=== PATIENT | female | born 1965 | race Caucasian/White ===

== ENCOUNTER 2017-03-08 16:15 | Emergency (ER) | payer MEDICARE, MEDICAID ==
[~2017-03-08] VITALS: Ht 162.6 cm; Wt 88.9 kg
[~2017-03-08 16:15] MED LIST: ACIPHEX; AMLO10TA82 PO; ATIVAN PO; CARB1TAB; CARB1TAB40; CHLO100T22; CLN.1T; CLON1TAB3; CLON2TAB3 PO; CPRH4T; CRS350T; DCS100C; DIAZ10TA3; DIVA-20; DOXE25CA2; FAMO20TA73; FURO40TA4 PO; HYDR-3720 PO; KCL10CCR; KCL20TCR PO; LOXA50CA; LTH300TCR; MELA1TAB11; METH10CP PO; MOBIC; NAPR-243 PO; NARDIL; NORVASC PO; OLAN1CAP5; PALI6TAB2; PANT40TA; PRAM1.5T4 PO; PRM25T; QUET300T; RABE20TA PO; RANI75TA57; REQUIP; SINEMET PO; STELAZINE PO; SUCR1TAB; TIZA4CAP PO; TIZA4TAB55; TRH2T; TRIA0.253; TRIA0.253 PO; TRIA1CAP PO; TRM50T; TRYP500C; WELLBUTRI PO; ZLP10T PO; [UNRECOGNIZED DRUG - OTHER]; [UNRECOGNIZED DRUG - OTHER]
[2017-03-08 16:35] LABS: BASOPHILS % (AUTO) 0 % (0-10); EOSINOPHILS % (AUTO) 0 % (0-10); LYMPHOCYTES % (AUTO) 20 % (12-44); MEAN CORPUSCULAR HEMOGLOBIN 26 PG (25-34); MEAN CORPUSCULAR HGB CONC 31 G/DL (32-36); MEAN CORPUSCULAR VOLUME 83 FL (80-99); MEAN PLATELET VOLUME 9.5 FL (7.4-10.4); MONOCYTES # (AUTO) 0.6 X 10^3 (0.0-1.0); MONOCYTES % (AUTO) 5 % (0-12); NEUTROPHILS # (AUTO) 7.5 X 10^3 (1.8-7.8); NEUTROPHILS % (AUTO) 74 % (42-75); PLATELET COUNT 357 10^3/uL (130-400); RED BLOOD COUNT 4.59 10^6/uL (4.35-5.85); RED CELL DISTRIBUTION WIDTH 14.1 % (10.0-14.5); WHITE BLOOD COUNT 10.1 10^3/uL (4.3-11.0)
[2017-03-08 16:52] LABS: ALANINE AMINOTRANSFERASE 20 U/L (0-55); ALBUMIN 3.8 GM/DL (3.2-4.5); ALCOHOL < 10 MG/DL (<10); ANION GAP 10 MMOL/L (5-14); ASPARTATE AMINO TRANSFERASE 17 U/L (5-34); BILIRUBIN,TOTAL 0.6 MG/DL (0.1-1.0); BLOOD UREA NITROGEN 13 MG/DL (7-18); BUN/CREATININE RATIO 15; CALCIUM 8.7 MG/DL (8.5-10.1); CARBON DIOXIDE 22 MMOL/L (21-32); CHLORIDE 109 MMOL/L (98-107); CREATININE SERUM 0.89 MG/DL (0.60-1.30); GFR ESTIMATED > 60; GLUCOSE 142 MG/DL (70-105); SALICYLATE < 5.0 MG/DL (5.0-20.0); SODIUM 141 MMOL/L (135-145); TOTAL PROTEIN 6.8 GM/DL (6.4-8.2)
[2017-03-08 16:59] LABS: ACETAMINOPHEN < 10 UG/ML (10-30)
[2017-03-08 17:47] LABS: BILIRUBIN,URINE NEGATIVE (NEGATIVE); KETONES,URINE NEGATIVE (NEGATIVE); LEUKOCYTE ESTERASE ,URINE 2+ (NEGATIVE); NITRITE,URINE NEGATIVE (NEGATIVE); PH,URINE 5 (5-9); PROTEIN,URINE NEGATIVE (NEGATIVE); UROBILINOGEN,URINE NORMAL (NORMAL)
--- NOTE | 2017-03-08 18:31 | ED Psychosocial ---
General Chief Complaint: Overdose Stated Complaint: SUICIDE ATTEMPT Nursing Triage Note: pt was brought into room by ems. pt states she doesn't know who called ems. pt states she took 14 zanaflex at approx. 1330 today. pt states "i wish i would go to sleep and not wake up". Source: patient, EMS Exam Limitations: no limitations (LALO WILSON MD) History of Present Illness Time seen by provider: 16:17 Initial Comments This 51-year-old woman is brought to the emergency room via EMS after being found in her car with decreased responsiveness. She admits to taking 14 Zanaflex 4 mg tablets at 14:00. She [place] and being upset about this and other life circumstances. She desired to end her life at that time. She reports knowing that the Zanaflex overdose would not end her life that she took them anyway because she wanted to sleep. She now feels that she would be safe from self-harm if she were to return home which she desires to do. She is somnolent but alert and oriented. Vital signs are stable. Poison control was contacted and recommended a 4-6 hour observation. Half-life is 2.5 hours. (LALO WILSON MD) Allergies and Home Medications Allergies Coded Allergies: No Known Drug Allergies (Unverified , 08/24/12) Home Medications Amlodipine Besylate 10 Mg Tablet, 1 EACH PO DAILY, (Reported) Clonazepam 2 Mg Tablet, 1 EACH PO HS, (Reported) Methylphenidate Hcl 10 Mg Cpmp.30.70, 10 MG PO QID, (Reported) Naproxen 500 Mg Tablet, 1 EACH PO TID PRN, #20 FOR PAIN Prescribed by: DOROTHY CRYSTAL on 08/24/12 1552 Pramipexole Di-Hcl 1.5 Mg Tablet, 1.5 MG PO HS, (Reported) Rabeprazole Sodium 20 Mg Tablet.dr, 20 MG PO DAILY, (Reported) Tizanidine Hcl 4 Mg Capsule, 4 MG PO TID, #15 Prescribed by: DOROTHY CRYSTAL on 08/24/12 1552 Triamterene/Hctz 1 Each Capsule, 1 EACH PO DAILY, (Reported) Triazolam 0.25 Mg Tablet, 0.25 MG PO BID, (Reported) Zolpidem Tartrate 10 Mg Tab, 10 MG PO HS, (Reported) [Mobic] , (Reported) Constitutional: see HPI EENTM: no symptoms reported Respiratory: no symptoms reported Cardiovascular: no symptoms reported Gastrointestinal: no symptoms reported Genitourinary: no symptoms reported Musculoskeletal: no symptoms reported Skin: no symptoms reported Psychiatric/Neurological: See HPI (LALO WILSON MD) Past Wutrfhi-Ztjuqb-Rncugp Hx Patient Social History Alcohol Use: Denies Use Recreational Drug Use: No Smoking Status: Never a Smoker 2nd Hand Smoke Exposure: No Recent Foreign Travel: No Contact w/Someone Who Travel: No Recent Infectious Disease Expo: No Recent Hopitalizations: No (PNEUMONIA CHILD ) (LALO WILSON MD) Immunizations Up To Date Date of Influenza Vaccine: Jun 06, 2012 (LALO WILSON MD) Seasonal Allergies Seasonal Allergies: No (LALO WILSON MD) Surgeries HX Surgeries: Yes Surgeries: Orthopedic (cervical fusion, shoulder) (LALO WILSON MD) Respiratory Hx Respiratory Disorders: No (LALO WILSON MD) Cardiovascular Hx Cardiac Disorders: Yes (LALO WILSON MD) Neurological Hx Neurological Disorders: No (LALO WILSON MD) Reproductive System Hx Reproductive Disorders: Yes (LALO WILSON MD) Genitourinary Hx Genitourinary Disorders: No (LALO WILSON MD) Gastrointestinal Hx Gastrointestinal Disorders: Yes (COLONOSCOPY NOTING REMOVED) (LALO WILSON MD) Musculoskeletal Hx Musculoskeletal Disorders: Yes Musculoskeletal Disorders: Degenerate Disk Disease (LALO WILSON MD) Endocrine Hx Endocrine Disorders: No (LALO WILSON MD) HEENT HX ENT Disorders: No (LALO WILSON MD) Cancer Hx Cancer: No (LALO WILSON MD) Psychosocial Hx Psychiatric Problems: Yes (BIPOLAR) Behavioral Health Disorders: Bipolar (LALO WILSON MD) Blood Transfusions Hx Blood Disorders: No (LALO WILSON MD) Physical Exam Vital Signs Vital Sign - Last 12Hours 03/08/17 16:15 Temp 98.2 Pulse 63 Resp 14 B/P (MAP) 109/67 Pulse Ox 95 O2 Delivery Room Air (GENNY VALENZUELA APRN) Vital Signs Capillary Refill : Less Than 3 Seconds (LALO WILSON MD) General Appearance: WD/WN, no apparent distress, other (somnolent) HEENT: PERRL/EOMI, normal ENT inspection, pharynx normal Neck: normal inspection Respiratory: lungs clear, normal breath sounds, no respiratory distress, no accessory muscle use Cardiovascular: regular rate, rhythm, no edema, no murmur Gastrointestinal: normal bowel sounds, non tender, soft Extremities: normal inspection, no pedal edema Neurologic/Psychiatric: 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 Admits to being suicidal earlier but now does not believe she is a harm to self) Skin: normal color, warm/dry (LALO WILSON MD) Progress/Results/Core Measures Results/Orders Lab Results Laboratory Tests Test 03/08/17 16:14 03/08/17 17:40 Range/Units White Blood Count 10.1 4.3-11.0 10^3/uL Red Blood Count 4.59 4.35-5.85 10^6/uL Hemoglobin 11.9 11.5-16.0 G/DL Hematocrit 38 35-52 % Mean Corpuscular Volume 83 80-99 FL Mean Corpuscular Hemoglobin 26 25-34 PG Mean Corpuscular Hemoglobin Concent 31 L 32-36 G/DL Red Cell Distribution Width 14.1 10.0-14.5 % Platelet Count 357 130-400 10^3/uL Mean Platelet Volume 9.5 7.4-10.4 FL Neutrophils (%) (Auto) 74 42-75 % Lymphocytes (%) (Auto) 20 12-44 % Monocytes (%) (Auto) 5 0-12 % Eosinophils (%) (Auto) 0 0-10 % Basophils (%) (Auto) 0 0-10 % Neutrophils # (Auto) 7.5 1.8-7.8 X 10^3 Lymphocytes # (Auto) 2.0 1.0-4.0 X 10^3 Monocytes # (Auto) 0.6 0.0-1.0 X 10^3 Eosinophils # (Auto) 0.0 0.0-0.3 10^3/uL Basophils # (Auto) 0.0 0.0-0.1 10^3/uL Sodium Level 141 135-145 MMOL/L Potassium Level 4.0 3.6-5.0 MMOL/L Chloride Level 109 H 98-107 MMOL/L Carbon Dioxide Level 22 21-32 MMOL/L Anion Gap 10 5-14 MMOL/L Blood Urea Nitrogen 13 7-18 MG/DL Creatinine 0.89 0.60-1.30 MG/DL Estimat Glomerular Filtration Rate > 60 BUN/Creatinine Ratio 15 Glucose Level 142 H 70-105 MG/DL Calcium Level 8.7 8.5-10.1 MG/DL Total Bilirubin 0.6 0.1-1.0 MG/DL Aspartate Amino Transf (AST/SGOT) 17 5-34 U/L Alanine Aminotransferase (ALT/SGPT) 20 0-55 U/L Alkaline Phosphatase 78 40-136 U/L Total Protein 6.8 6.4-8.2 GM/DL Albumin 3.8 3.2-4.5 GM/DL TSH White Testing 0.76 0.35-4.94 UIU/ML Serum Test, Qualitative NEGATIVE NEGATIVE Salicylates Level < 5.0 L 5.0-20.0 MG/DL Acetaminophen Level < 10 L 10-30 UG/ML Serum Alcohol < 10 <10 MG/DL Urine Color YELLOW Urine Clarity CLEAR Urine pH 5 5-9 Urine Specific Shafter 1.020 1.016-1.022 Urine Protein NEGATIVE NEGATIVE Urine Glucose (UA) NEGATIVE NEGATIVE Urine Ketones NEGATIVE NEGATIVE Urine Nitrite NEGATIVE NEGATIVE Urine Bilirubin NEGATIVE NEGATIVE Urine Urobilinogen NORMAL NORMAL MG/DL Urine Leukocyte Esterase 2+ H NEGATIVE Urine RBC (Auto) 1+ H NEGATIVE Urine RBC NONE /HPF Urine WBC 5-10 H /HPF Urine Squamous Epithelial Cells 5-10 /HPF Urine Crystals NONE /LPF Urine Bacteria TRACE /HPF Urine Casts NONE /LPF Urine Mucus NEGATIVE /LPF Urine Culture Indicated NO Urine Opiates Screen NEGATIVE NEGATIVE Urine Oxycodone Screen NEGATIVE NEGATIVE Urine Methadone Screen NEGATIVE NEGATIVE Urine Propoxyphene Screen NEGATIVE NEGATIVE Urine Barbiturates Screen NEGATIVE NEGATIVE Ur Tricyclic Antidepressants Screen NEGATIVE NEGATIVE Urine Phencyclidine Screen NEGATIVE NEGATIVE Urine Amphetamines Screen NEGATIVE NEGATIVE Urine Methamphetamines Screen NEGATIVE NEGATIVE Urine Benzodiazepines Screen NEGATIVE NEGATIVE Urine Cocaine Screen NEGATIVE NEGATIVE Urine Cannabinoids Screen NEGATIVE NEGATIVE (GENNY VALENZUELA APRN) Vital Signs/I&O Vital Sign - Last 12Hours 03/08/17 16:15 Temp 98.2 Pulse 63 Resp 14 B/P (MAP) 109/67 Pulse Ox 95 O2 Delivery Room Air (GENNY VALENZUELA APRN) Blood Pressure Mean: 81 Progress Note : Time: 18:35 Progress Note Patient feels she would be safe to return home at this time. I discussed the case with Ellie with [facility] as well. She is familiar with the patient. She feels the patient's family would be supportive and help monitor her for safety. However, the patient will not allow me to contact family and discussed the case. She does not want them to know what happened today and what caused her to overdose. Patient stated that she was still a little "fuzzy thinking" at the time I discussed options with her. We will allow her more time to metabolize the medication. Ellie will call at a later time to discuss the case with the patient and helped develop the plan. At present time there is no bed availability at [facility] or [facility] in [place] or at [facility] in [place]. Ellie was going to inquire about a bed at [facility] for overnight observation. Care of this patient is being transitioned to Genny Valenzuela. (LALO WILSON MD) ECG Initial ECG Impression Date: Mar 08, 2017 Initial ECG Impression Time: 16:25 Initial ECG Rate: 57 Initial ECG Rhythm: Normal Sinus Comment Normal sinus rhythm with no ST elevation or depression. LVH by voltage per automated read. No abnormal intervals. (LALO WILSON MD) Departure Communication Progress Notes 1920-spoke with Ellie on the phone. She will have crisis case hardener call the patient tomorrow at 10 a.m. She has spoken with the patient on the phone as well. Patient is no longer suicidal and has no intention to harm herself. Patient will be discharged home with instructions to call [phone] for any concerns or return to the emergency room. Currently heart rate is 57 sinus, blood pressure 90/57. We will observe her until her blood pressure improves. The patient herself does promise to me that she will not harm herself dustin 1932-blood pressure 105/53. We'll discharged home. Patient intends to walk to her friend's house which she states is just down the street. (GENNY VALENZUELA APRN) Impression Impression: Primary Impression: Suicide attempt Additional Impression: Overdose Qualified Codes: T50.902A - Poisoning by unspecified drugs, medicaments and biological substances, intentional self-harm, initial encounter Disposition: HOME, SELF-CARE Condition: Improved Departure-Patient Inst. Decision time for Depature: 19:33 (LALO WILSON MD) Referrals: DANIEL JEFFERY DO (PCP) Primary Care Physician YUNG MOSER (Family) Primary Care Physician Patient Instructions: ALCOHOL AND SUBSTANCE ABUSE Add. Discharge Instructions: 1. Your to call [phone] for any recurrent thoughts of hurting your self. Also , if you have these thoughts again before acting on them U should return to the emergency room. Otherwise, he will receive a phone call tomorrow at 10 a.m. check on you and arrange further mental health services on Wednesday. All discharge instructions reviewed with patient and/or family. Voiced understanding. LALO WILSON MD Mar 08, 2017 18:31 GENNY VALENZUELA APRN Mar 08, 2017 19:22
[2017-03-08 19:42] VITALS: BP 100/56
--- OUTSIDE RECORDS SUMMARY | 2017-03-10 15:20 | XMS REPORT ---
Author Author YUNG MOSER Organization [employer] Address Unknown Phone Unavailable Care Team Providers Care Paint Grinder Name Role Phone YUNG MOSER CP Unavailable Allergies No Known Allergies Problems Problem Type Condition Code Onset Dates Condition Status Problem Essential hypertension with goal blood pressure less than 130\/85 I10 Active Problem Chronic pain G89.29 Active Problem Gastroesophageal reflux disease without esophagitis K21.9 Active Problem Mixed hyperlipidemia E78.2 Active Problem Screening breast examination Z12.39 Active Problem History of allergic reaction Z88.9 Active Problem Pain in right shoulder M25.511 Active Problem Dysthymia F34.1 Active Problem Renal insufficiency N28.9 Active Medications Medication Code System Code Instructions Start Date End Date Status Dosage Percocet [facility] [address]-11 10-325 MG Orally every 12 hours prn must last 28 days- take 1 tablet Results No Known Results Summary Purpose [employer] Submission
--- OUTSIDE RECORDS SUMMARY | 2017-03-10 15:20 | XMS REPORT ---
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 Problem Other specified disease of hair and hair follicles 704.8 Active Problem Unspecified diseases of conjunctiva due to viruses 077.99 Active Problem Abdominal pain, unspecified site 789.00 Active Problem Essential hypertension with goal blood pressure less than 130\/85 I10 Active Problem Chronic pain G89.29 Active Problem Jaw pain 784.92 Active Problem Obesity, unspecified 278.00 Active Problem Pain in right shoulder M25.511 Active Problem Special screening examination, human papillomavirus [HPV] V73.81 Active Problem Abdominal pain, generalized 789.07 Active Problem Unspecified disorder of the teeth and supporting structures 525.9 Active Problem Borderline hyperlipidemia 272.4 Active Problem Colitis, enteritis, and gastroenteritis of presumed infectious origin 009.1 Active Problem Unspecified disorder of skin and subcutaneous tissue 709.9 Active Problem Chronic kidney disease, unspecified 585.9 Active Problem Unspecified hypotension 458.9 Active Problem Posttraumatic stress disorder 309.81 Active Problem Unspecified breast screening V76.10 Active Problem Edema 782.3 Active Problem Unspecified constipation 564.00 Active Problem Bipolar I disorder, most recent episode (or current) manic, unspecified 296.40 Active Medications Medication Code System Code Instructions Start Date End Date Status Dosage Percocet [facility] [address]-85 10-325 MG Orally every 12 hours prn must last 28 days take 1 tablet Results No Known Results Summary Purpose [employer] Submission
--- OUTSIDE RECORDS SUMMARY | 2017-03-10 15:20 | XMS REPORT ---
Author Author YUNG MOSER [facility] eClinicalWorks Address Unknown Phone Unavailable Care Team Providers Care Drafter Castings Name Role Phone YUNG MOSER CP Unavailable Allergies, Adverse Reactions, Alerts Substance Reaction Event Type Xanax agitation and anger Drug Allergy Mobic Info Not Available Drug Allergy Problems Problem Type Condition Code Onset Dates Condition Status Assessment Chronic pain G89.29 Active Assessment Upper respiratory infection J06.9 Active Problem Other abnormal glucose 790.29 Active Problem Unspecified breast screening V76.10 Active Problem Other chronic pain 338.29 Active Problem Edema 782.3 Active Problem Unspecified disorders of bursae and tendons in shoulder region 726.10 Active Problem Chest pain, other 786.59 Active Problem Other specified disease of hair and hair follicles 704.8 Active Problem Female stress incontinence 625.6 Active Problem Borderline hyperlipidemia 272.4 Active Problem Colitis, enteritis, and gastroenteritis of presumed infectious origin 009.1 Active Problem Special screening examination, human papillomavirus [HPV] V73.81 Active 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 Problem Chronic pain G89.29 Active Problem Unspecified disorder of kidney and ureter 593.9 Active Problem Unspecified diseases of conjunctiva due to viruses 077.99 Active Problem Abdominal pain, unspecified site 789.00 Active Problem Abdominal pain, generalized 789.07 Active Problem Unspecified disorder of the teeth and supporting structures 525.9 Active Problem Unspecified hypotension 458.9 Active Problem Posttraumatic stress disorder 309.81 Active Problem Obesity, unspecified 278.00 Active Problem Jaw pain 784.92 Active Problem Unspecified constipation 564.00 Active Problem Bipolar I disorder, most recent episode (or current) manic, unspecified 296.40 Active Problem Unspecified disorder of skin and subcutaneous tissue 709.9 Active Problem Chronic kidney disease, unspecified 585.9 Active Medications Medication Code System Code Instructions Start Date End Date Status Dosage Zofran ODT [facility] [address]-58 8 mg Oct 20, 2013 1 tablet by Oral route every 8 hours PRN nausea or vomiting ZyrTEC ND 0 10 mg Oct 26, 2014 1 tablet by Oral route 1 time per day Aciphex [facility] [address]-39 20 MG Orally Once a day 1 tablet EPINEPHrine [facility] [address]-30 0.3 mg/0.3 mL (1:1,000) Apr 30, 2014 0.3 mg by Intramuscular route 1 time per day PRN SEVERE ALLERGY TO BEES Tizanidine HCl [facility] 57383450277 4 MG TAKE ONE TABLET BY MOUTH EVERY 6 HOURS NEEDED Azithromycin [facility] [address]-69 250 MG Orally Once a day Aug 20, 2015 Aug 25, 2015 2 tablets on the first day, then 1 tablet daily for 4 days Simvastatin [facility] [address]-81 20 MG Orally Once a day at hs 1 tablet in the evening Percocet [facility] [address]-26 10-325 MG Orally every 12 hours prn must last 30 days take 1 tablet Mirapex [facility] 30843329122 1.5 MG TAKE ONE AND ONE-HALF TABLETS BY MOUTH AT BEDTIME Lisinopril [facility] [address]-39 20 mg Aug 16, 2014 take 1 tablet by Oral route 1 time per day Procedures Procedure Coding System Code Date Office Visit, Est Pt., Level 4 CPT-4 59406 Aug 20, 2015 [facility] VISIT ESTABLISHED PATIENT CPT-4 G0467 Aug 20, 2015 Vital Signs Date/Time: Aug 20, 2015 Temperature 98.1 F Weight 209 lbs Height 64 in BMI 35.87 Index Blood Pressure Diastolic 74 mmHg Blood Pressure Systolic 124 mmHg Cardiac Monitoring Heart Rate 76 bpm Results No Known Results Summary Purpose eClinicalWorks Submission
--- OUTSIDE RECORDS SUMMARY | 2017-03-10 15:20 | XMS REPORT ---
Author Author YUNG MOSER [facility] eClinicalWorks Address Unknown Phone Unavailable Care Team Providers Care Wire Stripping Machine Operator Name Role Phone YUNG MOSER CP Unavailable Allergies, Adverse Reactions, Alerts Substance Reaction Event Type Xanax agitation and anger Drug Allergy Mobic Info Not Available Drug Allergy Problems Problem Type Condition ICD-9 Code Onset Dates Condition Status Assessment Allergic rhinitis 477.9 Active Assessment GERD (gastroesophageal reflux disease) 530.81 Active Assessment Chronic renal insufficiency 585.9 Active Assessment Hypertension 401.9 Active Assessment Chronic pain 338.29 Active Assessment Borderline hyperlipidemia 272.4 Active Assessment Neck pain 723.1 Active Problem Bipolar I disorder, most recent episode (or current) manic, unspecified 296.40 Active Problem Other abnormal glucose 790.29 Active Problem Unspecified breast screening V76.10 Active Problem Other chronic pain 338.29 Active Problem Edema 782.3 Active Problem Female stress incontinence 625.6 Active Problem Chest pain, other 786.59 Active Problem Colitis, enteritis, and gastroenteritis of presumed infectious origin 009.1 Active Problem Abdominal pain, generalized 789.07 Active 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 Problem Unspecified disorder of kidney and ureter 593.9 Active Problem Borderline hyperlipidemia 272.4 Active Problem Unspecified disorders of bursae and tendons in shoulder region 726.10 Active Problem Abdominal pain, unspecified site 789.00 Active Problem Other specified disease of hair and hair follicles 704.8 Active Problem Unspecified disorder of the teeth and supporting structures 525.9 Active Problem Unspecified diseases of conjunctiva due to viruses 077.99 Active Problem Jaw pain 784.92 Active Problem Unspecified hypotension 458.9 Active Problem Special screening examination, human papillomavirus [HPV] V73.81 Active Problem Obesity, unspecified 278.00 Active Problem Chronic kidney disease, unspecified 585.9 Active Problem Unspecified constipation 564.00 Active Problem Posttraumatic stress disorder 309.81 Active Problem Unspecified disorder of skin and subcutaneous tissue 709.9 Active Medications Medication Code System Code Instructions Start Date End Date Status Dosage Mirapex [facility] 63976951080 1.5 MG TAKE ONE AND ONE-HALF TABLETS BY MOUTH AT BEDTIME EPINEPHrine [facility] [address]-60 0.3 mg/0.3 mL (1:1,000) Apr 30, 2014 0.3 mg by Intramuscular route 1 time per day PRN SEVERE ALLERGY TO BEES Aciphex [facility] [address]-25 20 MG Orally Once a day 1 tablet Lisinopril [facility] [address]-35 20 mg Aug 16, 2014 take 1 tablet by Oral route 1 time per day Tizanidine HCl [facility] 36253725908 4 MG TAKE ONE TABLET BY MOUTH EVERY 6 HOURS NEEDED Percocet [facility] [address]-83 10-325 MG Orally every 12 hours prn must last 30 days Jun 27, 2015 take 1 tablet ZyrTEC [facility] 0 10 mg Oct 26, 2014 1 tablet by Oral route 1 time per day Nystatin [facility] [address]-03 130878 UNIT/GM Externally Twice a day February 28, 2015 May 29, 2015 as directed Procedures Procedure Coding System Code Date [facility] VISIT ESTABLISHED PATIENT CPT-4 G0467 May 28, 2015 Office Visit, Est Pt., Level 4 CPT-4 85582 May 28, 2015 LAB NOT BILLED BY [facility] CPT-4 NOBLL May 28, 2015 Vital Signs Date/Time: May 28, 2015 Temperature 97.7 F Weight 208.6 lbs Height 64 in BMI 35.80 Index Blood Pressure Diastolic 86 mmHg Blood Pressure Systolic 128 mmHg Cardiac Monitoring Heart Rate 100 bpm Results Name Result Date Reference Range Unit Abnormality Flag ROUTINE VENIPUNCTURE Summary Purpose eClinicalWorks Submission
--- OUTSIDE RECORDS SUMMARY | 2017-03-10 15:20 | XMS REPORT ---
Author Author YUNG MOSER Organization eClinicalWorks Address Unknown Phone Unavailable Care Team Providers Care Machinist Mechanic Name Role Phone YUNG MOSER CP Unavailable [...] Start Date End Date Status Dosage Percocet [facility] [address]-19 10-325 MG Orally every 12 hours prn must last 28 days take 1 tablet Results No Known Results Summary Purpose eClinicalWorks Submission
--- OUTSIDE RECORDS SUMMARY | 2017-03-10 15:20 | XMS REPORT ---
Author Author YUNG MOSER Organization eClinicalWorks Address Unknown Phone Unavailable Care Team Providers Care Field Technician Name Role Phone YUNG MOSER CP Unavailable Allergies No Known Allergies Problems Problem Type Condition Code Onset Dates Condition Status Problem Bipolar I disorder, most recent episode [...] skin and subcutaneous tissue 709.9 Active Medications No Known Medications Results No Known Results Summary Purpose eClinicalWorks Submission
--- OUTSIDE RECORDS SUMMARY | 2017-03-10 15:20 | XMS REPORT ---
Author DANIEL Salcido [facility] eClinicalWorks Address Unknown Phone Unavailable Care Team Providers Care Maintenance Shop Technician Name Role Phone DANIEL JEFFERY CP Unavailable Allergies No Known Allergies Problems Problem Type Condition Code Onset Dates Condition Status Problem Essential hypertension with goal blood pressure less than 130\/85 I10 Active Problem History of allergic reaction Z88.9 Active Problem Pain in right shoulder M25.511 Active Problem Chronic pain G89.29 Active Problem Seasonal allergic rhinitis, unspecified allergic rhinitis trigger J30.2 Active Problem Screening breast examination Z12.39 Active Problem Restless leg syndrome G25.81 Active Problem Dysthymia F34.1 Active Problem Renal insufficiency N28.9 Active Problem Gastroesophageal reflux disease without esophagitis K21.9 Active Problem Mixed hyperlipidemia E78.2 Active Medications Medication Code System Code Instructions Start Date End Date Status Dosage Percocet [facility] [address]-80 10-325 MG Orally every 12 hours prn must last 28 days- take 1 tablet Results No Known Results Summary Purpose eClinicalWorks Submission
--- OUTSIDE RECORDS SUMMARY | 2017-03-10 15:20 | XMS REPORT ---
Author Author YUNG MOSER Organization eClinicalWorks Address Unknown Phone Unavailable Care Team Providers Care Conveyor Line Battery Charger Name Role Phone YUNG MOSER CP Unavailable Allergies No Known Allergies Problems Problem Type Condition Code Onset Dates Condition Status Problem Essential hypertension with goal blood pressure less than 130\/85 I10 Active Problem History of allergic reaction Z88.9 Active Problem Pain in right shoulder M25.511 Active Problem Seasonal allergic rhinitis, unspecified allergic rhinitis trigger J30.2 Active Problem Screening breast examination Z12.39 Active Problem Restless leg syndrome G25.81 Active Problem Dysthymia F34.1 Active Problem Renal insufficiency N28.9 Active Problem Gastroesophageal reflux disease without esophagitis K21.9 Active Problem Mixed hyperlipidemia E78.2 Active Assessment Seasonal allergic rhinitis, unspecified allergic rhinitis trigger J30.2 Active Assessment Mixed hyperlipidemia E78.2 Active Assessment Encounter for immunization Z23 Active Assessment Essential hypertension with goal blood pressure less than 130\/85 I10 Active Assessment Renal insufficiency N28.9 Active Assessment Dysthymia F34.1 Active Assessment Chronic pain G89.29 Active Assessment Gastroesophageal reflux disease without esophagitis K21.9 Active Problem Chronic pain G89.29 Active Medications No Known Medications Procedures Procedure Coding System Code Date VENIPUNCT, ROUTINE* CPT-4 08871 Jun 17, 2016 LAB [facility] C[facility]-4 NOBLL Jun 17, 2016 Results Name Result Date Reference Range Unit Abnormality Flag ROUTINE VENIPUNCTURE Summary Purpose eClinicalWorks Submission
--- OUTSIDE RECORDS SUMMARY | 2017-03-10 15:21 | XMS REPORT ---
Author Author YUNG MOSER Organization eClinicalWorks Address Unknown Phone Unavailable Care Team Providers Care Bundle Breaker Name Role Phone YUNG MOSER CP Unavailable [...] Active Problem Renal insufficiency N28.9 Active Medications No Known Medications Results No Known Results Summary Purpose eClinicalWorks Submission
--- OUTSIDE RECORDS SUMMARY | 2017-03-10 15:21 | XMS REPORT ---
Author Author YUNG MOSER [facility] Address [address] [place] [address] Care Team Providers Care Hot Metal Car Operator Name Role Phone YUNG MOSER Unavailable PROBLEMS Type Condition ICD9-CM Code [id number] Code Onset Dates Condition Status SNOMED Code Problem Pain in right shoulder M25.511 Active 42075019 Problem Renal insufficiency N28.9 Active 007853698 Problem History of allergic reaction Z88.9 Active 191432425 Problem Chronic pain G89.29 Active 00180104 Problem Essential hypertension with goal blood pressure less than 130\/85 I10 Active 19349004 Problem Restless leg syndrome G25.81 Active 28383596 Problem Seasonal allergic rhinitis, unspecified allergic rhinitis trigger J30.2 Active 697903408 Problem Mixed hyperlipidemia E78.2 Active 614728214 Problem Dysthymia F34.1 Active 58688776 Problem Screening breast examination Z12.39 Active 101644193 Problem Gastroesophageal reflux disease without esophagitis K21.9 Active 883331593 ALLERGIES Unknown Allergies SOCIAL HISTORY No smoking Hx information available PLAN OF CARE VITAL SIGNS MEDICATIONS Medication Instructions Dosage Frequency Start Date End Date Duration Status Percocet 10-325 MG Orally every 12 hours prn must last 28 days- take 1 tablet Active RESULTS No Results PROCEDURES No Known procedures IMMUNIZATIONS No Known Immunizations
--- OUTSIDE RECORDS SUMMARY | 2017-03-10 15:21 | XMS REPORT ---
Author Author JAMIE ROTHMAN Organization eClinicalWorks Address Unknown Phone Unavailable Care Team Providers Care Manager Supplier Name Role Phone JAMIE ROTHMAN CP Unavailable Allergies No Known Allergies Problems [...] Date Status Dosage Percocet [facility] [address]-37 10-325 MG Orally every 12 hours prn must last 28 days- take 1 tablet Results No Known Results Summary Purpose eClinicalWorks Submission
--- OUTSIDE RECORDS SUMMARY | 2017-03-10 15:21 | XMS REPORT ---
Author Author YUNG MOSER [facility] eClinicalWorks Address Unknown Phone Unavailable Care Team Providers Care Geochemical Manager Name Role Phone YUNG MOSER CP Unavailable [...] unspecified allergic rhinitis trigger J30.2 Active Assessment Renal insufficiency N28.9 Active Assessment Encounter for immunization Z23 Active Assessment Gastroesophageal reflux disease without esophagitis K21.9 Active Assessment Essential hypertension with goal blood pressure less than 130\/85 I10 Active Assessment Mixed hyperlipidemia E78.2 Active Assessment Chronic pain G89.29 Active Assessment Dysthymia F34.1 Active Problem Chronic pain G89.29 Active Medications Medication Code System Code Instructions Start Date End Date Status Dosage Nystatin [facility] [address]-70 059707 UNIT/GM Externally Twice a day February 26, 2016 1 to affected area Simvastatin [facility] [address]-18 20 MG Orally Once a day at hs 1 tablet in the evening EPINEPHrine [facility] [address]-66 0.3 mg/0.3 mL (1:1,000) Apr 30, 2014 0.3 mg by Intramuscular route 1 time per day PRN SEVERE ALLERGY TO BEES Aciphex [facility] [address]-58 20 MG Orally Once a day 1 tablet Mirapex [facility] 24588614656 1.5 MG Orally Once a day 1.5 tablet before bedtime Percocet [facility] [address]-21 10-325 MG Orally every 12 hours prn must last 28 days- take 1 tablet Tizanidine HCl [facility] 74970265145 4 MG TAKE ONE TABLET BY MOUTH EVERY 6 HOURS NEEDED Lisinopril [facility] 54638203267 20 MG oral daily 1 tablet Procedures Procedure Coding System Code Date Office Visit, Est Pt., Level 4 CPT-4 89943 Jun 16, 2016 FLUARIX QUAD P-FREE 3 AND UP .50 2015 CPT-4 03769 Jun 16, 2016 [facility] VISIT ESTABLISHED PATIENT CPT-4 G0467 Jun 16, 2016 KENALOG 40 MG/ML (PER 10 MG) CPT-4 J3301 Jun 16, 2016 SINGLE IMMUNIZATION ADMIN CPT-4 23258 Jun 16, 2016 THER/PROPH/DIAG INJ, SC/IM CPT-4 62995 Jun 16, 2016 Vital Signs Date/Time: Jun 16, 2016 Cardiac Monitoring Heart Rate 70 bpm Weight 212 lbs Height 64 in BMI 36.39 Index Blood Pressure Diastolic 88 mmHg Blood Pressure Systolic 128 mmHg Results No Known Results Immunizations Vaccine Administration Date FLUARIX QUAD P-FREE 3 AND UP .50 2015Jun 16, 2016 Summary Purpose eClinicalWorks Submission
--- OUTSIDE RECORDS SUMMARY | 2017-03-10 15:21 | XMS REPORT ---
Author Author YUNG MOSER [facility] eClinicalWorks Address Unknown Phone Unavailable Care Team Providers Care Restaurant Recruiter Name Role Phone YUNG MOSER CP Unavailable Allergies, Adverse Reactions, Alerts Substance Reaction Event Type Xanax agitation and anger Drug Allergy Mobic Info Not Available Drug Allergy Problems Problem Type Condition Code Onset Dates Condition Status Assessment Encounter for immunization Z23 Active Assessment Chronic pain G89.29 Active Problem Bipolar I disorder, most recent [...] Start Date End Date Status Dosage Percocet [facility] [address]-97 10-325 MG Orally every 12 hours prn must last 30 days take 1 tablet Tizanidine HCl [facility] 24836947232 4 MG TAKE ONE TABLET BY MOUTH EVERY 6 HOURS NEEDED Aciphex [facility] [address]-55 20 MG Orally Once a day 1 tablet EPINEPHrine [facility] [address]-20 0.3 mg/0.3 mL (1:1,000) Apr 30, 2014 0.3 mg by Intramuscular route 1 time per day PRN SEVERE ALLERGY TO BEES ZyrTEC ND 0 10 mg Oct 26, 2014 1 tablet by Oral route 1 time per day Zofran ODT [facility] [address]-20 8 mg Oct 20, 2013 1 tablet by Oral route every 8 hours PRN nausea or vomiting Mirapex [facility] 27229087489 1.5 MG TAKE ONE AND ONE-HALF TABLETS BY MOUTH AT BEDTIME Simvastatin [facility] [address]-02 20 MG Orally Once a day at hs 1 tablet in the evening Lisinopril [facility] [address]-61 20 mg Aug 16, 2014 take 1 tablet by Oral route 1 time per day Procedures Procedure Coding System Code Date FLUARIX QUAD (3 & UP)-BIG Launcher-2014 CPT-4 75416 Jul 31, 2015 SINGLE IMMUNIZATION ADMIN CPT-4 02952 Jul 31, 2015 No Charge CPT-4 65798 Jul 31, 2015 Office Visit, Est Pt., Level 3 CPT-4 27972 Jul 31, 2015 [facility] VISIT ESTABLISHED PATIENT CPT-4 G0467 Jul 31, 2015 Vital Signs Date/Time: Jul 31, 2015 Temperature 98.4 F Weight 211.5 lbs Height 64 in BMI 36.30 Index Blood Pressure Diastolic 80 mmHg Blood Pressure Systolic 140 mmHg Cardiac Monitoring Heart Rate 80 bpm Results No Known Results Immunizations Vaccine Administration Date FLUARIX QUAD (3 & UP)-BIG Launcher-2014Jul 31, 2015 Summary Purpose eClinicalWorks Submission
--- OUTSIDE RECORDS SUMMARY | 2017-03-10 15:21 | XMS REPORT ---
Author Author YUNG MOSER [facility] eClinicalWorks Address Unknown Phone Unavailable Care Team Providers Care Sushi Chef Name Role Phone YUNG MOSER CP Unavailable [...] Start Date End Date Status Dosage Percocet [facility] [address]-88 10-325 MG Orally every 12 hours prn must last 28 days- APPT neEDED take 1 tablet Results No Known Results Summary Purpose eClinicalWorks Submission
--- OUTSIDE RECORDS SUMMARY | 2017-03-10 15:21 | XMS REPORT ---
Author Author YUNG MOSER Organization eClinicalWorks Address Unknown Phone Unavailable Care Team Providers Care Supervisor Propellant Charge Loading Name Role Phone YUNG MOSER CP Unavailable [...] Start Date End Date Status Dosage Percocet [facility] [address]-49 10-325 MG Orally every 12 hours prn must last 30 days take 1 tablet Results No Known Results Summary Purpose eClinicalWorks Submission
--- OUTSIDE RECORDS SUMMARY | 2017-03-10 15:21 | XMS REPORT ---
Author Author YUNG MOSER Organization eClinicalWorks Address Unknown Phone Unavailable Care Team Providers Care Behavior Interventionist Name Role Phone YUNG MOSER CP Unavailable [...] Start Date End Date Status Dosage Percocet [facility] [address]-02 10-325 MG Orally every 12 hours prn must last 30 days take 1 tablet Results No Known Results Summary Purpose eClinicalWorks Submission
--- OUTSIDE RECORDS SUMMARY | 2017-03-10 15:21 | XMS REPORT ---
Author Author YUNG MOSER Organization eClinicalWorks Address Unknown Phone Unavailable Care Team Providers Care Disc Inspector Name Role Phone YUNG MOSER CP Unavailable [...] Date End Date Status Dosage Percocet [facility] [address]-62 10-325 MG Orally every 12 hours prn must last 28 days take 1 tablet Results No Known Results Summary Purpose eClinicalWorks Submission
== END 2017-03-08 19:42 | disposition home or self-care (01) ==
LOC: EDUNIT# 16:15 → ER 16:17
DX: T42.8X2A Poisoning by antiparkinsonism drugs and other central muscle-tone depressants, intentional self-harm, initial encounter (principal); R45.851 Suicidal ideations; F31.9 Bipolar disorder, unspecified; M51.36 Other intervertebral disc degeneration, lumbar region; Z98.1 Arthrodesis status
CPT/HCPCS: 36415; 80053; 80306; 80320; 80329; 81000; 84443; 84703; 85025; 93041

== ENCOUNTER 2017-03-10 08:42 | Emergency (ER) | payer MEDICARE, MEDICAID ==
[~2017-03-10] VITALS: Ht 162.6 cm; Wt 89.1 kg
[2017-03-10] MEDS ORDERED: TETANUS,DIPTH,PERTUSS P/F (BOOSTRIX) 0.5 ML VIAL IM STA (08:58)
[2017-03-10] MEDS ORDERED: LIDOCAINE 1% INJ 20 ML (XYLOCAINE) VIAL INJ STA (08:58)
--- NOTE | 2017-03-10 09:05 | ED Upper Extremity ---
General Chief Complaint: Laceration Stated Complaint: LT HAND LACERATION Nursing Triage Note: Pt reports she was "weedeating with a machete" when she tried to stick the machete in the ground and her L hand slid down the blade. Nursing Sepsis Screen: No Definite Risk Source: patient Exam Limitations: no limitations History of Present Illness Time seen by provider: 08:52 Initial Comments Here with report of left hand laceration. She states that she was using a machete to cut down weeds. She states that she was pushing a knife down onto the ground and her hand slipped and went down the blade cutting the web space of the thumb and area on her palm. Reports a moderate amount of bleeding but controlled with direct pressure. Denies other injury. Tetanus not up-to-date. Onset: just prior to arrival Severity: moderate Pain/Injury Location: left hand Method of Injury: incised Modifying Factors: Improves With Immobilization, Worse With Movement Allergies and Home Medications Allergies Coded Allergies: No Known Drug Allergies (Unverified , 08/24/12) Home Medications Amlodipine Besylate 10 Mg Tablet, 1 EACH PO DAILY, (Reported) Clonazepam 2 Mg Tablet, 1 EACH PO HS, (Reported) Methylphenidate Hcl 10 Mg Cpmp.30.70, 10 MG PO QID, (Reported) Naproxen 500 Mg Tablet, 1 EACH PO TID PRN, #20 FOR PAIN Prescribed by: DOROTHY CRYSTAL on 08/24/12 1552 Pramipexole Di-Hcl 1.5 Mg Tablet, 1.5 MG PO HS, (Reported) Rabeprazole Sodium 20 Mg Tablet.dr, 20 MG PO DAILY, (Reported) Tizanidine Hcl 4 Mg Capsule, 4 MG PO TID, #15 Prescribed by: DOROTHY CRYSTAL on 08/24/12 1552 Triamterene/Hctz 1 Each Capsule, 1 EACH PO DAILY, (Reported) Triazolam 0.25 Mg Tablet, 0.25 MG PO BID, (Reported) Zolpidem Tartrate 10 Mg Tab, 10 MG PO HS, (Reported) [Mobic] , (Reported) Constitutional: see HPI, No chills, No fever Respiratory: no symptoms reported Cardiovascular: no symptoms reported Skin: see HPI, lesions Psychiatric/Neurological: No Symptoms Reported Past Suszwkl-Gmgiji-Njshok Hx Patient Social History Alcohol Use: Denies Use Recreational Drug Use: No Smoking Status: Never a Smoker 2nd Hand Smoke Exposure: No Recent Foreign Travel: No Contact w/Someone Who Travel: No Recent Infectious Disease Expo: No Recent Hopitalizations: No Immunizations Up To Date Tetanus Booster (TDap): Unknown Date of Influenza Vaccine: Jun 06, 2012 Seasonal Allergies Seasonal Allergies: No Surgeries HX Surgeries: Yes Surgeries: Orthopedic Respiratory Hx Respiratory Disorders: No Cardiovascular Hx Cardiac Disorders: Yes Neurological Hx Neurological Disorders: No Reproductive System Hx Reproductive Disorders: Yes Genitourinary Hx Genitourinary Disorders: No Gastrointestinal Hx Gastrointestinal Disorders: Yes (COLONOSCOPY NOTING REMOVED) Musculoskeletal Hx Musculoskeletal Disorders: Yes Musculoskeletal Disorders: Degenerate Disk Disease Endocrine Hx Endocrine Disorders: No HEENT HX ENT Disorders: No Cancer Hx Cancer: No Psychosocial Hx Psychiatric Problems: Yes (BIPOLAR) Behavioral Health Disorders: Bipolar Blood Transfusions Hx Blood Disorders: No Reviewed Nursing Assessment Reviewed/Agree w Nursing PMH: Yes Family Medical History Significant Family History: No Pertinent Family Hx Physical Exam Vital Signs Vital Sign - Last 12Hours 03/10/17 08:50 Temp 97.3 Pulse 74 Resp 16 B/P (MAP) 145/83 Pulse Ox 98 O2 Delivery Room Air Capillary Refill : Less Than 3 Seconds General Appearance: WD/WN, no apparent distress Cardiovascular: regular rate, rhythm, no murmur Respiratory: lungs clear, normal breath sounds Hand: normal ROM, Left, laceration (approximately 3 cm laceration to the webspace of the thumb and palmar surface), soft tissue tenderness Neurologic/Psychiatric: no motor/sensory deficits, alert, normal mood/affect, oriented x 3 Skin: normal color, warm/dry Laceration Repair : Wound Location: Upper Extremities Other Wound Location left hand first web space Wound Length (cm): 3 Wound's Depth, Shape: superficial, linear Wound Explored: contaminated Irrigated w/ Saline (ccs): 250 Betadine Prep?: Yes Anesthesia: 1% Lidocaine Volume Anesthetic (ccs): 5 Wound Debrided: minimal Suture: Prolene Suture Size: 4-0 Number of Sutures: 6 Layer Closure?: 1 Number Deep Layer Sutures: 0 Sterile Dressing Applied?: Yes Progress Tolerated procedure well with no complications. Figure 8 suture placed at the thumb side of laceration due to venous bleeding which was controlled well with suture. Covered with antibiotic ointment and dressing. Progress/Results/Core Measures Results/Orders My Orders Orders - COWLITZALEXEY BERRY MDtSalazar(Ruslan),Tet Adult (Boostrix (03/10/17 08:58) Lidocaine 1% Injection (Xylocaine 1% Inj (03/10/17 08:58) Vital Signs/I&O Vital Sign - Last 12Hours 03/10/17 08:50 Temp 97.3 Pulse 74 Resp 16 B/P (MAP) 145/83 Pulse Ox 98 O2 Delivery Room Air Blood Pressure Mean: 103 Progress Note : Progress Note Seen and evaluated. Tetanus updated. Local anesthesia to hand and then copious cleaning with saline. Departure Impression Impression: Primary Impression: Laceration of left hand Qualified Codes: S61.412A - Laceration without foreign body of left hand, initial encounter Disposition: HOME, SELF-CARE Condition: Improved Decision to Admit Reason: Admit from ER (General) Departure-Patient Inst. Decision time for Depature: 09:04 Referrals: DANIEL JEFFERY DO (PCP) Primary Care Physician YUNG MOSER (Family) Primary Care Physician Patient Instructions: Laceration Repair With Stitches (DC) Add. Discharge Instructions: All discharge instructions reviewed with patient and/or family. Voiced understanding. Take medications as directed. Continue home pain medicines as prescribed. You may use Tylenol 1000 mg every 8 hours as needed for pain as well. Sutures out in 10-14 days. Keep wound clean. You may use antibiotic ointment and Band-Aids over wound. Change dressing daily. After 5-7 days, you may just use dry dressing. It is okay to shower but do not soak the wound in any water. Clean daily with water and mild soap and pat wound dry. Return for worse pain, fever, foul-smelling drainage, red streaks up the hand or arm or other concerns as needed. Scripts Cephalexin (Cephalexin) 500 Mg Tablet 500 MG PO QID, #21 TAB 0 Refills Prov: ALEXEY SARAVIA MD 03/10/17 ALEXEY SARAVIA MD Mar 10, 2017 09:05
[2017-03-10] MEDS ORDERED: CEPH500T PO (09:31)
[2017-03-10 09:35] VITALS: BP 145/83
== END 2017-03-10 09:35 | disposition home or self-care (01) ==
LOC: EDUNIT# 08:42 → ER 08:44
DX: S61.412A Laceration without foreign body of left hand, initial encounter (principal); M47.9 Spondylosis, unspecified; F31.9 Bipolar disorder, unspecified; W26.0XXA Contact with knife, initial encounter
CPT/HCPCS: 12002; 90471; 90715

== ENCOUNTER 2018-04-17 01:31 | Emergency (ER) | payer MEDICARE, MEDICAID ==
[~2018-04-17] VITALS: Ht 162.6 cm; Wt 74.8 kg
[~2018-04-17 01:31] MED LIST changes: +CEPH500T PO
--- OUTSIDE RECORDS SUMMARY | 2018-04-17 01:37 | XMS REPORT ---
Author Author YUNG MOSER [facility] Address [address] [place] [address] Care Team Providers Care Agile Project Manager Name Role Phone YUNG MOSER Unavailable PROBLEMS Type Condition ICD9-CM Code [id number] Code Onset Dates Condition Status SNOMED Code Problem Gastroesophageal reflux disease without esophagitis K21.9 Active 458270734 Problem Dysthymia F34.1 Active 47320687 Problem Screening breast examination Z12.39 Active 490535712 Problem Chronic pain G89.29 Active 36564350 Problem Pain in right shoulder M25.511 Active 74258462 Problem Essential hypertension with goal blood pressure less than 130\/85 I10 Active 38639796 Problem Hoarseness or changing voice R49.9 Active 565539323 Problem Restless leg syndrome G25.81 Active 23454537 Problem History of allergic reaction Z88.9 Active 251806452 Problem Mixed hyperlipidemia E78.2 Active 418849767 Problem Seasonal allergic rhinitis, unspecified allergic rhinitis trigger J30.2 Active 989921663 Problem Renal insufficiency N28.9 Active 959625535 ALLERGIES Substance Reaction Event Type Date Status Xanax agitation and anger Drug Allergy Oct, Active Mobic Unknown Drug Allergy Oct, Active SOCIAL HISTORY Never Assessed PLAN OF CARE Activity Details Follow Up 3 Months or FU to Dr. Gamez Reason:Pain/HTN VITAL SIGNS Height 64 in 2016-10-13 Weight 213.9 lbs 2016-10-13 Temperature 98.2 degrees Fahrenheit 2016-10-13 Heart Rate 70 bpm 2016-10-13 Respiratory Rate 18 2016-10-13 BMI 36.71 kg/m2 2016-10-13 Blood pressure systolic 131 mmHg 2016-10-13 Blood pressure diastolic 86 mmHg 2016-10-13 MEDICATIONS Medication Instructions Dosage Frequency Start Date End Date Duration Status EPINEPHrine 0.3 mg/0.3 mL (1:1,000) 0.3 mg by Intramuscular route 1 time per day PRN SEVERE ALLERGY TO BEES Apr, Active Lisinopril 20 MG oral daily 1 tablet 24h 30 Active Aciphex 20 MG Orally Once a day 1 tablet 24h Active ZyrTEC 10 mg by oral route Once a day 1 tablet 24h 20 Oct, 2014 May, 30 days Active Tizanidine HCl 4 MG TAKE ONE TABLET BY MOUTH EVERY 6 HOURS NEEDED 30 Active Percocet 10-325 MG Orally every 12 hours prn must last 28 days- take 1 tablet Active Mirapex 1.5 MG Orally Once a day 1.5 tablet before bedtime 24h 30 Active Tizanidine HCl 4 MG TAKE ONE TABLET BY MOUTH EVERY 6 HOURS NEEDED Active Nystatin 819513 UNIT/GM Externally Twice a day 1 to affected area 12h 22 Feb, 2016 Active Simvastatin 20 MG Orally Once a day at hs 1 tablet in the evening Active RESULTS Name Result Date Reference Range [facility] 2016-10-13 Glucose, Serum 107 65-99 BUN 20 6-24 Creatinine, Serum 1.09 0.57-1.00 eGFR If NonAfricn Am 59 >59 eGFR If Africn Am 68 >59 BUN/Creatinine Ratio 18 9-23 Sodium, Serum 144 134-144 Potassium, Serum 4.7 3.5-5.2 Chloride, Serum 103 96-106 Carbon Dioxide, Total 28 18-29 Calcium, Serum 9.0 8.7-10.2 Protein, Total, Serum 6.5 6.0-8.5 Albumin, Serum 4.0 3.5-5.5 Globulin, Total 2.5 1.5-4.5 A/G Ratio 1.6 1.1-2.5 Bilirubin, Total 0.2 0.0-1.2 Alkaline Phosphatase, S 80 39-117 AST (SGOT) 18 0-40 ALT (SGPT) 18 0-32 PROCEDURES Procedure Date Ordered Result Body Site [facility] Oct [facility], 2016 [facility] VISIT ESTABLISHED PATIENT Oct 13, 2016 VENIPUNCT, ROUTINE* Oct 13, 2016 IMMUNIZATIONS No Known Immunizations MEDICAL (GENERAL) HISTORY Type Description Date Medical History gastroesophageal reflux disease (GERD) Medical History Hiatal hernia Medical History CAD Hyperlipidemia Medical History HTN Medical History headache Medical History chronic renal insufficiency Medical History allergic rhinitis Medical History Bipolar Disorder/Depression/PTSD/Borderline Personality Disorder Medical History PTSD Medical History Neck Pain/Arthritis/Chronic Pain Medical History Asthma- Restrictive Lung Disease Medical History anemia Medical History eating disorder Medical History myalgias Medical History Bipolar I disorder, most recent episode (or current) manic, unspecified Surgical History EGD 2007 Surgical History colonoscopy 2007 Surgical History heart cath-EF 65% 08/2010 Surgical History spine surgery vertebral spinal fusion of 3 disc 12/2005 Surgical History Rotator Cuff Repair 12/2013 Hospitalization History multiple psychiatric admission
--- OUTSIDE RECORDS SUMMARY | 2018-04-17 01:38 | XMS REPORT ---
Author Author ANDREA GONSALEZ Organization [facility] Address [address] [place] [address] Care Team Providers Care Senior Coldfusion Developer Name Role Phone JUANJO GONSALEZE Unavailable PROBLEMS Type Condition ICD9-CM Code [id number] Code Onset Dates Condition Status SNOMED Code Problem Gastroesophageal reflux disease without esophagitis K21.9 Active 409532519 Problem Dysthymia F34.1 Active 74401092 Problem Screening breast examination Z12.39 Active 656697579 Problem Chronic pain G89.29 Active 44105039 Problem Pain in right shoulder M25.511 Active 33870410 Problem Essential hypertension with goal blood pressure less than 130\/85 I10 Active 28373834 Problem Hoarseness or changing voice R49.9 Active 813829545 Problem Restless leg syndrome G25.81 Active 12548988 Problem History of allergic reaction Z88.9 Active 640830391 Problem Mixed hyperlipidemia E78.2 Active 258202036 Problem Seasonal allergic rhinitis, unspecified allergic rhinitis trigger J30.2 Active 423208437 Problem Renal insufficiency N28.9 Active 781764753 ALLERGIES No Information SOCIAL HISTORY Never Assessed PLAN OF CARE VITAL SIGNS MEDICATIONS Medication Instructions Dosage Frequency Start Date End Date Duration Status Percocet 10-325 MG Orally every 12 hours prn must last 28 days- take 1 tablet Active RESULTS No Results PROCEDURES No Known procedures IMMUNIZATIONS No Known Immunizations MEDICAL (GENERAL) HISTORY [...]
--- OUTSIDE RECORDS SUMMARY | 2018-04-17 01:38 | XMS REPORT ---
Author Author YUNG MOSER [facility] Address [address] [place] [address] Care Team Providers Care Blending Tank Tender Helper Name Role Phone YUNG MOSER Unavailable PROBLEMS Type Condition ICD9-CM Code [id number] Code Onset Dates Condition Status SNOMED Code Problem Gastroesophageal reflux disease without esophagitis K21.9 Active 068058024 Problem Dysthymia F34.1 Active 28381731 Problem Screening breast examination Z12.39 Active 417467531 Problem Chronic pain G89.29 Active 61165651 Problem Pain in right shoulder M25.511 Active 83933307 Problem Essential hypertension with goal blood pressure less than 130\/85 I10 Active 19264740 Problem Hoarseness or changing voice R49.9 Active 904864706 Problem Restless leg syndrome G25.81 Active 86629700 Problem History of allergic reaction Z88.9 Active 895704777 Problem Mixed hyperlipidemia E78.2 Active 939931150 Problem Seasonal allergic rhinitis, unspecified allergic rhinitis trigger J30.2 Active 159278216 Problem Renal insufficiency N28.9 Active 262816460 ALLERGIES No Information SOCIAL HISTORY Never Assessed PLAN OF CARE VITAL SIGNS MEDICATIONS Medication Instructions Dosage Frequency Start Date End Date Duration Status Percocet 10-325 MG Orally every 12 hrs MUST LAST 28 DAYS 1 tablet as needed Oct, Nov, 28 days Active RESULTS No Results PROCEDURES No Known [...]
--- OUTSIDE RECORDS SUMMARY | 2018-04-17 01:39 | XMS REPORT ---
Author Author JUAN A MOELLER [facility] Address [address] [place] [address] Care Team Providers Care Saddle Stitcher Name Role Phone MOELLERANIVALJUAN A Unavailable PROBLEMS Type Condition ICD9-CM Code XOB57-HY Code Onset Dates Condition Status SNOMED Code Problem Gastroesophageal reflux disease without esophagitis K21.9 Active 079682438 Problem Dysthymia F34.1 Active 76338828 Problem Screening breast examination Z12.39 Active 594472433 Problem Chronic pain G89.29 Active 27562057 Problem Pain in right shoulder M25.511 Active 95756716 Problem Essential hypertension with goal blood pressure less than 130\/85 I10 Active 41196150 Problem Hoarseness or changing voice R49.9 Active 777708459 Problem Restless leg syndrome G25.81 Active 77729589 Problem History of allergic reaction Z88.9 Active 738750418 Problem Mixed hyperlipidemia E78.2 Active 789514127 Problem Seasonal allergic rhinitis, unspecified allergic rhinitis trigger J30.2 Active 346965586 Problem Renal insufficiency N28.9 Active 982466945 ALLERGIES Substance Reaction Event Type Date Status Xanax agitation and anger Drug Allergy Jul, Active Mobic hives Drug Allergy Jul, Active ENCOUNTERS Encounter Location Date Diagnosis [facility] [address] [id number] [address] Sep, Nausea R11.0 and Diarrhea, unspecified type R19.7 [facility] [address] [id number] [address] Jul, Mixed hyperlipidemia E78.2 [facility] [address] [id number] [address] Jul, Essential hypertension with goal blood pressure less than 130\/85 I10 ; Gastroesophageal reflux disease without esophagitis K21.9 ; Mixed hyperlipidemia E78.2 ; Renal insufficiency N28.9 ; Restless leg syndrome G25.81 ; Seasonal allergic rhinitis, unspecified allergic rhinitis trigger J30.2 ; Chronic pain G89.29 and History of allergic reaction Z88.9 [facility] [id number] [place] [address] Jul, Viral gastroenteritis A08.4 and Homeless Z59.0 [facility] [address] [address] Feb, [facility] [address] [address] Feb, Essential hypertension with goal blood pressure less than 130\/85 I10 ; Gastroesophageal reflux disease without esophagitis K21.9 ; Mixed hyperlipidemia E78.2 ; Renal insufficiency N28.9 ; Restless leg syndrome G25.81 ; Seasonal allergic rhinitis, unspecified allergic rhinitis trigger J30.2 ; Cough R05 ; Exposure, initial encounter T75.89XA and Chronic pain G89.29 [facility] [address] [address] January, Chronic pain G89.29 [place] [address] [address] Dec, Chronic pain G89.29 [place] [address] [address] Dec, Chronic pain G89.29 [place] [address] [address] 8[address] Dec, Chronic pain G89.29 [place] [address] [address] Nov, Chronic pain G89.29 [place] [address] [address] Nov, [facility] [address] [address] Oct, Chronic pain G89.29 [place] [id number] [place] [address] 07 Oct, 2016 Chronic pain G89.29 ; Renal insufficiency N28.9 ; Essential hypertension with goal blood pressure less than 130\/85 I10 ; Gastroesophageal reflux disease without esophagitis K21.9 ; Dysthymia F34.1 ; Mixed hyperlipidemia E78.2 ; Seasonal allergic rhinitis, unspecified allergic rhinitis trigger J30.2 and Hoarseness or changing voice R49.9 [place] [id number] [place] [address] Sep, [place] [id number] [place] [address] 5411 Aug, [place] [id number] [place] [address]- 6256 Jul, [place] [id number] [place] [address] 6828 Jun, [place] [id number] [place] [address]- 4960 Jun, Chronic pain G89.29 ; Renal insufficiency N28.9 ; Essential hypertension with goal blood pressure less than 130\/85 I10 ; Gastroesophageal reflux disease without esophagitis K21.9 ; Dysthymia F34.1 ; Mixed hyperlipidemia E78.2 ; Seasonal allergic rhinitis, unspecified allergic rhinitis trigger J30.2 and Encounter for immunization Z23 [place] [id number] [place] [address] 4[address]- 9982 11 Jun, 2016 Chronic pain G89.29 ; Essential hypertension with goal blood pressure less than 130\/85 I10 ; Gastroesophageal reflux disease without esophagitis K21.9 ; Dysthymia F34.1 ; Mixed hyperlipidemia E78.2 ; Renal insufficiency N28.9 ; Seasonal allergic rhinitis, unspecified allergic rhinitis trigger J30.2 and Encounter for immunization Z23 [place] [id number] [place] [address]- 37[address] May, [place] [address] [place] [address] Apr, [facility] [id number] [place] [address] 22024- 9875 Mar, [facility] [id number] [place] [address] 00525- 6314 Mar, [facility] [id number] [place] [address] 04240- 3004 Feb, Chronic pain G89.29 ; Screening breast examination Z12.39 ; Essential hypertension with goal blood pressure less than 130\/85 I10 ; Gastroesophageal reflux disease without esophagitis K21.9 ; Dysthymia F34.1 ; Mixed hyperlipidemia E78.2 ; Renal insufficiency N28.9 and History of allergic reaction Z88.9 [facility] [id number] [place] [address] 65[address] 9134 January, [facility] [id number] [place] [address] 71433- 1888 Dec, [facility] [id number] [place] [address] 82356- 3440 Nov, Chronic pain G89.29 ; Pain in right shoulder M25.511 and Essential hypertension with goal blood pressure less than 130\/85 I10 [facility] [id number] [place] [address] 28568- 7233 Oct, [facility] [id number] [place] [address] 92371- 3964 Sep, [facility] [id number] [place] [address] 02614- 1878 Aug, [facility] [id number] [place] [address] 13288- 8745 Aug, Upper respiratory infection J06.9 and Chronic pain G89.29 [facility] [id number] [place] [address] 58830- 7248 Aug, [facility] [id number] [place] [address] 30080- 2574 Jul, Chronic pain G89.29 and Encounter for immunization Z23 [place] [address] [address]- [address]231 Jul, [facility] [address] [address]- [address] Jun, [facility] [address] [address]- 6[address] May, [facility] [address] 04793- 5997 May, Neck pain 723.1 ; Borderline hyperlipidemia 272.4 ; Chronic pain 338.29 ; Hypertension 401.9 ; Chronic renal insufficiency 585.9 ; Allergic rhinitis 477.9 and GERD (gastroesophageal reflux disease) 530.[address] [address] Apr, [facility] [address] [address]- 6869 Mar, [facility] [address] 88567- 9440 Feb, Hypertension 401.9 [facility] [address] [address]990- 2621 Feb, Neck pain 723.1 ; Chronic pain 338.29 ; Hypertension 401.9 ; Chronic renal insufficiency 585.9 ; Allergic rhinitis 477.9 and Yeast dermatitis 112.3 [facility] [id number] [place] [address] 42203- 1033 Feb, [facility] [address] 02152- 8306 January, Neck pain 723.1 ; Chronic pain 338.29 ; Hypertension 401.9 ; Anxiety 300.00 and Insomnia [address] [address]- [address] January, [facility] [place] [facility] [address] [id number] [place] [address] 5188 14 Dec, 2014 [facility] [place] [facility] [address] [id number] [place] [address]- 9460 13 Dec, 2014 [facility] [place] [facility] [address] [id number] [place] [address]- 5577 Nov, [facility] [place] [facility] [address] [id number] [place] [address]- 7505 Nov, [facility] [place] [facility] [address] [id number] [place] [address]- 9147 Nov, [facility] [place] [facility] [address] [id number] [place] [address]- 8293 Nov, [facility] [place] [facility] [address] [id number] [place] [address]- 7573 Nov, [facility] [place] [facility] [address] [id number] [place] [address]- 0130 Nov, [facility] [place] [facility] [address] [id number] [place] [address]- 3116 Nov, [facility] [place] [facility] [address] [id number] [place] [address]- 8636 Nov, [facility] [place] [facility] [address] [id number] [place] [address]- 8121 Oct, [facility] [place] [facility] [address] [id number] [place] [address]- 8738 Oct, [facility] [place] [facility] [address] [id number] [place] [address]- 9779 Oct, [facility] [place] [facility] [address] [id number] [place] [address]- 4006 Oct, [facility] [place] [facility] [address] [id number] [place] [address]- 9946 17 Oct, 2014 [facility] [place] [facility] [address] [id number] [address]- 8690 Oct, [facility] [address] [id number] [place] [address]- 2763 Sep, [facility] [place] [facility] [address] [id number] [place] [address]- 2955 Sep, [facility] [address] [id number] [place] [address]- 4668 Sep, [facility] [place] [facility] [address] [id number] [place] [address]- 2512 Sep, [facility] [address] [id number] [place] [address]- 5233 Sep, [facility] [place] [facility] [address] [id number] [place] [address]- 5533 Sep, [facility] [address] [facility] [id number] [place] [address]- 3438 Aug, [facility] [place] [facility] [address] [id number] [place] [address]- 5284 Aug, [facility] [place] [facility] [address] [id number] [place] [address]- 4616 Aug, [facility] [place] [facility] [address] [facility] [id number] [place] [address]- 9677 Aug, [facility] [place] [facility] [address] [id number] [place] [address]- 1899 Aug, [facility] [place] [facility] [address] [id number] [place] [address]- 1139 Aug, [facility] [place] [facility] [address] [id number] [place] [address]- 5900 Aug, [facility] [place] [facility] [address] [id number] [place] [address]- 9943 Aug, [facility] [place] [facility] [address] [facility] [id number] [place] [address]- 7403 Aug, [facility] [place] [facility] [address] [id number] [place] [address]- 1283 Jul, [facility] [place] [facility] [address] [id number] [place] [address]- 9261 Jul, [facility] [place] [facility] [address] [id number] [place] [address]- 4075 Jul, [facility] [place] [facility] [address] [id number] [place] [address]- 4958 Jul, [facility] [place] [facility] [address] [id number] [place] [address]- 2466 Jul, [facility] [place] [facility] [address] [id number] [place] [address]- 7497 Jul, [facility] [place] [facility] [address] [id number] [place] [address]- 1104 Jul, [facility] [place] [facility] [address] [id number] [place] [address]- 5658 Jul, [facility] [place] [facility] [address] [id number] [place] [address]- 2272 Jul, [facility] [place] [facility] [address] [id number] [place] [address]- 9792 16 Jun, 2014 [facility] [place] [facility] [address] [id number] [place] [address]- 4916 16 Jun, 2014 [facility] [place] [facility] [address] [id number] [place] [address]- 7256 14 Jun, 2014 [facility] [place] [facility] [address] [id number] [place] [address]- 0744 10 Jun, 2014 [facility] [place] [facility] [address] [id number] [place] [address]- 8216 10 Jun, 2014 [facility] [place] [facility] [address] [id number] [place] [address]- 2558 26 May, 2014 [facility] [place] [facility] [address] [id number] [place] [address]- 0989 May, [facility] [place] [facility] [address] [id number] [place] [address]- 1524 May, [facility] [place] [facility] [address] [id number] [place] [address]- 2340 Apr, [facility] [place] [facility] [address] [id number] [place] [address]- 6281 Apr, [facility] [place] [facility] [address] [id number] [place] [address]- 5044 Apr, [facility] [place] [facility] [address] [id number] [place] [address]- 3335 Apr, [facility] [place] [facility] [address] [id number] [place] [address]- 1108 Mar, [facility] [place] [facility] [address] [id number] [place] [address]- 3669 Mar, [facility] [place] [facility] [address] [id number] [place] [address]- 2531 Mar, [facility] [place] [facility] [address] [id number] [place] [address]- 1661 Mar, [facility] [place] [facility] [address] [id number] [place] [address]- 6979 Mar, [facility] [place] [facility] [address] [id number], [place] [address]- 4024 Feb, [facility] [place] [facility] [address] [id number], [place] [address]- 7339 Feb, [facility] [place] [facility] [address] [id number] [place] [address]- 7596 Feb, [facility] [place] [facility] [address] [id number] [place] [address]- 4014 Feb, [facility] [place] [facility] [address] [id number] [place] [address]- 7808 January, [facility] [place] [facility] [address] [id number] [place] [address]- 4874 January, [facility] [place] [facility] [address] [id number] [place] [address]- 3753 January, [facility] [place] [facility] [address] [id number] [place] [address]- 4477 January, [facility] [place] [facility] [address] [id number] [place] [address]- 7200 January, [facility] [place] [facility] [address] [id number] [place] [address]- 3563 Dec, [facility] [place] [facility] [address] [id number] [place] [address]- 1802 Dec, [facility] [place] [facility] [address] [id number] [place] [address]- 0923 Dec, [facility] [place] [facility] [address] [id number] [place] [address]- 9996 Dec, [facility] [place] [facility] [address] [id number] [place] [address]- 8169 Dec, [facility] [place] [facility] [address] [id number] [place] [address]- 0522 Dec, [facility] [place] [facility] [address] [id number] [place] [address]- 0302 Dec, [facility] [place] [facility] [address] [id number] [place] [address]- 1892 Dec, [facility] [place] [facility] [address] [id number] [place] [address]- 8605 Nov, [facility] [place] [facility] [address] [id number] [place] [address]- 2555 Nov, [facility] [place] [facility] [address] [id number] [place] [address]- 2056 Nov, [facility] [place] [facility] [address] [id number] [place]85 Nov, [facility] [place] [facility] [address] [id number] [place] [address]- 6867 11 Nov, 2013 [facility] [place] [facility] [address] [id number] [place] [address]- 7693 11 Nov, 2013 [facility] [place] [facility] [address] [id number] [place] [address]- 8223 Nov, [facility] [place] [facility] [address] [id number] [place] [address]- 3196 Nov, [facility] [place] [facility] [address] [id number] [place] [address]- 1926 Nov, [facility] [place] [facility] [address] [id number] [place] [address]- 2384 Nov, [facility] [place] [facility] [address] [id number] [place] [address]- 1192 Nov, [facility] [place] [facility] [address] [id number] [place] [address]- 6662 Nov, [facility] [place] [facility] [address] [id number] [place] [address]- 3745 Oct, [facility] [place] [facility] [address] [id number] [place] [address]- 7932 Oct, [facility] [place] [facility] [address] [id number] [place] [address]- 0947 14 Oct, 2013 [facility] [place] [facility] [address] [id number] [place] [address]- 9545 14 Oct, 2013 [facility] [place] [facility] [address] [id number] [place] [address]- 6583 10 Oct, 2013 [facility] [place] [facility] [address] [id number] [place] [address]- 6262 10 Oct, 2013 [facility] [place] [facility] [address] [id number] [place] [address]- 1258 Sep, [facility] [place] [facility] [address] [id number] [place] [address]- 3280 17 Sep, 2013 [facility] [address] [id number] [place] [address]- 8739 17 Sep, 2013 [facility] [place] [facility] [address] [id number] [place] [address]- 0806 14 Sep, 2013 [facility] [address] [id number] [place] [address]- 0776 14 Sep, 2013 [facility] [place] [facility] [address] [id number] [place] [address]- 5393 10 Sep, 2013 [facility] [address] [id number] [place] [address]- 8154 10 Sep, 2013 [facility] [place] [facility] [address] [id number] [place] [address]- 9140 20 Aug, 2013 [facility] [address] [id number] [place] [address]- 8802 19 Aug, 2013 [facility] [place] [facility] [address] [id number] [place] [address]- 0986 19 Aug, 2013 [facility] [place] [facility] [address] [id number] [place] [address]- 3121 16 Aug, 2013 [facility] [place] [facility] [address] [id number] [place] [address]- 7150 16 Aug, 2013 [facility] [place] [facility] [address] [id number] [place] [address]- 1727 04 Aug, 2013 [facility] [place] [facility] [address] [id number] [place] [address]- 8223 29 Jul, 2013 [facility] [place] [facility] [address] [id number] [place] [address]- 5480 29 Jul, 2013 [facility] [place] [facility] [address] [id number] [place] [address]- 4285 22 Jul, 2013 [facility] [place] [facility] [address] [id number] [place] [address]- 9146 18 Jul, 2013 [facility] [place] [facility] [address] [id number] [place] [address]- 5554 15 Jul, 2013 [facility] [place] [facility] [address] [id number] [place] [address]- 1018 Jul, [facility] [place] [facility] [address] [id number] [place] [address]- 5662 Jul, [facility] [place] [facility] [address] [id number] [place] [address]- 8074 Jul, [facility] [place] [facility] [address] [id number] [place] [address]- 2421 Jun, [facility] [place] [facility] [address] [id number] [place] [address]- 2894 Jun, [facility] [place] [facility] [address] [id number] [place] [address]- 4094 Jun, [facility] [place] [facility] [address] [id number] [place] [address]- 0888 Jun, [facility] [place] [facility] [address] [id number] [place] [address]- 6675 Jun, [facility] [place] [facility] [address] [id number] [place] [address]- 8445 Jun, [facility] [place] [facility] [address] [id number] [place] [address]- 5933 Jun, [facility] [place] [facility] [address] [id number] [place] [address]- 2031 Jun, [facility] [place] [facility] [address] [id number] [place] [address]- 6871 Jun, [facility] [place] [facility] [address] [id number] [place] [address]- 6332 Jun, [facility] [place] [facility] [address] [id number] [place] [address]- 9739 Jun, [facility] [place] [facility] [address] [id number] [place] [address]- 2326 Jun, [facility] [address] [id number] [place] [address] Jun, [facility] [place] [facility] [address] [id number] [place] [address] 24 May, 2013 [facility] [place] [facility] [address] [id number] [place] [address] May, [facility] [place] [facility] [address] [id number] [place] [address] 16 May, 2013 [facility] [place] [facility] [address] [id number] [place] [address] Apr, [facility] [place] [facility] [address] [id number] [place] [address] 2000 Apr, [facility] [place] [facility] [address] [id number] [place] [address] Apr, [facility] [place] [facility] [address] [id number] [place] [address] Mar, [facility] [place] [facility] [address] [id number] [place] [address] Mar, [facility] [place] [facility] [address] [id number] [place] [address] Feb, [facility] [place] [facility] [address] [id number] [place] [address] Feb, [facility] [place] [facility] [address] [id number], [place] [address] Feb, [facility] [place] [facility] [address] [id number] [place] [address] January, [facility] [place] [facility] [address] [id number] [place] [address] January, [facility] [place] [facility] [address] [id number] [place] [address] January, [facility] [place] [facility] [address] [id number] [place] [address] January, [facility] [address] [id number] [place] [address] Dec, [facility] [address] [id number] [place] [address] Dec, [facility] [address] [id number] [place] [address] Dec, [facility] [address] [id number] [place] [address] Dec, [facility] [address] [id number] [place] [address] Nov, [facility] [address] [id number] [place] [address] Nov, [facility] [address] [id number] [place] [address] Nov, [facility] [address] [id number] [place] [address] Nov, [facility] [address] [id number] [place] [address] Oct, [facility] [address] [facility] [id number] [place] [address] Oct, [facility] [address] [id number] [place] [address] Oct, [facility] [address] [id number] [place] [address] Oct, [facility] [address] [id number] [place] [address] Oct, [facility] [address] [id number] [place] [address] Sep, [facility] [address] [id number] [place] [address] Sep, [facility] [place] [facility] [address] [id number] [place] [address] Sep, [facility] [place] [facility] [address] [id number] [place] [address] Sep, [facility] [place] [facility] [address] [facility] [id number] [place] [address] Aug, [facility] [place] [facility] [address] [id number] [place] [address] Aug, [facility] [place] [facility] [address] [id number] [place] [address] Aug, [facility] [place] [facility] [address] [id number] [place] [address] Aug, [facility] [place] [facility] [address] [id number] [place] [address] Jul, [facility] [place] [facility] [address] [id number] [place] [address] Jul, [facility] [place] [facility] [address] [id number] [place] [address] Jun, [facility] [place] [facility] [address] [id number] [place] [address] 28 May, 2012 [facility] [place] [facility] [address] [id number], [place] [address] 21 May, 2012 [facility] [place] [facility] [address] [id number], [place] [address] 18 May, 2012 [facility] [place] [facility] [address] [id number] [place] [address] 18 May, 2012 [facility] [place] [facility] [address] [id number], [place] [address] 15 Apr, 2012 [facility] [place] [facility] [address] [id number], [place] [address] Apr, [facility] [place] [facility] [address] [id number] [place] [address] Apr, [facility] [place] [facility] [address] [id number] [place] [address] Mar, [facility] [place] [facility] [address] [id number] [place] [address] Mar, [facility] [place] [facility] [address] [id number] [place] [address] Mar, [facility] [place] [facility] [address] [id number] [place] [address] Feb, [facility] [place] [facility] [address] [id number] [place] [address] Feb, [facility] [place] [facility] [address] [id number] [place] [address] Feb, [facility] [place] [facility] [address] [id number] [place] [address] Feb, [facility] [place] [facility] [address] [id number] [place] [address] Feb, [facility] [place] [facility] [address] [id number] [place] [address] Feb, [facility] [place] [facility] [address] [id number] [place] [address] Feb, [facility] [place] [facility] [address] [id number] [place] [address] Feb, [facility] [place] [facility] [address] [id number] [place] [address] Feb, [facility] [place] [facility] [address] [id number] [place] [address] January, [facility] [place] [facility] [address] [id number] [place] [address] January, [facility] [place] [facility] [address] [id number] [place] [address] January, [facility] [place] [facility] [address] [id number] [place] [address] January, [facility] [address] [id number] [place] [address] January, [facility] [address] [id number] [place] [address] January, [facility] [address] [id number] [place] [address] January, [facility] [address] [id number] [place] [address] January, [facility] [address] [id number] [place] [address] January, [facility] [address] [id number] [place] [address] Dec, [facility] [address] [id number] [place] [address] Dec, [facility] [address] [id number] [place] [address] Dec, [facility] [address] [id number] [place] [address] Dec, [facility] [address] [id number] [place] [address] Dec, [facility] [address] [id number] [place] [address] Nov, [facility] [address] [id number] [place] [address] Nov, [facility] [place] [facility] [address] [id number] [place] [address] Nov, [facility] [address] [id number] [place] [address] Nov, [facility] [address] [id number] [place] [address] 14 Nov, 2011 [facility] [address] [id number] [place] [address] Nov, [facility] [address] [id number] [place] [address] Oct, [facility] [address] [id number] [place] [address] Oct, [facility] [address] [id number] [place] [address] Sep, [facility] [address] [id number] [place] [address] Sep, [facility] [address] [id number] [place] [address] Sep, [facility] [address] [id number] [place] [address] Sep, [facility] [address] [id number] [place] [address] Aug, [facility] [address] [id number] [place] [address] Aug, [facility] [address] [id number] [place] [address] Aug, [facility] [address] [id number] [place] [address] 269[address] Aug, [facility] [place] [facility] [address] [id number] [place] [address] Aug, [facility] [place] [facility] [address] [id number] [place] [address] Aug, [facility] [place] [facility] [address] [id number] [place] [address]- [address] 05 Aug, 2011 [facility] [place] [facility] [address] [facility] [id number] [place] [address] Aug, [facility] [place] [facility] [address] [id number] [place] [address] 09 Jul, 2011 [facility] [place] [facility] [address] [id number] [place] [address] 08 Jul, 2011 [facility] [place] [facility] [address] [id number] [place] [address] Jul, [facility] [place] [facility] [address] [id number] [place] [address]- [address] Jul, [facility] [place] [facility] [address] [id number] [place] [address] Jul, [facility] [place] [facility] [address] [id number] [place] [address]- [address] Jun, [facility] [place] [facility] [address] [id number] [place] [address]- [address] Jun, [facility] [place] [facility] [address] [id number] [place] [address] January, [facility] [place] [facility] [address] [id number] [place] [address] 15 Aug, 2010 [facility] [place] [facility] [address] [id number] [place] [address] Aug, [facility] [place] [facility] [address] [id number] [place] [address] Aug, [facility] [place] [facility] [address] [id number] [place] [address] 21 Jun, 2010 [facility] [place] [facility] [address] [id number] [place] [address] Jun, [facility] [place] [facility] [address] [id number] [place] [address]- [address] Jun, [facility] [place] [facility] [address] [id number] [place] [address] Jun, [facility] [place] [facility] [address] [id number] [place] [address] Apr, [facility] [address] [id number] [address] January, [facility] [id number], [place] [address] Aug, [facility] [address] [id number] [address] Aug, [facility] [id number], [place] [address] Aug, [facility] [address] [id number], [place] [address] May, [facility] [id number], [place] [address] Mar, [facility] [address] [id number], [place] [address] Oct, IMMUNIZATIONS No Known Immunizations SOCIAL HISTORY Never Assessed REASON FOR VISIT vomiting started today [place] PLAN OF CARE Activity Details Follow Up prn Reason: VITAL SIGNS Height 64 in 2017-07-11 Weight 185.8 lbs 2017-07-11 Temperature 97.7 degrees Fahrenheit 2017-07-11 Heart Rate 94 bpm 2017-07-11 Respiratory Rate 18 2017-07-11 BMI 31.89 kg/m2 2017-07-11 Blood pressure systolic 150 mmHg 2017-07-11 Blood pressure diastolic 74 mmHg 2017-07-11 MEDICATIONS Medication Instructions Dosage Frequency Start Date End Date Duration Status Voltaren 1 % Transdermal 4 times a day, as needed Apply 2 grams to affected joints above waist and 4 grams below waist January, Active Lisinopril 20 MG oral daily 1 tablet 24h 30 Active Aciphex 20 MG Orally Once a day 1 tablet 24h Active Tizanidine HCl 4 MG TAKE ONE TABLET BY MOUTH EVERY 6 HOURS NEEDED Active ZyrTEC 10 mg by oral route Once a day 1 tablet 24h 20 Oct, 2014 30 days Active Simvastatin 20 MG Orally Once a day at hs 1 tablet in the evening Active Nystatin 103895 UNIT/GM Externally Twice a day 1 to affected area 12h Feb, Active Mirapex 1.5 MG Orally Once a day 1.5 tablet before bedtime 24h 30 Active EPINEPHrine 0.3 mg/0.3 mL (1:1,000) 0.3 mg by Intramuscular route 1 time per day PRN SEVERE ALLERGY TO BEES Apr, Active RESULTS No Results PROCEDURES Procedure Date Ordered Result Body Site [facility] VISIT ESTABLISHED PATIENT Jul 11, 2017 INSTRUCTIONS MEDICATIONS ADMINISTERED No Known Medications MEDICAL (GENERAL) HISTORY Type Description Date Medical [...]
--- OUTSIDE RECORDS SUMMARY | 2018-04-17 01:39 | XMS REPORT ---
Author Author YUNG MOSER [facility] Address [address] [place] [address] Care Team Providers Care Domestic Violence Advocate Name Role Phone YUNG MOSER Unavailable PROBLEMS Type Condition ICD9-CM Code LHW38-IN Code Onset Dates Condition Status SNOMED Code Problem History of allergic reaction Z88.9 Active 688662291 Problem Dysthymia F34.1 Active 20942512 Problem Renal insufficiency N28.9 Active 426248405 Problem Chronic pain G89.29 Active 21721419 Problem Essential hypertension with goal blood pressure less than 130\/85 I10 Active 43367481 Problem Pain in right shoulder M25.511 Active 10470612 Problem Hoarseness or changing voice R49.9 Active 360990537 Problem Restless leg syndrome G25.81 Active 33606465 Problem Gastroesophageal reflux disease without esophagitis K21.9 Active 529045585 Problem Mixed hyperlipidemia E78.2 Active 609709001 Problem Seasonal allergic rhinitis, unspecified allergic rhinitis trigger J30.2 Active 025089661 Problem Screening breast examination Z12.39 Active 402252990 ALLERGIES Unknown Allergies SOCIAL HISTORY No smoking Hx information available PLAN OF CARE VITAL SIGNS MEDICATIONS Medication Instructions Dosage Frequency Start Date End Date Duration Status Percocet 10-325 MG Orally every 12 hours prn must last 28 days- take 1 tablet Active RESULTS No Results PROCEDURES No Known procedures IMMUNIZATIONS No Known Immunizations
--- OUTSIDE RECORDS SUMMARY | 2018-04-17 01:40 | XMS REPORT ---
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 Name Role Phone SHANTI YUNG Unavailable PROBLEMS Type Condition ICD9-CM Code LZE62-UN Code Onset Dates Condition Status SNOMED Code Problem Gastroesophageal reflux disease without esophagitis K21.9 Active 411323751 Problem Dysthymia F34.1 Active 36998700 Problem Screening breast examination Z12.39 Active 705172797 Problem Chronic pain G89.29 Active 76422310 Problem Pain in right shoulder M25.511 Active 92632264 Problem Essential hypertension with goal blood pressure less than 130\/85 I10 Active 91551245 Problem Hoarseness or changing voice R49.9 Active 912003670 Problem Restless leg syndrome G25.81 Active 90021672 Problem History of allergic reaction Z88.9 Active 847547715 Problem Mixed hyperlipidemia E78.2 Active 212585013 Problem Seasonal allergic rhinitis, unspecified allergic rhinitis trigger J30.2 Active 372562505 Problem Renal insufficiency N28.9 Active 489837815 ALLERGIES Substance Reaction Event Type Date Status Xanax agitation and anger Drug Allergy Feb, Active Mobic hives Drug Allergy Feb, Active ENCOUNTERS Encounter Location Date Diagnosis [facility] [address] [id number], [place] [address] Sep, Nausea R11.0 and Diarrhea, unspecified type R19.7 [facility] [id number], [place] [address] Jul, Mixed hyperlipidemia E78.2 [facility] [address] [id number], [place] [address] Jul, Essential hypertension with goal blood pressure less than 130\/85 I10 ; Gastroesophageal reflux disease without esophagitis K21.9 ; Mixed hyperlipidemia E78.2 ; Renal insufficiency N28.9 ; Restless leg syndrome G25.81 ; Seasonal allergic rhinitis, unspecified allergic rhinitis trigger J30.2 ; Chronic pain G89.29 and History of allergic reaction Z88.9 [facility] [id number] [place] [address] Jul, Viral gastroenteritis A08.4 and Homeless Z59.0 [facility] [address] [address] Feb, [facility] [address] [address]- [address] Feb, Essential hypertension with goal blood pressure less than 130\/85 I10 ; Gastroesophageal reflux disease without esophagitis K21.9 ; Mixed hyperlipidemia E78.2 ; Renal insufficiency N28.9 ; Restless leg syndrome G25.81 ; Seasonal allergic rhinitis, unspecified allergic rhinitis trigger J30.2 ; Cough R05 ; Exposure, initial encounter T75.89XA and Chronic pain G89.29 [facility] [address] [address] January, Chronic pain G89.29 [address] [address] [address] Dec, Chronic pain G89.29 [facility] [address] [address]- [address] Dec, Chronic pain G89.29 [facility] [address] [address]- 3212 Dec, Chronic pain G89.29 [facility] [address] [address]- 7497 Nov, Chronic pain G89.29 [place] [address] [address]- 1767 Nov, [facility] [address] [address] Oct, Chronic pain G89.29 [place] [address] [place] [address]- 4842 07 Oct, 2016 Chronic pain G89.29 ; Renal insufficiency N28.9 ; Essential hypertension with goal blood pressure less than 130\/85 I10 ; Gastroesophageal reflux disease without esophagitis K21.9 ; Dysthymia F34.1 ; Mixed hyperlipidemia E78.2 ; Seasonal allergic rhinitis, unspecified allergic rhinitis trigger J30.2 and Hoarseness or changing voice R49.9 [place] [id number] [place] [address]96- 8758 Sep, [place] [id number] [place] [address] 765[address]- 5214 Aug, [place] [id number] [place] [address]60- 2963 Jul, [place] [id number] [place] [address] 04791- 9951 Jun, [place] [id number] [place] [address] 96089- 8721 Jun, Chronic pain G89.29 ; Renal insufficiency N28.9 ; Essential hypertension with goal blood pressure less than 130\/85 I10 ; Gastroesophageal reflux disease without esophagitis K21.9 ; Dysthymia F34.1 ; Mixed hyperlipidemia E78.2 ; Seasonal allergic rhinitis, unspecified allergic rhinitis trigger J30.2 and Encounter for immunization Z23 [place] [id number] [place] [address]64- 7745 Jun, Chronic pain G89.29 ; Essential hypertension with goal blood pressure less than 130\/85 I10 ; Gastroesophageal reflux disease without esophagitis K21.9 ; Dysthymia F34.1 ; Mixed hyperlipidemia E78.2 ; Renal insufficiency N28.9 ; Seasonal allergic rhinitis, unspecified allergic rhinitis trigger J30.2 and Encounter for immunization Z23 [place] [id number] [place] [address]11- 3384 May, [place] [address] [place] [address] 7[address] Apr, [facility] [id number] [place] [address] 34418- 4443 Mar, [facility] [address] [address] 98[address] Mar, [facility] [id number] [place] [address]33- 6398 Feb, Chronic pain G89.29 ; Screening breast examination Z12.39 ; Essential hypertension with goal blood pressure less than 130\/85 I10 ; Gastroesophageal reflux disease without esophagitis K21.9 ; Dysthymia F34.1 ; Mixed hyperlipidemia E78.2 ; Renal insufficiency N28.9 and History of allergic reaction Z88.9 [facility] [address] [place] [address]- 8258 January, [facility] [id number] [place] [address] 37568- 1838 Dec, [facility] [id number] [place] [address] 057[address]- 6067 Nov, Chronic pain G89.29 ; Pain in right shoulder M25.511 and Essential hypertension with goal blood pressure less than 130\/85 I10 [facility] [address] [address]- [address] Oct, [facility] [id number] [address] Sep, [facility] [address] [place] [address] 98819- 4394 Aug, [facility] [id number] [place] [address] 61551- 1186 Aug, Upper respiratory infection J06.9 and Chronic pain G89.29 [facility] [address] [address] 290[address] Aug, [facility] [id number] [place] [address] 63789- 9536 Jul, Chronic pain G89.29 and Encounter for immunization Z23 [place] [address] [address]- [address] Jul, [facility] [address] 9[address]26- 9264 Jun, [place] [address] [address]- 1871 May, [place] [address] 02581- 9723 May, Neck pain 723.1 ; Borderline hyperlipidemia 272.4 ; Chronic pain 338.29 ; Hypertension 401.9 ; Chronic renal insufficiency 585.9 ; Allergic rhinitis 477.9 and GERD (gastroesophageal reflux disease) 530.81 [place] [address] [address]- 9654 Apr, [facility] [address] [address]- 0439 Mar, [place] [address] [address]- 4292 Feb, Hypertension 401.9 [place] [id number] [place] [address] 72781- 5554 Feb, Neck pain 723.1 ; Chronic pain 338.29 ; Hypertension 401.9 ; Chronic renal insufficiency 585.9 ; Allergic rhinitis 477.9 and Yeast dermatitis 112.3 [place] [id number] [place] [address] 76732- [address] Feb, [place] [address] [address]- 7647 January, Neck pain 723.1 ; Chronic pain 338.29 ; Hypertension 401.9 ; Anxiety 300.00 and Insomnia [address] [address]- [address] January, [facility] [place] [facility] [address] [id number] [place] [address]- 1771 14 Dec, 2014 [facility] [place] [facility] [address] [id number] [place] [address]- 9516 Dec, [facility] [place] [facility] [address] [id number] [place] [address]- 6570 Nov, [facility] [place] [facility] [address] [id number] [place] [address]- 8122 Nov, [facility] [place] [facility] [address] [id number] [place] [address]- 8580 Nov, [facility] [place] [facility] [address] [id number] [place] [address]- 2631 Nov, [facility] [place] [facility] [address] [id number] [place] [address]- 1079 Nov, [facility] [place] [facility] [address] [id number] [place] [address]- 8283 Nov, [facility] [place] [facility] [address] [id number] [place] [address]- 5081 Nov, [facility] [place] [facility] [address] [id number] [place] [address]- 1294 Nov, [facility] [place] [facility] [address] [id number] [place] [address]- 5939 Oct, [facility] [place] [facility] [address] [id number] [place] [address]- 3221 Oct, [facility] [place] [facility] [address] [id number] [place] [address]- 1175 Oct, [facility] [place] [facility] [address] [id number] [place] [address]- 2016 Oct, [facility] [place] [facility] [address] [id number] [place] [address]- 9456 Oct, [facility] [place] [facility] [address] [id number] [place] [address]- 8527 Oct, [facility] [address] [id number] [place] [address]- 9229 Sep, [facility] [place] [facility] [address] [id number] [place] [address]- 7148 Sep, [facility] [place] [facility] [address] [id number] [place] [address]- 8121 Sep, [facility] [place] [facility] [address] [id number] [place] [address]- 1043 Sep, [facility] [place] [facility] [address] [id number] [place] [address]- 0793 Sep, [facility] [place] [facility] [address] [id number] [place] [address]- 6051 Sep, [facility] [place] [facility] [address] [id number] [place] [address]- 5803 Aug, [facility] [place] [facility] [address] [id number] [place] [address]- 0509 Aug, [facility] [place] [facility] [address] [id number] [place] [address]- 8388 Aug, [facility] [place] [facility] [address] [id number] [place] [address]- 7489 Aug, [facility] [place] [facility] [address] [id number] [place] [address]- 9692 Aug, [facility] [place] [facility] [address] [id number] [place] [address]- 2548 Aug, [facility] [place] [facility] [address] [id number] [place] [address]- 9112 Aug, [facility] [place] [facility] [address] [id number] [place] [address]- 8845 Aug, [facility] [place] [facility] [address] [id number] [place] [address]- 1799 Aug, [facility] [place] [facility] [address] [id number] [place] [address]- 3510 Jul, [facility] [place] [facility] [address] [id number] [place] [address]- 7290 Jul, [facility] [place] [facility] [address] [id number] [place] [address]- 3688 Jul, [facility] [place] [facility] [address] [id number] [place] [address]- 3011 Jul, [facility] [place] [facility] [address] [id number] [place] [address]- 9160 Jul, [facility] [place] [facility] [address] [id number] [place] [address]- 1812 Jul, [facility] [place] [facility] [address] [id number] [place] [address]- 2438 Jul, [facility] [place] [facility] [address] [id number] [place] [address]- 4409 Jul, [facility] [place] [facility] [address] [id number] [place] [address]- 7324 Jul, [facility] [place] [facility] [address] [id number] [place] [address]- 5105 16 Jun, 2014 [facility] [place] [facility] [address] [id number] [place] [address]- 7651 16 Jun, 2014 [facility] [place] [facility] [address] [id number] [place] [address]- 2046 14 Jun, 2014 [facility] [place] [facility] [address] [id number] [place] [address]- 4168 10 Jun, 2014 [facility] [place] [facility] [address] [id number] [place] [address]- 9375 10 Jun, 2014 [facility] [place] [facility] [address] [id number] [place] [address]- 9542 26 May, 2014 [facility] [place] [facility] [address] [id number] [place] [address]- 1491 May, [facility] [place] [facility] [address] [id number] [place] [address]- 6754 May, [facility] [place] [facility] [address] [id number] [place] [address]- 0485 Apr, [facility] [place] [facility] [address] [id number] [place] [address]- 9646 Apr, [facility] [place] [facility] [address] [id number] [place] [address]- 8650 Apr, [facility] [place] [facility] [address] [id number] [place] [address]- 9369 Apr, [facility] [place] [facility] [address] [id number] [place] [address]- 2804 Mar, [facility] [place] [facility] [address] [id number] [place] [address]- 0590 Mar, [facility] [place] [facility] [address] [id number] [place] [address]- 5118 Mar, [facility] [place] [facility] [address] [id number] [place] [address]- 2001 Mar, [facility] [place] [facility] [address] [id number] [place] [address]- 7764 Mar, [facility] [place] [facility] [address] [id number] [place] [address]- 1873 Feb, [facility] [place] [facility] [address] [id number] [place] [address]- 2797 Feb, [facility] [place] [facility] [address] [id number] [place] [address]- 4600 Feb, [facility] [place] [facility] [address] [id number] [place] [address]- 6141 Feb, [facility] [place] [facility] [address] [id number] [place] [address]- 0957 January, [facility] [place] [facility] [address] [id number] [place] [address]- 7392 January, [facility] [address] [id number] [place] [address]- 3246 January, [facility] [address] [id number] [place] [address]- 5877 January, [facility] [address] [id number] [place] [address]- 4741 January, [facility] [address] [id number] [place] [address]- 0163 Dec, [facility] [address] [id number] [place] [address]- 0850 Dec, [facility] [address] [id number] [place] [address]- 0955 Dec, [facility] [address] [id number] [place] [address]- 1719 Dec, [facility] [address] [id number] [place] [address]- 3723 Dec, [facility] [address] [id number] [place] [address]- 0810 Dec, [facility] [address] [id number] [place] [address]- 0340 Dec, [facility] [place] [facility] [address] [id number] [place] [address]- 5193 Dec, [facility] [address] [id number] [place] [address]- 2611 Nov, [facility] [place] [facility] [address] [id number] [place] [address]- 4533 Nov, [facility] [place] [facility] [address] [id number] [place] [address]- 0004 Nov, [facility] [place] [facility] [address] [id number] [place] [address]- 4073 Nov, [facility] [place] [facility] [address] [id number] [place] [address]- 5817 11 Nov, 2013 [facility] [place] [facility] [address] [id number] [place] [address]- 5454 11 Nov, 2013 [facility] [place] [facility] [address] [id number] [place] [address]- 7862 10 Nov, 2013 [facility] [place] [facility] [address] [id number] [place] [address]- 5784 Nov, [facility] [place] [facility] [address] [id number] [place] [address]- 7648 10 Nov, 2013 [facility] [place] [facility] [address] [id number] [place] [address]- 2707 Nov, [facility] [place] [facility] [address] [id number] [place] [address]- 0123 Nov, [facility] [place] [facility] [address] [id number] [place] [address]- 4305 Nov, [facility] [place] [facility] [address] [id number] [place] [address]- 6807 20 Oct, 2013 [facility] [place] [facility] [address] [id number] [place] [address]- 8388 20 Oct, 2013 [facility] [place] [facility] [address] [id number] [place] [address]- 6749 14 Oct, 2013 [facility] [place] [facility] [address] [id number] [place] [address]- 3186 14 Oct, 2013 [facility] [place] [facility] [address] [id number] [place] [address]- 6642 10 Oct, 2013 [facility] [place] [facility] [address] [id number] [place] [address]- 1046 10 Oct, 2013 [facility] [place] [facility] [address] [id number] [place] [address]- 6178 Sep, [facility] [place] [facility] [address] [id number] [place] [address]- 1975 17 Sep, 2013 [facility] [address] [id number] [place] [address]- 5632 17 Sep, 2013 [facility] [place] [facility] [address] [id number] [place] [address]- 0559 14 Sep, 2013 [facility] [address] [id number] [place] [address]- 4897 14 Sep, 2013 [facility] [place] [facility] [address] [id number] [place] [address]- 6364 10 Sep, 2013 [facility] [address] [id number] [place] [address]- 6461 10 Sep, 2013 [facility] [place] [facility] [address] [id number] [place] [address]- 1050 20 Aug, 2013 [facility] [address] [id number] [place] [address]- 3969 19 Aug, 2013 [facility] [address] [id number] [place] [address]- 3496 19 Aug, 2013 [facility] [place] [facility] [address] [id number] [place] [address]- 1242 16 Aug, 2013 [facility] [address] [id number] [place] [address]- 0385 16 Aug, 2013 [facility] [place] [facility] [address] [id number] [place] [address]- 1765 04 Aug, 2013 [facility] [place] [facility] [address] [id number] [place] [address]- 2152 29 Jul, 2013 [facility] [place] [facility] [address] [id number] [place] 2889 29 Jul, 2013 [facility] [place] [facility] [address] [id number] [place] [address]- 1817 22 Jul, 2013 [facility] [place] [facility] [address] [id number] [place] [address]- 7772 Jul, [facility] [place] [facility] [address] [id number] [place] [address]- 0900 Jul, [facility] [place] [facility] [address] [id number] [place] [address]- 2607 Jul, [facility] [place] [facility] [address] [id number] [place] [address]- 7733 Jul, [facility] [place] [facility] [address] [id number] [place] [address]- 5393 Jul, [facility] [place] [facility] [address] [id number] [place] [address]- 4589 Jun, [facility] [place] [facility] [address] [id number] [place] [address]- 3310 Jun, [facility] [place] [facility] [address] [id number] [place] [address]- 6113 Jun, [facility] [place] [facility] [address] [id number] [place] [address]- 9332 Jun, [facility] [place] [facility] [address] [id number] [place] [address]- 5408 Jun, [facility] [place] [facility] [address] [id number], [place] [address]- 6238 Jun, [facility] [place] [facility] [address] [id number] [place] [address]- 5880 Jun, [facility] [place] [facility] [address] [id number], [place] [address]- 7124 Jun, [facility] [place] [facility] [address] [id number] [place] [address]- 6101 Jun, [facility] [place] [facility] [address] [id number] [place] [address]- 8377 Jun, [facility] [place] [facility] [address] [id number], [place] [address]- 8606 Jun, [facility] [place] [facility] [address] [id number], [place] [address] Jun, [facility] [address] [id number] [place] [address] Jun, [facility] [place] [facility] [address] [id number] [place] [address] 24 May, 2013 [facility] [place] [facility] [address] [id number] [place] [address] May, [facility] [place] [facility] [address] [id number] [place] [address] 16 May, 2013 [facility] [place] [facility] [address] [id number] [place] [address] Apr, [facility] [place] [facility] [address] [id number] [place] [address] Apr, [facility] [place] [facility] [address] [id number] [place] [address] Apr, [facility] [place] [facility] [address] [id number] [place] [address] Mar, [facility] [place] [facility] [address] [id number] [place] [address] Mar, [facility] [place] [facility] [address] [id number] [place] [address] Feb, [facility] [place] [facility] [address] [id number] [place] [address] Feb, [facility] [place] [facility] [address] [id number] [place] [address] Feb, [facility] [place] [facility] [address] [id number] [place] [address] January, [facility] [place] [facility] [address] [id number] [place] [address] January, [facility] [place] [facility] [address] [id number] [place] [address] January, [facility] [place] [facility] [address] [id number] [place] [address] January, [facility] [address] [id number] [place] [address] Dec, [facility] [address] [id number] [place] [address] Dec, [facility] [address] [id number] [place] [address] Dec, [facility] [address] [id number] [place] [address] Dec, [facility] [address] [id number] [place] [address] Nov, [facility] [address] [id number] [place] [address] Nov, [facility] [address] [id number] [place] [address] Nov, [facility] [address] [id number] [place] [address] Nov, [facility] [address] [id number] [place] [address] Oct, [facility] [address] [id number] [place] [address] Oct, [facility] [address] [id number] [place] [address] Oct, [facility] [address] [id number] [place] [address] Oct, [facility] [address] [id number] [place] [address] Oct, [facility] [address] [id number] [place] [address] Sep, [facility] [address] [id number] [place] [address] Sep, [facility] [place] [facility] [address] [id number] [place] [address] Sep, [facility] [place] [facility] [address] [id number] [place] [address] Sep, [facility] [place] [facility] [address] [id number] [place] [address] Aug, [facility] [place] [facility] [address] [id number] [place] [address] Aug, [facility] [place] [facility] [address] [id number] [place] [address] Aug, [facility] [place] [facility] [address] [id number] [place] [address] Aug, [facility] [place] [facility] [address] [id number] [place] [address] Jul, [facility] [place] [facility] [address] [id number] [place] [address] Jul, [facility] [place] [facility] [address] [id number] [place] [address] Jun, [facility] [place] [facility] [address] [id number] [place] [address] 28 May, 2012 [facility] [place] [facility] [address] [id number], [place] [address] 21 May, 2012 [facility] [place] [facility] [address] [id number], [place] [address]- [address] 18 May, 2012 [facility] [place] [facility] [address] [id number] [place] [address] 18 May, 2012 [facility] [place] [facility] [address] [id number] [place] [address] 15 Apr, 2012 [facility] [place] [facility] [address] [id number] [place] [address] Apr, [facility] [place] [facility] [address] [id number] [place] [address] Apr, [facility] [address] [id number] [place] [address] Mar, [facility] [place] [facility] [address] [id number] [place] [address] Mar, [facility] [address] [id number] [place] [address] Mar, [facility] [place] [facility] [address] [id number] [place] [address] Feb, [facility] [address] [id number] [place] [address] Feb, [facility] [place] [facility] [address] [id number] [place] [address] Feb, [facility] [address] [id number] [place] [address] Feb, [facility] [address] [id number] [place] [address] Feb, [facility] [place] [facility] [address] [id number] [place] [address] Feb, [facility] [address] [id number] [place] [address] Feb, [facility] [place] [facility] [address] [id number] [place] [address] Feb, [facility] [place] [facility] [address] [id number] [place] [address] Feb, [facility] [place] [facility] [address] [id number] [place] [address] January, [facility] [place] [facility] [address] [id number] [place] [address] January, [facility] [place] [facility] [address] [id number] [place] [address] January, [facility] [address] [id number] [place] [address] January, [facility] [address] [id number] [place] [address] January, [facility] [address] [id number] [place] [address] 116[address] January, [facility] [address] [id number] [place] [address] January, [facility] [address] [id number] [place] [address] January, [facility] [address] [id number] [place] [address] January, [facility] [address] [id number] [place] [address] 16 Dec, 2011 [facility] [address] [id number] [place] [address] Dec, [facility] [address] [id number] [place] [address] Dec, [facility] [address] [id number] [place] [address] 05 Dec, 2011 [facility] [address] [id number] [place] [address] Dec, [facility] [place] [facility] [address] [id number] [place] [address] Nov, [facility] [place] [facility] [address] [id number] [place] [address]17 Nov, [facility] [place] [facility] [address] [id number] [place] [address] Nov, [facility] [place] [facility] [address] [id number] [place] [address] Nov, [facility] [place] [facility] [address] [id number] [address] 14 Nov, 2011 [facility] [address] [id number] [place] [address] Nov, [facility] [address] [id number] [place] [address]446 Oct, [facility] [address] [id number] [place] [address] 4566 Oct, [facility] [address] [id number] [place] [address] Sep, [facility] [address] [id number] [place] [address] 3964 Sep, [facility] [address] [id number] [place] [address] 69[address] Sep, [facility] [address] [facility] [id number] [place] [address] Sep, [facility] [address] [id number] [place] [address] 58[address] Aug, [facility] [address] [id number] [place] [address] Aug, [facility] [address] [facility] [id number] [place] [address] Aug, [facility] [address] [id number] [place] [address] 1759 Aug, [facility] [place] [facility] [address] [id number] [place] [address] 48[address] Aug, [facility] [place] [facility] [address] [id number] [place] [address]609 Aug, [facility] [place] [facility] [address] [id number] [place] [address] 96[address] 05 Aug, 2011 [facility] [place] [facility] [address] [facility] [id number] [place] [address]- 6694 Aug, [facility] [place] [facility] [address] [id number] [place] [address]- [address]20 09 Jul, 2011 [facility] [place] [facility] [address] [id number] [place] [address]- 1428 08 Jul, 2011 [facility] [place] [facility] [address] [id number] [place] [address] 07 Jul, 2011 [facility] [place] [facility] [address] [id number] [place] [address]- 6673 04 Jul, 2011 [facility] [place] [facility] [address] [id number] [place] [address]- 5667 Jul, [facility] [place] [facility] [address] [id number] [place] [address] 18 Jun, 2011 [facility] [place] [facility] [address] [id number] [place] [address]- [address]28 Jun, [facility] [place] [facility] [address] [id number] [place] [address]453 January, [facility] [place] [facility] [address] [id number] [place] [address]180 15 Aug, 2010 [facility] [place] [facility] [address] [id number] [place] [address] 5483 Aug, [facility] [place] [facility] [address] [id number] [place] [address]- 1028 07 Aug, 2010 [facility] [place] [facility] [address] [id number] [place] [address]- 9737 21 Jun, 2010 [facility] [place] [facility] [address] [id number] [place] [address]- 4915 13 Jun, 2010 [facility] [place] [facility] [address] [id number] [place] [address] 13 Jun, 2010 [facility] [place] [facility] [address] [id number] [place] [address]- 0261 13 Jun, 2010 [facility] [place] [facility] [address] [id number] [place] [address] Apr, [facility] [address] [facility] [id number], [place] [address] January, [facility] [id number] [address] Aug, [facility] [address] [id number] [address] Aug, [facility] [id number], [place] [address] Aug, [facility] [id number], [place] [address] May, [facility] [id number], [place] [address] Mar, [facility] [id number], [place] [address] Oct, IMMUNIZATIONS No Known Immunizations SOCIAL HISTORY Never Assessed REASON FOR VISIT Medication Refills-Brendon, [place] spouse was positive for dormant TB, pt reports she has had a cough for over a month PLAN OF CARE Activity Details Follow Up 6 Months or pending lab Reason:BP VITAL SIGNS Height 64 in 2017-02-25 Weight 196.8 lbs 2017-02-25 Temperature 97.6 degrees Fahrenheit 2017-02-25 Heart Rate 78 bpm 2017-02-25 Respiratory Rate 18 2017-02-25 BMI 33.78 kg/m2 2017-02-25 Blood pressure systolic 138 mmHg 2017-02-25 Blood pressure diastolic 78 mmHg 2017-02-25 MEDICATIONS Medication Instructions Dosage Frequency Start Date End Date Duration Status ZyrTEC 10 mg by oral route Once a day 1 tablet 24h 20 Oct, 2014 30 days Active Mirapex 1.5 MG Orally Once a day 1.5 tablet before bedtime 24h 30 Active Lisinopril 20 MG oral daily 1 tablet 24h 30 Active Nystatin 720558 UNIT/GM Externally Twice a day 1 to affected area 12h 22 Feb, 2016 Active Simvastatin 20 MG Orally Once a day at hs 1 tablet in the evening Active Voltaren 1 % Transdermal 4 times a day, as needed Apply 2 grams to affected joints above waist and 4 grams below waist January, Active Aciphex 20 MG Orally Once a day 1 tablet 24h Active Tizanidine HCl 4 MG TAKE ONE TABLET BY MOUTH EVERY 6 HOURS NEEDED Active EPINEPHrine 0.3 mg/0.3 mL (1:1,000) 0.3 mg by Intramuscular route 1 time per day PRN SEVERE ALLERGY TO BEES Apr, Active RESULTS Name Result Date Reference Range Xray : Chest (IN HOUSE) 2017-02-25 CMP 2017-02-25 Glucose, Serum 99 65-99 BUN 14 6-24 Creatinine, Serum 0.78 0.57-1.00 eGFR If NonAfricn Am 88 >59 eGFR If Africn Am 101 >59 BUN/Creatinine Ratio 18 9-23 Sodium, Serum 143 134-144 Potassium, Serum 4.6 3.5-5.2 Chloride, Serum 104 96-106 Carbon Dioxide, Total 24 18-29 Calcium, Serum 9.0 8.7-10.2 Protein, Total, Serum 7.0 6.0-8.5 Albumin, Serum 4.1 3.5-5.5 Globulin, Total 2.9 1.5-4.5 A/G Ratio 1.4 1.2-2.2 Bilirubin, Total 0.4 0.0-1.2 Alkaline Phosphatase, S 87 39-117 AST (SGOT) 22 0-40 ALT (SGPT) 22 0-32 PROCEDURES Procedure Date Ordered Result Body Site TB INTRADERMAL 2017-02-25 N/A CHEST X-RAY February 25, 2017 VENIPUNCT, ROUTINE* February 25, 2017 [facility] ESTABLISHED PATIENT February 25, 2017 LAB NOT BILLED BY [facility] February 25, 2017 TB INTRADERMAL TEST February 25, 2017 INSTRUCTIONS MEDICATIONS ADMINISTERED No Known Medications [...]
--- OUTSIDE RECORDS SUMMARY | 2018-04-17 01:41 | XMS REPORT ---
Author Author FLORENCIO OBWIE [facility] Address [address] [place] [address] Care Team Providers Care Sorting And Folding Supervisor Name Role Phone FLORENCIO BOWIE Unavailable PROBLEMS Type Condition ICD9-CM Code JHD26-TZ Code Onset Dates Condition Status SNOMED Code Problem Gastroesophageal reflux disease without esophagitis K21.9 Active 393231959 Problem Dysthymia F34.1 Active 26573623 Problem Screening breast examination Z12.39 Active 063546446 Problem Chronic pain G89.29 Active 91861777 Problem Pain in right shoulder M25.511 Active 93342475 Problem Essential hypertension with goal blood pressure less than 130\/85 I10 Active 52191196 Problem Hoarseness or changing voice R49.9 Active 129873980 Problem Restless leg syndrome G25.81 Active 49213667 Problem History of allergic reaction Z88.9 Active 113281014 Problem Mixed hyperlipidemia E78.2 Active 928068875 Problem Seasonal allergic rhinitis, unspecified allergic rhinitis trigger J30.2 Active 512513578 Problem Renal insufficiency N28.9 Active 395703052 ALLERGIES Substance Reaction Event Type Date Status Xanax agitation and anger Drug Allergy Sep, Active Mobic hives Drug Allergy Sep, Active ENCOUNTERS Encounter Location Date Diagnosis [facility] [id number] [place] [address]31 -8994 Sep, Nausea R11.0 and Diarrhea, unspecified type R19.7 [facility] [id number] [place] [address] 28359- 7456 Jul, Mixed hyperlipidemia E78.2 [facility] [id number] [place] [address] 18998- 4392 Jul, Essential hypertension with goal blood pressure less than 130\/85 I10 ; Gastroesophageal reflux disease without esophagitis K21.9 ; Mixed hyperlipidemia E78.2 ; Renal insufficiency N28.9 ; Restless leg syndrome G25.81 ; Seasonal allergic rhinitis, unspecified allergic rhinitis trigger J30.2 ; Chronic pain G89.29 and History of allergic reaction Z88.9 [facility] [id number] [place] [address] 57421 -2825 Jul, Viral gastroenteritis A08.4 and Homeless Z59.0 [facility] [address] 18791- 8983 Feb, [facility] [address] 65887- 4181 Feb, Essential hypertension with goal blood pressure less than 130\/85 I10 ; Gastroesophageal reflux disease without esophagitis K21.9 ; Mixed hyperlipidemia E78.2 ; Renal insufficiency N28.9 ; Restless leg syndrome G25.81 ; Seasonal allergic rhinitis, unspecified allergic rhinitis trigger J30.2 ; Cough R05 ; Exposure, initial encounter T75.89XA and Chronic pain G89.29 [facility] [address] [address]34- 1647 January, Chronic pain G89.29 [place] [address] 58643- 4053 Dec, Chronic pain G89.29 [facility] [address] 17533- 8008 Dec, Chronic pain G89.29 [facility] [id number] [place] [address] 96288- 0313 Dec, Chronic pain G89.29 [place] [address] 56064- 8739 Nov, Chronic pain G89.29 [place] [id number] [place] [address] 54078- 8868 Nov, [facility] [address] 77903- 9606 Oct, Chronic pain G89.29 [place] [address] [place] [address] 39764- 5270 07 Oct, 2016 Chronic pain G89.29 ; Renal insufficiency N28.9 ; Essential hypertension with goal blood pressure less than 130\/85 I10 ; Gastroesophageal reflux disease without esophagitis K21.9 ; Dysthymia F34.1 ; Mixed hyperlipidemia E78.2 ; Seasonal allergic rhinitis, unspecified allergic rhinitis trigger J30.2 and Hoarseness or changing voice R49.9 [place] [id number] [place] [address] 74088- 6835 Sep, [place] [id number] [place] [address] 45643- 3905 Aug, [place] [id number] [place] [address] 70269- 2207 Jul, [place] [id number] [place] [address] 99912- 9396 Jun, [place] [id number] [place] [address] 52513- 6381 Jun, Chronic pain G89.29 ; Renal insufficiency N28.9 ; Essential hypertension with goal blood pressure less than 130\/85 I10 ; Gastroesophageal reflux disease without esophagitis K21.9 ; Dysthymia F34.1 ; Mixed hyperlipidemia E78.2 ; Seasonal allergic rhinitis, unspecified allergic rhinitis trigger J30.2 and Encounter for immunization Z23 [place] [id number] [place] [address] 34939- 2040 Jun, Chronic pain G89.29 ; Essential hypertension with goal blood pressure less than 130\/85 I10 ; Gastroesophageal reflux disease without esophagitis K21.9 ; Dysthymia F34.1 ; Mixed hyperlipidemia E78.2 ; Renal insufficiency N28.9 ; Seasonal allergic rhinitis, unspecified allergic rhinitis trigger J30.2 and Encounter for immunization Z23 [place] [id number] [place] [address] 42335- 4713 May, [facility] [address] [id number] [address] 0422 Apr, [facility] [id number] [place] [address] 26131- 1889 Mar, [facility] [address] [id number] [address] 1270 Mar, [facility] [id number] [place] [address] 30302- 6184 Feb, Chronic pain G89.29 ; Screening breast examination Z12.39 ; Essential hypertension with goal blood pressure less than 130\/85 I10 ; Gastroesophageal reflux disease without esophagitis K21.9 ; Dysthymia F34.1 ; Mixed hyperlipidemia E78.2 ; Renal insufficiency N28.9 and History of allergic reaction Z88.9 [place] [id number] [place] [address] 94889- 4231 January, [facility] [id number] [place] [address] 30076- 1035 Dec, [facility] [id number] [place] [address] 04531- 8293 Nov, Chronic pain G89.29 ; Pain in right shoulder M25.511 and Essential hypertension with goal blood pressure less than 130\/85 I10 [facility] [address] [address]- 2498 Oct, [facility] [address] [place] [address] 55797- 4775 Sep, [facility] [address] [address]- 4211 Aug, [facility] [id number] [place] [address] 73106- 5075 Aug, Upper respiratory infection J06.9 and Chronic pain G89.29 [facility] [address] [address]- 5581 Aug, [facility] [id number] [place] [address] 04108- 2459 Jul, Chronic pain G89.29 and Encounter for immunization Z23 [address] 87390- 0443 Jul, [place] [address] 29711- 0457 Jun, [place] [address] 34261- 1142 May, [place] [address] 47223- 8264 May, Neck pain 723.1 ; Borderline hyperlipidemia 272.4 ; Chronic pain 338.29 ; Hypertension 401.9 ; Chronic renal insufficiency 585.9 ; Allergic rhinitis 477.9 and GERD (gastroesophageal reflux disease) 530.[address] 22569- 2606 Apr, [place] [address] 39911- 8229 Mar, [address] 85463- 4850 Feb, Hypertension [address] [id number] [place] [address] 25452- 2298 Feb, Neck pain 723.1 ; Chronic pain 338.29 ; Hypertension 401.9 ; Chronic renal insufficiency 585.9 ; Allergic rhinitis 477.9 and Yeast dermatitis 112.3 [place] [id number] [place] [address] 83619- 8518 Feb, [address] 68695- 6275 January, Neck pain 723.1 ; Chronic pain 338.29 ; Hypertension 401.9 ; Anxiety 300.00 and Insomnia [address] 74891- 0148 January, [facility] [place] [facility] [address] [id number] [place] [address]- 9514 14 Dec, 2014 [facility] [place] [facility] [address] [id number] [place] [address]- 6132 13 Dec, 2014 [facility] [place] [facility] [address] [id number] [place] [address]- 6459 23 Nov, 2014 [facility] [place] [facility] [address] [id number] [place] [address]- 3260 Nov, [facility] [place] [facility] [address] [id number] [place] [address]- 6219 Nov, [facility] [place] [facility] [address] [id number] [place] [address]- 7228 Nov, [facility] [place] [facility] [address] [id number] [place] [address]- 7477 Nov, [facility] [place] [facility] [address] [id number] [place] [address]- 1071 Nov, [facility] [place] [facility] [address] [id number] [place] [address]- 7800 Nov, [facility] [place] [facility] [address] [id number] [place] [address]- 1324 Nov, [facility] [place] [facility] [address] [id number] [place] [address]- 9375 Oct, [facility] [place] [facility] [address] [id number] [place] [address]- 1633 Oct, [facility] [place] [facility] [address] [id number] [place] [address]- 6978 Oct, [facility] [place] [facility] [address] [id number] [place] [address]- 7618 Oct, [facility] [place] [facility] [address] [id number] [place] [address]- 3598 Oct, [facility] [place] [facility] [address] [id number] [place] [address]- 7197 Oct, [facility] [address] [id number] [place] [address]- 7264 Sep, [facility] [place] [facility] [address] [id number] [place] [address]- 8225 Sep, [facility] [address] [id number] [place] [address]- 1587 Sep, [facility] [address] [id number] [place] [address]- 5316 Sep, [facility] [address] [id number] [place] [address]- 3551 Sep, [facility] [address] [id number] [place] [address]- 5274 Sep, [facility] [address] [id number] [place] [address]- 8540 Aug, [facility] [address] [id number] [place] [address]- 1207 Aug, [facility] [address] [id number] [place] [address]- 1955 Aug, [facility] [address] [id number] [place] [address]- 9260 Aug, [facility] [place] [facility] [address] [id number] [place] [address]- 2545 Aug, [facility] [place] [facility] [address] [id number] [place] [address]- 6428 Aug, [facility] [place] [facility] [address] [id number] [place] [address]- 7160 Aug, [facility] [place] [facility] [address] [id number] [place] [address]- 5864 Aug, [facility] [place] [facility] [address] [id number] [place] [address]- 5179 Aug, [facility] [place] [facility] [address] [id number] [place] [address]- 6385 Jul, [facility] [place] [facility] [address] [id number] [place] [address]- 1843 Jul, [facility] [place] [facility] [address] [id number] [place] [address]- 9430 Jul, [facility] [place] [facility] [address] [id number] [place] [address]- 7801 Jul, [facility] [place] [facility] [address] [id number] [place] [address]- 9334 Jul, [facility] [place] [facility] [address] [id number] [place] [address]- 2438 Jul, [facility] [place] [facility] [address] [id number] [place] [address]- 3907 Jul, [facility] [place] [facility] [address] [id number] [place] [address]- 1380 Jul, [facility] [place] [facility] [address] [id number] [place] [address]- 2667 Jul, [facility] [place] [facility] [address] [id number], [place] [address]- 2078 Jun, [facility] [place] [facility] [address] [id number], [place] [address]- 5442 16 Jun, 2014 [facility] [place] [facility] [address] [id number], [place] [address]- 1183 14 Jun, 2014 [facility] [place] [facility] [address] [id number] [place] [address]- 6265 10 Jun, 2014 [facility] [place] [facility] [address] [id number], [place] [address]- 8311 10 Jun, 2014 [facility] [place] [facility] [address] [id number], [place] [address]- 0127 26 May, 2014 [facility] [place] [facility] [address] [id number], [place] [address]- 2745 May, [facility] [place] [facility] [address] [id number] [place] [address]- 1243 May, [facility] [place] [facility] [address] [id number] [place] [address]- 1280 Apr, [facility] [place] [facility] [address] [id number] [place] [address]- 2776 Apr, [facility] [place] [facility] [address] [id number] [place] [address]- 8034 Apr, [facility] [place] [facility] [address] [id number] [place] [address]- 4687 Apr, [facility] [place] [facility] [address] [id number] [place] [address]- 3163 Mar, [facility] [place] [facility] [address] [id number] [place] [address]- 0792 Mar, [facility] [place] [facility] [address] [id number] [place] [address]- 7913 Mar, [facility] [place] [facility] [address] [id number] [place] [address]- 2348 Mar, [facility] [place] [facility] [address] [id number] [place] [address]- 9028 Mar, [facility] [place] [facility] [address] [id number] [place] [address]- 7444 Feb, [facility] [place] [facility] [address] [id number] [place] [address]- 9711 Feb, [facility] [place] [facility] [address] [id number] [place] [address]- 3315 Feb, [facility] [place] [facility] [address] [id number] [place] [address]- 2050 Feb, [facility] [place] [facility] [address] [id number] [place] [address]- 1630 January, [facility] [place] [facility] [address] [id number] [place] [address]- 5113 January, [facility] [place] [facility] [address] [id number] [place] [address]- 9208 January, [facility] [place] [facility] [address] [id number] [place] [address]- 1312 January, [facility] [place] [facility] [address] [id number] [place] [address]- 4978 January, [facility] [place] [facility] [address] [id number] [place] [address]- 6924 Dec, [facility] [place] [facility] [address] [id number] [place] [address]- 1312 Dec, [facility] [place] [facility] [address] [id number] [place] [address]- 5135 Dec, [facility] [place] [facility] [address] [id number] [place] [address]- 8925 Dec, [facility] [place] [facility] [address] [id number] [place] [address]- 9631 Dec, [facility] [place] [facility] [address] [id number] [place] [address]- 9033 Dec, [facility] [place] [facility] [address] [id number] [place] [address]- 9424 Dec, [facility] [place] [facility] [address] [id number] [place] [address]- 9236 Dec, [facility] [place] [facility] [address] [id number] [place] [address]- 4618 Nov, [facility] [place] [facility] [address] [id number] [place]882 Nov, [facility] [place] [facility] [address] [id number] [place] [address]- 5996 Nov, [facility] [place] [facility] [address] [id number] [place] [address]- 7648 17 Nov, 2013 [facility] [place] [facility] [address] [id number] [place] [address]- 0127 11 Nov, 2013 [facility] [place] [facility] [address] [id number] [place] [address]- 3108 11 Nov, 2013 [facility] [place] [facility] [address] [id number] [place] [address]- 2131 10 Nov, 2013 [facility] [place] [facility] [address] [id number] [place] [address]- 9852 10 Nov, 2013 [facility] [place] [facility] [address] [id number] [place] [address]- 2911 10 Nov, 2013 [facility] [place] [facility] [address] [id number] [place] [address]- 1422 10 Nov, 2013 [facility] [place] [facility] [address] [id number] [place] [address]- 4972 Nov, [facility] [place] [facility] [address] [id number] [place] [address]- 6629 06 Nov, 2013 [facility] [place] [facility] [address] [id number] [place] [address]- 8903 20 Oct, 2013 [facility] [place] [facility] [address] [id number] [place] [address]- 7744 20 Oct, 2013 [facility] [place] [facility] [address] [id number] [place] [address]- 8606 14 Oct, 2013 [facility] [place] [facility] [address] [id number] [place] [address]- 6522 14 Oct, 2013 [facility] [place] [facility] [address] [id number] [place] [address]- 3344 10 Oct, 2013 [facility] [place] [facility] [address] [id number] [place] [address]- 2408 10 Oct, 2013 [facility] [place] [facility] [address] [id number] [place] [address]- 1215 Sep, [facility] [place] [facility] [address] [id number] [place] [address]- 9712 17 Sep, 2013 [facility] [address] [id number] [place] [address]- 3803 17 Sep, 2013 [facility] [address] [id number] [place] [address]- 9924 14 Sep, 2013 [facility] [address] [id number] [place] [address]- 3925 14 Sep, 2013 [facility] [address] [id number] [place] [address]- 4810 10 Sep, 2013 [facility] [address] [id number] [place] [address]- 4664 10 Sep, 2013 [facility] [address] [id number] [place] [address]- 4440 20 Aug, 2013 [facility] [address] [id number] [place] [address]- 3662 Aug, [facility] [address] [id number] [place] [address]- 2429 19 Aug, 2013 [facility] [address] [id number] [place] [address]- 2903 16 Aug, 2013 [facility] [address] [id number] [place] [address]- 9290 16 Aug, 2013 [facility] [address] [id number] [place] [address]- 2273 04 Aug, 2013 [facility] [address] [id number] [place] [address]- 9093 29 Jul, 2013 [facility] [place] [facility] [address] [id number] [place] [address]- 3492 29 Jul, 2013 [facility] [address] [id number] [place] [address]- 5706 22 Jul, 2013 [facility] [address] [id number] [place] [address]- 6623 Jul, [facility] [place] [facility] [address] [id number] [place] [address]- 2291 Jul, [facility] [place] [facility] [address] [id number] [place] [address]- 7213 Jul, [facility] [place] [facility] [address] [id number] [place] [address]- 1306 Jul, [facility] [place] [facility] [address] [id number] [place] [address]- 3567 Jul, [facility] [place] [facility] [address] [id number] [place] [address]- 5679 Jun, [facility] [place] [facility] [address] [id number] [place] [address]- 4722 Jun, [facility] [place] [facility] [address] [id number] [place] [address]- 4008 Jun, [facility] [place] [facility] [address] [id number], [place] [address]- 5093 Jun, [facility] [place] [facility] [address] [id number] [place] [address]- 1530 Jun, [facility] [place] [facility] [address] [id number], [place] [address]- 3125 Jun, [facility] [place] [facility] [address] [id number], [place] [address]- 6923 Jun, [facility] [place] [facility] [address] [id number], [place] [address]- 6019 Jun, [facility] [place] [facility] [address] [id number] [place] [address]- 9138 Jun, [facility] [place] [facility] [address] [id number], [place] [address]- 1170 Jun, [facility] [place] [facility] [address] [id number], [place] [address]- 7790 Jun, [facility] [place] [facility] [address] [id number] [place] [address]- 3167 Jun, [facility] [address] [id number] [place] [address] Jun, [facility] [address] [id number] [place] [address] 24 May, 2013 [facility] [address] [id number] [place] [address] May, [facility] [address] [id number] [place] [address] 16 May, 2013 [facility] [address] [id number] [place] [address] Apr, [facility] [address] [id number] [place] [address] Apr, [facility] [address] [id number] [place] [address] Apr, [facility] [address] [id number] [place] [address] Mar, [facility] [address] [id number] [place] [address] Mar, [facility] [address] [id number] [place] [address] Feb, [facility] [address] [id number] [place] [address] Feb, [facility] [place] [facility] [address] [id number] [place] [address] Feb, [facility] [place] [facility] [address] [id number] [place] [address] January, [facility] [place] [facility] [address] [id number] [place] [address] January, [facility] [address] [id number] [place] [address] January, [facility] [place] [facility] [address] [id number] [place] [address] January, [facility] [address] [id number] [place] [address] Dec, [facility] [place] [facility] [address] [id number] [place] [address] Dec, [facility] [place] [facility] [address] [id number] [place] [address]- [address] Dec, [facility] [place] [facility] [address] [id number] [place] [address] Dec, [facility] [place] [facility] [address] [id number] [place] [address] Nov, [facility] [address] [id number] [place] [address] Nov, [facility] [place] [facility] [address] [id number] [place] [address]- [address] Nov, [facility] [address] [id number] [place] [address] Nov, [facility] [place] [facility] [address] [id number] [place] [address] Oct, [facility] [place] [facility] [address] [id number] [place] [address] Oct, [facility] [place] [facility] [address] [id number] [place] [address] Oct, [facility] [place] [facility] [address] [id number] [place] [address] Oct, [facility] [place] [facility] [address] [id number] [place] [address] Oct, [facility] [place] [facility] [address] [id number] [place] [address] Sep, [facility] [place] [facility] [address] [id number], [place] [address] Sep, [facility] [place] [facility] [address] [id number] [place] [address] Sep, [facility] [place] [facility] [address] [id number] [place] [address] Sep, [facility] [place] [facility] [address] [id number] [place] [address] Aug, [facility] [place] [facility] [address] [id number] [place] [address] Aug, [facility] [place] [facility] [address] [id number] [place] [address]- [address] Aug, [facility] [place] [facility] [address] [id number] [place] [address] Aug, [facility] [place] [facility] [address] [id number] [place] [address] Jul, [facility] [place] [facility] [address] [id number] [place] [address] Jul, [facility] [place] [facility] [address] [id number] [place] [address] Jun, [facility] [place] [facility] [address] [id number] [place] [address] 28 May, 2012 [facility] [place] [facility] [address] [id number], [place] [address] May, [facility] [place] [facility] [address] [id number] [address] 18 May, 2012 [facility] [place] [facility] [address] [id number] [place] [address] 18 May, 2012 [facility] [place] [facility] [address] [id number] [place] [address] 15 Apr, 2012 [facility] [place] [facility] [address] [id number] [place] [address] Apr, [facility] [place] [facility] [address] [id number] [place] [address] Apr, [facility] [place] [facility] [address] [id number] [place] [address] Mar, [facility] [place] [facility] [address] [id number] [place] [address] Mar, [facility] [place] [facility] [address] [id number] [place] [address] Mar, [facility] [place] [facility] [address] [id number] [place] [address] Feb, [facility] [place] [facility] [address] [id number] [place] [address] Feb, [facility] [place] [facility] [address] [id number] [place] [address] Feb, [facility] [place] [facility] [address] [id number] [place] [address] Feb, [facility] [place] [facility] [address] [id number] [place] [address] Feb, [facility] [place] [facility] [address] [id number] [place] [address] Feb, [facility] [place] [facility] [address] [id number] [place] [address] Feb, [facility] [place] [facility] [address] [id number] [place] [address] Feb, [facility] [place] [facility] [address] [id number] [place] [address] Feb, [facility] [place] [facility] [address] [id number] [place] [address] January, [facility] [place] [facility] [address] [id number] [place] [address] January, [facility] [place] [facility] [address] [id number] [place] [address] January, [facility] [address] [id number] [place] [address] January, [facility] [place] [facility] [address] [id number] [place] [address] January, [facility] [place] [facility] [address] [id number] [place] [address] January, [facility] [place] [facility] [address] [id number] [place] [address] January, [facility] [address] [id number] [place] [address] January, [facility] [place] [facility] [address] [id number] [place] [address] January, [facility] [address] [id number] [place] [address] Dec, [facility] [place] [facility] [address] [id number] [place] [address] Dec, [facility] [place] [facility] [address] [id number] [place] [address] Dec, [facility] [place] [facility] [address] [id number] [place] [address] Dec, [facility] [place] [facility] [address] [id number] [place] [address] Dec, [facility] [place] [facility] [address] [id number] [place] [address] Nov, [facility] [place] [facility] [address] [id number] [place] [address] Nov, [facility] [place] [facility] [address] [id number] [place] [address] Nov, [facility] [place] [facility] [address] [id number] [place] [address] Nov, [facility] [place] [facility] [address] [id number] [place] [address] 14 Nov, 2011 [facility] [address] [id number] [place] [address] 06 Nov, 2011 [facility] [place] [facility] [address] [id number] [place] [address] 27 Oct, 2011 [facility] [place] [facility] [address] [id number] [place] [address] Oct, [facility] [place] [facility] [address] [id number] [place] [address] Sep, [facility] [place] [facility] [address] [id number] [place] [address] Sep, [facility] [place] [facility] [address] [id number] [place] [address] Sep, [facility] [address] [id number] [place] [address] Sep, [facility] [place] [facility] [address] [id number] [place] [address] 30 Aug, 2011 [facility] [place] [facility] [address] [id number] [place] [address] 29 Aug, 2011 [facility] [place] [facility] [address] [id number] [place] [address] Aug, [facility] [place] [facility] [address] [id number] [place] [address] 113[address] Aug, [facility] [place] [facility] [address] [id number] [place] [address] 2546 Aug, [facility] [place] [facility] [address] [id number] [place] [address]- [address] Aug, [facility] [place] [facility] [address] [id number] [place] [address]46 05 Aug, 2011 [facility] [place] [facility] [address] [id number] [place] [address] 27[address] Aug, [facility] [place] [facility] [address] [id number] [place] [address] 2069 Jul, [facility] [place] [facility] [address] [id number] [place] [address] Jul, [facility] [place] [facility] [address] [id number] [place] [address] 1566 Jul, [facility] [place] [facility] [address] [id number] [place] [address] Jul, [facility] [place] [facility] [address] [id number] [place] [address] Jul, [facility] [place] [facility] [address] [id number] [place] [address] 1989 18 Jun, 2011 [facility] [place] [facility] [address] [id number] [place] [address] Jun, [facility] [place] [facility] [address] [id number] [place] [address] January, [facility] [place] [facility] [address] [id number] [place] [address] 49[address] 15 Aug, 2010 [facility] [place] [facility] [address] [id number] [place] [address] 13 Aug, 2010 [facility] [place] [facility] [address] [id number] [place] [address] 07 Aug, 2010 [facility] [place] [facility] [address] [id number], [place] [address] 21 Jun, 2010 [facility] [place] [facility] [address] [id number] [place] [address] 13 Jun, 2010 [facility] [place] [facility] [address] [id number] [place] [address] 7826 13 Jun, 2010 [facility] [place] [facility] [address] [id number] [place] [address] 2061 13 Jun, 2010 [facility] [place] [facility] [address] [id number], [place] [address] Apr, [facility] [address] [facility] [id number], [place] [address] 25[address] January, [facility] [address] [id number], [place] [address] Aug, [facility] [id number], [place] [address] Aug, [facility] [address] [id number], [place] [address] Aug, [facility] [address] [id number], [place] [address] 25[address] May, [facility] [id number], [place] [address] Mar, [facility] [address] [id number], [place] [address] 2546 Oct, IMMUNIZATIONS No Known Immunizations SOCIAL HISTORY Never Assessed REASON FOR VISIT N/D since 1600 yesterday. pt took 3 doses of imodium...diarrhea stopped, but now she has left side pain. luices PLAN OF CARE Activity Details Follow Up prn Reason: VITAL SIGNS Height 64 in 2017-09-25 Weight 174.6 lbs 2017-09-25 Temperature 98.4 degrees Fahrenheit 2017-09-25 Heart Rate 88 bpm 2017-09-25 Respiratory Rate 2017-09-25 BMI 29.97 kg/m2 2017-09-25 Blood pressure systolic 114 mmHg 2017-09-25 Blood pressure diastolic 80 mmHg 2017-09-25 MEDICATIONS Medication Instructions Dosage Frequency Start Date End Date Duration Status Zofran ODT 4 MG Orally every 8 hrs 1 tablet on the tongue and allow to dissolve 8h Sep, 10 days Active ZyrTEC 10 mg by oral route Once a day 1 tablet 24h 30 days Active Nystatin [id number] UNIT/GM Externally Twice a day 1 to affected area 12h Feb, Active Voltaren 1 % Transdermal 4 times a day, as needed Apply 2 grams to affected joints above waist and 4 grams below waist Active EPINEPHrine 0.3 mg/0.3ml 0.3 mg by Intramuscular route 1 time per day PRN SEVERE ALLERGY TO BEES Apr, Active Imodium A-D 2 MG Orally Four times a day 1 tablet as needed 6h Active Lisinopril 20 MG oral daily 1 tablet 24h 30 Active Mirapex 1.5 MG Orally Once a day 1.5 tablet before bedtime 24h 30 Active Tizanidine HCl 4 MG TAKE ONE TABLET BY MOUTH EVERY 6 HOURS NEEDED Active Simvastatin 20 MG Orally Once a day at hs 1 tablet in the evening Active Aciphex 20 MG Orally Once a day 1 tablet 24h Active RESULTS No Results PROCEDURES Procedure Date Ordered Result Body Site [facility] VISIT ESTABLISHED PATIENT Sep 25, 2017 INSTRUCTIONS MEDICATIONS ADMINISTERED No Known [...]
--- OUTSIDE RECORDS SUMMARY | 2018-04-17 01:41 | XMS REPORT ---
Author Author YUNG MOSER [facility] Address [address] [place] [address] Care Team Providers Care Pediatric Nurse Practitioner Name Role Phone SHANTI YUNG Unavailable PROBLEMS Type Condition ICD9-CM Code QTN74-LM Code Onset Dates Condition Status SNOMED Code Problem Gastroesophageal reflux disease without esophagitis K21.9 Active 083359721 Problem Dysthymia F34.1 Active 19066986 Problem Screening breast examination Z12.39 Active 955354517 Problem Chronic pain G89.29 Active 89868058 Problem Pain in right shoulder M25.511 Active 69302214 Problem Essential hypertension with goal blood pressure less than 130\/85 I10 Active 15491524 Problem Hoarseness or changing voice R49.9 Active 674178157 Problem Restless leg syndrome G25.81 Active 33451569 Problem History of allergic reaction Z88.9 Active 444871142 Problem Mixed hyperlipidemia E78.2 Active 021073353 Problem Seasonal allergic rhinitis, unspecified allergic rhinitis trigger J30.2 Active 995102975 Problem Renal insufficiency N28.9 Active 995508912 ALLERGIES No Information ENCOUNTERS Encounter Location Date Diagnosis [facility] [id number] [place] [address] 39477 -6779 Sep, Nausea R11.0 and Diarrhea, unspecified type R19.7 [facility] [id number] [place] [address] 43195- 2546 Jul, Mixed hyperlipidemia E78.2 [facility] [address] [address]41- 4823 Jul, Essential hypertension with goal blood pressure less than 130\/85 I10 ; Gastroesophageal reflux disease without esophagitis K21.9 ; Mixed hyperlipidemia E78.2 ; Renal insufficiency N28.9 ; Restless leg syndrome G25.81 ; Seasonal allergic rhinitis, unspecified allergic rhinitis trigger J30.2 ; Chronic pain G89.29 and History of allergic reaction Z88.9 [facility] [id number] [place] [address] 34761 -9398 Jul, Viral gastroenteritis A08.4 and Homeless Z59.0 [facility] [address] 29182- 7485 Feb, [facility] [address] 75960- 7572 Feb, Essential hypertension with goal blood pressure less than 130\/85 I10 ; Gastroesophageal reflux disease without esophagitis K21.9 ; Mixed hyperlipidemia E78.2 ; Renal insufficiency N28.9 ; Restless leg syndrome G25.81 ; Seasonal allergic rhinitis, unspecified allergic rhinitis trigger J30.2 ; Cough R05 ; Exposure, initial encounter T75.89XA and Chronic pain G89.29 [place] [address] 35862- 8750 January, Chronic pain G89.29 [place] [address] 48136- 2906 Dec, Chronic pain G89.29 [place] [address] 04975- 4849 Dec, Chronic pain G89.29 [place] [address] 52017- 4893 Dec, Chronic pain G89.29 [place] [address] 73856- 5404 Nov, Chronic pain G89.29 [place] [address] 87656- 4560 Nov, [place] [address] 13031- 7146 Oct, Chronic pain G89.29 [place] [address] 54191- 0894 Oct, Chronic pain G89.29 ; Renal insufficiency N28.9 ; Essential hypertension with goal blood pressure less than 130\/85 I10 ; Gastroesophageal reflux disease without esophagitis K21.9 ; Dysthymia F34.1 ; Mixed hyperlipidemia E78.2 ; Seasonal allergic rhinitis, unspecified allergic rhinitis trigger J30.2 and Hoarseness or changing voice R49.9 [place] [id number] [place] [address] 42166- 7071 Sep, [facility] [id number] [place] [address] 86775- 3505 Aug, [place] [id number] [place] [address] 18755- 4515 Jul, [place] [id number] [place] [address] 47150- 0215 Jun, [place] [id number] [place] [address] 59447- 3543 Jun, Chronic pain G89.29 ; Renal insufficiency N28.9 ; Essential hypertension with goal blood pressure less than 130\/85 I10 ; Gastroesophageal reflux disease without esophagitis K21.9 ; Dysthymia F34.1 ; Mixed hyperlipidemia E78.2 ; Seasonal allergic rhinitis, unspecified allergic rhinitis trigger J30.2 and Encounter for immunization Z23 [place] [address] [place] [address] 61634- 3756 Jun, Chronic pain G89.29 ; Essential hypertension with goal blood pressure less than 130\/85 I10 ; Gastroesophageal reflux disease without esophagitis K21.9 ; Dysthymia F34.1 ; Mixed hyperlipidemia E78.2 ; Renal insufficiency N28.9 ; Seasonal allergic rhinitis, unspecified allergic rhinitis trigger J30.2 and Encounter for immunization Z23 [place] [address] [place] [address] 99251- 3385 May, [place] [id number] [place] [address] 35074- 1227 Apr, [place] [id number] [place] [address] 61079- 4559 Mar, [place] [id number] [place] [address] 97029- 4368 Mar, [facility] [id number] [place] [address] 88761- 7209 Feb, Chronic pain G89.29 ; Screening breast examination Z12.39 ; Essential hypertension with goal blood pressure less than 130\/85 I10 ; Gastroesophageal reflux disease without esophagitis K21.9 ; Dysthymia F34.1 ; Mixed hyperlipidemia E78.2 ; Renal insufficiency N28.9 and History of allergic reaction Z88.9 [place] [id number] [place] [address] 38917- 9700 January, [place] [address] 05067- 5777 Dec, [place] [address] 49693- 8860 Nov, Chronic pain G89.29 ; Pain in right shoulder M25.511 and Essential hypertension with goal blood pressure less than 130\/85 I10 [place] [id number] [place] [address] 68084- 3963 Oct, [place] [id number] [place] [address] 17204- 5921 Sep, [place] [id number] [place] [address] 22643- 4816 Aug, [place] [id number] [place] [address] 21947- 2622 Aug, Upper respiratory infection J06.9 and Chronic pain G89.29 [facility] [id number] [place] [address] 06279- 9557 Aug, [facility] [id number] [place] [address] 01501- 3751 Jul, Chronic pain G89.29 and Encounter for immunization Z23 [facility] [id number] [place] [address] 19758- 6274 Jul, [facility] [id number] [place] [address] 71932- 8647 Jun, [facility] [id number] [place] [address] 48669- 3809 May, [facility] [address] 23120- 6059 May, Neck pain 723.1 ; Borderline hyperlipidemia 272.4 ; Chronic pain 338.29 ; Hypertension 401.9 ; Chronic renal insufficiency 585.9 ; Allergic rhinitis 477.9 and GERD (gastroesophageal reflux disease) 530.81 [facility] [id number] [place] [address] 27342- 5082 Apr, [address] 36892- 6590 Mar, [facility] [id number] [place] [address] 38262- 6363 Feb, Hypertension 401.9 [facility] [address] [place] [id number] [place] [address] 57143- 9491 Feb, Neck pain 723.1 ; Chronic pain 338.29 ; Hypertension 401.9 ; Chronic renal insufficiency 585.9 ; Allergic rhinitis 477.9 and Yeast dermatitis 112.3 [facility] [address] [place] [id number] [place] [address] 93909- 4253 Feb, [facility] [id number] [place] [address] 68557- 2831 January, Neck pain 723.1 ; Chronic pain 338.29 ; Hypertension 401.9 ; Anxiety 300.00 and Insomnia 780.52 [facility] [id number] [place] [address] 26274- 7582 January, [facility] [address] [place] [id number] [place] [address] 51389- 8459 Dec, [facility] [place] [facility] [address] [id number] [place] [address]- 0122 13 Dec, 2014 [facility] [place] [facility] [address] [id number] [place] [address]- 7684 23 Nov, 2014 [facility] [place] [facility] [address] [id number] [place] [address]- 4007 23 Nov, 2014 [facility] [place] [facility] [address] [id number] [place] [address]- 3954 Nov, [facility] [place] [facility] [address] [id number] [place] [address]- 4396 Nov, [facility] [place] [facility] [address] [id number] [place] [address]- 4399 Nov, [facility] [place] [facility] [address] [id number] [place] [address]- 7211 Nov, [facility] [place] [facility] [address] [id number] [place] [address]- 8361 Nov, [facility] [place] [facility] [address] [id number] [place] [address]- 3409 Nov, [facility] [place] [facility] [address] [id number] [place] [address]- 7453 Oct, [facility] [place] [facility] [address] [id number] [place] [address]- 5976 Oct, 2014 [facility] [place] [facility] [address] [id number] [place] [address]- 1422 Oct, [facility] [place] [facility] [address] [id number] [place] [address]- 7358 Oct, [facility] [place] [facility] [address] [id number] [place] [address]- 9346 Oct, 2014 [facility] [place] [facility] [address] [id number] [place] [address]- 5546 Oct, 2014 [facility] [place] [facility] [address] [id number] [place] [address]- 1645 Sep, [facility] [address] [id number] [place] [address]- 8354 Sep, [facility] [address] [id number] [place] [address]- 3296 Sep, [facility] [address] [id number] [place] [address]- 6883 Sep, [facility] [address] [id number] [place] [address]- 4489 Sep, [facility] [address] [id number] [place] [address]- 1496 Sep, [facility] [address] [id number] [place] [address]- 0078 Aug, [facility] [address] [id number] [place] [address]- 0343 Aug, [facility] [address] [id number] [place] [address]- 2520 Aug, [facility] [address] [id number] [place] [address]- 5810 Aug, [facility] [address] [id number] [place] [address]- 2131 Aug, [facility] [place] [facility] [address] [id number] [place] [address]- 9697 Aug, [facility] [address] [id number] [place] [address]- 7426 Aug, [facility] [place] [facility] [address] [id number] [place] 4119 Aug, [facility] [place] [facility] [address] [id number] [place] [address]- 4646 Aug, [facility] [place] [facility] [address] [id number] [place] [address]- 4375 Jul, [facility] [place] [facility] [address] [id number] [place] [address]- 8413 Jul, [facility] [place] [facility] [address] [id number] [place] [address]- 3664 Jul, [facility] [place] [facility] [address] [id number] [place] [address]- 6056 Jul, [facility] [place] [facility] [address] [id number] [place] [address]- 6772 Jul, [facility] [place] [facility] [address] [id number] [place] [address]- 3964 Jul, [facility] [place] [facility] [address] [id number] [place] [address]- 1721 Jul, [facility] [place] [facility] [address] [id number] [place] [address]- 4308 Jul, [facility] [place] [facility] [address] [id number] [place] [address]- 2000 Jul, [facility] [place] [facility] [address] [id number] [place] [address]- 4213 16 Jun, 2014 [facility] [place] [facility] [address] [id number] [place] [address]- 3857 16 Jun, 2014 [facility] [place] [facility] [address] [id number] [place] [address]- 8025 14 Jun, 2014 [facility] [place] [facility] [address] [id number] [place] [address]- 2317 10 Jun, 2014 [facility] [place] [facility] [address] [id number] [place] [address]- 1296 10 Jun, 2014 [facility] [place] [facility] [address] [id number] [place] [address]- 1974 26 May, 2014 [facility] [place] [facility] [address] [id number] [place] [address]- 4644 16 May, 2014 [facility] [place] [facility] [address] [id number] [place] [address]- 5056 May, [facility] [place] [facility] [address] [id number] [place] [address]- 6643 Apr, [facility] [place] [facility] [address] [id number] [place] [address]- 0023 Apr, [facility] [place] [facility] [address] [id number] [place] [address]- 0710 Apr, [facility] [place] [facility] [address] [id number] [place] [address]- 9320 Apr, [facility] [place] [facility] [address] [id number] [place] [address]- 8033 Mar, [facility] [place] [facility] [address] [id number] [place] [address]- 9848 Mar, [facility] [place] [facility] [address] [id number] [place] [address]- 9659 Mar, [facility] [place] [facility] [address] [id number] [place] [address]- 5762 Mar, [facility] [place] [facility] [address] [id number] [place] [address]- 6644 Mar, [facility] [place] [facility] [address] [id number] [place] [address]- 2886 Feb, [facility] [place] [facility] [address] [id number] [place] [address]- 2460 Feb, [facility] [place] [facility] [address] [id number] [place] [address]- 6057 Feb, [facility] [place] [facility] [address] [id number] [place] [address]- 1429 Feb, [facility] [place] [facility] [address] [id number] [place] [address]- 9437 January, [facility] [place] [facility] [address] [id number] [place] [address]- 4417 January, [facility] [place] [facility] [address] [id number] [place] [address]- 3990 January, [facility] [place] [facility] [address] [id number] [place] [address]- 2699 January, [facility] [place] [facility] [address] [id number] [place] [address]- 2976 January, [facility] [place] [facility] [address] [id number] [place] [address]- 9701 Dec, [facility] [place] [facility] [address] [id number] [place] [address]- 9803 Dec, [facility] [place] [facility] [address] [id number] [place] [address]- 3671 Dec, [facility] [place] [facility] [address] [id number] [place] [address]- 9924 Dec, [facility] [place] [facility] [address] [id number] [place] [address]- 2337 Dec, [facility] [place] [facility] [address] [id number] [place] [address]- 2354 Dec, [facility] [place] [facility] [address] [id number] [place] [address]- 3983 Dec, [facility] [place] [facility] [address] [id number] [place] [address]- 8626 Dec, [facility] [place] [facility] [address] [id number] [place] [address]- 3398 Nov, [facility] [place] [facility] [address] [id number] [place] [address]- 1471 Nov, [facility] [place] [facility] [address] [id number] [place] [address]- 8347 Nov, [facility] [place] [facility] [address] [id number] [place] [address]- 0596 Nov, [facility] [place] [facility] [address] [id number] [place] [address]- 5297 11 Nov, 2013 [facility] [place] [facility] [address] [id number] [place] [address]- 4973 11 Nov, 2013 [facility] [place] [facility] [address] [id number] [place] [address]- 7817 10 Nov, 2013 [facility] [place] [facility] [address] [id number] [place] [address]- 6094 10 Nov, 2013 [facility] [place] [facility] [address] [id number] [place] [address]- 1253 10 Nov, 2013 [facility] [place] [facility] [address] [id number] [place] [address]- 8402 10 Nov, 2013 [facility] [place] [facility] [address] [id number] [place] [address]- 7263 Nov, [facility] [place] [facility] [address] [id number] [place] [address]- 7164 Nov, [facility] [place] [facility] [address] [id number] [place] [address]- 6005 20 Oct, 2013 [facility] [place] [facility] [address] [id number] [place] [address]- 2612 Oct, [facility] [place] [facility] [address] [id number] [place] [address]- 5948 14 Oct, 2013 [facility] [place] [facility] [address] [id number] [place] [address]- 6901 14 Oct, 2013 [facility] [place] [facility] [address] [id number] [place] [address]- 7684 Oct, [facility] [place] [facility] [address] [id number] [place] [address]- 0122 10 Oct, 2013 [facility] [place] [facility] [address] [id number] [place] [address]- 2557 Sep, [facility] [place] [facility] [address] [id number] [place] [address]- 5455 Sep, [facility] [place] [facility] [address] [id number] [place] [address]- 0309 17 Sep, 2013 [facility] [address] [id number] [place] [address]- 6885 14 Sep, 2013 [facility] [address] [id number] [place] [address]- 9753 14 Sep, 2013 [facility] [address] [id number] [place] [address]- 7675 10 Sep, 2013 [facility] [address] [id number] [place] [address]- 5183 10 Sep, 2013 [facility] [address] [id number] [place] [address]- 2435 20 Aug, 2013 [facility] [address] [id number] [place] [address]- 4531 19 Aug, 2013 [facility] [address] [id number] [place] [address]- 9115 19 Aug, 2013 [facility] [address] [id number] [place] [address]- 7073 16 Aug, 2013 [facility] [address] [id number] [place] [address]- 0308 16 Aug, 2013 [facility] [address] [id number] [place] [address]- 0948 04 Aug, 2013 [facility] [address] [id number] [place] [address]- 1182 29 Jul, 2013 [facility] [address] [id number] [place] [address]- 1578 29 Jul, 2013 [facility] [place] [facility] [address] [id number] [place] [address]- 3730 22 Jul, 2013 [facility] [address] [id number] [place] [address]- 9296 18 Jul, 2013 [facility] [address] [id number] [place] [address]- 8625 Jul, [facility] [place] [facility] [address] [id number] [place] [address]- 4169 15 Jul, 2013 [facility] [place] [facility] [address] [id number] [place] [address]- 7448 Jul, [facility] [place] [facility] [address] [id number] [place] [address]- 9847 Jul, [facility] [place] [facility] [address] [id number] [place] [address]- 3721 Jun, [facility] [place] [facility] [address] [id number] [place] [address]- 0331 Jun, [facility] [place] [facility] [address] [id number] [place] [address]- 1661 Jun, [facility] [place] [facility] [address] [id number] [place] [address]- 9702 Jun, [facility] [place] [facility] [address] [id number] [place] [address]- 6704 Jun, [facility] [place] [facility] [address] [id number] [place] [address]- 6981 Jun, [facility] [place] [facility] [address] [id number] [place] [address]- 5191 Jun, [facility] [place] [facility] [address] [id number] [place] [address]- 7220 Jun, [facility] [place] [facility] [address] [id number] [place] [address]- 5724 Jun, [facility] [place] [facility] [address] [id number] [place] [address]- 4752 Jun, [facility] [place] [facility] [address] [id number] [place] [address]- 9142 Jun, [facility] [place] [facility] [address] [id number] [place] [address]- 0618 17 Jun, 2013 [facility] [place] [facility] [address] [id number] [place] [address]- 1238 Jun, [facility] [address] [id number] [place] [address]- 3378 24 May, 2013 [facility] [address] [id number] [place] [address] May, [facility] [address] [id number] [place] [address] May, [facility] [address] [id number] [place] [address] Apr, [facility] [address] [id number] [place] [address] Apr, [facility] [address] [id number] [place] [address] Apr, [facility] [address] [id number] [place] [address] Mar, [facility] [address] [id number] [place] [address] Mar, [facility] [address] [id number] [place] [address] Feb, [facility] [address] [id number] [place] [address] Feb, [facility] [address] [id number] [place] [address] Feb, [facility] [place] [facility] [address] [id number] [place] [address] January, [facility] [address] [id number] [place] [address] January, [facility] [place] [facility] [address] [id number] [place] [address] January, [facility] [address] [id number] [place] [address] January, [facility] [address] [id number] [place] [address] Dec, [facility] [address] [id number] [place] [address] Dec, [facility] [place] [facility] [address] [id number] [place] [address] 17 Dec, 2012 [facility] [place] [facility] [address] [id number] [place] [address] Dec, [facility] [place] [facility] [address] [id number] [place] [address] 29 Nov, 2012 [facility] [place] [facility] [address] [id number] [place] [address] Nov, [facility] [address] [id number] [place] [address] Nov, [facility] [place] [facility] [address] [id number] [place] [address]- 164[address] Nov, [facility] [address] [id number] [place] [address] Oct, [facility] [address] [id number] [place] [address] Oct, [facility] [place] [facility] [address] [id number] [place] [address] Oct, [facility] [place] [facility] [address] [id number] [place] [address] Oct, [facility] [place] [facility] [address] [id number] [place] [address] Oct, [facility] [place] [facility] [address] [id number] [place] [address] Sep, [facility] [place] [facility] [address] [id number] [place] [address] 16 Sep, 2012 [facility] [place] [facility] [address] [id number] [place] [address] Sep, [facility] [place] [facility] [address] [id number] [place] [address] Sep, [facility] [place] [facility] [address] [id number] [place] [address] Aug, [facility] [place] [facility] [address] [id number] [place] [address] Aug, [facility] [place] [facility] [address] [id number] [place] [address] Aug, [facility] [place] [facility] [address] [id number] [place] [address] Aug, [facility] [place] [facility] [address] [id number] [place] [address] Jul, [facility] [place] [facility] [address] [id number] [place] [address] Jul, [facility] [place] [facility] [address] [id number] [place] [address] Jun, [facility] [place] [facility] [address] [id number] [place] [address] May, [facility] [place] [facility] [address] [id number] [place] [address] May, [facility] [place] [facility] [address] [id number] [place] [address] May, [facility] [place] [facility] [address] [id number] [place] [address] May, [facility] [place] [facility] [address] [id number] [place] [address] Apr, [facility] [place] [facility] [address] [id number] [place] [address] Apr, [facility] [place] [facility] [address] [id number] [place] [address] Apr, [facility] [facility] [address] [id number] [place] [address] Mar, [facility] [place] [facility] [address] [id number] [place] [address] Mar, [facility] [place] [facility] [address] [id number] [place] [address] Mar, [facility] [place] [facility] [address] [id number] [place] [address] Feb, [facility] [place] [facility] [address] [id number] [place] [address] Feb, [facility] [place] [facility] [address] [id number] [place] [address] Feb, [facility] [facility] [address] [id number] [place] [address] Feb, [facility] [place] [facility] [address] [id number] [place] [address] Feb, [facility] [facility] [address] [id number] [place] [address] Feb, [facility] [facility] [address] [id number] [place] [address] Feb, [facility] [facility] [address] [id number] [place] [address] Feb, [facility] [facility] [address] [id number] [place] [address] Feb, [facility] [place] [facility] [address] [id number] [place] [address] January, [facility] [place] [facility] [address] [id number] [place] [address] January, [facility] [address] [id number] [place] [address] January, [facility] [facility] [address] [id number] [place] [address] January, [facility] [address] [id number] [place] [address] January, [facility] [place] [facility] [address] [id number] [place] [address] January, [facility] [place] [facility] [address] [id number] [place] [address] January, [facility] [place] [facility] [address] [id number] [place] [address] January, [facility] [address] [id number] [place] [address] January, [facility] [facility] [address] [id number] [place] [address] 16 Dec, 2011 [facility] [address] [id number] [place] [address] Dec, [facility] [facility] [address] [id number] [place] [address] Dec, [facility] [place] [facility] [address] [id number] [place] [address] 05 Dec, 2011 [facility] [place] [address] [id number] [place] [address] Dec, [facility] [place] [facility] [address] [id number] [place] [address] Nov, [facility] [place] [facility] [address] [id number] [place] [address] 26 Nov, 2011 [facility] [address] [id number] [place] [address] 20 Nov, 2011 [facility] [address] [id number] [place] [address] 19 Nov, 2011 [facility] [place] [facility] [address] [id number] [place] [address]- [address] 14 Nov, 2011 [facility] [address] [id number] [place] [address] Nov, [facility] [address] [id number] [place] [address] Oct, [facility] [address] [id number] [place] [address] Oct, [facility] [address] [id number] [place] [address] Sep, [facility] [address] [id number] [place] [address] Sep, [facility] [address] [id number] [place] [address] Sep, [facility] [address] [id number] [place] [address] Sep, [facility] [address] [id number] [place] [address] Aug, [facility] [address] [id number] [place] [address] Aug, [facility] [address] [id number] [place] [address] 47[address] Aug, [facility] [address] [facility] [id number] [place] [address] Aug, [facility] [address] [id number] [place] [address] Aug, [facility] [address] [id number] [place] [address] Aug, [facility] [address] [id number] [place] [address]- [address] 05 Aug, 2011 [facility] [address] [id number] [place] [address] Aug, [facility] [address] [id number] [place] [address] Jul, [facility] [address] [id number] [place] [address] 08 Jul, 2011 [facility] [address] [id number] [place] [address] Jul, [facility] [address] [id number] [place] [address] Jul, [facility] [address] [id number] [place] [address] Jul, [facility] [address] [id number] [place] [address] 18 Jun, 2011 [facility] [address] [id number] [place] [address] Jun, [facility] [address] [id number] [place] [address] January, [facility] [address] [id number] [place] [address] 15 Aug, 2010 [facility] [address] [id number] [place] [address] Aug, [facility] [address] [id number] [place] [address] Aug, [facility] [address] [id number] [place] [address] 97[address] 21 Jun, 2010 [facility] [address] [id number] [place] [address] 13 Jun, 2010 [facility] [address] [id number] [place] [address] 13 Jun, 2010 [facility] [address] [id number] [place] [address]- [address] 13 Jun, 2010 [facility] [address] [id number] [place] [address] Apr, [facility] [address] [id number] [place] [address] January, [facility] [address] [facility] [id number] [place] [address] Aug, [facility] [address] [id number] [address] Aug, [facility] [address] [id number] [place] [address] Aug, [facility] [address] [id number] [address] May, [facility] [address] [facility] [id number] [place] [address] Mar, [facility] [address] [id number] [address] Oct, IMMUNIZATIONS No Known Immunizations SOCIAL HISTORY Never Assessed REASON FOR VISIT Requests return call PLAN OF CARE VITAL SIGNS MEDICATIONS Unknown Medications RESULTS No Results PROCEDURES No Known procedures INSTRUCTIONS MEDICATIONS ADMINISTERED No Known Medications MEDICAL [...]
--- OUTSIDE RECORDS SUMMARY | 2018-04-17 01:41 | XMS REPORT ---
Author Author YUNG MOSER [facility] Address [address] [place] [address] Care Team Providers Care [employer]ing Worker Name Role Phone YUNG MOSER Unavailable PROBLEMS Type Condition ICD9-CM Code [id number] Code Onset Dates Condition Status SNOMED Code Problem Gastroesophageal reflux disease without esophagitis K21.9 Active 603427184 Problem Dysthymia F34.1 Active 40725892 Problem Screening breast examination Z12.39 Active 454101355 Problem Chronic pain G89.29 Active 85961042 Problem Pain in right shoulder M25.511 Active 23299954 Problem Essential hypertension with goal blood pressure less than 130\/85 I10 Active 39298825 Problem Hoarseness or changing voice R49.9 Active 640351420 Problem Restless leg syndrome G25.81 Active 84814949 Problem History of allergic reaction Z88.9 Active 207589777 Problem Mixed hyperlipidemia E78.2 Active 321185654 Problem Seasonal allergic rhinitis, unspecified allergic rhinitis trigger J30.2 Active 722248885 Problem Renal insufficiency N28.9 Active 489450822 ALLERGIES Unknown Allergies SOCIAL HISTORY No smoking Hx information available PLAN OF CARE VITAL SIGNS MEDICATIONS Medication Instructions Dosage Frequency Start Date End Date Duration Status Percocet 10-325 MG Orally every 12 hours prn must last 28 days- take 1 tablet Active RESULTS No Results PROCEDURES No Known procedures IMMUNIZATIONS No Known Immunizations
--- OUTSIDE RECORDS SUMMARY | 2018-04-17 01:42 | XMS REPORT ---
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 Name Role Phone YUNG MOSER Unavailable PROBLEMS Type Condition ICD9-CM Code [id number] Code Onset Dates Condition Status SNOMED Code Problem Gastroesophageal reflux disease without esophagitis K21.9 Active 935569378 Problem Dysthymia F34.1 Active 09989768 Problem Screening breast examination Z12.39 Active 511420516 Problem Chronic pain G89.29 Active 99484774 Problem Pain in right shoulder M25.511 Active 97730577 Problem Essential hypertension with goal blood pressure less than 130\/85 I10 Active 47044287 Problem Hoarseness or changing voice R49.9 Active 182548635 Problem Restless leg syndrome G25.81 Active 72708149 Problem History of allergic reaction Z88.9 Active 427185835 Problem Mixed hyperlipidemia E78.2 Active 528660621 Problem Seasonal allergic rhinitis, unspecified allergic rhinitis trigger J30.2 Active 589745531 Problem Renal insufficiency N28.9 Active 970870843 ALLERGIES No Information SOCIAL HISTORY Never Assessed PLAN OF CARE VITAL SIGNS MEDICATIONS Medication Instructions Dosage Frequency Start Date End Date Duration Status Lidocaine HCl 3 % Externally t 1 application to affected area as needed Nov, Active RESULTS No Results PROCEDURES No Known [...]
--- OUTSIDE RECORDS SUMMARY | 2018-04-17 01:50 | XMS REPORT | Continuity of Care Document ---
Author Author On License Of [facility] Address Unknown Phone Unavailable Allergies Active Description Code Type Severity Reaction Onset Reported/Identified Relationship to Patient Clinical Status Yes No Known Drug Allergies [id number] Drug Allergy Unknown N/A 08/24/2012 Yes Mobic 7.5 mg tablet Drug Allergy N/A N/A 04/04/2013 Yes Xanax Drug Allergy N/A N/A 10/20/2013 Yes alprazolam [id number] Drug Allergy Unknown N/A 03/10/2017 Yes meloxicam [id number] Drug Allergy Unknown N/A 03/10/2017 Medications There is no data. Problems Date Dx Coded Attending Type Code Diagnosis Diagnosed By 03/07/2008 OLIVIA HAYDEN PHD 296.32 MAJOR DEPRESSIVE AFFECTIVE DISORDER RECURRENT EPISODE MODERATE DEGREE 03/07/2008 OLIVIA HAYDEN PHD 300.00 AN ANXIETY UNSPEC 03/07/2008 296.32 MAJOR DEPRESSIVE AFFECTIVE DISORDER RECURRENT EPISODE MODERATE DEGREE 03/07/2008 300.00 AN ANXIETY UNSPEC 03/07/2008 296.32 MAJOR DEPRESSIVE AFFECTIVE DISORDER RECURRENT EPISODE MODERATE DEGREE 03/07/2008 300.00 AN ANXIETY UNSPEC 03/07/2008 OLIVIA HAYDEN PHD 296.32 MAJOR DEPRESSIVE AFFECTIVE DISORDER RECURRENT EPISODE MODERATE DEGREE 03/07/2008 OLIVIA HAYDEN PHD 300.00 AN ANXIETY UNSPEC 03/07/2008 MASOUD ATKINS MD 296.32 MAJOR DEPRESSIVE AFFECTIVE DISORDER RECURRENT EPISODE MODERATE DEGREE 03/07/2008 MASOUD ATKINS MD 300.00 AN ANXIETY UNSPEC 03/07/2008 296.32 MAJOR DEPRESSIVE AFFECTIVE DISORDER RECURRENT EPISODE MODERATE DEGREE 03/07/2008 300.00 AN ANXIETY UNSPEC 03/07/2008 OLIVIA HAYDEN PHD 296.32 MAJOR DEPRESSIVE AFFECTIVE DISORDER RECURRENT EPISODE MODERATE DEGREE 03/07/2008 OLIVIA HAYDEN PHD 300.00 AN ANXIETY UNSPEC 03/07/2008 296.32 MAJOR DEPRESSIVE AFFECTIVE DISORDER RECURRENT EPISODE MODERATE DEGREE 03/07/2008 300.00 AN ANXIETY UNSPEC 03/07/2008 296.32 MAJOR DEPRESSIVE AFFECTIVE DISORDER RECURRENT EPISODE MODERATE DEGREE 03/07/2008 300.00 AN ANXIETY UNSPEC 03/07/2008 296.32 MAJOR DEPRESSIVE AFFECTIVE DISORDER RECURRENT EPISODE MODERATE DEGREE 03/07/2008 300.00 AN ANXIETY UNSPEC 03/07/2008 296.32 MAJOR DEPRESSIVE AFFECTIVE DISORDER RECURRENT EPISODE MODERATE DEGREE 03/07/2008 300.00 AN ANXIETY UNSPEC 03/07/2008 296.32 MAJOR DEPRESSIVE AFFECTIVE DISORDER RECURRENT EPISODE MODERATE DEGREE 03/07/2008 300.00 AN ANXIETY UNSPEC 03/07/2008 296.32 MAJOR DEPRESSIVE AFFECTIVE DISORDER RECURRENT EPISODE MODERATE DEGREE 03/07/2008 300.00 AN ANXIETY UNSPEC 03/07/2008 296.32 MAJOR DEPRESSIVE AFFECTIVE DISORDER RECURRENT EPISODE MODERATE DEGREE 03/07/2008 300.00 AN ANXIETY UNSPEC 03/07/2008 ERICKA PARISI MD 296.32 MAJOR DEPRESSIVE AFFECTIVE DISORDER RECURRENT EPISODE MODERATE DEGREE 03/07/2008 ERICKA PARISI MD 300.00 AN ANXIETY UNSPEC 03/07/2008 TAMEKA PUCKETT APRN A 296.32 MAJOR DEPRESSIVE AFFECTIVE DISORDER RECURRENT EPISODE MODERATE DEGREE 03/07/2008 TAMEKA PUCKETT APRN A 300.00 AN ANXIETY UNSPEC 03/07/2008 DANIEL JEFFERY DO K 296.32 MAJOR DEPRESSIVE AFFECTIVE DISORDER RECURRENT EPISODE MODERATE DEGREE 03/07/2008 SONAM JEFFERY DOA K 300.00 AN ANXIETY UNSPEC 03/07/2008 ERICKA PARISI MD 296.32 MAJOR DEPRESSIVE AFFECTIVE DISORDER RECURRENT EPISODE MODERATE DEGREE 03/07/2008 ERICKA PARISI MD 300.00 AN ANXIETY UNSPEC 03/07/2008 SONAM JEFFERY DOA K 296.32 MAJOR DEPRESSIVE AFFECTIVE DISORDER RECURRENT EPISODE MODERATE DEGREE 03/07/2008 SONAM JEFFERY DOA K 300.00 AN ANXIETY UNSPEC 03/07/2008 JOSE D WANG DANIEL K 296.32 MAJOR DEPRESSIVE AFFECTIVE DISORDER RECURRENT EPISODE MODERATE DEGREE 03/07/2008 SONAM JEFFERY DOA K 300.00 AN ANXIETY UNSPEC 03/07/2008 ERICKA PARISI MD 296.32 MAJOR DEPRESSIVE AFFECTIVE DISORDER RECURRENT EPISODE MODERATE DEGREE 03/07/2008 ERICKA PARISI MD 300.00 AN ANXIETY UNSPEC 03/07/2008 ERICKA PARISI MD 296.32 MAJOR DEPRESSIVE AFFECTIVE DISORDER RECURRENT EPISODE MODERATE DEGREE 03/07/2008 ERICKA PARISI MD 300.00 AN ANXIETY UNSPEC 03/07/2008 DANIEL JEFFERY DO K 296.32 MAJOR DEPRESSIVE AFFECTIVE DISORDER RECURRENT EPISODE MODERATE DEGREE 03/07/2008 JEFFERY DO, DANIEL K 300.00 AN ANXIETY UNSPEC 03/07/2008 JEFFERY DO, DANIEL K 296.32 MAJOR DEPRESSIVE AFFECTIVE DISORDER RECURRENT EPISODE MODERATE DEGREE 03/07/2008 JEFFERY DO, DANIEL K 300.00 AN ANXIETY UNSPEC 03/07/2008 JEFFERY DO, DANIEL K 296.32 MAJOR DEPRESSIVE AFFECTIVE DISORDER RECURRENT EPISODE MODERATE DEGREE 03/07/2008 JEFFERY DO, DANIEL K 300.00 AN ANXIETY UNSPEC 03/07/2008 MADL FUEL CELL DESIGNER, YUNG L 296.32 MAJOR DEPRESSIVE AFFECTIVE DISORDER RECURRENT EPISODE MODERATE DEGREE 03/07/2008 MADL FUEL CELL DESIGNER, YUNG L 300.00 AN ANXIETY UNSPEC 03/07/2008 MADL FUEL CELL DESIGNER, YUNG L 296.32 MAJOR DEPRESSIVE AFFECTIVE DISORDER RECURRENT EPISODE MODERATE DEGREE 03/07/2008 MADL FUEL CELL DESIGNER, YUNG L 300.00 AN ANXIETY UNSPEC 03/07/2008 MADL FUEL CELL DESIGNER, YUNG L 296.32 MAJOR DEPRESSIVE AFFECTIVE DISORDER RECURRENT EPISODE MODERATE DEGREE 03/07/2008 MADL FUEL CELL DESIGNER, YUNG L 300.00 AN ANXIETY UNSPEC 03/07/2008 JEFFERY DO, DANIEL K 296.32 MAJOR DEPRESSIVE AFFECTIVE DISORDER RECURRENT EPISODE MODERATE DEGREE 03/07/2008 JEFFERY DO, DANIEL K 300.00 AN ANXIETY UNSPEC 03/07/2008 MADL FUEL CELL DESIGNER, YUNG L 296.32 MAJOR DEPRESSIVE AFFECTIVE DISORDER RECURRENT EPISODE MODERATE DEGREE 03/07/2008 MADL FUEL CELL DESIGNER, YUNG L 300.00 AN ANXIETY UNSPEC 03/07/2008 MADL FUEL CELL DESIGNER, YUNG L 296.32 MAJOR DEPRESSIVE AFFECTIVE DISORDER RECURRENT EPISODE MODERATE DEGREE 03/07/2008 MADL FUEL CELL DESIGNER, YUGN L 300.00 AN ANXIETY UNSPEC 03/07/2008 JEFFERY DO, DANIEL K 296.32 MAJOR DEPRESSIVE AFFECTIVE DISORDER RECURRENT EPISODE MODERATE DEGREE 03/07/2008 JEFFERY DO, DANIEL K 300.00 AN ANXIETY UNSPEC 03/07/2008 JEFFERY DO, DANIEL K 296.32 MAJOR DEPRESSIVE AFFECTIVE DISORDER RECURRENT EPISODE MODERATE DEGREE 03/07/2008 JEFFERY DO, DANIEL K 300.00 AN ANXIETY UNSPEC 03/07/2008 MADL FUEL CELL DESIGNER, YUNG L 296.32 MAJOR DEPRESSIVE AFFECTIVE DISORDER RECURRENT EPISODE MODERATE DEGREE 03/07/2008 MADL FUEL CELL DESIGNER, YUNG L 300.00 AN ANXIETY UNSPEC 03/21/2008 OLIVIA HAYDEN PHD 296.89 MO BIPOLAR II 03/21/2008 OLIVIA HAYDEN PHD 789.00 Abdominal Pain Unspecified Site 03/21/2008 296.89 MO BIPOLAR II 03/21/2008 789.00 Abdominal Pain Unspecified Site 03/21/2008 296.89 MO BIPOLAR II 03/21/2008 789.00 Abdominal Pain Unspecified Site 03/21/2008 OLIVIA HAYDEN PHD 296.89 MO BIPOLAR II 03/21/2008 OLIVIA HAYDEN PHD 789.00 Abdominal Pain Unspecified Site 03/21/2008 MASOUD ATKINS MD 296.89 MO BIPOLAR II 03/21/2008 MASOUD ATKINS MD 789.00 Abdominal Pain Unspecified Site 03/21/2008 296.89 MO BIPOLAR II 03/21/2008 789.00 Abdominal Pain Unspecified Site 03/21/2008 OLIVIA HAYDEN PHD 296.89 MO BIPOLAR II 03/21/2008 OLIVIA HAYDEN PHD 789.00 Abdominal Pain Unspecified Site 03/21/2008 296.89 MO BIPOLAR II 03/21/2008 789.00 Abdominal Pain Unspecified Site 03/21/2008 296.89 MO BIPOLAR II 03/21/2008 789.00 Abdominal Pain Unspecified Site 03/21/2008 296.89 MO BIPOLAR II 03/21/2008 789.00 Abdominal Pain Unspecified Site 03/21/2008 296.89 MO BIPOLAR II 03/21/2008 789.00 Abdominal Pain Unspecified Site 03/21/2008 296.89 MO BIPOLAR II 03/21/2008 789.00 Abdominal Pain Unspecified Site 03/21/2008 296.89 MO BIPOLAR II 03/21/2008 789.00 Abdominal Pain Unspecified Site 03/21/2008 296.89 MO BIPOLAR II 03/21/2008 789.00 Abdominal Pain Unspecified Site 03/21/2008 ERICKA PARISI MD 296.89 MO BIPOLAR II 03/21/2008 ERICKA PARISI MD 789.00 Abdominal Pain Unspecified Site 03/21/2008 TAMEKA PUCKETT APRN 296.89 MO BIPOLAR II 03/21/2008 TAMEKA PUCKETT APRN 789.00 Abdominal Pain Unspecified Site 03/21/2008 DANIEL JEFFERY DO 296.89 MO BIPOLAR II 03/21/2008 JEFFERY DO, DANIEL K 789.00 Abdominal Pain Unspecified Site 03/21/2008 ERICKA PARISI MD 296.89 MO BIPOLAR II 03/21/2008 ERICKA PARISI MD 789.00 Abdominal Pain Unspecified Site 03/21/2008 JEFFERY DO, DANIEL K 296.89 MO BIPOLAR II 03/21/2008 JEFFERY DO, DANIEL K 789.00 Abdominal Pain Unspecified Site 03/21/2008 JEFFERY DO, DANIEL K 296.89 MO BIPOLAR II 03/21/2008 JEFFERY DO, DANIEL K 789.00 Abdominal Pain Unspecified Site 03/21/2008 AILIN FRANKLIN, ERICKA Fernandez 296.89 MO BIPOLAR II 03/21/2008 AILIN FRANKLIN, ERICKA Fernandez 789.00 Abdominal Pain Unspecified Site 03/21/2008 AILIN FRANKLIN, ERICKA Fernandez 296.89 MO BIPOLAR II 03/21/2008 ERICKA PARISI MD 789.00 Abdominal Pain Unspecified Site 03/21/2008 JEFFERY DO, DANIEL K 296.89 MO BIPOLAR II 03/21/2008 JEFFERY DO, DANIEL K 789.00 Abdominal Pain Unspecified Site 03/21/2008 JEFFERY DO, DANIEL K 296.89 MO BIPOLAR II 03/21/2008 JEFFERY DO, DANIEL K 789.00 Abdominal Pain Unspecified Site 03/21/2008 JEFFERY DO, DANIEL K 296.89 MO BIPOLAR II 03/21/2008 JEFFERY DO, DANIEL K 789.00 Abdominal Pain Unspecified Site 03/21/2008 MADL FUEL CELL DESIGNER, YUNG L 296.89 MO BIPOLAR II 03/21/2008 MADL FUEL CELL DESIGNER, YUNG L 789.00 Abdominal Pain Unspecified Site 03/21/2008 MADL FUEL CELL DESIGNER, YUNG L 296.89 MO BIPOLAR II 03/21/2008 MADL FUEL CELL DESIGNER, YUNG L 789.00 Abdominal Pain Unspecified Site 03/21/2008 MADL FUEL CELL DESIGNER, YUNG L 296.89 MO BIPOLAR II 03/21/2008 MADL FUEL CELL DESIGNER, YUNG L 789.00 Abdominal Pain Unspecified Site 03/21/2008 JEFFERY DO, DANIEL K 296.89 MO BIPOLAR II 03/21/2008 JEFFERY DO, DANIEL K 789.00 Abdominal Pain Unspecified Site 03/21/2008 MADL FUEL CELL DESIGNER, YUNG L 296.89 MO BIPOLAR II 03/21/2008 MADL FUEL CELL DESIGNER, YUNG L 789.00 Abdominal Pain Unspecified Site 03/21/2008 MADL FUEL CELL DESIGNER, YUNG L 296.89 MO BIPOLAR II 03/21/2008 MADL FUEL CELL DESIGNER, YUNG L 789.00 Abdominal Pain Unspecified Site 03/21/2008 JEFFERY DO, DANIEL K 296.89 MO BIPOLAR II 03/21/2008 JEFFERY DO, DANIEL K 789.00 Abdominal Pain Unspecified Site 03/21/2008 JEFFERY DO, DANIEL K 296.89 MO BIPOLAR II 03/21/2008 JEFFERY DO, DANIEL K 789.00 Abdominal Pain Unspecified Site 03/21/2008 MADL FUEL CELL DESIGNER, YUNG L 296.89 MO BIPOLAR II 03/21/2008 MADL FUEL CELL DESIGNER, YUNG L 789.00 Abdominal Pain Unspecified Site 04/04/2008 OLIVIA HAYDEN PHD 307.47 SI DYSSOMNIA NOS 04/04/2008 OLIVIA HAYDEN PHD 307.50 EA EATING DISORDER UNSPECIFIED 04/04/2008 307.47 SI DYSSOMNIA NOS 04/04/2008 307.50 EA EATING DISORDER UNSPECIFIED 04/04/2008 307.47 SI DYSSOMNIA NOS 04/04/2008 307.50 EA EATING DISORDER UNSPECIFIED 04/04/2008 OLIVIA HAYDEN PHD 307.47 SI DYSSOMNIA NOS 04/04/2008 OLIVIA HAYDEN PHD 307.50 EA EATING DISORDER UNSPECIFIED 04/04/2008 MASOUD ATKINS MD 307.47 SI DYSSOMNIA NOS 04/04/2008 MASOUD ATKINS MD 307.50 EA EATING DISORDER UNSPECIFIED 04/04/2008 307.47 SI DYSSOMNIA NOS 04/04/2008 307.50 EA EATING DISORDER UNSPECIFIED 04/04/2008 OLIVIA HAYDEN PHD 307.47 SI DYSSOMNIA NOS 04/04/2008 OLIVIA HAYDEN PHD 307.50 EA EATING DISORDER UNSPECIFIED 04/04/2008 307.47 SI DYSSOMNIA NOS 04/04/2008 307.50 EA EATING DISORDER UNSPECIFIED 04/04/2008 307.47 SI DYSSOMNIA NOS 04/04/2008 307.50 EA EATING DISORDER UNSPECIFIED 04/04/2008 307.47 SI DYSSOMNIA NOS 04/04/2008 307.50 EA EATING DISORDER UNSPECIFIED 04/04/2008 307.47 SI DYSSOMNIA NOS 04/04/2008 307.50 EA EATING DISORDER UNSPECIFIED 04/04/2008 307.47 SI DYSSOMNIA NOS 04/04/2008 307.50 EA EATING DISORDER UNSPECIFIED 04/04/2008 307.47 SI DYSSOMNIA NOS 04/04/2008 307.50 EA EATING DISORDER UNSPECIFIED 04/04/2008 307.47 SI DYSSOMNIA NOS 04/04/2008 307.50 EA EATING DISORDER UNSPECIFIED 04/04/2008 ERICKA PARISI MD 307.47 SI DYSSOMNIA NOS 04/04/2008 ERICKA PARISI MD 307.50 EA EATING DISORDER UNSPECIFIED 04/04/2008 TAMEKA PUCKETT APRN A 307.47 SI DYSSOMNIA NOS 04/04/2008 TAMEKA PUCKETT APRN A 307.50 EA EATING DISORDER UNSPECIFIED 04/04/2008 JOSE D WANG DANIEL K 307.47 SI DYSSOMNIA NOS 04/04/2008 JOSE D WANG DANIEL K 307.50 EA EATING DISORDER UNSPECIFIED 04/04/2008 ERICKA PARISI MD 307.47 SI DYSSOMNIA NOS 04/04/2008 ERICKA PARISI MD 307.50 EA EATING DISORDER UNSPECIFIED 04/04/2008 JOSE D WANG DANIEL K 307.47 SI DYSSOMNIA NOS 04/04/2008 JEFFERY DO, DANIEL K 307.50 EA EATING DISORDER UNSPECIFIED 04/04/2008 JEFFERY DO DANIEL K 307.47 SI DYSSOMNIA NOS 04/04/2008 JEFFERY DO, DANIEL K 307.50 EA EATING DISORDER UNSPECIFIED 04/04/2008 ERICKA PARISI MD 307.47 SI DYSSOMNIA NOS 04/04/2008 ERICKA PARISI MD 307.50 EA EATING DISORDER UNSPECIFIED 04/04/2008 ERICKA PARISI MD 307.47 SI DYSSOMNIA NOS 04/04/2008 ERICKA PARISI MD 307.50 EA EATING DISORDER UNSPECIFIED 04/04/2008 JEFFERY DO DANIEL K 307.47 SI DYSSOMNIA NOS 04/04/2008 JEFFERY DO, DANIEL K 307.50 EA EATING DISORDER UNSPECIFIED 04/04/2008 JEFFERY DO, DANIEL K 307.47 SI DYSSOMNIA NOS 04/04/2008 JEFFERY DO, DANIEL K 307.50 EA EATING DISORDER UNSPECIFIED 04/04/2008 JEFFERY DO, DANIEL K 307.47 SI DYSSOMNIA NOS 04/04/2008 JEFFERY DO, DANIEL K 307.50 EA EATING DISORDER UNSPECIFIED 04/04/2008 MADL FUEL CELL DESIGNER, YUNG L 307.47 SI DYSSOMNIA NOS 04/04/2008 MADL FUEL CELL DESIGNER, YUNG L 307.50 EA EATING DISORDER UNSPECIFIED 04/04/2008 MADL FUEL CELL DESIGNER, YUNG L 307.47 SI DYSSOMNIA NOS 04/04/2008 MADL FUEL CELL DESIGNER, YUNG L 307.50 EA EATING DISORDER UNSPECIFIED 04/04/2008 MADL FUEL CELL DESIGNER, YUNG L 307.47 SI DYSSOMNIA NOS 04/04/2008 MADL FUEL CELL DESIGNER, YUNG L 307.50 EA EATING DISORDER UNSPECIFIED 04/04/2008 JEFFERY DO, DANIEL K 307.47 SI DYSSOMNIA NOS 04/04/2008 JEFFERY DO, DANIEL K 307.50 EA EATING DISORDER UNSPECIFIED 04/04/2008 MADL FUEL CELL DESIGNER, YUNG L 307.47 SI DYSSOMNIA NOS 04/04/2008 MADL FUEL CELL DESIGNER, YUNG L 307.50 EA EATING DISORDER UNSPECIFIED 04/04/2008 MADL FUEL CELL DESIGNER, YUNG L 307.47 SI DYSSOMNIA NOS 04/04/2008 MADL FUEL CELL DESIGNER, YUNG L 307.50 EA EATING DISORDER UNSPECIFIED 04/04/2008 JEFFERY DO, DANIEL K 307.47 SI DYSSOMNIA NOS 04/04/2008 JEFFERY DO, DANIEL K 307.50 EA EATING DISORDER UNSPECIFIED 04/04/2008 JEFFERY DO, DANIEL K 307.47 SI DYSSOMNIA NOS 04/04/2008 JEFFERY DO, DANIEL K 307.50 EA EATING DISORDER UNSPECIFIED 04/04/2008 MADL FUEL CELL DESIGNER, YUNG L 307.47 SI DYSSOMNIA NOS 04/04/2008 MADL FUEL CELL DESIGNER, YUNG L 307.50 EA EATING DISORDER UNSPECIFIED 04/07/2008 CATRACHO FUNES, OLIVIA Knapp 729.1 MYALGIA AND MYOSITIS UNSPECIFIED 04/07/2008 OLIVIA HAYDEN PHD 729.5 foot pain (soft tissue) 04/07/2008 OLIVIA HAYDEN PHD 780.4 Dizziness And Vertigo 04/07/2008 729.1 MYALGIA AND MYOSITIS UNSPECIFIED 04/07/2008 729.5 foot pain ( soft tissue) 04/07/2008 780.4 Dizziness And Vertigo 04/07/2008 729.1 MYALGIA AND MYOSITIS UNSPECIFIED 04/07/2008 729.5 foot pain ( soft tissue) 04/07/2008 780.4 Dizziness And Vertigo 04/07/2008 OLIVIA HAYDEN PHD 729.1 MYALGIA AND MYOSITIS UNSPECIFIED 04/07/2008 OLIVIA HAYDEN PHD 729.5 foot pain (soft tissue) 04/07/2008 OLIVIA HAYDEN PHD 780.4 Dizziness And Vertigo 04/07/2008 MASOUD ATKINS MD 729.1 MYALGIA AND MYOSITIS UNSPECIFIED 04/07/2008 MASOUD ATKINS MD 729.5 foot pain (soft tissue) 04/07/2008 MASOUD ATKINS MD 780.4 Dizziness And Vertigo 04/07/2008 729.1 MYALGIA AND MYOSITIS UNSPECIFIED 04/07/2008 729.5 foot pain ( soft tissue) 04/07/2008 780.4 Dizziness And Vertigo 04/07/2008 OLIVIA HAYDEN PHD 729.1 MYALGIA AND MYOSITIS UNSPECIFIED 04/07/2008 OLIVIA HAYDEN PHD 729.5 foot pain (soft tissue) 04/07/2008 OLIVIA HAYDEN PHD 780.4 Dizziness And Vertigo 04/07/2008 729.1 MYALGIA AND MYOSITIS UNSPECIFIED 04/07/2008 729.5 foot pain ( soft tissue) 04/07/2008 780.4 Dizziness And Vertigo 04/07/2008 729.1 MYALGIA AND MYOSITIS UNSPECIFIED 04/07/2008 729.5 foot pain ( soft tissue) 04/07/2008 780.4 Dizziness And Vertigo 04/07/2008 729.1 MYALGIA AND MYOSITIS UNSPECIFIED 04/07/2008 729.5 foot pain ( soft tissue) 04/07/2008 780.4 Dizziness And Vertigo 04/07/2008 729.1 MYALGIA AND MYOSITIS UNSPECIFIED 04/07/2008 729.5 foot pain ( soft tissue) 04/07/2008 780.4 Dizziness And Vertigo 04/07/2008 729.1 MYALGIA AND MYOSITIS UNSPECIFIED 04/07/2008 729.5 foot pain ( soft tissue) 04/07/2008 780.4 Dizziness And Vertigo 04/07/2008 729.1 MYALGIA AND MYOSITIS UNSPECIFIED 04/07/2008 729.5 foot pain ( soft tissue) 04/07/2008 780.4 Dizziness And Vertigo 04/07/2008 729.1 MYALGIA AND MYOSITIS UNSPECIFIED 04/07/2008 729.5 foot pain ( soft tissue) 04/07/2008 780.4 Dizziness And Vertigo 04/07/2008 ERICKA PARISI MD 729.1 MYALGIA AND MYOSITIS UNSPECIFIED 04/07/2008 ERICKA PARISI MD 729.5 foot pain (soft tissue) 04/07/2008 ERICKA PARISI MD 780.4 Dizziness And Vertigo 04/07/2008 TAMEKA PUCKETT APRN A 729.1 MYALGIA AND MYOSITIS UNSPECIFIED 04/07/2008 TAMEKA PUCKETT APRN A 729.5 foot pain (soft tissue) 04/07/2008 TAMEKA PUCKETT APRN A 780.4 Dizziness And Vertigo 04/07/2008 DANIEL JEFFERY DO 729.1 MYALGIA AND MYOSITIS UNSPECIFIED 04/07/2008 DANIEL JEFFERY DO 729.5 foot pain (soft tissue) 04/07/2008 DANIEL JEFFERY DO 780.4 Dizziness And Vertigo 04/07/2008 ERICKA PARISI MD 729.1 MYALGIA AND MYOSITIS UNSPECIFIED 04/07/2008 ERICKA PARISI MD 729.5 foot pain (soft tissue) 04/07/2008 ERICKA PARISI MD 780.4 Dizziness And Vertigo 04/07/2008 DANIEL JEFFERY DO 729.1 MYALGIA AND MYOSITIS UNSPECIFIED 04/07/2008 DANIEL JEFFERY DO 729.5 foot pain (soft tissue) 04/07/2008 JEFFERY DO DANIEL K 780.4 Dizziness And Vertigo 04/07/2008 JEFFERY DO DANIEL K 729.1 MYALGIA AND MYOSITIS UNSPECIFIED 04/07/2008 JEFFERY DO DANIEL K 729.5 foot pain (soft tissue) 04/07/2008 JOSE D WANG DANIEL K 780.4 Dizziness And Vertigo 04/07/2008 ERICKA PARISI MD 729.1 MYALGIA AND MYOSITIS UNSPECIFIED 04/07/2008 ERICKA PARISI MD 729.5 foot pain (soft tissue) 04/07/2008 ERICKA PARISI MD 780.4 Dizziness And Vertigo 04/07/2008 ERICKA PARISI MD 729.1 MYALGIA AND MYOSITIS UNSPECIFIED 04/07/2008 ERICKA PARISI MD 729.5 foot pain (soft tissue) 04/07/2008 ERICKA PARISI MD 780.4 Dizziness And Vertigo 04/07/2008 JOSE D WANG DANIEL K 729.1 MYALGIA AND MYOSITIS UNSPECIFIED 04/07/2008 JOSE D WANG DANIEL K 729.5 foot pain (soft tissue) 04/07/2008 JOSE D WANG DANIEL K 780.4 Dizziness And Vertigo 04/07/2008 JOSE D WANG DANIEL K 729.1 MYALGIA AND MYOSITIS UNSPECIFIED 04/07/2008 JOSE D WANG DANIEL K 729.5 foot pain (soft tissue) 04/07/2008 JOSE D WANG DANIEL K 780.4 Dizziness And Vertigo 04/07/2008 JOSE D WANG DANIEL K 729.1 MYALGIA AND MYOSITIS UNSPECIFIED 04/07/2008 JEFFERY DO DANIEL K 729.5 foot pain (soft tissue) 04/07/2008 JEFFERY DO DANIEL K 780.4 Dizziness And Vertigo 04/07/2008 MADL FUEL CELL DESIGNER, YUNG L 729.1 MYALGIA AND MYOSITIS UNSPECIFIED 04/07/2008 MADL FUEL CELL DESIGNER, YUNG L 729.5 foot pain (soft tissue) 04/07/2008 MADL FUEL CELL DESIGNER, YUNG L 780.4 Dizziness And Vertigo 04/07/2008 MADL FUEL CELL DESIGNER, YUNG L 729.1 MYALGIA AND MYOSITIS UNSPECIFIED 04/07/2008 MADL FUEL CELL DESIGNER, YUNG L 729.5 foot pain (soft tissue) 04/07/2008 MADL FUEL CELL DESIGNER, YUNG L 780.4 Dizziness And Vertigo 04/07/2008 MADL FUEL CELL DESIGNER, YUNG L 729.1 MYALGIA AND MYOSITIS UNSPECIFIED 04/07/2008 MADL FUEL CELL DESIGNER, YUNG L 729.5 foot pain (soft tissue) 04/07/2008 MADL FUEL CELL DESIGNER, YUNG L 780.4 Dizziness And Vertigo 04/07/2008 JEFFERY DO, DANIEL K 729.1 MYALGIA AND MYOSITIS UNSPECIFIED 04/07/2008 JEFFERY DO, DANIEL K 729.5 foot pain (soft tissue) 04/07/2008 JEFFERY DO, DANIEL K 780.4 Dizziness And Vertigo 04/07/2008 MADL FUEL CELL DESIGNER, YUNG L 729.1 MYALGIA AND MYOSITIS UNSPECIFIED 04/07/2008 MADL FUEL CELL DESIGNER, YUNG L 729.5 foot pain (soft tissue) 04/07/2008 MADL FUEL CELL DESIGNER, YUNG L 780.4 Dizziness And Vertigo 04/07/2008 MADL FUEL CELL DESIGNER, YUNG L 729.1 MYALGIA AND MYOSITIS UNSPECIFIED 04/07/2008 MADL FUEL CELL DESIGNER, YUNG L 729.5 foot pain (soft tissue) 04/07/2008 MADL FUEL CELL DESIGNER, YUNG L 780.4 Dizziness And Vertigo 04/07/2008 JEFFERY DO, DANIEL K 729.1 MYALGIA AND MYOSITIS UNSPECIFIED 04/07/2008 JEFFERY DO, DANIEL K 729.5 foot pain (soft tissue) 04/07/2008 JEFFERY DO, DANIEL K 780.4 Dizziness And Vertigo 04/07/2008 JEFFERY DO, DANIEL K 729.1 MYALGIA AND MYOSITIS UNSPECIFIED 04/07/2008 JEFFERY DO, DANIEL K 729.5 foot pain (soft tissue) 04/07/2008 JEFFERY DO, DANIEL K 780.4 Dizziness And Vertigo 04/07/2008 MADL FUEL CELL DESIGNER, YUNG L 729.1 MYALGIA AND MYOSITIS UNSPECIFIED 04/07/2008 SHANTI DE LA RSOA, YUNG L 729.5 foot pain (soft tissue) 04/07/2008 YUNG MOSER APRN L 780.4 Dizziness And Vertigo 04/11/2008 CATRACHO PHD, OLIVIA Knapp 530.81 ESOPHAGEAL REFLUX 04/11/2008 530.81 ESOPHAGEAL REFLUX 04/11/2008 530.81 ESOPHAGEAL REFLUX 04/11/2008 CATRACHO PHD, OLIVIA Knapp 530.81 ESOPHAGEAL REFLUX 04/11/2008 MASOUD ATKINS MD 530.81 ESOPHAGEAL REFLUX 04/11/2008 530.81 ESOPHAGEAL REFLUX 04/11/2008 CATRACHO PHD, OLIVIA Knapp 530.81 ESOPHAGEAL REFLUX 04/11/2008 530.81 ESOPHAGEAL REFLUX 04/11/2008 530.81 ESOPHAGEAL REFLUX 04/11/2008 530.81 ESOPHAGEAL REFLUX 04/11/2008 530.81 ESOPHAGEAL REFLUX 04/11/2008 530.81 ESOPHAGEAL REFLUX 04/11/2008 530.81 ESOPHAGEAL REFLUX 04/11/2008 530.81 ESOPHAGEAL REFLUX 04/11/2008 ERICKA PARISI MD 530.81 ESOPHAGEAL REFLUX 04/11/2008 TAMEKA PUCKETT APRN 530.81 ESOPHAGEAL REFLUX 04/11/2008 JEFFERY DO DANIEL K 530.81 ESOPHAGEAL REFLUX 04/11/2008 ERICKA PARISI MD 530.81 ESOPHAGEAL REFLUX 04/11/2008 JEFFERY DO, DANIEL K 530.81 ESOPHAGEAL REFLUX 04/11/2008 JEFFERY DO, DANIEL K 530.81 ESOPHAGEAL REFLUX 04/11/2008 ERICKA PARISI MD 530.81 ESOPHAGEAL REFLUX 04/11/2008 ERICKA PARISI MD 530.81 ESOPHAGEAL REFLUX 04/11/2008 JEFFERY DO, DANIEL K 530.81 ESOPHAGEAL REFLUX 04/11/2008 JEFFERY DO, DANIEL K 530.81 ESOPHAGEAL REFLUX 04/11/2008 JEFFERY DO, DANIEL K 530.81 ESOPHAGEAL REFLUX 04/11/2008 MADMauricio FUEL CELL DESIGNER, YUNG L 530.81 ESOPHAGEAL REFLUX 04/11/2008 SHANTI FUEL CELL DESIGNER YUNG L 530.81 ESOPHAGEAL REFLUX 04/11/2008 SHANTI FUEL CELL DESIGNERAMAN CaballeroYUNG L 530.81 ESOPHAGEAL REFLUX 04/11/2008 JEFFERY DO, DANIEL K 530.81 ESOPHAGEAL REFLUX 04/11/2008 SHANTI FUEL CELL DESIGNER, YUNG L 530.81 ESOPHAGEAL REFLUX 04/11/2008 SHANTI JOEY DE LA ROSAShannan Martínez 530.81 ESOPHAGEAL REFLUX 04/11/2008 DANIEL JEFFERY DO K 530.81 ESOPHAGEAL REFLUX 04/11/2008 DANIEL JEFFERY DO K 530.81 ESOPHAGEAL REFLUX 04/11/2008 SHANTI JOEY DE LA ROSAShannan Martínez 530.81 ESOPHAGEAL REFLUX 04/17/2008 OLIVIA HAYDEN PHD 255.9 UNSPECIFIED DISORDER OF ADRENAL GLANDS 04/17/2008 OLIVIA HAYDEN PHD 782.0 SENSORY DISTURBANCE SKIN 04/17/2008 255.9 UNSPECIFIED DISORDER OF ADRENAL GLANDS 04/17/2008 782.0 SENSORY DISTURBANCE SKIN 04/17/2008 255.9 UNSPECIFIED DISORDER OF ADRENAL GLANDS 04/17/2008 782.0 SENSORY DISTURBANCE SKIN 04/17/2008 OLIVIA HAYDEN PHD 255.9 UNSPECIFIED DISORDER OF ADRENAL GLANDS 04/17/2008 OLIVIA HAYDEN PHD 782.0 SENSORY DISTURBANCE SKIN 04/17/2008 MASOUD ATKINS MD 255.9 UNSPECIFIED DISORDER OF ADRENAL GLANDS 04/17/2008 MASOUD ATKINS MD 782.0 SENSORY DISTURBANCE SKIN 04/17/2008 255.9 UNSPECIFIED DISORDER OF ADRENAL GLANDS 04/17/2008 782.0 SENSORY DISTURBANCE SKIN 04/17/2008 OLIVIA HAYDEN PHD 255.9 UNSPECIFIED DISORDER OF ADRENAL GLANDS 04/17/2008 OLIVIA HAYDEN PHD 782.0 SENSORY DISTURBANCE SKIN 04/17/2008 255.9 UNSPECIFIED DISORDER OF ADRENAL GLANDS 04/17/2008 782.0 SENSORY DISTURBANCE SKIN 04/17/2008 255.9 UNSPECIFIED DISORDER OF ADRENAL GLANDS 04/17/2008 782.0 SENSORY DISTURBANCE SKIN 04/17/2008 255.9 UNSPECIFIED DISORDER OF ADRENAL GLANDS 04/17/2008 782.0 SENSORY DISTURBANCE SKIN 04/17/2008 255.9 UNSPECIFIED DISORDER OF ADRENAL GLANDS 04/17/2008 782.0 SENSORY DISTURBANCE SKIN 04/17/2008 255.9 UNSPECIFIED DISORDER OF ADRENAL GLANDS 04/17/2008 782.0 SENSORY DISTURBANCE SKIN 04/17/2008 255.9 UNSPECIFIED DISORDER OF ADRENAL GLANDS 04/17/2008 782.0 SENSORY DISTURBANCE SKIN 04/17/2008 255.9 UNSPECIFIED DISORDER OF ADRENAL GLANDS 04/17/2008 782.0 SENSORY DISTURBANCE SKIN 04/17/2008 ERICKA PARISI MD 255.9 UNSPECIFIED DISORDER OF ADRENAL GLANDS 04/17/2008 ERICKA PARISI MD 782.0 SENSORY DISTURBANCE SKIN 04/17/2008 LAVERN FUEL CELL DESIGNER, TAMEKA A 255.9 UNSPECIFIED DISORDER OF ADRENAL GLANDS 04/17/2008 LAVERN FUEL CELL DESIGNER, TAMEKA A 782.0 SENSORY DISTURBANCE SKIN 04/17/2008 JEFFERY DO, DANIEL K 255.9 UNSPECIFIED DISORDER OF ADRENAL GLANDS 04/17/2008 JEFFERY DO, DANIEL K 782.0 SENSORY DISTURBANCE SKIN 04/17/2008 ERICKA PARISI MD 255.9 UNSPECIFIED DISORDER OF ADRENAL GLANDS 04/17/2008 ERICKA PARISI MD 782.0 SENSORY DISTURBANCE SKIN 04/17/2008 JEFFERY DO, DANIEL K 255.9 UNSPECIFIED DISORDER OF ADRENAL GLANDS 04/17/2008 JEFFERY DO, DANIEL K 782.0 SENSORY DISTURBANCE SKIN 04/17/2008 JEFFERY DO, DANIEL K 255.9 UNSPECIFIED DISORDER OF ADRENAL GLANDS 04/17/2008 JEFFERY DO, DANIEL K 782.0 SENSORY DISTURBANCE SKIN 04/17/2008 ERICKA PARISI MD 255.9 UNSPECIFIED DISORDER OF ADRENAL GLANDS 04/17/2008 ERICKA PARISI MD 782.0 SENSORY DISTURBANCE SKIN 04/17/2008 ERICKA PARISI MD 255.9 UNSPECIFIED DISORDER OF ADRENAL GLANDS 04/17/2008 ERICKA PARISI MD 782.0 SENSORY DISTURBANCE SKIN 04/17/2008 JEFFERY DO, DANIEL K 255.9 UNSPECIFIED DISORDER OF ADRENAL GLANDS 04/17/2008 JEFFERY DO, DANIEL K 782.0 SENSORY DISTURBANCE SKIN 04/17/2008 JEFFERY DO, DANIEL K 255.9 UNSPECIFIED DISORDER OF ADRENAL GLANDS 04/17/2008 JEFFERY DO, DANIEL K 782.0 SENSORY DISTURBANCE SKIN 04/17/2008 JEFFERY DO, DANIEL K 255.9 UNSPECIFIED DISORDER OF ADRENAL GLANDS 04/17/2008 JEFFERY DO, DANIEL K 782.0 SENSORY DISTURBANCE SKIN 04/17/2008 MADL FUEL CELL DESIGNER, YUNG L 255.9 UNSPECIFIED DISORDER OF ADRENAL GLANDS 04/17/2008 MADL FUEL CELL DESIGNER, YUNG L 782.0 SENSORY DISTURBANCE SKIN 04/17/2008 MADL FUEL CELL DESIGNER, YUNG L 255.9 UNSPECIFIED DISORDER OF ADRENAL GLANDS 04/17/2008 MADL FUEL CELL DESIGNER, YUNG L 782.0 SENSORY DISTURBANCE SKIN 04/17/2008 MADL FUEL CELL DESIGNER, YUNG L 255.9 UNSPECIFIED DISORDER OF ADRENAL GLANDS 04/17/2008 MADL FUEL CELL DESIGNER, YUNG L 782.0 SENSORY DISTURBANCE SKIN 04/17/2008 JEFFERY DO, DANIEL K 255.9 UNSPECIFIED DISORDER OF ADRENAL GLANDS 04/17/2008 JEFFERY DO, DANIEL K 782.0 SENSORY DISTURBANCE SKIN 04/17/2008 MADL FUEL CELL DESIGNER, YUNG L 255.9 UNSPECIFIED DISORDER OF ADRENAL GLANDS 04/17/2008 MADL FUEL CELL DESIGNER, YUNG L 782.0 SENSORY DISTURBANCE SKIN 04/17/2008 MADL FUEL CELL DESIGNER, YUNG L 255.9 UNSPECIFIED DISORDER OF ADRENAL GLANDS 04/17/2008 MADL FUEL CELL DESIGNER, YUNG L 782.0 SENSORY DISTURBANCE SKIN 04/17/2008 JEFFERY DO, DANIEL K 255.9 UNSPECIFIED DISORDER OF ADRENAL GLANDS 04/17/2008 JEFFERY DO, DANIEL K 782.0 SENSORY DISTURBANCE SKIN 04/17/2008 JEFFERY DO, DANIEL K 255.9 UNSPECIFIED DISORDER OF ADRENAL GLANDS 04/17/2008 JEFFERY DO, DANIEL K 782.0 SENSORY DISTURBANCE SKIN 04/17/2008 MADL FUEL CELL DESIGNER, YUNG L 255.9 UNSPECIFIED DISORDER OF ADRENAL GLANDS 04/17/2008 MADL FUEL CELL DESIGNER, YUNG L 782.0 SENSORY DISTURBANCE SKIN 04/27/2008 CATRACHO FUNES, OLIVIA Knapp 401.1 HYPERTENSION, BENIGN ESSENTIAL 04/27/2008 OLIVIA HAYDEN PHD 787.01 Nausea With Vomiting 04/27/2008 401.1 HYPERTENSION, BENIGN ESSENTIAL 04/27/2008 787.01 Nausea With Vomiting 04/27/2008 401.1 HYPERTENSION, BENIGN ESSENTIAL 04/27/2008 787.01 Nausea With Vomiting 04/27/2008 OLIVIA HAYDEN PHD 401.1 HYPERTENSION, BENIGN ESSENTIAL 04/27/2008 OLIVIA HAYDEN PHD 787.01 Nausea With Vomiting 04/27/2008 MASOUD ATKINS MD 401.1 HYPERTENSION, BENIGN ESSENTIAL 04/27/2008 MASOUD ATKINS MD 787.01 Nausea With Vomiting 04/27/2008 401.1 HYPERTENSION, BENIGN ESSENTIAL 04/27/2008 787.01 Nausea With Vomiting 04/27/2008 OLIVIA HAYDEN PHD 401.1 HYPERTENSION, BENIGN ESSENTIAL 04/27/2008 OLIVIA HAYDEN PHD 787.01 Nausea With Vomiting 04/27/2008 401.1 HYPERTENSION, BENIGN ESSENTIAL 04/27/2008 787.01 Nausea With Vomiting 04/27/2008 401.1 HYPERTENSION, BENIGN ESSENTIAL 04/27/2008 787.01 Nausea With Vomiting 04/27/2008 401.1 HYPERTENSION, BENIGN ESSENTIAL 04/27/2008 787.01 Nausea With Vomiting 04/27/2008 401.1 HYPERTENSION, BENIGN ESSENTIAL 04/27/2008 787.01 Nausea With Vomiting 04/27/2008 401.1 HYPERTENSION, BENIGN ESSENTIAL 04/27/2008 787.01 Nausea With Vomiting 04/27/2008 401.1 HYPERTENSION, BENIGN ESSENTIAL 04/27/2008 787.01 Nausea With Vomiting 04/27/2008 401.1 HYPERTENSION, BENIGN ESSENTIAL 04/27/2008 787.01 Nausea With Vomiting 04/27/2008 ERICKA PARISI MD 401.1 HYPERTENSION, BENIGN ESSENTIAL 04/27/2008 ERICKA PARISI MD 787.01 Nausea With Vomiting 04/27/2008 TAMEKA PUCKETT APRN A 401.1 HYPERTENSION, BENIGN ESSENTIAL 04/27/2008 TAMEKA PUCKETT APRN 787.01 Nausea With Vomiting 04/27/2008 JOSE D WANG DANIEL K 401.1 HYPERTENSION, BENIGN ESSENTIAL 04/27/2008 JOSE D WAGN DANIEL K 787.01 Nausea With Vomiting 04/27/2008 ERICKA PARISI MD 401.1 HYPERTENSION, BENIGN ESSENTIAL 04/27/2008 ERICKA PARISI MD 787.01 Nausea With Vomiting 04/27/2008 JEFFERY DO DANIEL K 401.1 HYPERTENSION, BENIGN ESSENTIAL 04/27/2008 JEFFERY DO DANIEL K 787.01 Nausea With Vomiting 04/27/2008 JEFFERY DO DANIEL K 401.1 HYPERTENSION, BENIGN ESSENTIAL 04/27/2008 JEFFERY DO DANIEL K 787.01 Nausea With Vomiting 04/27/2008 ERICKA PARISI MD 401.1 HYPERTENSION, BENIGN ESSENTIAL 04/27/2008 ERICKA PARISI MD 787.01 Nausea With Vomiting 04/27/2008 ERICKA PARISI MD 401.1 HYPERTENSION, BENIGN ESSENTIAL 04/27/2008 AILIN MD, ERICKA M 787.01 Nausea With Vomiting 04/27/2008 JEFFERY DO, DANIEL K 401.1 HYPERTENSION, BENIGN ESSENTIAL 04/27/2008 JEFFERY DO, DANILE K 787.01 Nausea With Vomiting 04/27/2008 JEFFERY DO, DANIEL K 401.1 HYPERTENSION, BENIGN ESSENTIAL 04/27/2008 JEFFERY DO, DANIEL K 787.01 Nausea With Vomiting 04/27/2008 JEFFERY DO, DANIEL K 401.1 HYPERTENSION, BENIGN ESSENTIAL 04/27/2008 JEFFERY DO, DANIEL K 787.01 Nausea With Vomiting 04/27/2008 MADL FUEL CELL DESIGNER, YUNG L 401.1 HYPERTENSION, BENIGN ESSENTIAL 04/27/2008 MADL FUEL CELL DESIGNER, YUNG L 787.01 Nausea With Vomiting 04/27/2008 MADL FUEL CELL DESIGNER, YUNG L 401.1 HYPERTENSION, BENIGN ESSENTIAL 04/27/2008 MADL FUEL CELL DESIGNER, YUNG L 787.01 Nausea With Vomiting 04/27/2008 MADL FUEL CELL DESIGNER, YUNG L 401.1 HYPERTENSION, BENIGN ESSENTIAL 04/27/2008 MADL FUEL CELL DESIGNER, YUNG L 787.01 Nausea With Vomiting 04/27/2008 JEFFERY DO, DANIEL K 401.1 HYPERTENSION, BENIGN ESSENTIAL 04/27/2008 JEFFERY DO, DANIEL K 787.01 Nausea With Vomiting 04/27/2008 MADL FUEL CELL DESIGNER, YUNG L 401.1 HYPERTENSION, BENIGN ESSENTIAL 04/27/2008 MADL FUEL CELL DESIGNER, YUNG L 787.01 Nausea With Vomiting 04/27/2008 MADL FUEL CELL DESIGNER, YUNG L 401.1 HYPERTENSION, BENIGN ESSENTIAL 04/27/2008 MADL FUEL CELL DESIGNER, YUNG L 787.01 Nausea With Vomiting 04/27/2008 JEFFERY DO, DANIEL K 401.1 HYPERTENSION, BENIGN ESSENTIAL 04/27/2008 JEFFERY DO, DANIEL K 787.01 Nausea With Vomiting 04/27/2008 JEFFERY DO, DANIEL K 401.1 HYPERTENSION, BENIGN ESSENTIAL 04/27/2008 JEFFERY DO, DANIEL K 787.01 Nausea With Vomiting 04/27/2008 MADL FUEL CELL DESIGNER, YUNG L 401.1 HYPERTENSION, BENIGN ESSENTIAL 04/27/2008 MADL FUEL CELL DESIGNER, YUNG L 787.01 Nausea With Vomiting 05/01/2008 CATRACHO FUNES, OLIVIA Knapp 702.0 ACTINIC KERATOSIS 05/01/2008 702.0 ACTINIC KERATOSIS 05/01/2008 702.0 ACTINIC KERATOSIS 05/01/2008 CATRACHO PHD, OLIVIA Knapp 702.0 ACTINIC KERATOSIS 05/01/2008 MASOUD ATKINS MD 702.0 ACTINIC KERATOSIS 05/01/2008 702.0 ACTINIC KERATOSIS 05/01/2008 CATRACHO PHD, OLIVIA Knapp 702.0 ACTINIC KERATOSIS 05/01/2008 702.0 ACTINIC KERATOSIS 05/01/2008 702.0 ACTINIC KERATOSIS 05/01/2008 702.0 ACTINIC KERATOSIS 05/01/2008 702.0 ACTINIC KERATOSIS 05/01/2008 702.0 ACTINIC KERATOSIS 05/01/2008 702.0 ACTINIC KERATOSIS 05/01/2008 702.0 ACTINIC KERATOSIS 05/01/2008 AILIN FRANKLIN, ERICKA Fernandez 702.0 ACTINIC KERATOSIS 05/01/2008 LAVERN DE LA ROSA, TAMEKA Campbell 702.0 ACTINIC KERATOSIS 05/01/2008 JOSE D WANG DANIEL K 702.0 ACTINIC KERATOSIS 05/01/2008 AILIN FRANKLIN, ERICKA Fernandez 702.0 ACTINIC KERATOSIS 05/01/2008 JEFFERY DO DANIEL K 702.0 ACTINIC KERATOSIS 05/01/2008 JOSE D WANG DANIEL K 702.0 ACTINIC KERATOSIS 05/01/2008 AILIN FRANKLIN, ERICKA Fernandez 702.0 ACTINIC KERATOSIS 05/01/2008 ERICKA PARISI MD 702.0 ACTINIC KERATOSIS 05/01/2008 JEFFERY DO DANIEL K 702.0 ACTINIC KERATOSIS 05/01/2008 JEFFERY DO DANIEL K 702.0 ACTINIC KERATOSIS 05/01/2008 JEFFERY DO DANIEL K 702.0 ACTINIC KERATOSIS 05/01/2008 JOEY MOSER APRNA L 702.0 ACTINIC KERATOSIS 05/01/2008 SHANTI DE LA ROSA YUNG L 702.0 ACTINIC KERATOSIS 05/01/2008 JOEY MOSER APRNA L 702.0 ACTINIC KERATOSIS 05/01/2008 JEFFERY DO DANIEL K 702.0 ACTINIC KERATOSIS 05/01/2008 MADL FUEL CELL DESIGNER, YUNG L 702.0 ACTINIC KERATOSIS 05/01/2008 MADL FUEL CELL DESIGNER, YUNG L 702.0 ACTINIC KERATOSIS 05/01/2008 JEFFERY DO, DANIEL K 702.0 ACTINIC KERATOSIS 05/01/2008 JEFFERY DO, DANIEL K 702.0 ACTINIC KERATOSIS 05/01/2008 MADL FUEL CELL DESIGNER, YUNG L 702.0 ACTINIC KERATOSIS 05/10/2008 OLIVIA HAYDEN PHD 296.30 MAJOR DEPRESSIVE AFFECTIVE DISORDER RECURRENT EPISODE UNSPECIFIED DEGREE 05/10/2008 OLIVIA HAYDEN PHD 301.83 BORDERLINE PERSONALITY DISORDER 05/10/2008 296.30 MAJOR DEPRESSIVE AFFECTIVE DISORDER RECURRENT EPISODE UNSPECIFIED DEGREE 05/10/2008 301.83 BORDERLINE PERSONALITY DISORDER 05/10/2008 296.30 MAJOR DEPRESSIVE AFFECTIVE DISORDER RECURRENT EPISODE UNSPECIFIED DEGREE 05/10/2008 301.83 BORDERLINE PERSONALITY DISORDER 05/10/2008 OLIVIA HAYDEN PHD 296.30 MAJOR DEPRESSIVE AFFECTIVE DISORDER RECURRENT EPISODE UNSPECIFIED DEGREE 05/10/2008 OLIVIA HAYDEN PHD 301.83 BORDERLINE PERSONALITY DISORDER 05/10/2008 MASOUD ATKINS MD 296.30 MAJOR DEPRESSIVE AFFECTIVE DISORDER RECURRENT EPISODE UNSPECIFIED DEGREE 05/10/2008 MASOUD ATKINS MD 301.83 BORDERLINE PERSONALITY DISORDER 05/10/2008 296.30 MAJOR DEPRESSIVE AFFECTIVE DISORDER RECURRENT EPISODE UNSPECIFIED DEGREE 05/10/2008 301.83 BORDERLINE PERSONALITY DISORDER 05/10/2008 OLIVIA HAYDEN PHD 296.30 MAJOR DEPRESSIVE AFFECTIVE DISORDER RECURRENT EPISODE UNSPECIFIED DEGREE 05/10/2008 OLIVIA HAYDEN PHD 301.83 BORDERLINE PERSONALITY DISORDER 05/10/2008 296.30 MAJOR DEPRESSIVE AFFECTIVE DISORDER RECURRENT EPISODE UNSPECIFIED DEGREE 05/10/2008 301.83 BORDERLINE PERSONALITY DISORDER 05/10/2008 296.30 MAJOR DEPRESSIVE AFFECTIVE DISORDER RECURRENT EPISODE UNSPECIFIED DEGREE 05/10/2008 301.83 BORDERLINE PERSONALITY DISORDER 05/10/2008 296.30 MAJOR DEPRESSIVE AFFECTIVE DISORDER RECURRENT EPISODE UNSPECIFIED DEGREE 05/10/2008 301.83 BORDERLINE PERSONALITY DISORDER 05/10/2008 296.30 MAJOR DEPRESSIVE AFFECTIVE DISORDER RECURRENT EPISODE UNSPECIFIED DEGREE 05/10/2008 301.83 BORDERLINE PERSONALITY DISORDER 05/10/2008 296.30 MAJOR DEPRESSIVE AFFECTIVE DISORDER RECURRENT EPISODE UNSPECIFIED DEGREE 05/10/2008 301.83 BORDERLINE PERSONALITY DISORDER 05/10/2008 296.30 MAJOR DEPRESSIVE AFFECTIVE DISORDER RECURRENT EPISODE UNSPECIFIED DEGREE 05/10/2008 301.83 BORDERLINE PERSONALITY DISORDER 05/10/2008 296.30 MAJOR DEPRESSIVE AFFECTIVE DISORDER RECURRENT EPISODE UNSPECIFIED DEGREE 05/10/2008 301.83 BORDERLINE PERSONALITY DISORDER 05/10/2008 ERICKA PARISI MD 296.30 MAJOR DEPRESSIVE AFFECTIVE DISORDER RECURRENT EPISODE UNSPECIFIED DEGREE 05/10/2008 ERICKA PARISI MD 301.83 BORDERLINE PERSONALITY DISORDER 05/10/2008 LAVERNWAQAS DE LA ROSA, TAMEKA A 296.30 MAJOR DEPRESSIVE AFFECTIVE DISORDER RECURRENT EPISODE UNSPECIFIED DEGREE 05/10/2008 LAVERN DE LA ROSA, TAMEKA A 301.83 BORDERLINE PERSONALITY DISORDER 05/10/2008 JEFFERY DO DANIEL K 296.30 MAJOR DEPRESSIVE AFFECTIVE DISORDER RECURRENT EPISODE UNSPECIFIED DEGREE 05/10/2008 JEFFERY DO DANIEL K 301.83 BORDERLINE PERSONALITY DISORDER 05/10/2008 ERICKA PARISI MD 296.30 MAJOR DEPRESSIVE AFFECTIVE DISORDER RECURRENT EPISODE UNSPECIFIED DEGREE 05/10/2008 ERICKA PARISI MD 301.83 BORDERLINE PERSONALITY DISORDER 05/10/2008 JEFFERY DO DANIEL K 296.30 MAJOR DEPRESSIVE AFFECTIVE DISORDER RECURRENT EPISODE UNSPECIFIED DEGREE 05/10/2008 JEFFERY DO DANIEL K 301.83 BORDERLINE PERSONALITY DISORDER 05/10/2008 JEFFERY DO DANIEL K 296.30 MAJOR DEPRESSIVE AFFECTIVE DISORDER RECURRENT EPISODE UNSPECIFIED DEGREE 05/10/2008 JEFFERY DO DANIEL K 301.83 BORDERLINE PERSONALITY DISORDER 05/10/2008 ERICKA PARISI MD 296.30 MAJOR DEPRESSIVE AFFECTIVE DISORDER RECURRENT EPISODE UNSPECIFIED DEGREE 05/10/2008 ERICKA PARISI MD 301.83 BORDERLINE PERSONALITY DISORDER 05/10/2008 ERICKA PARISI MD 296.30 MAJOR DEPRESSIVE AFFECTIVE DISORDER RECURRENT EPISODE UNSPECIFIED DEGREE 05/10/2008 ERICKA PARISI MD 301.83 BORDERLINE PERSONALITY DISORDER 05/10/2008 JEFFERY DO DANIEL K 296.30 MAJOR DEPRESSIVE AFFECTIVE DISORDER RECURRENT EPISODE UNSPECIFIED DEGREE 05/10/2008 JEFFERY DO DANIEL K 301.83 BORDERLINE PERSONALITY DISORDER 05/10/2008 JEFFERY DO DANIEL K 296.30 MAJOR DEPRESSIVE AFFECTIVE DISORDER RECURRENT EPISODE UNSPECIFIED DEGREE 05/10/2008 JEFFERY DO DANIEL K 301.83 BORDERLINE PERSONALITY DISORDER 05/10/2008 JEFFERY DO DANIEL K 296.30 MAJOR DEPRESSIVE AFFECTIVE DISORDER RECURRENT EPISODE UNSPECIFIED DEGREE 05/10/2008 JEFFERY DO, DANIEL K 301.83 BORDERLINE PERSONALITY DISORDER 05/10/2008 MADL FUEL CELL DESIGNER, YUNG L 296.30 MAJOR DEPRESSIVE AFFECTIVE DISORDER RECURRENT EPISODE UNSPECIFIED DEGREE 05/10/2008 MADL FUEL CELL DESIGNER, YUNG L 301.83 BORDERLINE PERSONALITY DISORDER 05/10/2008 MADL FUEL CELL DESIGNER, YUNG L 296.30 MAJOR DEPRESSIVE AFFECTIVE DISORDER RECURRENT EPISODE UNSPECIFIED DEGREE 05/10/2008 MADL FUEL CELL DESIGNER, YUNG L 301.83 BORDERLINE PERSONALITY DISORDER 05/10/2008 MADL FUEL CELL DESIGNER, YUNG L 296.30 MAJOR DEPRESSIVE AFFECTIVE DISORDER RECURRENT EPISODE UNSPECIFIED DEGREE 05/10/2008 MADL FUEL CELL DESIGNER, YUNG L 301.83 BORDERLINE PERSONALITY DISORDER 05/10/2008 JEFFERY DO, DANIEL K 296.30 MAJOR DEPRESSIVE AFFECTIVE DISORDER RECURRENT EPISODE UNSPECIFIED DEGREE 05/10/2008 JEFFERY DO, DANIEL K 301.83 BORDERLINE PERSONALITY DISORDER 05/10/2008 MADL FUEL CELL DESIGNER, YUNG L 296.30 MAJOR DEPRESSIVE AFFECTIVE DISORDER RECURRENT EPISODE UNSPECIFIED DEGREE 05/10/2008 MADL FUEL CELL DESIGNER, YUNG L 301.83 BORDERLINE PERSONALITY DISORDER 05/10/2008 MADL FUEL CELL DESIGNER, YUNG L 296.30 MAJOR DEPRESSIVE AFFECTIVE DISORDER RECURRENT EPISODE UNSPECIFIED DEGREE 05/10/2008 MADL FUEL CELL DESIGNER, YUNG L 301.83 BORDERLINE PERSONALITY DISORDER 05/10/2008 JEFFERY DO, DANIEL K 296.30 MAJOR DEPRESSIVE AFFECTIVE DISORDER RECURRENT EPISODE UNSPECIFIED DEGREE 05/10/2008 JEFFERY DO, DANIEL K 301.83 BORDERLINE PERSONALITY DISORDER 05/10/2008 JEFFERY DO, DANIEL K 296.30 MAJOR DEPRESSIVE AFFECTIVE DISORDER RECURRENT EPISODE UNSPECIFIED DEGREE 05/10/2008 JEFFERY DO, DANIEL K 301.83 BORDERLINE PERSONALITY DISORDER 05/10/2008 MADL FUEL CELL DESIGNER, YUNG L 296.30 MAJOR DEPRESSIVE AFFECTIVE DISORDER RECURRENT EPISODE UNSPECIFIED DEGREE 05/10/2008 MADL FUEL CELL DESIGNER, YUNG L 301.83 BORDERLINE PERSONALITY DISORDER 05/11/2008 OLIVIA HAYDEN PHD 780.09 Level Of Consciousness 05/11/2008 780.09 Level Of Consciousness 05/11/2008 780.09 Level Of Consciousness 05/11/2008 OLIVIA HAYDEN PHD 780.09 Level Of Consciousness 05/11/2008 MASOUD ATKINS MD 780.09 Level Of Consciousness 05/11/2008 780.09 Level Of Consciousness 05/11/2008 CATRACHO PHD, OLIVIA Knapp 780.09 Level Of Consciousness 05/11/2008 780.09 Level Of Consciousness 05/11/2008 780.09 Level Of Consciousness 05/11/2008 780.09 Level Of Consciousness 05/11/2008 780.09 Level Of Consciousness 05/11/2008 780.09 Level Of Consciousness 05/11/2008 780.09 Level Of Consciousness 05/11/2008 780.09 Level Of Consciousness 05/11/2008 ERICKA PARISI MD 780.09 Level Of Consciousness 05/11/2008 LAVERN APRN, TAMEKA A 780.09 Level Of Consciousness 05/11/2008 JEFFERY DO, DANIEL K 780.09 Level Of Consciousness 05/11/2008 ERICKA PARISI MD 780.09 Level Of Consciousness 05/11/2008 JEFFERY DO, DANIEL K 780.09 Level Of Consciousness 05/11/2008 JEFFERY DO, DANEIL K 780.09 Level Of Consciousness 05/11/2008 ERICKA PARISI MD 780.09 Level Of Consciousness 05/11/2008 ERICKA PARISI MD 780.09 Level Of Consciousness 05/11/2008 JEFFERY DO, DANIEL K 780.09 Level Of Consciousness 05/11/2008 JEFFERY DO, DANIEL K 780.09 Level Of Consciousness 05/11/2008 JEFFERY DO, DANIEL K 780.09 Level Of Consciousness 05/11/2008 MADL FUEL CELL DESIGNER, YUNG L 780.09 Level Of Consciousness 05/11/2008 MADL FUEL CELL DESIGNER, YUNG L 780.09 Level Of Consciousness 05/11/2008 MADL FUEL CELL DESIGNER, YUNG L 780.09 Level Of Consciousness 05/11/2008 JEFFERY DO, DANIEL K 780.09 Level Of Consciousness 05/11/2008 MADL FUEL CELL DESIGNER, YUNG L 780.09 Level Of Consciousness 05/11/2008 MADL FUEL CELL DESIGNER, YUNG L 780.09 Level Of Consciousness 05/11/2008 JEFFERY DO, DANIEL K 780.09 Level Of Consciousness 05/11/2008 JEFFERY DO, DANIEL K 780.09 Level Of Consciousness 05/11/2008 MADL FUEL CELL DESIGNER, YUNG L 780.09 Level Of Consciousness 05/14/2008 CATRACHO PHD, OLIVIA Knapp 781.3 poor coordination [Sx] 05/14/2008 781.3 poor coordination [Sx] 05/14/2008 781.3 poor coordination [Sx] 05/14/2008 CATRACHO FUNES, OLIVIA Knapp 781.3 poor coordination [Sx] 05/14/2008 MASOUD ATKINS MD 781.3 poor coordination [Sx] 05/14/2008 781.3 poor coordination [Sx] 05/14/2008 CATRACHO FUNES, OLIVIA Knapp 781.3 poor coordination [Sx] 05/14/2008 781.3 poor coordination [Sx] 05/14/2008 781.3 poor coordination [Sx] 05/14/2008 781.3 poor coordination [Sx] 05/14/2008 781.3 poor coordination [Sx] 05/14/2008 781.3 poor coordination [Sx] 05/14/2008 781.3 poor coordination [Sx] 05/14/2008 781.3 poor coordination [Sx] 05/14/2008 ERICKA PARISI MD 781.3 poor coordination [Sx] 05/14/2008 TAMEKA PUCKETT APRN 781.3 poor coordination [Sx] 05/14/2008 DANIEL JEFFERY DO 781.3 poor coordination [Sx] 05/14/2008 ERICKA PARISI MD 781.3 poor coordination [Sx] 05/14/2008 DANIEL JEFFERY DO 781.3 poor coordination [Sx] 05/14/2008 DANIEL JEFFERY DO 781.3 poor coordination [Sx] 05/14/2008 ERICKA PARISI MD 781.3 poor coordination [Sx] 05/14/2008 ERICKA PARISI MD 781.3 poor coordination [Sx] 05/14/2008 DANIEL JEFFERY DO 781.3 poor coordination [Sx] 05/14/2008 DANIEL JEFFERY DO 781.3 poor coordination [Sx] 05/14/2008 DANIEL JEFFERY DO 781.3 poor coordination [Sx] 05/14/2008 YUNG MOSER APRN 781.3 poor coordination [Sx] 05/14/2008 YUNG MOSER APRN 781.3 poor coordination [Sx] 05/14/2008 SHANTI DE LA ROSA, YUNG L 781.3 poor coordination [Sx] 05/14/2008 JEFFERY DOSONAMA K 781.3 poor coordination [Sx] 05/14/2008 VIANNEYL FUEL CELL DESIGNERJOEY CaballeroA L 781.3 poor coordination [Sx] 05/14/2008 VIANNEYL FUEL CELL DESIGNER, YUNG L 781.3 poor coordination [Sx] 05/14/2008 JEFFERY DO DANIEL K 781.3 poor coordination [Sx] 05/14/2008 JEFFERY DO, DANIEL K 781.3 poor coordination [Sx] 05/14/2008 VIANNEYL FUEL CELL DESIGNER, YUNG L 781.3 poor coordination [Sx] 05/16/2008 OLIVIA HAYDEN PHD 276.8 HYPOPOTASSEMIA 05/16/2008 OLIVIA HAYDEN PHD 300.4 DYSTHYMIC DISORDER (DEPRESSIVE NEUROSIS) 05/16/2008 OLIVIA HAYDEN PHD 316 PSYCHOLOGICAL FACTORS AFFECTING PHYSICAL CONDITION 05/16/2008 276.8 HYPOPOTASSEMIA 05/16/2008 300.4 DYSTHYMIC DISORDER (DEPRESSIVE NEUROSIS) 05/16/2008 316 PSYCHOLOGICAL FACTORS AFFECTING PHYSICAL CONDITION 05/16/2008 276.8 HYPOPOTASSEMIA 05/16/2008 300.4 DYSTHYMIC DISORDER (DEPRESSIVE NEUROSIS) 05/16/2008 316 PSYCHOLOGICAL FACTORS AFFECTING PHYSICAL CONDITION 05/16/2008 OLIVIA HAYDEN PHD 276.8 HYPOPOTASSEMIA 05/16/2008 OLIVIA HAYDEN PHD 300.4 DYSTHYMIC DISORDER (DEPRESSIVE NEUROSIS) 05/16/2008 OLIVIA HAYDEN PHD 316 PSYCHOLOGICAL FACTORS AFFECTING PHYSICAL CONDITION 05/16/2008 MASOUD ATKINS MD 276.8 HYPOPOTASSEMIA 05/16/2008 MASOUD ATKINS MD 300.4 DYSTHYMIC DISORDER (DEPRESSIVE NEUROSIS) 05/16/2008 MASOUD ATKINS MD 316 PSYCHOLOGICAL FACTORS AFFECTING PHYSICAL CONDITION 05/16/2008 276.8 HYPOPOTASSEMIA 05/16/2008 300.4 DYSTHYMIC DISORDER (DEPRESSIVE NEUROSIS) 05/16/2008 316 PSYCHOLOGICAL FACTORS AFFECTING PHYSICAL CONDITION 05/16/2008 OLIVIA HAYDEN PHD 276.8 HYPOPOTASSEMIA 05/16/2008 OLIVIA HAYDEN PHD 300.4 DYSTHYMIC DISORDER (DEPRESSIVE NEUROSIS) 05/16/2008 OLIVIA HAYDEN PHD 316 PSYCHOLOGICAL FACTORS AFFECTING PHYSICAL CONDITION 05/16/2008 276.8 HYPOPOTASSEMIA 05/16/2008 300.4 DYSTHYMIC DISORDER (DEPRESSIVE NEUROSIS) 05/16/2008 316 PSYCHOLOGICAL FACTORS AFFECTING PHYSICAL CONDITION 05/16/2008 276.8 HYPOPOTASSEMIA 05/16/2008 300.4 DYSTHYMIC DISORDER (DEPRESSIVE NEUROSIS) 05/16/2008 316 PSYCHOLOGICAL FACTORS AFFECTING PHYSICAL CONDITION 05/16/2008 276.8 HYPOPOTASSEMIA 05/16/2008 300.4 DYSTHYMIC DISORDER (DEPRESSIVE NEUROSIS) 05/16/2008 316 PSYCHOLOGICAL FACTORS AFFECTING PHYSICAL CONDITION 05/16/2008 276.8 HYPOPOTASSEMIA 05/16/2008 300.4 DYSTHYMIC DISORDER (DEPRESSIVE NEUROSIS) 05/16/2008 316 PSYCHOLOGICAL FACTORS AFFECTING PHYSICAL CONDITION 05/16/2008 276.8 HYPOPOTASSEMIA 05/16/2008 300.4 DYSTHYMIC DISORDER (DEPRESSIVE NEUROSIS) 05/16/2008 316 PSYCHOLOGICAL FACTORS AFFECTING PHYSICAL CONDITION 05/16/2008 276.8 HYPOPOTASSEMIA 05/16/2008 300.4 DYSTHYMIC DISORDER (DEPRESSIVE NEUROSIS) 05/16/2008 316 PSYCHOLOGICAL FACTORS AFFECTING PHYSICAL CONDITION 05/16/2008 276.8 HYPOPOTASSEMIA 05/16/2008 300.4 DYSTHYMIC DISORDER (DEPRESSIVE NEUROSIS) 05/16/2008 316 PSYCHOLOGICAL FACTORS AFFECTING PHYSICAL CONDITION 05/16/2008 ERICKA PARISI MD 276.8 HYPOPOTASSEMIA 05/16/2008 ERICKA PARISI MD 300.4 DYSTHYMIC DISORDER (DEPRESSIVE NEUROSIS) 05/16/2008 ERICKA PARISI MD 316 PSYCHOLOGICAL FACTORS AFFECTING PHYSICAL CONDITION 05/16/2008 TAMEKA PUCKETT APRN A 276.8 HYPOPOTASSEMIA 05/16/2008 TAMEKA PUCKETT APRN A 300.4 DYSTHYMIC DISORDER (DEPRESSIVE NEUROSIS) 05/16/2008 TAMEKA PUCKETT APRN A 316 PSYCHOLOGICAL FACTORS AFFECTING PHYSICAL CONDITION 05/16/2008 SONAM JEFFERY DOA K 276.8 HYPOPOTASSEMIA 05/16/2008 SONAM JEFFERY DOA K 300.4 DYSTHYMIC DISORDER (DEPRESSIVE NEUROSIS) 05/16/2008 JOSE D WANG DANIEL K 316 PSYCHOLOGICAL FACTORS AFFECTING PHYSICAL CONDITION 05/16/2008 ERICKA PARISI MD 276.8 HYPOPOTASSEMIA 05/16/2008 ERICKA PARISI MD 300.4 DYSTHYMIC DISORDER (DEPRESSIVE NEUROSIS) 05/16/2008 ERICKA PARISI MD 316 PSYCHOLOGICAL FACTORS AFFECTING PHYSICAL CONDITION 05/16/2008 JEFFERY DO, DANIEL K 276.8 HYPOPOTASSEMIA 05/16/2008 JEFFERY DO, DANIEL K 300.4 DYSTHYMIC DISORDER (DEPRESSIVE NEUROSIS) 05/16/2008 JEFFERY DO, DAINEL K 316 PSYCHOLOGICAL FACTORS AFFECTING PHYSICAL CONDITION 05/16/2008 JEFFERY DO, DANIEL K 276.8 HYPOPOTASSEMIA 05/16/2008 JEFFERY DO, DANIEL K 300.4 DYSTHYMIC DISORDER (DEPRESSIVE NEUROSIS) 05/16/2008 JEFFERY DO DANIEL K 316 PSYCHOLOGICAL FACTORS AFFECTING PHYSICAL CONDITION 05/16/2008 ERICKA PARISI MD 276.8 HYPOPOTASSEMIA 05/16/2008 ERICKA PARISI MD 300.4 DYSTHYMIC DISORDER (DEPRESSIVE NEUROSIS) 05/16/2008 ERICKA PARISI MD 316 PSYCHOLOGICAL FACTORS AFFECTING PHYSICAL CONDITION 05/16/2008 ERICKA PARISI MD 276.8 HYPOPOTASSEMIA 05/16/2008 ERICKA PARISI MD 300.4 DYSTHYMIC DISORDER (DEPRESSIVE NEUROSIS) 05/16/2008 ERICKA PARISI MD 316 PSYCHOLOGICAL FACTORS AFFECTING PHYSICAL CONDITION 05/16/2008 JEFFERY DO, DANIEL K 276.8 HYPOPOTASSEMIA 05/16/2008 JEFFERY DO, DANIEL K 300.4 DYSTHYMIC DISORDER (DEPRESSIVE NEUROSIS) 05/16/2008 JEFFERY DO DANIEL K 316 PSYCHOLOGICAL FACTORS AFFECTING PHYSICAL CONDITION 05/16/2008 JEFFERY DO, DANIEL K 276.8 HYPOPOTASSEMIA 05/16/2008 JEFFERY DO, DANIEL K 300.4 DYSTHYMIC DISORDER (DEPRESSIVE NEUROSIS) 05/16/2008 JEFFERY DO, DANIEL K 316 PSYCHOLOGICAL FACTORS AFFECTING PHYSICAL CONDITION 05/16/2008 JEFFERY DO, DANIEL K 276.8 HYPOPOTASSEMIA 05/16/2008 JEFFERY DO, DANIEL K 300.4 DYSTHYMIC DISORDER (DEPRESSIVE NEUROSIS) 05/16/2008 JEFFERY DO, DANIEL K 316 PSYCHOLOGICAL FACTORS AFFECTING PHYSICAL CONDITION 05/16/2008 MADL FUEL CELL DESIGNER, YUNG L 276.8 HYPOPOTASSEMIA 05/16/2008 MADL FUEL CELL DESIGNER, YUNG L 300.4 DYSTHYMIC DISORDER (DEPRESSIVE NEUROSIS) 05/16/2008 MADL FUEL CELL DESIGNER, YUNG L 316 PSYCHOLOGICAL FACTORS AFFECTING PHYSICAL CONDITION 05/16/2008 MADL FUEL CELL DESIGNER, YUNG L 276.8 HYPOPOTASSEMIA 05/16/2008 MADL FUEL CELL DESIGNER, YUNG L 300.4 DYSTHYMIC DISORDER (DEPRESSIVE NEUROSIS) 05/16/2008 MADL FUEL CELL DESIGNER, YUNG L 316 PSYCHOLOGICAL FACTORS AFFECTING PHYSICAL CONDITION 05/16/2008 MADL FUEL CELL DESIGNER, YUNG L 276.8 HYPOPOTASSEMIA 05/16/2008 MADL FUEL CELL DESIGNER, YUNG L 300.4 DYSTHYMIC DISORDER (DEPRESSIVE NEUROSIS) 05/16/2008 MADL FUEL CELL DESIGNER, YUNG L 316 PSYCHOLOGICAL FACTORS AFFECTING PHYSICAL CONDITION 05/16/2008 JEFFERY DO, DANIEL K 276.8 HYPOPOTASSEMIA 05/16/2008 JEFFERY DO, DANIEL K 300.4 DYSTHYMIC DISORDER (DEPRESSIVE NEUROSIS) 05/16/2008 JEFFERY DO, DANIEL K 316 PSYCHOLOGICAL FACTORS AFFECTING PHYSICAL CONDITION 05/16/2008 MADL FUEL CELL DESIGNER, YUNG L 276.8 HYPOPOTASSEMIA 05/16/2008 MADL FUEL CELL DESIGNER, YUNG L 300.4 DYSTHYMIC DISORDER (DEPRESSIVE NEUROSIS) 05/16/2008 MADL FUEL CELL DESIGNER, YUNG L 316 PSYCHOLOGICAL FACTORS AFFECTING PHYSICAL CONDITION 05/16/2008 MADL FUEL CELL DESIGNER, YUNG L 276.8 HYPOPOTASSEMIA 05/16/2008 MADL FUEL CELL DESIGNER, YUNG L 300.4 DYSTHYMIC DISORDER (DEPRESSIVE NEUROSIS) 05/16/2008 MADL FUEL CELL DESIGNER, YUNG L 316 PSYCHOLOGICAL FACTORS AFFECTING PHYSICAL CONDITION 05/16/2008 JEFFERY DO, DANIEL K 276.8 HYPOPOTASSEMIA 05/16/2008 JEFFERY DO, DANIEL K 300.4 DYSTHYMIC DISORDER (DEPRESSIVE NEUROSIS) 05/16/2008 JEFFERY DO, DANIEL K 316 PSYCHOLOGICAL FACTORS AFFECTING PHYSICAL CONDITION 05/16/2008 JEFFERY DO, DANIEL K 276.8 HYPOPOTASSEMIA 05/16/2008 JEFFERY DO, DANIEL K 300.4 DYSTHYMIC DISORDER (DEPRESSIVE NEUROSIS) 05/16/2008 JEFFERY DO, DANIEL K 316 PSYCHOLOGICAL FACTORS AFFECTING PHYSICAL CONDITION 05/16/2008 MADL FUEL CELL DESIGNER, YUNG L 276.8 HYPOPOTASSEMIA 05/16/2008 MADL FUEL CELL DESIGNER, YUNG L 300.4 DYSTHYMIC DISORDER (DEPRESSIVE NEUROSIS) 05/16/2008 MAD FUEL CELL DESIGNER, YUNG L 316 PSYCHOLOGICAL FACTORS AFFECTING PHYSICAL CONDITION 05/17/2008 OLIVIA HAYDEN PHD 296.33 MAJOR DEPRESSION RECURRENT SEVERE W/O PSYCHOTIC FEATURES 05/17/2008 296.33 MAJOR DEPRESSION RECURRENT SEVERE W/O PSYCHOTIC FEATURES 05/17/2008 296.33 MAJOR DEPRESSION RECURRENT SEVERE W/O PSYCHOTIC FEATURES 05/17/2008 OLIVIA HAYDEN PHD 296.33 MAJOR DEPRESSION RECURRENT SEVERE W/O PSYCHOTIC FEATURES 05/17/2008 MASOUD ATKINS MD 296.33 MAJOR DEPRESSION RECURRENT SEVERE W/O PSYCHOTIC FEATURES 05/17/2008 296.33 MAJOR DEPRESSION RECURRENT SEVERE W/O PSYCHOTIC FEATURES 05/17/2008 OLIVIA HAYDEN PHD 296.33 MAJOR DEPRESSION RECURRENT SEVERE W/O PSYCHOTIC FEATURES 05/17/2008 296.33 MAJOR DEPRESSION RECURRENT SEVERE W/O PSYCHOTIC FEATURES 05/17/2008 296.33 MAJOR DEPRESSION RECURRENT SEVERE W/O PSYCHOTIC FEATURES 05/17/2008 296.33 MAJOR DEPRESSION RECURRENT SEVERE W/O PSYCHOTIC FEATURES 05/17/2008 296.33 MAJOR DEPRESSION RECURRENT SEVERE W/O PSYCHOTIC FEATURES 05/17/2008 296.33 MAJOR DEPRESSION RECURRENT SEVERE W/O PSYCHOTIC FEATURES 05/17/2008 296.33 MAJOR DEPRESSION RECURRENT SEVERE W/O PSYCHOTIC FEATURES 05/17/2008 296.33 MAJOR DEPRESSION RECURRENT SEVERE W/O PSYCHOTIC FEATURES 05/17/2008 ERICKA PARISI MD 296.33 MAJOR DEPRESSION RECURRENT SEVERE W/O PSYCHOTIC FEATURES 05/17/2008 TAMEKA PUCKETT APRN 296.33 MAJOR DEPRESSION RECURRENT SEVERE W/O PSYCHOTIC FEATURES 05/17/2008 DANIEL JEFFERY DO 296.33 MAJOR DEPRESSION RECURRENT SEVERE W/O PSYCHOTIC FEATURES 05/17/2008 ERICKA PARISI MD 296.33 MAJOR DEPRESSION RECURRENT SEVERE W/O PSYCHOTIC FEATURES 05/17/2008 DANIEL JEFFERY DO 296.33 MAJOR DEPRESSION RECURRENT SEVERE W/O PSYCHOTIC FEATURES 05/17/2008 DANIEL JEFFERY DO 296.33 MAJOR DEPRESSION RECURRENT SEVERE W/O PSYCHOTIC FEATURES 05/17/2008 ERICKA PARISI MD 296.33 MAJOR DEPRESSION RECURRENT SEVERE W/O PSYCHOTIC FEATURES 05/17/2008 ERICKA PARISI MD 296.33 MAJOR DEPRESSION RECURRENT SEVERE W/O PSYCHOTIC FEATURES 05/17/2008 JEFFERY DO DANIEL K 296.33 MAJOR DEPRESSION RECURRENT SEVERE W/O PSYCHOTIC FEATURES 05/17/2008 SONAM JEFFERY DOA K 296.33 MAJOR DEPRESSION RECURRENT SEVERE W/O PSYCHOTIC FEATURES 05/17/2008 JOSE D WANG DANIEL K 296.33 MAJOR DEPRESSION RECURRENT SEVERE W/O PSYCHOTIC FEATURES 05/17/2008 MADL FUEL CELL DESIGNER, YUNG L 296.33 MAJOR DEPRESSION RECURRENT SEVERE W/O PSYCHOTIC FEATURES 05/17/2008 MADL FUEL CELL DESIGNER, YUNG L 296.33 MAJOR DEPRESSION RECURRENT SEVERE W/O PSYCHOTIC FEATURES 05/17/2008 MADL FUEL CELL DESIGNER, YUNG L 296.33 MAJOR DEPRESSION RECURRENT SEVERE W/O PSYCHOTIC FEATURES 05/17/2008 SONAM JEFFERY DOA K 296.33 MAJOR DEPRESSION RECURRENT SEVERE W/O PSYCHOTIC FEATURES 05/17/2008 MADL FUEL CELL DESIGNER, YUNG L 296.33 MAJOR DEPRESSION RECURRENT SEVERE W/O PSYCHOTIC FEATURES 05/17/2008 MADL FUEL CELL DESIGNER, YUNG L 296.33 MAJOR DEPRESSION RECURRENT SEVERE W/O PSYCHOTIC FEATURES 05/17/2008 SONAM JEFFERY DOA K 296.33 MAJOR DEPRESSION RECURRENT SEVERE W/O PSYCHOTIC FEATURES 05/17/2008 SONAM JEFFERY DOA K 296.33 MAJOR DEPRESSION RECURRENT SEVERE W/O PSYCHOTIC FEATURES 05/17/2008 MADL FUEL CELL DESIGNER, YUNG L 296.33 MAJOR DEPRESSION RECURRENT SEVERE W/O PSYCHOTIC FEATURES 05/24/2008 CATRACHO FUNES, OLIVIA Knapp 280.9 ANEMIA HYPOCHROMIC / MICROCYTIC 05/24/2008 CATRACHO FUNES, OLIVIA Knapp V58.69 taking medication for a long time 05/24/2008 280.9 ANEMIA HYPOCHROMIC / MICROCYTIC 05/24/2008 V58.69 taking medication for a long time 05/24/2008 280.9 ANEMIA HYPOCHROMIC / MICROCYTIC 05/24/2008 V58.69 taking medication for a long time 05/24/2008 CATRACHO FUNES, OLIVIA Knapp 280.9 ANEMIA HYPOCHROMIC / MICROCYTIC 05/24/2008 CATRACHO FUNES, OLIVIA Knapp V58.69 taking medication for a long time 05/24/2008 MASOUD ATKINS MD 280.9 ANEMIA HYPOCHROMIC / MICROCYTIC 05/24/2008 MASOUD ATKINS MD V58.69 taking medication for a long time 05/24/2008 280.9 ANEMIA HYPOCHROMIC / MICROCYTIC 05/24/2008 V58.69 taking medication for a long time 05/24/2008 CATRACHO FUNES, OLIVIA Knapp 280.9 ANEMIA HYPOCHROMIC / MICROCYTIC 05/24/2008 CATRACHO FUNES, OLIVIA Knapp V58.69 taking medication for a long time 05/24/2008 280.9 ANEMIA HYPOCHROMIC / MICROCYTIC 05/24/2008 V58.69 taking medication for a long time 05/24/2008 280.9 ANEMIA HYPOCHROMIC / MICROCYTIC 05/24/2008 V58.69 taking medication for a long time 05/24/2008 280.9 ANEMIA HYPOCHROMIC / MICROCYTIC 05/24/2008 V58.69 taking medication for a long time 05/24/2008 280.9 ANEMIA HYPOCHROMIC / MICROCYTIC 05/24/2008 V58.69 taking medication for a long time 05/24/2008 280.9 ANEMIA HYPOCHROMIC / MICROCYTIC 05/24/2008 V58.69 taking medication for a long time 05/24/2008 280.9 ANEMIA HYPOCHROMIC / MICROCYTIC 05/24/2008 V58.69 taking medication for a long time 05/24/2008 280.9 ANEMIA HYPOCHROMIC / MICROCYTIC 05/24/2008 V58.69 taking medication for a long time 05/24/2008 ERICKA PARISI MD 280.9 ANEMIA HYPOCHROMIC / MICROCYTIC 05/24/2008 ERICKA PARISI MD V58.69 taking medication for a long time 05/24/2008 TAMEKA PUCKETT APRN A 280.9 ANEMIA HYPOCHROMIC / MICROCYTIC 05/24/2008 TAMEKA PUCKETT APRN V58.69 taking medication for a long time 05/24/2008 DANIEL JEFFERY DO K 280.9 ANEMIA HYPOCHROMIC / MICROCYTIC 05/24/2008 SONAM JEFFERY DOA K V58.69 taking medication for a long time 05/24/2008 ERICKA PARISI MD 280.9 ANEMIA HYPOCHROMIC / MICROCYTIC 05/24/2008 ERICKA PARISI MD V58.69 taking medication for a long time 05/24/2008 JOSE D WANG DANIEL K 280.9 ANEMIA HYPOCHROMIC / MICROCYTIC 05/24/2008 SONAM JEFFERY DOA K V58.69 taking medication for a long time 05/24/2008 JEFFERY DO DANIEL K 280.9 ANEMIA HYPOCHROMIC / MICROCYTIC 05/24/2008 JEFFERY DO DANIEL K V58.69 taking medication for a long time 05/24/2008 AILIN FRANKLIN, ERICKA Fernandez 280.9 ANEMIA HYPOCHROMIC / MICROCYTIC 05/24/2008 AILIN FRANKLIN, ERICKA Fernandez V58.69 taking medication for a long time 05/24/2008 ERICKA PARISI MD 280.9 ANEMIA HYPOCHROMIC / MICROCYTIC 05/24/2008 ERICKA PARISI MD V58.69 taking medication for a long time 05/24/2008 JEFFERY DO, DANIEL K 280.9 ANEMIA HYPOCHROMIC / MICROCYTIC 05/24/2008 JEFFERY DO, DANIEL K V58.69 taking medication for a long time 05/24/2008 JEFFERY DO, DANIEL K 280.9 ANEMIA HYPOCHROMIC / MICROCYTIC 05/24/2008 JEFFERY DO DANIEL K V58.69 taking medication for a long time 05/24/2008 JEFFERY DO DANIEL K 280.9 ANEMIA HYPOCHROMIC / MICROCYTIC 05/24/2008 JEFFERY DO DANIEL K V58.69 taking medication for a long time 05/24/2008 MADL FUEL CELL DESIGNER, YUNG L 280.9 ANEMIA HYPOCHROMIC / MICROCYTIC 05/24/2008 MADL FUEL CELL DESIGNER, YUNG L V58.69 taking medication for a long time 05/24/2008 MADL FUEL CELL DESIGNER, YUNG L 280.9 ANEMIA HYPOCHROMIC / MICROCYTIC 05/24/2008 MADL FUEL CELL DESIGNER, YUNG L V58.69 taking medication for a long time 05/24/2008 MADL FUEL CELL DESIGNER, YUNG L 280.9 ANEMIA HYPOCHROMIC / MICROCYTIC 05/24/2008 MADL FUEL CELL DESIGNER, YUNG L V58.69 taking medication for a long time 05/24/2008 JEFFERY DO, DANIEL K 280.9 ANEMIA HYPOCHROMIC / MICROCYTIC 05/24/2008 JEFFERY DO, DANIEL K V58.69 taking medication for a long time 05/24/2008 MADL FUEL CELL DESIGNER, YUNG L 280.9 ANEMIA HYPOCHROMIC / MICROCYTIC 05/24/2008 MADL FUEL CELL DESIGNER, YUNG L V58.69 taking medication for a long time 05/24/2008 SHANTI FUEL CELL DESIGNERJOEY CaballeroA L 280.9 ANEMIA HYPOCHROMIC / MICROCYTIC 05/24/2008 VIANNEYL FUEL CELL DESIGNER, YUNG L V58.69 taking medication for a long time 05/24/2008 JEFFERY DO, DANIEL K 280.9 ANEMIA HYPOCHROMIC / MICROCYTIC 05/24/2008 JEFFERY DO, DANIEL K V58.69 taking medication for a long time 05/24/2008 JEFFERY DO, DANIEL K 280.9 ANEMIA HYPOCHROMIC / MICROCYTIC 05/24/2008 JEFFERY DO, DANIEL K V58.69 taking medication for a long time 05/24/2008 SHANTI FUEL CELL DESIGNERJOEY CaballeroA L 280.9 ANEMIA HYPOCHROMIC / MICROCYTIC 05/24/2008 SHANTI DE LA ROSA, YUNG L V58.69 taking medication for a long time 06/06/2008 CATRACHO FUNES, OLIVIA Knapp 724.2 lower back pain 06/06/2008 724.2 lower back pain 06/06/2008 724.2 lower back pain 06/06/2008 OLIVIA HAYDEN PHD 724.2 lower back pain 06/06/2008 MASOUD ATKINS MD 724.2 lower back pain 06/06/2008 724.2 lower back pain 06/06/2008 OLIVIA HAYDEN PHD 724.2 lower back pain 06/06/2008 724.2 lower back pain 06/06/2008 724.2 lower back pain 06/06/2008 724.2 lower back pain 06/06/2008 724.2 lower back pain 06/06/2008 724.2 lower back pain 06/06/2008 724.2 lower back pain 06/06/2008 724.2 lower back pain 06/06/2008 ERICKA PARISI MD 724.2 lower back pain 06/06/2008 TAMEKA PUCKETT APRN 724.2 lower back pain 06/06/2008 SONAM JEFFERY DOA K 724.2 lower back pain 06/06/2008 ERICKA PARISI MD 724.2 lower back pain 06/06/2008 JEFFERY SONAM WANGA K 724.2 lower back pain 06/06/2008 JOSE D WANG DANIEL K 724.2 lower back pain 06/06/2008 ERICKA PARISI MD 724.2 lower back pain 06/06/2008 ERICKA PARISI MD 724.2 lower back pain 06/06/2008 JEFFERY DO, DANIEL K 724.2 lower back pain 06/06/2008 JEFFERY DO, DANIEL K 724.2 lower back pain 06/06/2008 JEFFERY DO, DANIEL K 724.2 lower back pain 06/06/2008 MADL FUEL CELL DESIGNER, YUNG L 724.2 lower back pain 06/06/2008 MADL FUEL CELL DESIGNER, YUNG L 724.2 lower back pain 06/06/2008 MADL FUEL CELL DESIGNER, YUNG L 724.2 lower back pain 06/06/2008 JEFFERY DO, DANIEL K 724.2 lower back pain 06/06/2008 MADL FUEL CELL DESIGNER, YUNG L 724.2 lower back pain 06/06/2008 MADL FUEL CELL DESIGNER, YUNG L 724.2 lower back pain 06/06/2008 JEFFERY DO, DANIEL K 724.2 lower back pain 06/06/2008 JEFFERY DO, DANIEL K 724.2 lower back pain 06/06/2008 MADL FUEL CELL DESIGNER, YUNG L 724.2 lower back pain 08/23/2008 OLIVIA HAYDEN PHD 787.02 Nausea Alone 08/23/2008 787.02 Nausea Alone 08/23/2008 787.02 Nausea Alone 08/23/2008 OLIVIA HAYDEN PHD 787.02 Nausea Alone 08/23/2008 MASOUD ATKINS MD 787.02 Nausea Alone 08/23/2008 787.02 Nausea Alone 08/23/2008 OLIVIA HAYDEN PHD 787.02 Nausea Alone 08/23/2008 787.02 Nausea Alone 08/23/2008 787.02 Nausea Alone 08/23/2008 787.02 Nausea Alone 08/23/2008 787.02 Nausea Alone 08/23/2008 787.02 Nausea Alone 08/23/2008 787.02 Nausea Alone 08/23/2008 787.02 Nausea Alone 08/23/2008 ERICKA PARISI MD 787.02 Nausea Alone 08/23/2008 TAMEKA PUCKETT APRN 787.02 Nausea Alone 08/23/2008 JEFFERY DO, DANIEL K 787.02 Nausea Alone 08/23/2008 ERICKA PARISI MD 787.02 Nausea Alone 08/23/2008 JEFFERY DO, DANIEL K 787.02 Nausea Alone 08/23/2008 JEFFERY DO, DANIEL K 787.02 Nausea Alone 08/23/2008 ERICKA PARISI MD 787.02 Nausea Alone 08/23/2008 ERICKA PARISI MD 787.02 Nausea Alone 08/23/2008 JEFFERY DO, DANIEL K 787.02 Nausea Alone 08/23/2008 JEFFERY DO, DANIEL K 787.02 Nausea Alone 08/23/2008 JEFFERY DO, DANIEL K 787.02 Nausea Alone 08/23/2008 MADL FUEL CELL DESIGNER, YUNG L 787.02 Nausea Alone 08/23/2008 MADL FUEL CELL DESIGNER, YUNG L 787.02 Nausea Alone 08/23/2008 MADL FUEL CELL DESIGNER, YUNG L 787.02 Nausea Alone 08/23/2008 JEFFERY DO, DANIEL K 787.02 Nausea Alone 08/23/2008 MADL FUEL CELL DESIGNER, YUNG L 787.02 Nausea Alone 08/23/2008 MADL FUEL CELL DESIGNER, YUNG L 787.02 Nausea Alone 08/23/2008 JEFFERY DO, DANIEL K 787.02 Nausea Alone 08/23/2008 JEFFERY DO, DANIEL K 787.02 Nausea Alone 08/23/2008 MADL FUEL CELL DESIGNER, YUNG L 787.02 Nausea Alone 08/24/2008 OLIVIA HAYDEN PHD 296.90 EPISODIC MOOD DISORDERS 08/24/2008 OLIVIA HAYDEN PHD 301.9 PD PERS DIS NOS 08/24/2008 296.90 EPISODIC MOOD DISORDERS 08/24/2008 301.9 PD PERS DIS NOS 08/24/2008 296.90 EPISODIC MOOD DISORDERS 08/24/2008 301.9 PD PERS DIS NOS 08/24/2008 OLIVIA HAYDEN PHD 296.90 EPISODIC MOOD DISORDERS 08/24/2008 OLIVIA HAYDEN PHD 301.9 PD PERS DIS NOS 08/24/2008 MASOUD ATKINS MD 296.90 EPISODIC MOOD DISORDERS 08/24/2008 MASOUD ATKINS MD 301.9 PD PERS DIS NOS 08/24/2008 296.90 EPISODIC MOOD DISORDERS 08/24/2008 301.9 PD PERS DIS NOS 08/24/2008 CATRACHO PHD, OLIVIA nKapp 296.90 EPISODIC MOOD DISORDERS 08/24/2008 CATRACHO FUNES, OLIVIA Knapp 301.9 PD PERS DIS NOS 08/24/2008 296.90 EPISODIC MOOD DISORDERS 08/24/2008 301.9 PD PERS DIS NOS 08/24/2008 296.90 EPISODIC MOOD DISORDERS 08/24/2008 301.9 PD PERS DIS NOS 08/24/2008 296.90 EPISODIC MOOD DISORDERS 08/24/2008 301.9 PD PERS DIS NOS 08/24/2008 296.90 EPISODIC MOOD DISORDERS 08/24/2008 301.9 PD PERS DIS NOS 08/24/2008 296.90 EPISODIC MOOD DISORDERS 08/24/2008 301.9 PD PERS DIS NOS 08/24/2008 296.90 EPISODIC MOOD DISORDERS 08/24/2008 301.9 PD PERS DIS NOS 08/24/2008 296.90 EPISODIC MOOD DISORDERS 08/24/2008 301.9 PD PERS DIS NOS 08/24/2008 ERICKA PARISI MD 296.90 EPISODIC MOOD DISORDERS 08/24/2008 ERICKA PARISI MD 301.9 PD PERS DIS NOS 08/24/2008 NIGHAT PUCKETT APRNIDI A 296.90 EPISODIC MOOD DISORDERS 08/24/2008 LAVERN DE LA ROSA TAMEKA A 301.9 PD PERS DIS NOS 08/24/2008 JEFFERY DO, DANIEL K 296.90 EPISODIC MOOD DISORDERS 08/24/2008 JEFFERY DO, DANIEL K 301.9 PD PERS DIS NOS 08/24/2008 ERICKA PARISI MD 296.90 EPISODIC MOOD DISORDERS 08/24/2008 ERICKA PARISI MD 301.9 PD PERS DIS NOS 08/24/2008 JEFFERY DO, DANIEL K 296.90 EPISODIC MOOD DISORDERS 08/24/2008 JEFFERY DO, DANIEL K 301.9 PD PERS DIS NOS 08/24/2008 JEFFERY DO, DANIEL K 296.90 EPISODIC MOOD DISORDERS 08/24/2008 JEFFERY DO, DANIEL K 301.9 PD PERS DIS NOS 08/24/2008 ERICKA PARISI MD 296.90 EPISODIC MOOD DISORDERS 08/24/2008 ERICKA PARISI MD 301.9 PD PERS DIS NOS 08/24/2008 ERICKA PARISI MD 296.90 EPISODIC MOOD DISORDERS 08/24/2008 AILIN MD, ERICKA M 301.9 PD PERS DIS NOS 08/24/2008 JEFFERY DO, DANIEL K 296.90 EPISODIC MOOD DISORDERS 08/24/2008 JEFFERY DO, DANIEL K 301.9 PD PERS DIS NOS 08/24/2008 JEFEFRY DO, DANIEL K 296.90 EPISODIC MOOD DISORDERS 08/24/2008 JEFFERY DO, DANIEL K 301.9 PD PERS DIS NOS 08/24/2008 JEFFERY DO, DANIEL K 296.90 EPISODIC MOOD DISORDERS 08/24/2008 JEFFERY DO, DANIEL K 301.9 PD PERS DIS NOS 08/24/2008 MADL FUEL CELL DESIGNER, YUNG L 296.90 EPISODIC MOOD DISORDERS 08/24/2008 MADL FUEL CELL DESIGNER, YUNG L 301.9 PD PERS DIS NOS 08/24/2008 MADL FUEL CELL DESIGNER, YUNG L 296.90 EPISODIC MOOD DISORDERS 08/24/2008 MADL FUEL CELL DESIGNER, YUNG L 301.9 PD PERS DIS NOS 08/24/2008 MADL FUEL CELL DESIGNER, YUNG L 296.90 EPISODIC MOOD DISORDERS 08/24/2008 MADL FUEL CELL DESIGNER, YUNG L 301.9 PD PERS DIS NOS 08/24/2008 JEFFERY DO, DANIEL K 296.90 EPISODIC MOOD DISORDERS 08/24/2008 JEFFERY DO, DANIEL K 301.9 PD PERS DIS NOS 08/24/2008 MADL FUEL CELL DESIGNER, YUNG L 296.90 EPISODIC MOOD DISORDERS 08/24/2008 MADL FUEL CELL DESIGNER, YUNG L 301.9 PD PERS DIS NOS 08/24/2008 MADL FUEL CELL DESIGNER, YUNG L 296.90 EPISODIC MOOD DISORDERS 08/24/2008 MADL FUEL CELL DESIGNER, YUNG L 301.9 PD PERS DIS NOS 08/24/2008 JEFFERY DO, DANIEL K 296.90 EPISODIC MOOD DISORDERS 08/24/2008 JEFFERY DO, DANIEL K 301.9 PD PERS DIS NOS 08/24/2008 JEFFERY DO, DANIEL K 296.90 EPISODIC MOOD DISORDERS 08/24/2008 JEFFERY DO, DANIEL K 301.9 PD PERS DIS NOS 08/24/2008 MADL FUEL CELL DESIGNER, YUNG L 296.90 EPISODIC MOOD DISORDERS 08/24/2008 MADL FUEL CELL DESIGNER, YUNG L 301.9 PD PERS DIS NOS 09/18/2008 CATRACHO FUNES, OLIVIA Knapp 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 09/18/2008 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 09/18/2008 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 09/18/2008 CATRACHO FUNES, OLIVIA Knapp 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 09/18/2008 MASOUD ATKINS MD 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 09/18/2008 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 09/18/2008 CATRACHO FUNES, OLIVIA Knapp 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 09/18/2008 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 09/18/2008 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 09/18/2008 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 09/18/2008 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 09/18/2008 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 09/18/2008 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 09/18/2008 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 09/18/2008 ERICKA PARISI MD 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 09/18/2008 TAMEKA PUCKETT APRN 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 09/18/2008 JEFFERY SONAM WANGA 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 09/18/2008 ERICKA PARISI MD 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 09/18/2008 JEFFERY SONAM WANGA 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 09/18/2008 JEFFERY DO DANIEL 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 09/18/2008 ERICKA PARISI MD 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 09/18/2008 ERICKA PARISI MD 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 09/18/2008 JEFFERY DO DANIEL 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 09/18/2008 JEFFERY DO DANIEL 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 09/18/2008 JEFFERY DO DANIEL 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 09/18/2008 YUNG MOSER APRN 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 09/18/2008 MADL FUEL CELL DESIGNER, YUNG L 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 09/18/2008 MADL FUEL CELL DESIGNER, YUNG L 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 09/18/2008 JEFFERY DO, DANIEL 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 09/18/2008 MADL FUEL CELL DESIGNER, YUNG L 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 09/18/2008 MADL FUEL CELL DESIGNER, YUNG L 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30 EXPLOSIVE DISORDER 10/22/2008 312.30 EXPLOSIVE DISORDER 10/22/2008 312.30 EXPLOSIVE DISORDER 10/22/2008 312.30 EXPLOSIVE DISORDER 10/22/2008 312.30 EXPLOSIVE DISORDER 10/22/2008 312.30 EXPLOSIVE DISORDER 10/22/2008 ERICKA PARISI MD 312.30 EXPLOSIVE DISORDER 10/22/2008 TAMEKA PUCKETT APRN 312.30 EXPLOSIVE DISORDER 10/22/2008 DANIEL JEFFERY DO 312.30 EXPLOSIVE DISORDER 10/22/2008 ERICKA PARISI MD 312.30 EXPLOSIVE DISORDER 10/22/2008 DANIEL JEFFERY DO 312.30 EXPLOSIVE DISORDER 10/22/2008 DANIEL JEFFERY DO 312.30 EXPLOSIVE DISORDER 10/22/2008 ERICKA PARISI MD 312.30 EXPLOSIVE DISORDER 10/22/2008 ERICKA PARISI MD 312.30 EXPLOSIVE DISORDER 10/22/2008 JEFFERY DO, DANIEL K 312.30 EXPLOSIVE DISORDER 10/22/2008 JEFFERY DO, DANIEL K 312.30 EXPLOSIVE DISORDER 10/22/2008 JEFFERY DO, DANIEL K 312.30 EXPLOSIVE DISORDER 10/22/2008 MADL FUEL CELL DESIGNER, YUNG L 312.30 EXPLOSIVE DISORDER 10/22/2008 MADL FUEL CELL DESIGNER, YUNG L 312.30 EXPLOSIVE DISORDER 10/22/2008 MADL FUEL CELL DESIGNER, YUNG L 312.30 EXPLOSIVE DISORDER 10/22/2008 JEFFERY DO, DANIEL K 312.30 EXPLOSIVE DISORDER 10/22/2008 MADL FUEL CELL DESIGNER, YUNG L 312.30 EXPLOSIVE DISORDER 10/22/2008 MADL FUEL CELL DESIGNER, YUNG L 312.30 EXPLOSIVE DISORDER 10/22/2008 JEFFERY DO, DANIEL K 312.30 EXPLOSIVE DISORDER 10/22/2008 JEFFERY DO, DANIEL K 312.30 EXPLOSIVE DISORDER 10/22/2008 MADL FUEL CELL DESIGNER, YUNG L 312.30 EXPLOSIVE DISORDER 10/24/2008 CATRACHO PHD, OLIVIA Knapp V72.31 Pelvic Exam (internal) 10/24/2008 V72.31 Pelvic Exam ( internal) 10/24/2008 V72.31 Pelvic Exam ( internal) 10/24/2008 OLIVIA HAYDEN PHD V72.31 Pelvic Exam (internal) 10/24/2008 MASOUD ATKINS MD V72.31 Pelvic Exam (internal) 10/24/2008 V72.31 Pelvic Exam ( internal) 10/24/2008 OLIVIA HAYDEN PHD V72.31 Pelvic Exam (internal) 10/24/2008 V72.31 Pelvic Exam ( internal) 10/24/2008 V72.31 Pelvic Exam ( internal) 10/24/2008 V72.31 Pelvic Exam ( internal) 10/24/2008 V72.31 Pelvic Exam ( internal) 10/24/2008 V72.31 Pelvic Exam ( internal) 10/24/2008 V72.31 Pelvic Exam ( internal) 10/24/2008 V72.31 Pelvic Exam ( internal) 10/24/2008 ERICKA PARISI MD V72.31 Pelvic Exam (internal) 10/24/2008 LAVERN FUEL CELL DESIGNER, TAMEKA A V72.31 Pelvic Exam (internal) 10/24/2008 JEFFERY DO, DANIEL K V72.31 Pelvic Exam (internal) 10/24/2008 ERICKA PARISI MD V72.31 Pelvic Exam (internal) 10/24/2008 JEFFERY DO, DANIEL K V72.31 Pelvic Exam (internal) 10/24/2008 JEFFERY DO, ADNIEL K V72.31 Pelvic Exam (internal) 10/24/2008 ERICKA PARISI MD V72.31 Pelvic Exam (internal) 10/24/2008 ERICKA PARISI MD V72.31 Pelvic Exam (internal) 10/24/2008 JEFFERY DO, DANIEL K V72.31 Pelvic Exam (internal) 10/24/2008 JEFFERY DO, DANIEL K V72.31 Pelvic Exam (internal) 10/24/2008 JEFFERY DO, DANIEL K V72.31 Pelvic Exam (internal) 10/24/2008 MADL FUEL CELL DESIGNER, YUNG L V72.31 Pelvic Exam (internal) 10/24/2008 MADL FUEL CELL DESIGNER, YUNG L V72.31 Pelvic Exam (internal) 10/24/2008 MADL FUEL CELL DESIGNER, YUNG L V72.31 Pelvic Exam (internal) 10/24/2008 JEFFERY DO, DANIEL K V72.31 Pelvic Exam (internal) 10/24/2008 MADL FUEL CELL DESIGNER, YUNG L V72.31 Pelvic Exam (internal) 10/24/2008 MADL FUEL CELL DESIGNER, YUNG L V72.31 Pelvic Exam (internal) 10/24/2008 JEFFERY DO, DANIEL K V72.31 Pelvic Exam (internal) 10/24/2008 JEFFERY DO, DANIEL K V72.31 Pelvic Exam (internal) 10/24/2008 MADL FUEL CELL DESIGNER, YUNG L V72.31 Pelvic Exam (internal) 02/05/2009 CATRACHO FUNES, OLIVIA Knapp 333.94 RESTLESS LEGS SYNDROME 02/05/2009 OLIVIA HAYDEN PHD 780.52 insomnia 02/05/2009 333.94 RESTLESS LEGS SYNDROME 02/05/2009 780.52 insomnia 02/05/2009 333.94 RESTLESS LEGS SYNDROME 02/05/2009 780.52 insomnia 02/05/2009 OLIVIA HAYDEN PHD 333.94 RESTLESS LEGS SYNDROME 02/05/2009 OLIVIA HAYDEN PHD D 780.52 insomnia 02/05/2009 MASOUD ATKINS MD 333.94 RESTLESS LEGS SYNDROME 02/05/2009 MASOUD ATIKNS MD 780.52 insomnia 02/05/2009 333.94 RESTLESS LEGS SYNDROME 02/05/2009 780.52 insomnia 02/05/2009 OLIVIA HAYDEN PHD 333.94 RESTLESS LEGS SYNDROME 02/05/2009 CATRACHO FUNES, OLIVIA Knapp 780.52 insomnia 02/05/2009 333.94 RESTLESS LEGS SYNDROME 02/05/2009 780.52 insomnia 02/05/2009 333.94 RESTLESS LEGS SYNDROME 02/05/2009 780.52 insomnia 02/05/2009 333.94 RESTLESS LEGS SYNDROME 02/05/2009 780.52 insomnia 02/05/2009 333.94 RESTLESS LEGS SYNDROME 02/05/2009 780.52 insomnia 02/05/2009 333.94 RESTLESS LEGS SYNDROME 02/05/2009 780.52 insomnia 02/05/2009 333.94 RESTLESS LEGS SYNDROME 02/05/2009 780.52 insomnia 02/05/2009 333.94 RESTLESS LEGS SYNDROME 02/05/2009 780.52 insomnia 02/05/2009 ERICKA PARISI MD 333.94 RESTLESS LEGS SYNDROME 02/05/2009 ERICKA PARISI MD 780.52 insomnia 02/05/2009 TAMEKA PUCKETT APRN 333.94 RESTLESS LEGS SYNDROME 02/05/2009 TAMEKA PUCKETT APRN 780.52 insomnia 02/05/2009 JOSE D WANG DANIEL K 333.94 RESTLESS LEGS SYNDROME 02/05/2009 JEFFERY DO DANIEL K 780.52 insomnia 02/05/2009 ERICKA PARISI MD 333.94 RESTLESS LEGS SYNDROME 02/05/2009 ERICKA PARISI MD 780.52 insomnia 02/05/2009 JEFFERY DO, DANIEL K 333.94 RESTLESS LEGS SYNDROME 02/05/2009 JEFFERY DO, DANIEL K 780.52 insomnia 02/05/2009 JEFFERY DO, DANIEL K 333.94 RESTLESS LEGS SYNDROME 02/05/2009 JEFFERY DO DANIEL K 780.52 insomnia 02/05/2009 ERICKA PARISI MD 333.94 RESTLESS LEGS SYNDROME 02/05/2009 ERICKA PARISI MD 780.52 insomnia 02/05/2009 ERICKA PARISI MD 333.94 RESTLESS LEGS SYNDROME 02/05/2009 ERICKA PARISI MD 780.52 insomnia 02/05/2009 JEFFERY DO, DANIEL K 333.94 RESTLESS LEGS SYNDROME 02/05/2009 JEFFERY DO, DANIEL K 780.52 insomnia 02/05/2009 JEFFERY DO, DANIEL K 333.94 RESTLESS LEGS SYNDROME 02/05/2009 JEFFERY DO, DANIEL K 780.52 insomnia 02/05/2009 JEFFERY DO, DANIEL K 333.94 RESTLESS LEGS SYNDROME 02/05/2009 JEFFERY DO, DANIEL K 780.52 insomnia 02/05/2009 MADL FUEL CELL DESIGNER, YUNG L 333.94 RESTLESS LEGS SYNDROME 02/05/2009 MADL FUEL CELL DESIGNER, YUNG L 780.52 insomnia 02/05/2009 MADL FUEL CELL DESIGNER, YUNG L 333.94 RESTLESS LEGS SYNDROME 02/05/2009 MADL FUEL CELL DESIGNER, YUNG L 780.52 insomnia 02/05/2009 MADL FUEL CELL DESIGNER, YUNG L 333.94 RESTLESS LEGS SYNDROME 02/05/2009 MADL FUEL CELL DESIGNER, YUNG L 780.52 insomnia 02/05/2009 JEFFERY DO, DANIEL K 333.94 RESTLESS LEGS SYNDROME 02/05/2009 JEFFERY DO, DANIEL K 780.52 insomnia 02/05/2009 MADL FUEL CELL DESIGNER, YUNG L 333.94 RESTLESS LEGS SYNDROME 02/05/2009 MADL FUEL CELL DESIGNER, YUNG L 780.52 insomnia 02/05/2009 MADL FUEL CELL DESIGNER, YUNG L 333.94 RESTLESS LEGS SYNDROME 02/05/2009 MADL FUEL CELL DESIGNER, YUNG L 780.52 insomnia 02/05/2009 JEFFERY DO, DANIEL K 333.94 RESTLESS LEGS SYNDROME 02/05/2009 JEFFERY DO, DANIEL K 780.52 insomnia 02/05/2009 JEFFERY DO, DANIEL K 333.94 RESTLESS LEGS SYNDROME 02/05/2009 JEFFERY DO, DANIEL K 780.52 insomnia 02/05/2009 MADL FUEL CELL DESIGNER, YUNG L 333.94 RESTLESS LEGS SYNDROME 02/05/2009 MADL FUEL CELL DESIGNER, YUNG L 780.52 insomnia 05/02/2009 CATRACHO PHD, OLIVIA Knapp 724.5 BACKACHE 05/02/2009 724.5 BACKACHE 05/02/2009 724.5 BACKACHE 05/02/2009 CATRACHO PHD, OLIVIA Knapp 724.5 BACKACHE 05/02/2009 MASOUD ATKINS MD 724.5 BACKACHE 05/02/2009 724.5 BACKACHE 05/02/2009 CATRACHO PHD, OLIVIA Knapp 724.5 BACKACHE 05/02/2009 724.5 BACKACHE 05/02/2009 724.5 BACKACHE 05/02/2009 724.5 BACKACHE 05/02/2009 724.5 BACKACHE 05/02/2009 724.5 BACKACHE 05/02/2009 724.5 BACKACHE 05/02/2009 724.5 BACKACHE 05/02/2009 AILIN FRANKLIN, ERICKA Fernandez 724.5 BACKACHE 05/02/2009 LAVERNNIGHAT Caballero APRNIDI A 724.5 BACKACHE 05/02/2009 JEFFERY DO, DANIEL K 724.5 BACKACHE 05/02/2009 AILIN FRANKLIN, ERICKA Fernandez 724.5 BACKACHE 05/02/2009 JEFFERY DO, DANIEL K 724.5 BACKACHE 05/02/2009 JEFFERY DO, DANIEL K 724.5 BACKACHE 05/02/2009 AILIN FRANKLIN, ERICKA Fernandez 724.5 BACKACHE 05/02/2009 AILIN FRANKLIN, ERICKA Fernandez 724.5 BACKACHE 05/02/2009 JEFFERY DO, DANIEL K 724.5 BACKACHE 05/02/2009 JEFFERY DO, DANIEL K 724.5 BACKACHE 05/02/2009 JEFFERY DO, DANIEL K 724.5 BACKACHE 05/02/2009 MADL FUEL CELL DESIGNER, YUNG L 724.5 BACKACHE 05/02/2009 MADL FUEL CELL DESIGNER, YUNG L 724.5 BACKACHE 05/02/2009 MADL FUEL CELL DESIGNER, YUNG L 724.5 BACKACHE 05/02/2009 JEFFERY DO, DANIEL K 724.5 BACKACHE 05/02/2009 MADL FUEL CELL DESIGNER, YUNG L 724.5 BACKACHE 05/02/2009 MADL FUEL CELL DESIGNER, YUNG L 724.5 BACKACHE 05/02/2009 JEFFERY DO, DANIEL K 724.5 BACKACHE 05/02/2009 JEFFERY DO, DANIEL K 724.5 BACKACHE 05/02/2009 MADL FUEL CELL DESIGNER, YUNG L 724.5 BACKACHE 05/21/2009 CATRACHO PHD, OLIVIA Knapp 787.91 Diarrhea 05/21/2009 787.91 Diarrhea 05/21/2009 787.91 Diarrhea 05/21/2009 CATRACHO PHD, OLIVIA Knapp 787.91 Diarrhea 05/21/2009 MASOUD ATKINS MD 787.91 Diarrhea 05/21/2009 787.91 Diarrhea 05/21/2009 CATRACHO FUNES, OLIVIA Knapp 787.91 Diarrhea 05/21/2009 787.91 Diarrhea 05/21/2009 787.91 Diarrhea 05/21/2009 787.91 Diarrhea 05/21/2009 787.91 Diarrhea 05/21/2009 787.91 Diarrhea 05/21/2009 787.91 Diarrhea 05/21/2009 787.91 Diarrhea 05/21/2009 ERICKA PARISI MD 787.91 Diarrhea 05/21/2009 LAVERN FUEL CELL DESIGNER, TAMEKA A 787.91 Diarrhea 05/21/2009 JEFFERY DO, DANIEL K 787.91 Diarrhea 05/21/2009 ERICKA PARISI MD 787.91 Diarrhea 05/21/2009 JEFFERY DO, DANIEL K 787.91 Diarrhea 05/21/2009 JEFFERY DO, DNAIEL K 787.91 Diarrhea 05/21/2009 ERICKA PARISI MD 787.91 Diarrhea 05/21/2009 ERICKA PARISI MD 787.91 Diarrhea 05/21/2009 JEFFERY DO, DANIEL K 787.91 Diarrhea 05/21/2009 JEFFERY DO, DANIEL K 787.91 Diarrhea 05/21/2009 JEFFERY DO, DANIEL K 787.91 Diarrhea 05/21/2009 MADL FUEL CELL DESIGNER, YUNG L 787.91 Diarrhea 05/21/2009 MADL FUEL CELL DESIGNER, YUNG L 787.91 Diarrhea 05/21/2009 MADL FUEL CELL DESIGNER, YUNG L 787.91 Diarrhea 05/21/2009 JEFFERY DO, DANIEL K 787.91 Diarrhea 05/21/2009 MADL FUEL CELL DESIGNER, YUNG L 787.91 Diarrhea 05/21/2009 MADL FUEL CELL DESIGNER, YUNG L 787.91 Diarrhea 05/21/2009 JEFFERY DO, DANIEL K 787.91 Diarrhea 05/21/2009 JEFFERY , DANIEL K 787.91 Diarrhea 05/21/2009 SHANTI FUEL CELL DESIGNERYUNG Caballero Mauricio 787.91 Diarrhea 08/06/2009 OLIVIA HAYDEN PHD 783.1 Recent Weight Gain Of Lbs 08/06/2009 783.1 Recent Weight Gain Of Lbs 08/06/2009 783.1 Recent Weight Gain Of Lbs 08/06/2009 CATRACHO FUNES, OLIVIA Knapp 783.1 Recent Weight Gain Of Lbs 08/06/2009 MASOUD ATKINS MD 783.1 Recent Weight Gain Of Lbs 08/06/2009 783.1 Recent Weight Gain Of Lbs 08/06/2009 CATRACHO FUNES, OLIVIA Knapp 783.1 Recent Weight Gain Of Lbs 08/06/2009 783.1 Recent Weight Gain Of Lbs 08/06/2009 783.1 Recent Weight Gain Of Lbs 08/06/2009 783.1 Recent Weight Gain Of Lbs 08/06/2009 783.1 Recent Weight Gain Of Lbs 08/06/2009 783.1 Recent Weight Gain Of Lbs 08/06/2009 783.1 Recent Weight Gain Of Lbs 08/06/2009 783.1 Recent Weight Gain Of Lbs 08/06/2009 ERICKA PARISI MD 783.1 Recent Weight Gain Of Lbs 08/06/2009 TAMEKA PUCKETT APRN 783.1 Recent Weight Gain Of Lbs 08/06/2009 DANIEL JEFFERY DO K 783.1 Recent Weight Gain Of Lbs 08/06/2009 ERICKA PARISI MD 783.1 Recent Weight Gain Of Lbs 08/06/2009 DANIEL JEFFERY DO 783.1 Recent Weight Gain Of Lbs 08/06/2009 JEFFERY DANIEL WANG K 783.1 Recent Weight Gain Of Lbs 08/06/2009 ERICKA PARISI MD 783.1 Recent Weight Gain Of Lbs 08/06/2009 ERICKA PARISI MD 783.1 Recent Weight Gain Of Lbs 08/06/2009 DANIEL JEFFERY DO K 783.1 Recent Weight Gain Of Lbs 08/06/2009 DANIEL JEFFERY DO 783.1 Recent Weight Gain Of Lbs 08/06/2009 JEFFERY DO, DANIEL K 783.1 Recent Weight Gain Of Lbs 08/06/2009 MADL FUEL CELL DESIGNER, YUNG L 783.1 Recent Weight Gain Of Lbs 08/06/2009 MADL FUEL CELL DESIGNER, YUNG L 783.1 Recent Weight Gain Of Lbs 08/06/2009 MADL FUEL CELL DESIGNER, YUNG L 783.1 Recent Weight Gain Of Lbs 08/06/2009 JEFFERY DO, DANIEL K 783.1 Recent Weight Gain Of Lbs 08/06/2009 MADL FUEL CELL DESIGNER, YUNG L 783.1 Recent Weight Gain Of Lbs 08/06/2009 MADL FUEL CELL DESIGNER, YUNG L 783.1 Recent Weight Gain Of Lbs 08/06/2009 JEFFERY DO, DANIEL K 783.1 Recent Weight Gain Of Lbs 08/06/2009 JEFFERY DO, DANIEL K 783.1 Recent Weight Gain Of Lbs 08/06/2009 MADL FUEL CELL DESIGNER, YUNG L 783.1 Recent Weight Gain Of Lbs 09/03/2009 OLIVIA HAYDEN PHD 719.47 Compression Arthralgia - Ankle / Foot Left 09/03/2009 OLIVIA HAYDEN PHD 780.79 Malaise And Fatigue 09/03/2009 719.47 Compression Arthralgia - Ankle / Foot Left 09/03/2009 780.79 Malaise And Fatigue 09/03/2009 719.47 Compression Arthralgia - Ankle / Foot Left 09/03/2009 780.79 Malaise And Fatigue 09/03/2009 OLIVIA HAYDEN PHD 719.47 Compression Arthralgia - Ankle / Foot Left 09/03/2009 OLIVIA HAYDEN PHD 780.79 Malaise And Fatigue 09/03/2009 MASOUD ATKINS MD 719.47 Compression Arthralgia - Ankle / Foot Left 09/03/2009 MASOUD ATKINS MD 780.79 Malaise And Fatigue 09/03/2009 719.47 Compression Arthralgia - Ankle / Foot Left 09/03/2009 780.79 Malaise And Fatigue 09/03/2009 OLIVIA HAYDEN PHD 719.47 Compression Arthralgia - Ankle / Foot Left 09/03/2009 OLIVIA HAYDEN PHD 780.79 Malaise And Fatigue 09/03/2009 719.47 Compression Arthralgia - Ankle / Foot Left 09/03/2009 780.79 Malaise And Fatigue 09/03/2009 719.47 Compression Arthralgia - Ankle / Foot Left 09/03/2009 780.79 Malaise And Fatigue 09/03/2009 719.47 Compression Arthralgia - Ankle / Foot Left 09/03/2009 780.79 Malaise And Fatigue 09/03/2009 719.47 Compression Arthralgia - Ankle / Foot Left 09/03/2009 780.79 Malaise And Fatigue 09/03/2009 719.47 Compression Arthralgia - Ankle / Foot Left 09/03/2009 780.79 Malaise And Fatigue 09/03/2009 719.47 Compression Arthralgia - Ankle / Foot Left 09/03/2009 780.79 Malaise And Fatigue 09/03/2009 719.47 Compression Arthralgia - Ankle / Foot Left 09/03/2009 780.79 Malaise And Fatigue 09/03/2009 ERICKA PARISI MD 719.47 Compression Arthralgia - Ankle / Foot Left 09/03/2009 ERICKA PARISI MD 780.79 Malaise And Fatigue 09/03/2009 TAMEKA PUCKETT APRN 719.47 Compression Arthralgia - Ankle / Foot Left 09/03/2009 TAMEKA PUCKETT APRN 780.79 Malaise And Fatigue 09/03/2009 DANIEL JEFFERY DO 719.47 Compression Arthralgia - Ankle / Foot Left 09/03/2009 SONAM JEFFERY DOA K 780.79 Malaise And Fatigue 09/03/2009 ERICKA PARISI MD 719.47 Compression Arthralgia - Ankle / Foot Left 09/03/2009 ERICKA PARISI MD 780.79 Malaise And Fatigue 09/03/2009 JEFFERY DO DANIEL K 719.47 Compression Arthralgia - Ankle / Foot Left 09/03/2009 SONAM JEFFERY DOA K 780.79 Malaise And Fatigue 09/03/2009 JEFFERY SONAM WANGA K 719.47 Compression Arthralgia - Ankle / Foot Left 09/03/2009 JEFFERY DO DANIEL K 780.79 Malaise And Fatigue 09/03/2009 ERICKA PARISI MD 719.47 Compression Arthralgia - Ankle / Foot Left 09/03/2009 ERICKA PARISI MD 780.79 Malaise And Fatigue 09/03/2009 ERICKA PARISI MD 719.47 Compression Arthralgia - Ankle / Foot Left 09/03/2009 ERICKA PARISI MD 780.79 Malaise And Fatigue 09/03/2009 JEFFERY DO, DANIEL K 719.47 Compression Arthralgia - Ankle / Foot Left 09/03/2009 JEFFERY DO, DANIEL K 780.79 Malaise And Fatigue 09/03/2009 JEFFERY DO, DANIEL K 719.47 Compression Arthralgia - Ankle / Foot Left 09/03/2009 JEFFERY DO, DANIEL K 780.79 Malaise And Fatigue 09/03/2009 JEFFERY DO, DANIEL K 719.47 Compression Arthralgia - Ankle / Foot Left 09/03/2009 JEFFERY DO, DANIEL K 780.79 Malaise And Fatigue 09/03/2009 MADL FUEL CELL DESIGNER, YUNG L 719.47 Compression Arthralgia - Ankle / Foot Left 09/03/2009 MADL FUEL CELL DESIGNER, YUNG L 780.79 Malaise And Fatigue 09/03/2009 MADL FUEL CELL DESIGNER, YUNG L 719.47 Compression Arthralgia - Ankle / Foot Left 09/03/2009 MADL FUEL CELL DESIGNER, YUNG L 780.79 Malaise And Fatigue 09/03/2009 MADL FUEL CELL DESIGNER, YUNG L 719.47 Compression Arthralgia - Ankle / Foot Left 09/03/2009 MADL FUEL CELL DESIGNER, YUNG L 780.79 Malaise And Fatigue 09/03/2009 JEFFERY DO, DANIEL K 719.47 Compression Arthralgia - Ankle / Foot Left 09/03/2009 JEFFERY DO, DANIEL K 780.79 Malaise And Fatigue 09/03/2009 MADL FUEL CELL DESIGNER, YUNG L 719.47 Compression Arthralgia - Ankle / Foot Left 09/03/2009 MADL FUEL CELL DESIGNER, YNUG L 780.79 Malaise And Fatigue 09/03/2009 MADL FUEL CELL DESIGNER, YUNG L 719.47 Compression Arthralgia - Ankle / Foot Left 09/03/2009 MADL FUEL CELL DESIGNER, YUNG L 780.79 Malaise And Fatigue 09/03/2009 JEFFERY DO, DANIEL K 719.47 Compression Arthralgia - Ankle / Foot Left 09/03/2009 JEFFERY DO, DANIEL K 780.79 Malaise And Fatigue 09/03/2009 JEFFERY DO, DANIEL K 719.47 Compression Arthralgia - Ankle / Foot Left 09/03/2009 JEFFERY DO, DANIEL K 780.79 Malaise And Fatigue 09/03/2009 MADL FUEL CELL DESIGNER, YUNG L 719.47 Compression Arthralgia - Ankle / Foot Left 09/03/2009 MADL FUEL CELL DESIGNER, YUNG L 780.79 Malaise And Fatigue 01/22/2010 OLIVIA HAYDEN PHD 847.0 Sprain/strain Neck 01/22/2010 OLIVIA HAYDEN PHD 847.9 Sprain/strain Back Unspec 01/22/2010 OLIVIA HAYDEN PHD 919.0 Abrasion Unspecified 01/22/2010 OLIVIA HAYDEN PHD E849.[address] Of Occurrence 01/22/2010 OLIVIA HAYDEN PHD E888.9 Unspecified Accidental Fall 01/22/2010 847.0 Sprain/strain Neck 01/22/2010 847.9 Sprain/strain Back Unspec 01/22/2010 919.0 Abrasion Unspecified 01/22/[address] Of Occurrence 01/22/2010 E888.9 Unspecified Accidental Fall 01/22/2010 847.0 Sprain/strain Neck 01/22/2010 847.9 Sprain/strain Back Unspec 01/22/2010 919.0 Abrasion Unspecified 01/22/[address] Of Occurrence 01/22/2010 E888.9 Unspecified Accidental Fall 01/22/2010 OLIVIA HAYDEN PHD 847.0 Sprain/strain Neck 01/22/2010 OLIVIA HAYDEN PHD 847.9 Sprain/strain Back Unspec 01/22/2010 OLIVIA HAYDEN PHD 919.0 Abrasion Unspecified 01/22/2010 OLIVIA HAYDEN PHD E849.[address] Of Occurrence 01/22/2010 OLIVIA HAYDEN PHD E888.9 Unspecified Accidental Fall 01/22/2010 MASOUD ATKINS MD 847.0 Sprain/strain Neck 01/22/2010 WILBERT FRANKLIN, MASOUD 847.9 Sprain/strain Back Unspec 01/22/2010 MASOUD ATKINS MD 919.0 Abrasion Unspecified 01/22/2010 WILBERT FRANKLIN, MASOUD E849.[address] Of Occurrence 01/22/2010 WILBERT FRANKLIN, MASOUD E888.9 Unspecified Accidental Fall 01/22/2010 847.0 Sprain/strain Neck 01/22/2010 847.9 Sprain/strain Back Unspec 01/22/2010 919.0 Abrasion Unspecified 01/22/[address] Of Occurrence 01/22/2010 E888.9 Unspecified Accidental Fall 01/22/2010 CATRACHO PHD, OLIVIA Knapp 847.0 Sprain/strain Neck 01/22/2010 CATRACHO PHD, OLIVIA Knapp 847.9 Sprain/strain Back Unspec 01/22/2010 CATRACHO PHD, OLIVIA Knapp 919.0 Abrasion Unspecified 01/22/2010 CATRACHO FUNES, OLIVIA Knapp E849.[address] Of Occurrence 01/22/2010 CATRACHO PHD, OLIVIA Knapp E888.9 Unspecified Accidental Fall 01/22/2010 847.0 Sprain/strain Neck 01/22/2010 847.9 Sprain/strain Back Unspec 01/22/2010 919.0 Abrasion Unspecified 01/22/[address] Of Occurrence 01/22/2010 E888.9 Unspecified Accidental Fall 01/22/2010 847.0 Sprain/strain Neck 01/22/2010 847.9 Sprain/strain Back Unspec 01/22/2010 919.0 Abrasion Unspecified 01/22/[address] Of Occurrence 01/22/2010 E888.9 Unspecified Accidental Fall 01/22/2010 847.0 Sprain/strain Neck 01/22/2010 847.9 Sprain/strain Back Unspec 01/22/2010 919.0 Abrasion Unspecified 01/22/[address] Of Occurrence 01/22/2010 E888.9 Unspecified Accidental Fall 01/22/2010 847.0 Sprain/strain Neck 01/22/2010 847.9 Sprain/strain Back Unspec 01/22/2010 919.0 Abrasion Unspecified 01/22/[address] Of Occurrence 01/22/2010 E888.9 Unspecified Accidental Fall 01/22/2010 847.0 Sprain/strain Neck 01/22/2010 847.9 Sprain/strain Back Unspec 01/22/2010 919.0 Abrasion Unspecified 01/22/[address] Of Occurrence 01/22/2010 E888.9 Unspecified Accidental Fall 01/22/2010 847.0 Sprain/strain Neck 01/22/2010 847.9 Sprain/strain Back Unspec 01/22/2010 919.0 Abrasion Unspecified 01/22/[address] Of Occurrence 01/22/2010 E888.9 Unspecified Accidental Fall 01/22/2010 847.0 Sprain/strain Neck 01/22/2010 847.9 Sprain/strain Back Unspec 01/22/2010 919.0 Abrasion Unspecified 01/22/[address] Of Occurrence 01/22/2010 E888.9 Unspecified Accidental Fall 01/22/2010 AILIN FRANKLIN, ERICKA Fernandez 847.0 Sprain/strain Neck 01/22/2010 AILIN FRANKLIN, ERICKA M 847.9 Sprain/strain Back Unspec 01/22/2010 AILIN FRANKLIN, ERICKA M 919.0 Abrasion Unspecified 01/22/2010 AILIN FRANKLIN, ERICKA Fernandez E849.[address] Of Occurrence 01/22/2010 AILIN FRANKLIN, ERICKA Fernandez E888.9 Unspecified Accidental Fall 01/22/2010 LAVERN DE LA ROSA, TAMEKA A 847.0 Sprain/strain Neck 01/22/2010 NIGHAT PUCKETT APRNIDI A 847.9 Sprain/strain Back Unspec 01/22/2010 NIGHAT PUCKETT APRNIDI A 919.0 Abrasion Unspecified 01/22/2010 NIGHAT PUCKETT APRNIDI A E849.[address] Of Occurrence 01/22/2010 TAMEKA PUCKETT APRN A E888.9 Unspecified Accidental Fall 01/22/2010 JEFFERY DO, DANIEL K 847.0 Sprain/strain Neck 01/22/2010 JEFFERY DO, DANIEL K 847.9 Sprain/strain Back Unspec 01/22/2010 JEFFERY DO, DANIEL K 919.0 Abrasion Unspecified 01/22/2010 JEFFERY DO, DANIEL K E849.[address] Of Occurrence 01/22/2010 JEFFERY DO, DANIEL K E888.9 Unspecified Accidental Fall 01/22/2010 ERICKA PARISI MD 847.0 Sprain/strain Neck 01/22/2010 ERICKA PARISI MD 847.9 Sprain/strain Back Unspec 01/22/2010 ERICKA PARISI MD 919.0 Abrasion Unspecified 01/22/2010 ERICKA PARISI MD E849.[address] Of Occurrence 01/22/2010 ERICKA PARISI MD E888.9 Unspecified Accidental Fall 01/22/2010 JEFFERY DO, DANIEL K 847.0 Sprain/strain Neck 01/22/2010 JEFFERY DO, DANIEL K 847.9 Sprain/strain Back Unspec 01/22/2010 JEFFERY DO, DANIEL K 919.0 Abrasion Unspecified 01/22/2010 JEFFERY DO, DANIEL K E849.[address] Of Occurrence 01/22/2010 JEFFERY DO, DANIEL K E888.9 Unspecified Accidental Fall 01/22/2010 JEFFERY DO, DANIEL K 847.0 Sprain/strain Neck 01/22/2010 JEFFERY DO, DANIEL K 847.9 Sprain/strain Back Unspec 01/22/2010 JEFFERY DO, DANIEL K 919.0 Abrasion Unspecified 01/22/2010 JEFFERY DO, DANIEL K E849.[address] Of Occurrence 01/22/2010 JEFFERY DO, DANIEL K E888.9 Unspecified Accidental Fall 01/22/2010 ERICKA PARISI MD 847.0 Sprain/strain Neck 01/22/2010 ERICKA PARISI MD 847.9 Sprain/strain Back Unspec 01/22/2010 ERICKA PARISI MD 919.0 Abrasion Unspecified 01/22/2010 ERICKA PARISI MD E849.[address] Of Occurrence 01/22/2010 ERICKA PARISI MD E888.9 Unspecified Accidental Fall 01/22/2010 ERICKA PARISI MD 847.0 Sprain/strain Neck 01/22/2010 ERICKA PARISI MD 847.9 Sprain/strain Back Unspec 01/22/2010 ERICKA PARISI MD 919.0 Abrasion Unspecified 01/22/2010 ERICKA PARISI MD E849.[address] Of Occurrence 01/22/2010 ERICKA PARISI MD E888.9 Unspecified Accidental Fall 01/22/2010 JEFFERY DO, DANIEL K 847.0 Sprain/strain Neck 01/22/2010 JEFFERY DO, DANIEL K 847.9 Sprain/strain Back Unspec 01/22/2010 JEFFERY DO, DANIEL K 919.0 Abrasion Unspecified 01/22/2010 JEFFERY DO, DANIEL K E849.[address] Of Occurrence 01/22/2010 JEFFERY DO, DANIEL K E888.9 Unspecified Accidental Fall 01/22/2010 JEFFERY DO, DANIEL K 847.0 Sprain/strain Neck 01/22/2010 JEFFERY DO, DANIEL K 847.9 Sprain/strain Back Unspec 01/22/2010 JEFFERY DO, DANIEL K 919.0 Abrasion Unspecified 01/22/2010 JEFFERY DO, DANIEL K E849.[address] Of Occurrence 01/22/2010 JEFFERY DO, DANIEL K E888.9 Unspecified Accidental Fall 01/22/2010 JEFFERY DO, DANIEL K 847.0 Sprain/strain Neck 01/22/2010 JEFFERY DO, DANIEL K 847.9 Sprain/strain Back Unspec 01/22/2010 JEFFERY DO, DANIEL K 919.0 Abrasion Unspecified 01/22/2010 JEFFERY DO, DANIEL K E849.[address] Of Occurrence 01/22/2010 JEFFERY DO, DANIEL K E888.9 Unspecified Accidental Fall 01/22/2010 MADL FUEL CELL DESIGNER, YUNG L 847.0 Sprain/strain Neck 01/22/2010 MADL FUEL CELL DESIGNER, YUNG L 847.9 Sprain/strain Back Unspec 01/22/2010 MADL FUEL CELL DESIGNER, YUNG L 919.0 Abrasion Unspecified 01/22/2010 MADL FUEL CELL DESIGNER, YUNG L E849.[address] Of Occurrence 01/22/2010 MADL FUEL CELL DESIGNER, YUNG L E888.9 Unspecified Accidental Fall 01/22/2010 MADL FUEL CELL DESIGNER, YUNG L 847.0 Sprain/strain Neck 01/22/2010 MADL FUEL CELL DESIGNER, YUNG L 847.9 Sprain/strain Back Unspec 01/22/2010 MADL FUEL CELL DESIGNER, YUNG L 919.0 Abrasion Unspecified 01/22/2010 MADL FUEL CELL DESIGNER, YUNG L E849.[address] Of Occurrence 01/22/2010 MADL FUEL CELL DESIGNER, YUNG L E888.9 Unspecified Accidental Fall 01/22/2010 MADL FUEL CELL DESIGNER, YUNG L 847.0 Sprain/strain Neck 01/22/2010 MADL FUEL CELL DESIGNER, YUNG L 847.9 Sprain/strain Back Unspec 01/22/2010 MADL FUEL CELL DESIGNER, YUNG L 919.0 Abrasion Unspecified 01/22/2010 MADL FUEL CELL DESIGNER, YUNG L E849.[address] Of Occurrence 01/22/2010 MADL FUEL CELL DESIGNER, YUNG L E888.9 Unspecified Accidental Fall 01/22/2010 JEFFERY DO, DANIEL K 847.0 Sprain/strain Neck 01/22/2010 JEFFERY DO, DANIEL K 847.9 Sprain/strain Back Unspec 01/22/2010 JEFFERY DO, DANIEL K 919.0 Abrasion Unspecified 01/22/2010 JEFFERY DO, DANIEL K E849.[address] Of Occurrence 01/22/2010 JEFFERY DO, DANIEL K E888.9 Unspecified Accidental Fall 01/22/2010 MADL FUEL CELL DESIGNER, YUNG L 847.0 Sprain/strain Neck 01/22/2010 MADL FUEL CELL DESIGNER, YUNG L 847.9 Sprain/strain Back Unspec 01/22/2010 MADL FUEL CELL DESIGNER, YUNG L 919.0 Abrasion Unspecified 01/22/2010 MADL FUEL CELL DESIGNER, YUNG L E849.[address] Of Occurrence 01/22/2010 MADL FUEL CELL DESIGNER, YUNG L E888.9 Unspecified Accidental Fall 01/22/2010 MADL FUEL CELL DESIGNER, YUNG L 847.0 Sprain/strain Neck 01/22/2010 MADL FUEL CELL DESIGNER, YUNG L 847.9 Sprain/strain Back Unspec 01/22/2010 VIANNEYL FUEL CELL DESIGNER, YUNG L 919.0 Abrasion Unspecified 01/22/2010 VIANNEYL FUEL CELL DESIGNER, YUNG L E849.[address] Of Occurrence 01/22/2010 VIANNEYL FUEL CELL DESIGNERJOEYA L E888.9 Unspecified Accidental Fall 01/22/2010 JEFFERY DO, DANIEL K 847.0 Sprain/strain Neck 01/22/2010 JEFFERY DO, DANIEL K 847.9 Sprain/strain Back Unspec 01/22/2010 JEFFERY DO, DANIEL K 919.0 Abrasion Unspecified 01/22/2010 JEFFERY DO, DANIEL K E849.[address] Of Occurrence 01/22/2010 JEFFERY DO, DANIEL K E888.9 Unspecified Accidental Fall 01/22/2010 JEFFERY DO, DANIEL K 847.0 Sprain/strain Neck 01/22/2010 JEFFERY DO, DANIEL K 847.9 Sprain/strain Back Unspec 01/22/2010 JEFFERY DO, DANIEL K 919.0 Abrasion Unspecified 01/22/2010 JEFFERY DO, DANIEL K E849.[address] Of Occurrence 01/22/2010 JEFFERY DO, DANIEL K E888.9 Unspecified Accidental Fall 01/22/2010 VIANNEYL FUEL CELL DESIGNER, YUNG L 847.0 Sprain/strain Neck 01/22/2010 MADL FUEL CELL DESIGNER, YUNG L 847.9 Sprain/strain Back Unspec 01/22/2010 VIANNEYL FUEL CELL DESIGNER, YUNG L 919.0 Abrasion Unspecified 01/22/2010 VIANNEYL FUEL CELL DESIGNERJOEYA L E849.[address] Of Occurrence 01/22/2010 SHANTI VILLALOBOSNJINYUNG L E888.9 Unspecified Accidental Fall 01/29/2010 OLIVIA HAYDEN PHD 783.0 Anorexia 01/29/2010 783.0 Anorexia 01/29/2010 783.0 Anorexia 01/29/2010 OLIVIA HAYDEN PHD 783.0 Anorexia 01/29/2010 MASOUD ATKINS MD 783.0 Anorexia 01/29/2010 783.0 Anorexia 01/29/2010 OLIVIA HAYDEN PHD 783.0 Anorexia 01/29/2010 783.0 Anorexia 01/29/2010 783.0 Anorexia 01/29/2010 783.0 Anorexia 01/29/2010 783.0 Anorexia 01/29/2010 783.0 Anorexia 01/29/2010 783.0 Anorexia 01/29/2010 783.0 Anorexia 01/29/2010 AILIN FRANKLIN, ERICKA Fernandez 783.0 Anorexia 01/29/2010 LAVERN FUEL CELL DESIGNER, TAMEKA A 783.0 Anorexia 01/29/2010 JEFFERY DO, DANIEL K 783.0 Anorexia 01/29/2010 AILIN FRANKLIN, ERICKA Fernandez 783.0 Anorexia 01/29/2010 JEFFERY DO, DANIEL K 783.0 Anorexia 01/29/2010 JEFFERY DO, DANIEL K 783.0 Anorexia 01/29/2010 AILIN FRANKLIN, ERICKA Fernandez 783.0 Anorexia 01/29/2010 AILIN FRANKLIN, ERICKA Fernandez 783.0 Anorexia 01/29/2010 JEFFERY DO, DANIEL K 783.0 Anorexia 01/29/2010 JEFFERY DO, DANIEL K 783.0 Anorexia 01/29/2010 JEFFERY DO, DANIEL K 783.0 Anorexia 01/29/2010 MADL FUEL CELL DESIGNER, YUNG L 783.0 Anorexia 01/29/2010 MADL FUEL CELL DESIGNER, YUNG L 783.0 Anorexia 01/29/2010 MADL FUEL CELL DESIGNER, YUNG L 783.0 Anorexia 01/29/2010 JEFFERY DO, DANIEL K 783.0 Anorexia 01/29/2010 MADL FUEL CELL DESIGNER, YUNG L 783.0 Anorexia 01/29/2010 MADL FUEL CELL DESIGNER, YUNG L 783.0 Anorexia 01/29/2010 JEFFERY DO, DANIEL K 783.0 Anorexia 01/29/2010 JEFFERY DO, DANIEL K 783.0 Anorexia 01/29/2010 MADL FUEL CELL DESIGNER, YUNG L 783.0 Anorexia 06/18/2010 CATRACHO PHD, OLIVIA Knapp 466.0 Bronchitis, Acute 06/18/2010 CATRACHO PHD, OLIVIA Knapp 493.90 ASTHMA UNSPECIFIED 06/18/2010 466.0 Bronchitis, Acute 06/18/2010 493.90 ASTHMA UNSPECIFIED 06/18/2010 466.0 Bronchitis, Acute 06/18/2010 493.90 ASTHMA UNSPECIFIED 06/18/2010 CATRACHO FUNES, OLIVIA Knapp 466.0 Bronchitis, Acute 06/18/2010 CATRACHO PHD, OLIVIA Knapp 493.90 ASTHMA UNSPECIFIED 06/18/2010 MASOUD ATKINS MD 466.0 Bronchitis, Acute 06/18/2010 WILBERT FRANKLIN, MASOUD 493.90 ASTHMA UNSPECIFIED 06/18/2010 466.0 Bronchitis, Acute 06/18/2010 493.90 ASTHMA UNSPECIFIED 06/18/2010 CATRACHO PHD, OLIVIA Knapp 466.0 Bronchitis, Acute 06/18/2010 CATRACHO PHD, OLIVIA Knapp 493.90 ASTHMA UNSPECIFIED 06/18/2010 466.0 Bronchitis, Acute 06/18/2010 493.90 ASTHMA UNSPECIFIED 06/18/2010 466.0 Bronchitis, Acute 06/18/2010 493.90 ASTHMA UNSPECIFIED 06/18/2010 466.0 Bronchitis, Acute 06/18/2010 493.90 ASTHMA UNSPECIFIED 06/18/2010 466.0 Bronchitis, Acute 06/18/2010 493.90 ASTHMA UNSPECIFIED 06/18/2010 466.0 Bronchitis, Acute 06/18/2010 493.90 ASTHMA UNSPECIFIED 06/18/2010 466.0 Bronchitis, Acute 06/18/2010 493.90 ASTHMA UNSPECIFIED 06/18/2010 466.0 Bronchitis, Acute 06/18/2010 493.90 ASTHMA UNSPECIFIED 06/18/2010 ERICKA PARISI MD 466.0 Bronchitis, Acute 06/18/2010 AILIN FRANKLIN, ERICKA Fernandez 493.90 ASTHMA UNSPECIFIED 06/18/2010 TAMEKA PUCKETT APRN A 466.0 Bronchitis, Acute 06/18/2010 NIGHAT PUCKETT APRNIDI A 493.90 ASTHMA UNSPECIFIED 06/18/2010 JEFFERY DO, DANIEL K 466.0 Bronchitis, Acute 06/18/2010 JEFFERY DO, DANIEL K 493.90 ASTHMA UNSPECIFIED 06/18/2010 ERICKA PARISI MD 466.0 Bronchitis, Acute 06/18/2010 ERICKA PARISI MD 493.90 ASTHMA UNSPECIFIED 06/18/2010 JEFFERY DO, DANIEL K 466.0 Bronchitis, Acute 06/18/2010 JEFFERY DO, DANIEL K 493.90 ASTHMA UNSPECIFIED 06/18/2010 JEFFERY DO, DANIEL K 466.0 Bronchitis, Acute 06/18/2010 JEFFERY DO, DANIEL K 493.90 ASTHMA UNSPECIFIED 06/18/2010 ERICKA PARISI MD 466.0 Bronchitis, Acute 06/18/2010 AILIN FRANKLIN, ERICKA Fernandez 493.90 ASTHMA UNSPECIFIED 06/18/2010 AILIN FRANKLIN, ERICKA Fernandez 466.0 Bronchitis, Acute 06/18/2010 AILIN FRANKLIN, ERICKA Fernandez 493.90 ASTHMA UNSPECIFIED 06/18/2010 JEFFERY DO, DANIEL K 466.0 Bronchitis, Acute 06/18/2010 JEFFERY DO, DANIEL K 493.90 ASTHMA UNSPECIFIED 06/18/2010 JEFFERY DO, DANIEL K 466.0 Bronchitis, Acute 06/18/2010 JEFFERY DO, DANIEL K 493.90 ASTHMA UNSPECIFIED 06/18/2010 JEFFERY DO, DANIEL K 466.0 Bronchitis, Acute 06/18/2010 JEFFERY DO, DANIEL K 493.90 ASTHMA UNSPECIFIED 06/18/2010 MADL FUEL CELL DESIGNER, YUNG L 466.0 Bronchitis, Acute 06/18/2010 MADL FUEL CELL DESIGNER, YUNG L 493.90 ASTHMA UNSPECIFIED 06/18/2010 MADL FUEL CELL DESIGNER, YUNG L 466.0 Bronchitis, Acute 06/18/2010 MADL FUEL CELL DESIGNER, YUNG L 493.90 ASTHMA UNSPECIFIED 06/18/2010 MADL FUEL CELL DESIGNER, YUNG L 466.0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 05/15/2011 AILIN FRANKLIN, ERICKA Fernandez V06.1 Tdap Dx 05/15/2011 JEFFERY DO, DANIEL Matamoros V06.1 Tdap Dx 05/15/2011 JEFFERY DO, DANIEL K V06.1 Tdap Dx 05/15/2011 AILIN FRANKLIN, ERICKA M V06.1 Tdap Dx 05/15/2011 AILIN FRANKLIN, ERICKA M V06.1 Tdap Dx 05/15/2011 JEFFERY DO, DANIEL K V06.1 Tdap Dx 05/15/2011 JEFFERY DO, DANIEL K V06.1 Tdap Dx 05/15/2011 JEFFERY DO, DANIEL K V06.1 Tdap Dx 05/15/2011 MADL FUEL CELL DESIGNER, YUNG L V06.1 Tdap Dx 05/15/2011 MADL FUEL CELL DESIGNER, YUNG L V06.1 Tdap Dx 05/15/2011 MADL FUEL CELL DESIGNER, YUNG L V06.1 Tdap Dx 05/15/2011 JEFFERY DO, DANIEL K V06.1 Tdap Dx 05/15/2011 MADL FUEL CELL DESIGNER, YUNG L V06.1 Tdap Dx 05/15/2011 MADL FUEL CELL DESIGNER, YUNG L V06.1 Tdap Dx 05/15/2011 JEFFERY DO, DANIEL K V06.1 Tdap Dx 05/15/2011 JEFFERY DO, DANIEL K V06.1 Tdap Dx 05/15/2011 MADL FUEL CELL DESIGNER, YUNG L V06.1 Tdap Dx 07/09/2011 OLIVIA HAYDEN PHD 723.1 CERVICALGIA 07/09/2011 OLIVIA HAYDEN PHD V76.2 Cervical Cancer Screening (pap Smear) 07/09/2011 723.1 CERVICALGIA 07/09/2011 V76.2 Cervical Cancer Screening (pap Smear) 07/09/2011 723.1 CERVICALGIA 07/09/2011 V76.2 Cervical Cancer Screening (pap Smear) 07/09/2011 OLIVIA HAYDEN PHD 723.1 CERVICALGIA 07/09/2011 OLIVIA HAYDEN PHD V76.2 Cervical Cancer Screening (pap Smear) 07/09/2011 MASOUD ATKINS MD 723.1 CERVICALGIA 07/09/2011 MASOUD ATKINS MD V76.2 Cervical Cancer Screening (pap Smear) 07/09/2011 723.1 CERVICALGIA 07/09/2011 V76.2 Cervical Cancer Screening (pap Smear) 07/09/2011 OLIVIA HAYDEN PHD 723.1 CERVICALGIA 07/09/2011 OLIVIA HAYDEN PHD V76.2 Cervical Cancer Screening (pap Smear) 07/09/2011 723.1 CERVICALGIA 07/09/2011 V76.2 Cervical Cancer Screening (pap Smear) 07/09/2011 723.1 CERVICALGIA 07/09/2011 V76.2 Cervical Cancer Screening (pap Smear) 07/09/2011 723.1 CERVICALGIA 07/09/2011 V76.2 Cervical Cancer Screening (pap Smear) 07/09/2011 723.1 CERVICALGIA 07/09/2011 V76.2 Cervical Cancer Screening (pap Smear) 07/09/2011 723.1 CERVICALGIA 07/09/2011 V76.2 Cervical Cancer Screening (pap Smear) 07/09/2011 723.1 CERVICALGIA 07/09/2011 V76.2 Cervical Cancer Screening (pap Smear) 07/09/2011 723.1 CERVICALGIA 07/09/2011 V76.2 Cervical Cancer Screening (pap Smear) 07/09/2011 ERICKA PARISI MD 723.1 CERVICALGIA 07/09/2011 ERICKA PARISI MD V76.2 Cervical Cancer Screening (pap Smear) 07/09/2011 LAVERNWAQAS DE [place] TAMEKA A 723.1 CERVICALGIA 07/09/2011 LAVERN [place] TAMEKA A V76.2 Cervical Cancer Screening (pap Smear) 07/09/2011 DANIEL JEFFERY DO 723.1 CERVICALGIA 07/09/2011 DANIEL JEFFERY DO K V76.2 Cervical Cancer Screening (pap Smear) 07/09/2011 ERICKA PARISI MD 723.1 CERVICALGIA 07/09/2011 ERICKA PARISI MD V76.2 Cervical Cancer Screening (pap Smear) 07/09/2011 DANIEL JEFFERY DO K 723.1 CERVICALGIA 07/09/2011 DANIEL JEFFERY DO K V76.2 Cervical Cancer Screening (pap Smear) 07/09/2011 DANIEL JEFFERY DO K 723.1 CERVICALGIA 07/09/2011 DANIEL JEFFERY DO K V76.2 Cervical Cancer Screening (pap Smear) 07/09/2011 ERICKA PARISI MD 723.1 CERVICALGIA 07/09/2011 ERICKA PARISI MD V76.2 Cervical Cancer Screening (pap Smear) 07/09/2011 ERICKA PARISI MD 723.1 CERVICALGIA 07/09/2011 AILIN FRANKLIN, ERICKA Fernandez V76.2 Cervical Cancer Screening (pap Smear) 07/09/2011 JEFFERY DO DANIEL K 723.1 CERVICALGIA 07/09/2011 JEFFERY DO DANIEL K V76.2 Cervical Cancer Screening (pap Smear) 07/09/2011 JEFFERY DO DANIEL K 723.1 CERVICALGIA 07/09/2011 JEFFERY DO DANIEL K V76.2 Cervical Cancer Screening (pap Smear) 07/09/2011 JEFFERY DO DANIEL K 723.1 CERVICALGIA 07/09/2011 JEFFERY DO, DANIEL K V76.2 Cervical Cancer Screening (pap Smear) 07/09/2011 MADL FUEL CELL DESIGNER, YUNG L 723.1 CERVICALGIA 07/09/2011 MADL FUEL CELL DESIGNER, YUNG L V76.2 Cervical Cancer Screening (pap Smear) 07/09/2011 MADL FUEL CELL DESIGNER, YUNG L 723.1 CERVICALGIA 07/09/2011 MADL FUEL CELL DESIGNER, YUNG L V76.2 Cervical Cancer Screening (pap Smear) 07/09/2011 MADL FUEL CELL DESIGNER, YUNG L 723.1 CERVICALGIA 07/09/2011 MADL FUEL CELL DESIGNER, YUNG L V76.2 Cervical Cancer Screening (pap Smear) 07/09/2011 JEFFERY DO DANIEL K 723.1 CERVICALGIA 07/09/2011 JEFFERY DO DANIEL K V76.2 Cervical Cancer Screening (pap Smear) 07/09/2011 MADL FUEL CELL DESIGNER, YUNG L 723.1 CERVICALGIA 07/09/2011 MADL FUEL CELL DESIGNER, YUNG L V76.2 Cervical Cancer Screening (pap Smear) 07/09/2011 MADL FUEL CELL DESIGNER, YUNG L 723.1 CERVICALGIA 07/09/2011 MADL FUEL CELL DESIGNER, YUNG L V76.2 Cervical Cancer Screening (pap Smear) 07/09/2011 JEFFERY DO DANIEL K 723.1 CERVICALGIA 07/09/2011 JEFFERY DO, DANIEL K V76.2 Cervical Cancer Screening (pap Smear) 07/09/2011 JEFFERY DO DANIEL K 723.1 CERVICALGIA 07/09/2011 JEFFERY DO DANIEL K V76.2 Cervical Cancer Screening (pap Smear) 07/09/2011 MADL FUEL CELL DESIGNER, YUNG L 723.1 CERVICALGIA 07/09/2011 MADL FUEL CELL DESIGNER, YUNG L V76.2 Cervical Cancer Screening (pap Smear) 07/14/2011 CATRACHO FUNES, OLIVIA Knapp 461.9 Sinusitis Acute 07/14/2011 461.9 Sinusitis Acute 07/14/2011 461.9 Sinusitis Acute 07/14/2011 CATRACHO FUNES, OLIVIA Knapp 461.9 Sinusitis Acute 07/14/2011 MASOUD ATKINS MD 461.9 Sinusitis Acute 07/14/2011 461.9 Sinusitis Acute 07/14/2011 CATRACHO FUNES, OLIVIA Knapp 461.9 Sinusitis Acute 07/14/2011 461.9 Sinusitis Acute 07/14/2011 461.9 Sinusitis Acute 07/14/2011 461.9 Sinusitis Acute 07/14/2011 461.9 Sinusitis Acute 07/14/2011 461.9 Sinusitis Acute 07/14/2011 461.9 Sinusitis Acute 07/14/2011 461.9 Sinusitis Acute 07/14/2011 ERICKA PARISI MD 461.9 Sinusitis Acute 07/14/2011 LAVERNFederico DE [place] TAMEKA A 461.9 SINUSITIS ACUTE 07/14/2011 JEFFERY DOSONAMA K 461.9 SINUSITIS ACUTE 07/14/2011 ERICKA PARISI MD 461.9 SINUSITIS ACUTE 07/14/2011 JEFFERY DOSONAMA K 461.9 SINUSITIS ACUTE 07/14/2011 JOSE D WANG DANIEL K 461.9 SINUSITIS ACUTE 07/14/2011 ERICKA PARISI MD 461.9 SINUSITIS ACUTE 07/14/2011 ERICKA PARISI MD 461.9 SINUSITIS ACUTE 07/14/2011 JEFFERY DO DANIEL K 461.9 SINUSITIS ACUTE 07/14/2011 JEFFERY DO DANIEL K 461.9 SINUSITIS ACUTE 07/14/2011 JEFFERY DO DANIEL K 461.9 SINUSITIS ACUTE 07/14/2011 MADMauricio FUEL CELL DESIGNER, YUNG L 461.9 SINUSITIS ACUTE 07/14/2011 MADL FUEL CELL DESIGNER, YUNG L 461.9 SINUSITIS ACUTE 07/14/2011 MADL FUEL CELL DESIGNER, YUNG L 461.9 SINUSITIS ACUTE 07/14/2011 JEFFERY DO, DANIEL K 461.9 SINUSITIS ACUTE 07/14/2011 MADL FUEL CELL DESIGNER, YUNG L 461.9 SINUSITIS ACUTE 07/14/2011 MADL FUEL CELL DESIGNER, YUNG L 461.9 SINUSITIS ACUTE 07/14/2011 JEFFERY DO, DANIEL K 461.9 SINUSITIS ACUTE 07/14/2011 JEFFERY DO, DANIEL K 461.9 SINUSITIS ACUTE 07/14/2011 VIANNEYL FUEL CELL DESIGNER, YUNG L 461.9 SINUSITIS ACUTE 09/04/2011 CATRACHO FUNES, OLIVIA Knapp 526.9 JAW PAIN 09/04/2011 526.9 JAW PAIN 09/04/2011 526.9 JAW PAIN 09/04/2011 CATRACHO FUNES, OLIVIA Knapp 526.9 JAW PAIN 09/04/2011 MASOUD ATKINS MD 526.9 JAW PAIN 09/04/2011 526.9 JAW PAIN 09/04/2011 CATRACHO FUNES, OLIVIA Knapp 526.9 JAW PAIN 09/04/2011 526.9 JAW PAIN 09/04/2011 526.9 JAW PAIN 09/04/2011 526.9 JAW PAIN 09/04/2011 526.9 JAW PAIN 09/04/2011 526.9 JAW PAIN 09/04/2011 526.9 JAW PAIN 09/04/2011 526.9 JAW PAIN 09/04/2011 ERICKA PARISI MD 526.9 JAW PAIN 09/04/2011 TAMEKA PUCKETT APRN 526.9 JAW PAIN 09/04/2011 JEFFERY DO, DANIEL K 526.9 JAW PAIN 09/04/2011 ERICKA PARISI MD 526.9 JAW PAIN 09/04/2011 JEFFERY DO, DANIEL K 526.9 JAW PAIN 09/04/2011 JEFFERY DO, DANIEL K 526.9 JAW PAIN 09/04/2011 ERICKA PARISI MD 526.9 JAW PAIN 09/04/2011 ERICKA PARISI MD 526.9 JAW PAIN 09/04/2011 JEFFERY DO, DANIEL K 526.9 JAW PAIN 09/04/2011 JEFFERY DO, DANIEL K 526.9 JAW PAIN 09/04/2011 JEFFERY DO, DANIEL K 526.9 JAW PAIN 09/04/2011 MADL FUEL CELL DESIGNER, YUNG L 526.9 JAW PAIN 09/04/2011 MADL FUEL CELL DESIGNER, YUNG L 526.9 JAW PAIN 09/04/2011 MADL FUEL CELL DESIGNER, YUNG L 526.9 JAW PAIN 09/04/2011 JEFFERY DO, DANIEL K 526.9 JAW PAIN 09/04/2011 MADL FUEL CELL DESIGNER, YUNG L 526.9 JAW PAIN 09/04/2011 MADL FUEL CELL DESIGNER, YUNG L 526.9 JAW PAIN 09/04/2011 JEFFERY DO, DANIEL K 526.9 JAW PAIN 09/04/2011 JEFFERY DO, DANIEL K 526.9 JAW PAIN 09/04/2011 MADL FUEL CELL DESIGNER, YUNG L 526.9 JAW PAIN 01/22/2012 CATRACHO FUNES, OLIVIA Knapp 782.3 EDEMA 01/22/2012 782.3 EDEMA 01/22/2012 782.3 EDEMA 01/22/2012 CATRACHO FUNES, OLIVIA Knapp 782.3 EDEMA 01/22/2012 MASOUD ATKINS MD 782.3 EDEMA 01/22/2012 782.3 EDEMA 01/22/2012 CATRACHO FUNES, OLIVIA Knapp 782.3 EDEMA 01/22/2012 782.3 EDEMA 01/22/2012 782.3 EDEMA 01/22/2012 782.3 EDEMA 01/22/2012 782.3 EDEMA 01/22/2012 782.3 EDEMA 01/22/2012 782.3 EDEMA 01/22/2012 782.3 EDEMA 01/22/2012 ERICKA PARISI MD 782.3 EDEMA 01/22/2012 TAMEKA PUCKETT APRN 782.3 EDEMA 01/22/2012 JEFFERY DO, DANIEL K 782.3 EDEMA 01/22/2012 ERICKA PARISI MD 782.3 EDEMA 01/22/2012 JEFFERY DO, DANIEL K 782.3 EDEMA 01/22/2012 JEFFERY DO, DANIEL K 782.3 EDEMA 01/22/2012 ERICKA PARISI MD 782.3 EDEMA 01/22/2012 ERICKA PARISI MD 782.3 EDEMA 01/22/2012 JEFFERY DO, DANIEL K 782.3 EDEMA 01/22/2012 JEFFERY DO, DANIEL K 782.3 EDEMA 01/22/2012 JEFFERY DO, DANIEL K 782.3 EDEMA 01/22/2012 MADL FUEL CELL DESIGNER, YUNG L 782.3 EDEMA 01/22/2012 MADL FUEL CELL DESIGNER, YUNG L 782.3 EDEMA 01/22/2012 MADL FUEL CELL DESIGNER, YUNG L 782.3 EDEMA 01/22/2012 JEFFERY DO, DANIEL K 782.3 EDEMA 01/22/2012 MADL FUEL CELL DESIGNER, YUNG L 782.3 EDEMA 01/22/2012 MADL FUEL CELL DESIGNER, YUNG L 782.3 EDEMA 01/22/2012 JEFFERY DO, DANIEL K 782.3 EDEMA 01/22/2012 JEFFERY DO, DANIEL K 782.3 EDEMA 01/22/2012 MADL FUEL CELL DESIGNER, YUNG L 782.3 EDEMA 01/25/2012 OLIVIA HAYDEN PHD 784.92 JAW PAIN 01/25/2012 784.92 JAW PAIN 01/25/2012 784.92 JAW PAIN 01/25/2012 OLIVIA HAYDEN PHD 784.92 JAW PAIN 01/25/2012 MASOUD ATKINS MD 784.92 JAW PAIN 01/25/2012 784.92 JAW PAIN 01/25/2012 OLIVIA HAYDEN PHD 784.92 JAW PAIN 01/25/2012 784.92 JAW PAIN 01/25/2012 784.92 JAW PAIN 01/25/2012 784.92 JAW PAIN 01/25/2012 784.92 JAW PAIN 01/25/2012 784.92 JAW PAIN 01/25/2012 784.92 JAW PAIN 01/25/2012 784.92 JAW PAIN 01/25/2012 ERICKA PARISI MD 784.92 JAW PAIN 01/25/2012 TAMEKA PUCKETT APRN 784.92 JAW PAIN 01/25/2012 JEFFERY DO, DANIEL K 784.92 JAW PAIN 01/25/2012 ERICKA PARISI MD 784.92 JAW PAIN 01/25/2012 JEFFERY DO, DANIEL K 784.92 JAW PAIN 01/25/2012 JEFFERY DO, DANIEL K 784.92 JAW PAIN 01/25/2012 ERICKA PARISI MD 784.92 JAW PAIN 01/25/2012 AILIN FRANKLIN, ERICKA Fernandez 784.92 JAW PAIN 01/25/2012 JEFFERY DO, DANIEL K 784.92 JAW PAIN 01/25/2012 JEFFERY DO, DANIEL K 784.92 JAW PAIN 01/25/2012 JEFFERY DO, DANIEL K 784.92 JAW PAIN 01/25/2012 MADL FUEL CELL DESIGNER, YUNG L 784.92 JAW PAIN 01/25/2012 MADL FUEL CELL DESIGNER, YUNG L 784.92 JAW PAIN 01/25/2012 MADL FUEL CELL DESIGNER, YUNG L 784.92 JAW PAIN 01/25/2012 JEFFERY DO, DANIEL K 784.92 JAW PAIN 01/25/2012 MADL FUEL CELL DESIGNER, YUNG L 784.92 JAW PAIN 01/25/2012 MADL FUEL CELL DESIGNER, YUNG L 784.92 JAW PAIN 01/25/2012 JEFFERY DO, DANIEL K 784.92 JAW PAIN 01/25/2012 JEFFERY DO, DANIEL K 784.92 JAW PAIN 01/25/2012 MADL FUEL CELL DESIGNER, YUNG L 784.92 JAW PAIN 02/25/2012 OLIVIA HAYDEN PHD 309.81 AN PTSD 02/25/2012 309.81 AN PTSD 02/25/2012 309.81 AN PTSD 02/25/2012 OLIVIA HAYDEN PHD 309.81 AN PTSD 02/25/2012 MASOUD ATKINS MD 309.81 AN PTSD 02/25/2012 309.81 AN PTSD 02/25/2012 OLIVIA HAYDEN PHD 309.81 AN PTSD 02/25/2012 309.81 AN PTSD 02/25/2012 309.81 AN PTSD 02/25/2012 309.81 AN PTSD 02/25/2012 309.81 AN PTSD 02/25/2012 309.81 AN PTSD 02/25/2012 309.81 AN PTSD 02/25/2012 309.81 AN PTSD 02/25/2012 ERICKA PARISI MD 309.81 AN PTSD 02/25/2012 TAMEKA PUCKETT APRN 309.81 AN PTSD 02/25/2012 DANIEL JEFFERY DO K 309.81 AN PTSD 02/25/2012 ERICKA PARISI MD 309.81 AN PTSD 02/25/2012 JEFFERY DO, DANIEL K 309.81 AN PTSD 02/25/2012 JEFFERY DO, DANIEL K 309.81 AN PTSD 02/25/2012 ERICKA PARISI MD 309.81 AN PTSD 02/25/2012 ERICKA PARISI MD 309.81 AN PTSD 02/25/2012 JEFFERY DO, DANIEL K 309.81 AN PTSD 02/25/2012 JEFFERY DO, DANIEL K 309.81 AN PTSD 02/25/2012 JEFFERY DO, DANIEL K 309.81 AN PTSD 02/25/2012 MADL FUEL CELL DESIGNER, YUNG L 309.81 AN PTSD 02/25/2012 MADL FUEL CELL DESIGNER, YUNG L 309.81 AN PTSD 02/25/2012 MADL FUEL CELL DESIGNER, YUNG L 309.81 AN PTSD 02/25/2012 JEFFERY DO, DANIEL K 309.81 AN PTSD 02/25/2012 MADL FUEL CELL DESIGNER, YUNG L 309.81 AN PTSD 02/25/2012 MADL FUEL CELL DESIGNER, YUNG L 309.81 AN PTSD 02/25/2012 JEFFERY DO, DANIEL K 309.81 AN PTSD 02/25/2012 JEFFERY DO, DANIEL K 309.81 AN PTSD 02/25/2012 MADL FUEL CELL DESIGNER, YUNG L 309.81 AN PTSD 03/03/2012 CATRACHO FUNES, OLIVIA Knapp 790.29 HYPERGLYCEMIA 03/03/2012 790.29 HYPERGLYCEMIA 03/03/2012 790.29 HYPERGLYCEMIA 03/03/2012 OLIVIA HAYDEN PHD 790.29 HYPERGLYCEMIA 03/03/2012 MASOUD ATKINS MD 790.29 HYPERGLYCEMIA 03/03/2012 790.29 HYPERGLYCEMIA 03/03/2012 OLIVIA HAYDEN PHD 790.29 HYPERGLYCEMIA 03/03/2012 790.29 HYPERGLYCEMIA 03/03/2012 790.29 HYPERGLYCEMIA 03/03/2012 790.29 HYPERGLYCEMIA 03/03/2012 790.29 HYPERGLYCEMIA 03/03/2012 790.29 HYPERGLYCEMIA 03/03/2012 790.29 HYPERGLYCEMIA 03/03/2012 790.29 HYPERGLYCEMIA 03/03/2012 ERICKA PARISI MD 790.29 HYPERGLYCEMIA 03/03/2012 TAMEKA PUCKETT APRN A 790.29 HYPERGLYCEMIA 03/03/2012 JEFFERY DO DANIEL K 790.29 HYPERGLYCEMIA 03/03/2012 ERICKA PARISI MD 790.29 HYPERGLYCEMIA 03/03/2012 JEFFERY DO, DANIEL K 790.29 HYPERGLYCEMIA 03/03/2012 JEFFERY DO, DANIEL K 790.29 HYPERGLYCEMIA 03/03/2012 ERICKA PARISI MD 790.29 HYPERGLYCEMIA 03/03/2012 ERICKA PARISI MD 790.29 HYPERGLYCEMIA 03/03/2012 JEFFERY DO, DANIEL K 790.29 HYPERGLYCEMIA 03/03/2012 JEFFERY DO, DANIEL K 790.29 HYPERGLYCEMIA 03/03/2012 JEFFERY DO, DANIEL K 790.29 HYPERGLYCEMIA 03/03/2012 MADL FUEL CELL DESIGNER, YUNG L 790.29 HYPERGLYCEMIA 03/03/2012 MADL FUEL CELL DESIGNER, YUNG L 790.29 HYPERGLYCEMIA 03/03/2012 MADL FUEL CELL DESIGNER, YUNG L 790.29 HYPERGLYCEMIA 03/03/2012 JEFFERY DO, DANIEL K 790.29 HYPERGLYCEMIA 03/03/2012 MADL FUEL CELL DESIGNER, YUNG L 790.29 HYPERGLYCEMIA 03/03/2012 MADL FUEL CELL DESIGNER, YUNG L 790.29 HYPERGLYCEMIA 03/03/2012 JEFFERY DO, DANIEL K 790.29 HYPERGLYCEMIA 03/03/2012 JEFFERY DO, DANIEL K 790.29 HYPERGLYCEMIA 03/03/2012 MADL FUEL CELL DESIGNER, YUNG L 790.29 HYPERGLYCEMIA 05/24/2012 CATRACHO PHD, OLIVIA Knapp V76.10 Breast Screening Unspecified 05/24/2012 V76.10 Breast Screening Unspecified 05/24/2012 V76.10 Breast Screening Unspecified 05/24/2012 CATRACHO PHD, OLIVIA Knapp V76.10 Breast Screening Unspecified 05/24/2012 MASOUD ATKINS MD V76.10 Breast Screening Unspecified 05/24/2012 V76.10 Breast Screening Unspecified 05/24/2012 CATRACHO PHD, OLIVIA Knapp V76.10 Breast Screening Unspecified 05/24/2012 V76.10 Breast Screening Unspecified 05/24/2012 V76.10 Breast Screening Unspecified 05/24/2012 V76.10 Breast Screening Unspecified 05/24/2012 V76.10 Breast Screening Unspecified 05/24/2012 V76.10 Breast Screening Unspecified 05/24/2012 V76.10 Breast Screening Unspecified 05/24/2012 V76.10 Breast Screening Unspecified 05/24/2012 ERICKA PARISI MD V76.10 Breast Screening Unspecified 05/24/2012 LAVERN FUEL CELL DESIGNER, TAMEKA A V76.10 Breast Screening Unspecified 05/24/2012 JEFFERY DO DANIEL K V76.10 Breast Screening Unspecified 05/24/2012 ERICKA PARISI MD V76.10 Breast Screening Unspecified 05/24/2012 JEFFERY SONAM WANGA K V76.10 Breast Screening Unspecified 05/24/2012 JOSE D WANG DANIEL K V76.10 Breast Screening Unspecified 05/24/2012 ERICKA PARISI MD V76.10 Breast Screening Unspecified 05/24/2012 ERICKA PARISI MD V76.10 Breast Screening Unspecified 05/24/2012 JEFFERY DO DANIEL K V76.10 Breast Screening Unspecified 05/24/2012 JEFFERY DO DANIEL K V76.10 Breast Screening Unspecified 05/24/2012 JEFFERY DO DANIEL K V76.10 Breast Screening Unspecified 05/24/2012 MADL FUEL CELL DESIGNER, YUNG L V76.10 Breast Screening Unspecified 05/24/2012 MADL FUEL CELL DESIGNER, YUNG L V76.10 Breast Screening Unspecified 05/24/2012 MADL FUEL CELL DESIGNER, YUNG L V76.10 Breast Screening Unspecified 05/24/2012 JEFFERY DO DANIEL K V76.10 Breast Screening Unspecified 05/24/2012 MADL FUEL CELL DESIGNER, YUNG L V76.10 Breast Screening Unspecified 05/24/2012 MADL FUEL CELL DESIGNER, YUNG L V76.10 Breast Screening Unspecified 05/24/2012 JOSE D WANG DANIEL K V76.10 Breast Screening Unspecified 05/24/2012 JEFFERY DO DANIEL K V76.10 Breast Screening Unspecified 05/24/2012 MADL FUEL CELL DESIGNER, YUNG L V76.10 Breast Screening Unspecified 08/24/2012 Ot 846.0 SPRAIN LUMBOSACRAL 08/24/2012 Ot 847.0 SPRAIN OF NECK 08/24/2012 Ot 847.1 SPRAIN THORACIC REGION 08/24/2012 Ot 959.09 INJURY OF FACE AND NECK 08/24/2012 Ot E000.8 OTHER EXTERNAL CAUSE STATUS 08/24/2012 Ot E816.0 LOSS CONTROL MV ACC-DRIV 09/07/2012 009.1 ENTERITIS ACUTE INFECTIOUS 09/07/2012 CATRACHO PHD, OLIVIA Knapp 009.1 ENTERITIS ACUTE INFECTIOUS 09/07/2012 MASOUD ATKINS MD 009.1 ENTERITIS ACUTE INFECTIOUS 09/07/2012 009.1 ENTERITIS ACUTE INFECTIOUS 09/07/2012 CATRACHO PHD, OLIVIA Knapp 009.1 ENTERITIS ACUTE INFECTIOUS 09/07/2012 009.1 ENTERITIS ACUTE INFECTIOUS 09/07/2012 009.1 ENTERITIS ACUTE INFECTIOUS 09/07/2012 009.1 ENTERITIS ACUTE INFECTIOUS 09/07/2012 009.1 ENTERITIS ACUTE INFECTIOUS 09/07/2012 009.1 ENTERITIS ACUTE INFECTIOUS 09/07/2012 009.1 ENTERITIS ACUTE INFECTIOUS 09/07/2012 009.1 ENTERITIS ACUTE INFECTIOUS 09/07/2012 ERICKA PARISI MD 009.1 ENTERITIS ACUTE INFECTIOUS 09/07/2012 TAMEKA PUCKETT APRN A 009.1 ENTERITIS ACUTE INFECTIOUS 09/07/2012 JOSE D WANG DANIEL K 009.1 ENTERITIS ACUTE INFECTIOUS 09/07/2012 ERICKA PARISI MD 009.1 ENTERITIS ACUTE INFECTIOUS 09/07/2012 SONAM JEFFERY DOA K 009.1 ENTERITIS ACUTE INFECTIOUS 09/07/2012 SONAM JEFFERY DOA K 009.1 ENTERITIS ACUTE INFECTIOUS 09/07/2012 ERICKA PARISI MD 009.1 ENTERITIS ACUTE INFECTIOUS 09/07/2012 ERICKA PARISI MD 009.1 ENTERITIS ACUTE INFECTIOUS 09/07/2012 JOSE D WANG DANIEL K 009.1 ENTERITIS ACUTE INFECTIOUS 09/07/2012 SONAM JEFFERY DOA K 009.1 ENTERITIS ACUTE INFECTIOUS 09/07/2012 JOSE D WANG DANIEL K 009.1 ENTERITIS ACUTE INFECTIOUS 09/07/2012 MADMauricio FUEL CELL DESIGNER, YUNG L 009.1 ENTERITIS ACUTE INFECTIOUS 09/07/2012 SHANTI FUEL CELL DESIGNER, YUNG L 009.1 ENTERITIS ACUTE INFECTIOUS 09/07/2012 SHANTI FUEL CELL DESIGNER, YUNG L 009.1 ENTERITIS ACUTE INFECTIOUS 09/07/2012 JOSE D WANG DANIEL K 009.1 ENTERITIS ACUTE INFECTIOUS 09/07/2012 MADL FUEL CELL DESIGNER, YUNG L 009.1 ENTERITIS ACUTE INFECTIOUS 09/07/2012 MADMauricio FUEL CELL DESIGNER, YUNG L 009.1 ENTERITIS ACUTE INFECTIOUS 09/07/2012 SONAM JEFFERY DOA K 009.1 ENTERITIS ACUTE INFECTIOUS 09/07/2012 JEFFERY SONAM WANGA K 009.1 ENTERITIS ACUTE INFECTIOUS 09/07/2012 VIANNEYMauricio FUEL CELL DESIGNERJOEYShannan Martínez 009.1 ENTERITIS ACUTE INFECTIOUS 09/21/2012 CATRACHO FUNES, OLIVIA Knapp 077.99 CONJUNCTIVITIS ACUTE VIRAL 09/21/2012 CATRACHO FUNES, OLIVIA Knapp 789.00 abdominal pain 09/21/2012 MASOUD ATKINS MD 077.99 CONJUNCTIVITIS ACUTE VIRAL 09/21/2012 MASOUD ATKINS MD 789.00 abdominal pain 09/21/2012 077.99 CONJUNCTIVITIS ACUTE VIRAL 09/21/2012 789.00 abdominal pain 09/21/2012 CATRACHO FUNES, OLIVIA Knapp 077.99 CONJUNCTIVITIS ACUTE VIRAL 09/21/2012 CATRACHO FUNES, OLIVIA Knapp 789.00 abdominal pain 09/21/2012 077.99 CONJUNCTIVITIS ACUTE VIRAL 09/21/2012 789.00 abdominal pain 09/21/2012 077.99 CONJUNCTIVITIS ACUTE VIRAL 09/21/2012 789.00 abdominal pain 09/21/2012 077.99 CONJUNCTIVITIS ACUTE VIRAL 09/21/2012 789.00 abdominal pain 09/21/2012 077.99 CONJUNCTIVITIS ACUTE VIRAL 09/21/2012 789.00 abdominal pain 09/21/2012 077.99 CONJUNCTIVITIS ACUTE VIRAL 09/21/2012 789.00 abdominal pain 09/21/2012 077.99 CONJUNCTIVITIS ACUTE VIRAL 09/21/2012 789.00 abdominal pain 09/21/2012 077.99 CONJUNCTIVITIS ACUTE VIRAL 09/21/2012 789.00 abdominal pain 09/21/2012 ERICKA PARISI MD 077.99 CONJUNCTIVITIS ACUTE VIRAL 09/21/2012 ERICKA PARISI MD 789.00 abdominal pain 09/21/2012 TAMEKA PUCKETT APRN 077.99 CONJUNCTIVITIS ACUTE VIRAL 09/21/2012 TAMEKA PUCKETT APRN 789.00 abdominal pain 09/21/2012 DANIEL JEFFERY DO 077.99 CONJUNCTIVITIS ACUTE VIRAL 09/21/2012 SONAM JEFFERY DOA K 789.00 abdominal pain 09/21/2012 ERICKA PARISI MD 077.99 CONJUNCTIVITIS ACUTE VIRAL 09/21/2012 AILIN FRANKLIN, ERICKA Fernandez 789.00 abdominal pain 09/21/2012 JEFFERY DO DANIEL K 077.99 CONJUNCTIVITIS ACUTE VIRAL 09/21/2012 JEFFERY DO, DANIEL K 789.00 abdominal pain 09/21/2012 JEFFERY DO, DANIEL K 077.99 CONJUNCTIVITIS ACUTE VIRAL 09/21/2012 JEFFERY DO, DANIEL K 789.00 abdominal pain 09/21/2012 AILIN FRANKLIN, ERICKA Fernandez 077.99 CONJUNCTIVITIS ACUTE VIRAL 09/21/2012 AILIN FRANKLIN, ERICKA Fernandez 789.00 abdominal pain 09/21/2012 AILIN FRANKLIN, ERICKA Fernandez 077.99 CONJUNCTIVITIS ACUTE VIRAL 09/21/2012 AILIN FRANKLIN, ERICKA Fernandez 789.00 abdominal pain 09/21/2012 JEFFERY DO DANIEL K 077.99 CONJUNCTIVITIS ACUTE VIRAL 09/21/2012 JEFFERY DO DANIEL K 789.00 abdominal pain 09/21/2012 JEFFERY DO DANIEL K 077.99 CONJUNCTIVITIS ACUTE VIRAL 09/21/2012 JEFFERY DO, DANIEL K 789.00 abdominal pain 09/21/2012 JEFFERY DO, DANIEL K 077.99 CONJUNCTIVITIS ACUTE VIRAL 09/21/2012 JEFFERY DO, DANIEL K 789.00 abdominal pain 09/21/2012 MADL FUEL CELL DESIGNER, YUNG L 077.99 CONJUNCTIVITIS ACUTE VIRAL 09/21/2012 MADL FUEL CELL DESIGNER, YUNG L 789.00 abdominal pain 09/21/2012 MADL FUEL CELL DESIGNER, YUNG L 077.99 CONJUNCTIVITIS ACUTE VIRAL 09/21/2012 MADL FUEL CELL DESIGNER, YUNG L 789.00 abdominal pain 09/21/2012 MADL FUEL CELL DESIGNER, YUNG L 077.99 CONJUNCTIVITIS ACUTE VIRAL 09/21/2012 MADL FUEL CELL DESIGNER, YUNG L 789.00 abdominal pain 09/21/2012 JEFFERY DO, DANIEL K 077.99 CONJUNCTIVITIS ACUTE VIRAL 09/21/2012 JEFFERY DO, DANIEL K 789.00 abdominal pain 09/21/2012 MADL FUEL CELL DESIGNER, YUNG L 077.99 CONJUNCTIVITIS ACUTE VIRAL 09/21/2012 MADL FUEL CELL DESIGNER, YUNG L 789.00 abdominal pain 09/21/2012 MADL FUEL CELL DESIGNER, YUNG L 077.99 CONJUNCTIVITIS ACUTE VIRAL 09/21/2012 MADL FUEL CELL DESIGNER, YUNG L 789.00 abdominal pain 09/21/2012 JEFFERY DO, DANIEL K 077.99 CONJUNCTIVITIS ACUTE VIRAL 09/21/2012 JEFFERY DO, DANIEL K 789.00 abdominal pain 09/21/2012 JEFFERY DO, DANIEL K 077.99 CONJUNCTIVITIS ACUTE VIRAL 09/21/2012 JEFFERY DO, DANIEL K 789.00 abdominal pain 09/21/2012 MADL FUEL CELL DESIGNER, YUNG L 077.99 CONJUNCTIVITIS ACUTE VIRAL 09/21/2012 MADL FUEL CELL DESIGNER, YUNG L 789.00 abdominal pain 10/18/2012 MASOUD ATKINS MD 787.01 NAUSEA WITH VOMITING 10/18/2012 MASOUD ATKINS MD 789.07 ABDOMINAL PAIN GENERALIZED 10/18/2012 787.01 NAUSEA WITH VOMITING 10/18/2012 789.07 ABDOMINAL PAIN GENERALIZED 10/18/2012 OLIVIA HAYDEN PHD 787.01 NAUSEA WITH VOMITING 10/18/2012 OLIVIA HAYDEN PHD 789.07 ABDOMINAL PAIN GENERALIZED 10/18/2012 787.01 NAUSEA WITH VOMITING 10/18/2012 789.07 ABDOMINAL PAIN GENERALIZED 10/18/2012 787.01 NAUSEA WITH VOMITING 10/18/2012 789.07 ABDOMINAL PAIN GENERALIZED 10/18/2012 787.01 NAUSEA WITH VOMITING 10/18/2012 789.07 ABDOMINAL PAIN GENERALIZED 10/18/2012 787.01 NAUSEA WITH VOMITING 10/18/2012 789.07 ABDOMINAL PAIN GENERALIZED 10/18/2012 787.01 NAUSEA WITH VOMITING 10/18/2012 789.07 ABDOMINAL PAIN GENERALIZED 10/18/2012 787.01 NAUSEA WITH VOMITING 10/18/2012 789.07 ABDOMINAL PAIN GENERALIZED 10/18/2012 787.01 NAUSEA WITH VOMITING 10/18/2012 789.07 ABDOMINAL PAIN GENERALIZED 10/18/2012 ERICKA PARISI MD 787.01 NAUSEA WITH VOMITING 10/18/2012 ERICKA PARISI MD 789.07 ABDOMINAL PAIN GENERALIZED 10/18/2012 TAMEKA PUCKETT APRN 787.01 NAUSEA WITH VOMITING 10/18/2012 TAMEKA PUCKETT APRN 789.07 ABDOMINAL PAIN GENERALIZED 10/18/2012 JEFFERY DO, DANIEL K 787.01 NAUSEA WITH VOMITING 10/18/2012 JEFFERY DO, DANIEL K 789.07 ABDOMINAL PAIN GENERALIZED 10/18/2012 ERICKA PARISI MD 787.01 NAUSEA WITH VOMITING 10/18/2012 ERICKA PARISI MD 789.07 ABDOMINAL PAIN GENERALIZED 10/18/2012 JEFFERY DO, DANIEL K 787.01 NAUSEA WITH VOMITING 10/18/2012 JEFFERY DO, DNAIEL K 789.07 ABDOMINAL PAIN GENERALIZED 10/18/2012 JEFFERY DO, DANIEL K 787.01 NAUSEA WITH VOMITING 10/18/2012 JEFEFRY DO, DANIEL K 789.07 ABDOMINAL PAIN GENERALIZED 10/18/2012 ERICKA PARISI MD 787.01 NAUSEA WITH VOMITING 10/18/2012 ERICKA PARISI MD 789.07 ABDOMINAL PAIN GENERALIZED 10/18/2012 ERICKA PARISI MD 787.01 NAUSEA WITH VOMITING 10/18/2012 ERICKA PARISI MD 789.07 ABDOMINAL PAIN GENERALIZED 10/18/2012 JEFFERY DO, DANIEL K 787.01 NAUSEA WITH VOMITING 10/18/2012 JEFFERY DO, DANIEL K 789.07 ABDOMINAL PAIN GENERALIZED 10/18/2012 JEFFERY DO, DANIEL K 787.01 NAUSEA WITH VOMITING 10/18/2012 JEFFERY DO, DANIEL K 789.07 ABDOMINAL PAIN GENERALIZED 10/18/2012 JEFFERY DO, DANIEL K 787.01 NAUSEA WITH VOMITING 10/18/2012 JEFFERY DO, DANIEL K 789.07 ABDOMINAL PAIN GENERALIZED 10/18/2012 MADL FUEL CELL DESIGNER, YUNG L 787.01 NAUSEA WITH VOMITING 10/18/2012 MADL FUEL CELL DESIGNER, YUNG L 789.07 ABDOMINAL PAIN GENERALIZED 10/18/2012 MADL FUEL CELL DESIGNER, YUNG L 787.01 NAUSEA WITH VOMITING 10/18/2012 MADL FUEL CELL DESIGNER, YUNG L 789.07 ABDOMINAL PAIN GENERALIZED 10/18/2012 MADL FUEL CELL DESIGNER, YUNG L 787.01 NAUSEA WITH VOMITING 10/18/2012 MADL FUEL CELL DESIGNER, YUNG L 789.07 ABDOMINAL PAIN GENERALIZED 10/18/2012 JEFFERY DO, DANIEL K 787.01 NAUSEA WITH VOMITING 10/18/2012 JEFFERY DO, DANIEL K 789.07 ABDOMINAL PAIN GENERALIZED 10/18/2012 MADL FUEL CELL DESIGNER, YUNG L 787.01 NAUSEA WITH VOMITING 10/18/2012 MADL FUEL CELL DESIGNER, YUNG L 789.07 ABDOMINAL PAIN GENERALIZED 10/18/2012 MADL FUEL CELL DESIGNER, YUNG L 787.01 NAUSEA WITH VOMITING 10/18/2012 MADL FUEL CELL DESIGNER, YUNG L 789.07 ABDOMINAL PAIN GENERALIZED 10/18/2012 JEFFERY DO, DANIEL K 787.01 NAUSEA WITH VOMITING 10/18/2012 JEFFERY DO, DANIEL K 789.07 ABDOMINAL PAIN GENERALIZED 10/18/2012 JEFFERY DO, DANIEL K 787.01 NAUSEA WITH VOMITING 10/18/2012 JEFFERY DO, DANIEL K 789.07 ABDOMINAL PAIN GENERALIZED 10/18/2012 SHANTI FUEL CELL DESIGNER, YUNG L 787.01 NAUSEA WITH VOMITING 10/18/2012 VIANNEYL FUEL CELL DESIGNER, YUNG L 789.07 ABDOMINAL PAIN GENERALIZED 10/26/2012 564.00 CONSTIPATION 10/26/2012 CATRACHO PHD, OLIVIA Knapp 564.00 CONSTIPATION 10/26/2012 564.00 CONSTIPATION 10/26/2012 564.00 CONSTIPATION 10/26/2012 564.00 CONSTIPATION 10/26/2012 564.00 CONSTIPATION 10/26/2012 564.00 CONSTIPATION 10/26/2012 564.00 CONSTIPATION 10/26/2012 564.00 CONSTIPATION 10/26/2012 ERICKA PARISI MD 564.00 CONSTIPATION 10/26/2012 TAMEKA PUCKETT APRN 564.00 CONSTIPATION 10/26/2012 JEFFERY DO, DANIEL K 564.00 CONSTIPATION 10/26/2012 ERICKA PARISI MD 564.00 CONSTIPATION 10/26/2012 JEFFERY DO, DANIEL K 564.00 CONSTIPATION 10/26/2012 JEFFERY DO, DANIEL K 564.00 CONSTIPATION 10/26/2012 ERICKA PARISI MD 564.00 CONSTIPATION 10/26/2012 ERICKA PARISI MD 564.00 CONSTIPATION 10/26/2012 JEFFERY DO, DANIEL K 564.00 CONSTIPATION 10/26/2012 JEFFERY DO, DANIEL K 564.00 CONSTIPATION 10/26/2012 JEFFERY DO, DANIEL K 564.00 CONSTIPATION 10/26/2012 VIANNEYL FUEL CELL DESIGNER, YUNG L 564.00 CONSTIPATION 10/26/2012 MADL FUEL CELL DESIGNER, YUNG L 564.00 CONSTIPATION 10/26/2012 MADL FUEL CELL DESIGNER, YUNG L 564.00 CONSTIPATION 10/26/2012 JEFFERY DO, DANIEL K 564.00 CONSTIPATION 10/26/2012 MADL FUEL CELL DESIGNER, YUNG L 564.00 CONSTIPATION 10/26/2012 MADL FUEL CELL DESIGNER, YUNG L 564.00 CONSTIPATION 10/26/2012 JEFFERY DO, DANIEL K 564.00 CONSTIPATION 10/26/2012 JEFFERY DO, DANIEL K 564.00 CONSTIPATION 10/26/2012 MADL FUEL CELL DESIGNER, YUNG L 564.00 CONSTIPATION 12/02/2012 525.9 tooth pain 12/02/2012 525.9 tooth pain 12/02/2012 525.9 tooth pain 12/02/2012 525.9 tooth pain 12/02/2012 525.9 tooth pain 12/02/2012 525.9 tooth pain 12/02/2012 ERICKA PARISI MD 525.9 tooth pain 12/02/2012 LAVERN DE LA ROSA TAMEKA A 525.9 TOOTH PAIN 12/02/2012 JEFFERY DO, DANIEL K 525.9 TOOTH PAIN 12/02/2012 ERICKA PARISI MD 525.9 TOOTH PAIN 12/02/2012 JEFFERY DO, DANIEL K 525.9 TOOTH PAIN 12/02/2012 JEFFERY DO, DANIEL K 525.9 TOOTH PAIN 12/02/2012 ERICKA PARISI MD 525.9 TOOTH PAIN 12/02/2012 ERICKA PARISI MD 525.9 TOOTH PAIN 12/02/2012 JEFFERY DO, DANIEL K 525.9 TOOTH PAIN 12/02/2012 JEFFERY DO, DANIEL K 525.9 TOOTH PAIN 12/02/2012 JEFFERY DO, DANIEL K 525.9 TOOTH PAIN 12/02/2012 MADL FUEL CELL DESIGNER, YUNG L 525.9 TOOTH PAIN 12/02/2012 MADL FUEL CELL DESIGNER, YUNG L 525.9 TOOTH PAIN 12/02/2012 MADL FUEL CELL DESIGNER, YUNG L 525.9 TOOTH PAIN 12/02/2012 JEFFERY DO, DANIEL K 525.9 TOOTH PAIN 12/02/2012 MADL FUEL CELL DESIGNER, YUNG L 525.9 TOOTH PAIN 12/02/2012 MADL FUEL CELL DESIGNER, YUNG L 525.9 TOOTH PAIN 12/02/2012 JOSE D WANG DANIEL K 525.9 TOOTH PAIN 12/02/2012 JEFFERY DO DANIEL K 525.9 TOOTH PAIN 12/02/2012 MADL FUEL CELL DESIGNER, YUNG L 525.9 TOOTH PAIN 12/23/2012 296.40 MO BIPOLAR MANIC UNSPECIFIED 12/23/2012 296.40 MO BIPOLAR MANIC UNSPECIFIED 12/23/2012 296.40 MO BIPOLAR MANIC UNSPECIFIED 12/23/2012 296.40 MO BIPOLAR MANIC UNSPECIFIED 12/23/2012 296.40 MO BIPOLAR MANIC UNSPECIFIED 12/23/2012 AILIN FRANKLIN, ERICKA Fernandez 296.40 MO BIPOLAR MANIC UNSPECIFIED 12/23/2012 LAVERNTAMEKA ALAN APRN 296.40 MO BIPOLAR MANIC UNSPECIFIED 12/23/2012 DANIEL JEFFERY DO K 296.40 MO BIPOLAR MANIC UNSPECIFIED 12/23/2012 ERICKA PARISI MD 296.40 MO BIPOLAR MANIC UNSPECIFIED 12/23/2012 DANIEL JEFFERY DO K 296.40 MO BIPOLAR MANIC UNSPECIFIED 12/23/2012 SONAM JEFFERY DOA K 296.40 MO BIPOLAR MANIC UNSPECIFIED 12/23/2012 ERICKA PARISI MD 296.40 MO BIPOLAR MANIC UNSPECIFIED 12/23/2012 ERICKA PARISI MD 296.40 MO BIPOLAR MANIC UNSPECIFIED 12/23/2012 SONAM JEFFERY DOA K 296.40 MO BIPOLAR MANIC UNSPECIFIED 12/23/2012 SONAM JEFFERY DOA K 296.40 MO BIPOLAR MANIC UNSPECIFIED 12/23/2012 JOSE D WANG DANIEL K 296.40 MO BIPOLAR MANIC UNSPECIFIED 12/23/2012 MADL FUEL CELL DESIGNER, YUNG L 296.40 MO BIPOLAR MANIC UNSPECIFIED 12/23/2012 MADL FUEL CELL DESIGNER, YUNG L 296.40 MO BIPOLAR MANIC UNSPECIFIED 12/23/2012 MADL FUEL CELL DESIGNER, YUNG L 296.40 MO BIPOLAR MANIC UNSPECIFIED 12/23/2012 JEFFERY DO DANIEL K 296.40 MO BIPOLAR MANIC UNSPECIFIED 12/23/2012 MADL FUEL CELL DESIGNER, YUNG L 296.40 MO BIPOLAR MANIC UNSPECIFIED 12/23/2012 MADL FUEL CELL DESIGNER, YUNG L 296.40 MO BIPOLAR MANIC UNSPECIFIED 12/23/2012 JEFFERY DO, DANIEL K 296.40 MO BIPOLAR MANIC UNSPECIFIED 12/23/2012 JEFFERY DO, DANIEL K 296.40 MO BIPOLAR MANIC UNSPECIFIED 12/23/2012 MADL FUEL CELL DESIGNER, YUNG L 296.40 MO BIPOLAR MANIC UNSPECIFIED 12/30/2012 338.29 CHRONIC PAIN 12/30/2012 338.29 CHRONIC PAIN 12/30/2012 338.29 CHRONIC PAIN 12/30/2012 338.29 CHRONIC PAIN 12/30/2012 ERICKA PARISI MD 338.29 CHRONIC PAIN 12/30/2012 LAVENRWAQAS DE LA ROSA TAMEKA A 338.29 CHRONIC PAIN 12/30/2012 JEFFERY DO DANIEL K 338.29 CHRONIC PAIN 12/30/2012 ERICKA PARISI MD 338.29 CHRONIC PAIN 12/30/2012 JEFFERY DO, DANIEL K 338.29 CHRONIC PAIN 12/30/2012 JEFFERY DO DANIEL K 338.29 CHRONIC PAIN 12/30/2012 ERICKA PARISI MD 338.29 CHRONIC PAIN 12/30/2012 ERICKA PARISI MD 338.29 CHRONIC PAIN 12/30/2012 JEFFERY DO, DANIEL K 338.29 CHRONIC PAIN 12/30/2012 JEFFERY DO, DANIEL K 338.29 CHRONIC PAIN 12/30/2012 JEFFERY DO, DANIEL K 338.29 CHRONIC PAIN 12/30/2012 MADL FUEL CELL DESIGNER, YUNG L 338.29 CHRONIC PAIN 12/30/2012 MADL FUEL CELL DESIGNER, YUNG L 338.29 CHRONIC PAIN 12/30/2012 MADL FUEL CELL DESIGNER, YUNG L 338.29 CHRONIC PAIN 12/30/2012 JEFFERY DO, DANIEL K 338.29 CHRONIC PAIN 12/30/2012 MADL FUEL CELL DESIGNER, YUNG L 338.29 CHRONIC PAIN 12/30/2012 MADL FUEL CELL DESIGNER, YUNG L 338.29 CHRONIC PAIN 12/30/2012 JEFFERY DO, DANIEL K 338.29 CHRONIC PAIN 12/30/2012 JEFFERY DO, DANIEL K 338.29 CHRONIC PAIN 12/30/2012 MADL FUEL CELL DESIGNER, YUNG L 338.29 CHRONIC PAIN 02/24/2013 458.9 HYPOTENSION 02/24/2013 458.9 HYPOTENSION 02/24/2013 ERICKA PARISI MD 458.9 HYPOTENSION 02/24/2013 LAVERN DE LA ROSA, TAMEKA A 458.9 HYPOTENSION 02/24/2013 JEFFERY DO, DANIEL K 458.9 HYPOTENSION 02/24/2013 ERICKA PARISI MD 458.9 HYPOTENSION 02/24/2013 JEFFERY DO, DANIEL K 458.9 HYPOTENSION 02/24/2013 JEFFERY DO, DANIEL K 458.9 HYPOTENSION 02/24/2013 ERICKA PARISI MD 458.9 HYPOTENSION 02/24/2013 ERICKA PARISI MD 458.9 HYPOTENSION 02/24/2013 JEFFERY DO, DANIEL K 458.9 HYPOTENSION 02/24/2013 JEFFERY DO, DANIEL K 458.9 HYPOTENSION 02/24/2013 JEFFERY DO, DANIEL K 458.9 HYPOTENSION 02/24/2013 MADL FUEL CELL DESIGNER, YUNG L 458.9 HYPOTENSION 02/24/2013 MADL FUEL CELL DESIGNER, YUNG L 458.9 HYPOTENSION 02/24/2013 MADL FUEL CELL DESIGNER, YUNG L 458.9 HYPOTENSION 02/24/2013 JEFFERY DO, DANIEL K 458.9 HYPOTENSION 02/24/2013 MADL FUEL CELL DESIGNER, YUNG L 458.9 HYPOTENSION 02/24/2013 MADL FUEL CELL DESIGNER, YUNG L 458.9 HYPOTENSION 02/24/2013 JEFFERY DO, DANIEL K 458.9 HYPOTENSION 02/24/2013 JEFFERY DO, DANIEL K 458.9 HYPOTENSION 02/24/2013 MADL FUEL CELL DESIGNER, YUNG L 458.9 HYPOTENSION 03/23/2013 477.9 ALLERGIC RHINITIS CAUSE UNSPECIFIED 03/23/2013 786.59 OTHER CHEST PAIN 03/23/2013 ERICKA PARISI MD 477.9 ALLERGIC RHINITIS CAUSE UNSPECIFIED 03/23/2013 ERICKA PARISI MD 786.59 OTHER CHEST PAIN 03/23/2013 TAMEKA PUCKETT APRN A 477.9 ALLERGIC RHINITIS CAUSE UNSPECIFIED 03/23/2013 TAMEKA PUCKETT APRN 786.59 OTHER CHEST PAIN 03/23/2013 JEFFERY DO, DANIEL K 477.9 ALLERGIC RHINITIS CAUSE UNSPECIFIED 03/23/2013 JEFFERY DO, DANIEL K 786.59 OTHER CHEST PAIN 03/23/2013 ERICKA PARISI MD 477.9 ALLERGIC RHINITIS CAUSE UNSPECIFIED 03/23/2013 ERICKA PARISI MD 786.59 OTHER CHEST PAIN 03/23/2013 JEFFERY DO, DANIEL K 477.9 ALLERGIC RHINITIS CAUSE UNSPECIFIED 03/23/2013 JEFFERY DO, DANIEL K 786.59 OTHER CHEST PAIN 03/23/2013 JEFFERY DO, DANIEL K 477.9 ALLERGIC RHINITIS 03/23/2013 JEFFERY DO, DANIEL K 786.59 OTHER CHEST PAIN 03/23/2013 ERICKA PARISI MD 477.9 ALLERGIC RHINITIS 03/23/2013 AILIN FRANKLIN, ERICKA Fernandez 786.59 OTHER CHEST PAIN 03/23/2013 ERICKA PARISI MD 477.9 ALLERGIC RHINITIS 03/23/2013 ERICKA PARISI MD 786.59 OTHER CHEST PAIN 03/23/2013 JEFFERY DO, DANIEL K 477.9 ALLERGIC RHINITIS 03/23/2013 JEFFERY DO, DANIEL K 786.59 OTHER CHEST PAIN 03/23/2013 JEFFERY DO, DANIEL K 477.9 ALLERGIC RHINITIS 03/23/2013 JEFFERY DO, DANIEL K 786.59 OTHER CHEST PAIN 03/23/2013 JEFFERY DO, DANIEL K 477.9 ALLERGIC RHINITIS 03/23/2013 JEFFERY DO, DANIEL K 786.59 OTHER CHEST PAIN 03/23/2013 MADL FUEL CELL DESIGNER, YUNG L 477.9 ALLERGIC RHINITIS 03/23/2013 MADL FUEL CELL DESIGNER, YUNG L 786.59 OTHER CHEST PAIN 03/23/2013 MADL FUEL CELL DESIGNER, YUNG L 477.9 ALLERGIC RHINITIS 03/23/2013 MADL FUEL CELL DESIGNER, YUNG L 786.59 OTHER CHEST PAIN 03/23/2013 MADL FUEL CELL DESIGNER, YUNG L 477.9 ALLERGIC RHINITIS 03/23/2013 MADL FUEL CELL DESIGNER, YUNG L 786.59 OTHER CHEST PAIN 03/23/2013 JEFFERY DO, DANIEL K 477.9 ALLERGIC RHINITIS 03/23/2013 JEFFERY DO, DANIEL K 786.59 OTHER CHEST PAIN 03/23/2013 MADL FUEL CELL DESIGNER, YUNG L 477.9 ALLERGIC RHINITIS 03/23/2013 MADL FUEL CELL DESIGNER, YUNG L 786.59 OTHER CHEST PAIN 03/23/2013 MADL FUEL CELL DESIGNER, YUNG L 477.9 ALLERGIC RHINITIS 03/23/2013 MADL FUEL CELL DESIGNER, YUNG L 786.59 OTHER CHEST PAIN 03/23/2013 JEFFERY DO, DANIEL K 477.9 ALLERGIC RHINITIS 03/23/2013 JEFFERY DO, DANIEL K 786.59 OTHER CHEST PAIN 03/23/2013 JEFFERY DO, DANIEL K 477.9 ALLERGIC RHINITIS 03/23/2013 JEFFERY DO, DANIEL K 786.59 OTHER CHEST PAIN 03/23/2013 MADL FUEL CELL DESIGNER, YUNG L 477.9 ALLERGIC RHINITIS 03/23/2013 MADL FUEL CELL DESIGNER, YUNG L 786.59 OTHER CHEST PAIN 03/29/2013 271.3 GLUCOSE INTOLERANCE 03/29/2013 593.9 RENAL INSUFFICIENCY 03/29/2013 ERICKA PARISI MD 271.3 GLUCOSE INTOLERANCE 03/29/2013 ERICKA PARISI MD 593.9 RENAL INSUFFICIENCY 03/29/2013 LAVERN DE [place] TAMEKA A 271.3 GLUCOSE INTOLERANCE 03/29/2013 LAVERN DE [place] TAMEKA A 593.9 RENAL INSUFFICIENCY 03/29/2013 JEFFERY DO, DANIEL K 271.3 GLUCOSE INTOLERANCE 03/29/2013 JEFFERY DO, DANIEL K 593.9 RENAL INSUFFICIENCY 03/29/2013 ERICKA PARISI MD 271.3 GLUCOSE INTOLERANCE 03/29/2013 ERICKA PARISI MD 593.9 RENAL INSUFFICIENCY 03/29/2013 JEFFERY DO, DANIEL K 271.3 GLUCOSE INTOLERANCE 03/29/2013 JEFFERY DO, DANIEL K 593.9 RENAL INSUFFICIENCY 03/29/2013 JEFFERY DO, DANIEL K 271.3 GLUCOSE INTOLERANCE 03/29/2013 JEFFERY DO, DANIEL K 593.9 RENAL INSUFFICIENCY 03/29/2013 ERICKA PARISI MD 271.3 GLUCOSE INTOLERANCE 03/29/2013 ERICKA PARISI MD 593.9 RENAL INSUFFICIENCY 03/29/2013 ERICKA PARISI MD 271.3 GLUCOSE INTOLERANCE 03/29/2013 ERICKA PARISI MD 593.9 RENAL INSUFFICIENCY 03/29/2013 JEFFERY DO, DANIEL K 271.3 GLUCOSE INTOLERANCE 03/29/2013 JEFFERY DO, DANIEL K 593.9 RENAL INSUFFICIENCY 03/29/2013 JEFFERY DO, DANIEL K 271.3 GLUCOSE INTOLERANCE 03/29/2013 JEFFERY DO, DANIEL K 593.9 RENAL INSUFFICIENCY 03/29/2013 JEFFERY DO, DANIEL K 271.3 GLUCOSE INTOLERANCE 03/29/2013 JEFFERY DO, DANIEL K 593.9 RENAL INSUFFICIENCY 03/29/2013 MADL FUEL CELL DESIGNER, YUNG L 271.3 GLUCOSE INTOLERANCE 03/29/2013 MADL FUEL CELL DESIGNER, YUNG L 593.9 RENAL INSUFFICIENCY 03/29/2013 MADL FUEL CELL DESIGNER, YUNG L 271.3 GLUCOSE INTOLERANCE 03/29/2013 MADL FUEL CELL DESIGNER, YUNG L 593.9 RENAL INSUFFICIENCY 03/29/2013 MADL FUEL CELL DESIGNER, YUNG L 271.3 GLUCOSE INTOLERANCE 03/29/2013 MADL FUEL CELL DESIGNER, YUNG L 593.9 RENAL INSUFFICIENCY 03/29/2013 JEFFERY DO, DANIEL K 271.3 GLUCOSE INTOLERANCE 03/29/2013 JEFFERY DO, DANIEL K 593.9 RENAL INSUFFICIENCY 03/29/2013 MADL FUEL CELL DESIGNER, YUNG L 271.3 GLUCOSE INTOLERANCE 03/29/2013 MADL FUEL CELL DESIGNER, YUNG L 593.9 RENAL INSUFFICIENCY 03/29/2013 [facility], YUNG L 271.3 GLUCOSE INTOLERANCE 03/29/2013 MADL FUEL CELL DESIGNER, YUNG L 593.9 RENAL INSUFFICIENCY 03/29/2013 JEFFERY DO, DANIEL K 271.3 GLUCOSE INTOLERANCE 03/29/2013 JEFFERY DO, DANIEL K 593.9 RENAL INSUFFICIENCY 03/29/2013 JEFFERY DO, DANIEL K 271.3 GLUCOSE INTOLERANCE 03/29/2013 JEFFERY DO, DANIEL K 593.9 RENAL INSUFFICIENCY 03/29/2013 MADL FUEL CELL DESIGNER, YUNG L 271.3 GLUCOSE INTOLERANCE 03/29/2013 MAD FUEL CELL DESIGNER, YUNG L 593.9 RENAL INSUFFICIENCY 06/22/2013 TAMEKA PUCKETT APRN A 625.6 STRESS INCONTINENCE FEMALE 06/22/2013 TAMEKA PUCKETT APRN A V76.12 Mammogram Screening 06/22/2013 JEFFERY DO, DANIEL K 625.6 STRESS INCONTINENCE FEMALE 06/22/2013 JEFFERY DO, DANIEL K V76.12 Mammogram Screening 06/22/2013 ERICKA PARISI MD 625.6 STRESS INCONTINENCE FEMALE 06/22/2013 ERICKA PARISI MD V76.12 Mammogram Screening 06/22/2013 JEFFERY DO, DANIEL K 625.6 STRESS INCONTINENCE FEMALE 06/22/2013 JEFFERY DO, DANIEL K V76.12 Mammogram Screening 06/22/2013 JEFFERY DO, DANIEL K 625.6 STRESS INCONTINENCE FEMALE 06/22/2013 JEFFERY DO, DANILE K V76.12 Mammogram Screening 06/22/2013 AILIN FRANKLIN, ERICKA Fernandez 625.6 STRESS INCONTINENCE FEMALE 06/22/2013 AILIN FRANKLIN, ERICKA Fernandez V76.12 Mammogram Screening 06/22/2013 AILIN FRANKLIN, ERICKA Fernandez 625.6 STRESS INCONTINENCE FEMALE 06/22/2013 AILIN FRANKLIN, ERICKA Fernandez V76.12 Mammogram Screening 06/22/2013 JEFFERY DO, DANIEL K 625.6 STRESS INCONTINENCE FEMALE 06/22/2013 JEFFERY DO, DANIEL K V76.12 Mammogram Screening 06/22/2013 JEFFERY DO, DANIEL K 625.6 STRESS INCONTINENCE FEMALE 06/22/2013 JEFFERY DO, DANIEL K V76.12 Mammogram Screening 06/22/2013 JEFFERY DO, DANIEL K 625.6 STRESS INCONTINENCE FEMALE 06/22/2013 JEFFERY DO, DANIEL K V76.12 Mammogram Screening 06/22/2013 MADL FUEL CELL DESIGNER, YUNG L 625.6 STRESS INCONTINENCE FEMALE 06/22/2013 MADL FUEL CELL DESIGNER, YUNG L V76.12 Mammogram Screening 06/22/2013 MADL FUEL CELL DESIGNER, YUNG L 625.6 STRESS INCONTINENCE FEMALE 06/22/2013 MADL FUEL CELL DESIGNER, YUNG L V76.12 Mammogram Screening 06/22/2013 MADL FUEL CELL DESIGNER, YUNG L 625.6 STRESS INCONTINENCE FEMALE 06/22/2013 MADL FUEL CELL DESIGNER, YUNG L V76.12 Mammogram Screening 06/22/2013 JEFFERY DO, DANIEL K 625.6 STRESS INCONTINENCE FEMALE 06/22/2013 JEFFERY DO, DANIEL K V76.12 Mammogram Screening 06/22/2013 MADL FUEL CELL DESIGNER, YUNG L 625.6 STRESS INCONTINENCE FEMALE 06/22/2013 MADL FUEL CELL DESIGNER, YUNG L V76.12 MAMMOGRAM SCREENING 06/22/2013 MADL FUEL CELL DESIGNER, YUNG L 625.6 STRESS INCONTINENCE FEMALE 06/22/2013 MADL FUEL CELL DESIGNER, YUNG L V76.12 MAMMOGRAM SCREENING 06/22/2013 JEFFERY DO, DANIEL K 625.6 STRESS INCONTINENCE FEMALE 06/22/2013 JEFFERY DO, DANIEL K V76.12 MAMMOGRAM SCREENING 06/22/2013 JEFFERY DO, DANIEL K 625.6 STRESS INCONTINENCE FEMALE 06/22/2013 JEFFERY DO, DANIEL K V76.12 MAMMOGRAM SCREENING 06/22/2013 MADL FUEL CELL DESIGNER, YUNG L 625.6 STRESS INCONTINENCE FEMALE 06/22/2013 MADL FUEL CELL DESIGNER, YUNG L V76.12 MAMMOGRAM SCREENING 06/28/2013 LAVERN FUEL CELL DESIGNER, TAMEKA A 278.00 OBESITY UNSPECIFIED 06/28/2013 LAVERN FUEL CELL DESIGNER, TAMEKA A V65.49 OTHER SPECIFIED COUNSELING 06/28/2013 LAVERN FUEL CELL DESIGNER, TAMEKA A V73.81 HPV SCREENING 06/28/2013 JEFFERY DO, DANIEL K 278.00 OBESITY UNSPECIFIED 06/28/2013 JEFFERY DO, DANIEL K V65.49 OTHER SPECIFIED COUNSELING 06/28/2013 JEFFERY DO, DANIEL K V73.81 HPV SCREENING 06/28/2013 ERICKA PARISI MD 278.00 OBESITY UNSPECIFIED 06/28/2013 ERICKA PARISI MD V65.49 OTHER SPECIFIED COUNSELING 06/28/2013 ERICKA PARISI MD V73.81 HPV SCREENING 06/28/2013 JEFFERY DO, DANIEL K 278.00 OBESITY UNSPECIFIED 06/28/2013 JEFFERY DO, DANIEL K V65.49 OTHER SPECIFIED COUNSELING 06/28/2013 JEFFERY DO, DANIEL K V73.81 HPV SCREENING 06/28/2013 JEFFERY DO, DANIEL K 278.00 OBESITY 06/28/2013 JEFFERY DO, DANIEL K V65.49 OTHER SPECIFIED COUNSELING 06/28/2013 JEFFERY DO, DANIEL K V73.81 HPV SCREENING 06/28/2013 ERICKA PARISI MD 278.00 OBESITY 06/28/2013 ERICKA PARISI MD V65.49 OTHER SPECIFIED COUNSELING 06/28/2013 ERICKA PARISI MD V73.81 HPV SCREENING 06/28/2013 ERICKA PARISI MD 278.00 OBESITY 06/28/2013 ERICKA PARISI MD V65.49 OTHER SPECIFIED COUNSELING 06/28/2013 ERICKA PARISI MD V73.81 HPV SCREENING 06/28/2013 JEFFERY DO DANIEL K 278.00 OBESITY 06/28/2013 JEFFERY DO, DANIEL K V65.49 OTHER SPECIFIED COUNSELING 06/28/2013 JEFFERY DO, DANIEL K V73.81 HPV SCREENING 06/28/2013 JEFFERY DO, DANIEL K 278.00 OBESITY 06/28/2013 JEFFERY DO, DANIEL K V65.49 OTHER SPECIFIED COUNSELING 06/28/2013 JEFFERY DO, DANIEL K V73.81 HPV SCREENING 06/28/2013 JEFFERY DO, DANIEL K 278.00 OBESITY 06/28/2013 JEFFERY DO, DANIEL K V65.49 OTHER SPECIFIED COUNSELING 06/28/2013 JEFFERY DO, DANIEL K V73.81 HPV SCREENING 06/28/2013 MADL FUEL CELL DESIGNER, YUNG L 278.00 OBESITY 06/28/2013 MADL FUEL CELL DESIGNER, YUNG L V65.49 OTHER SPECIFIED COUNSELING 06/28/2013 MADL FUEL CELL DESIGNER, YUNG L V73.81 HPV SCREENING 06/28/2013 MADL FUEL CELL DESIGNER, YUNG L 278.00 OBESITY 06/28/2013 MADL FUEL CELL DESIGNER, YUNG L V65.49 OTHER SPECIFIED COUNSELING 06/28/2013 MADL FUEL CELL DESIGNER, YUNG L V73.81 HPV SCREENING 06/28/2013 MADL FUEL CELL DESIGNER, YUNG L 278.00 OBESITY 06/28/2013 MADL FUEL CELL DESIGNER, YUNG L V65.49 OTHER SPECIFIED COUNSELING 06/28/2013 MADL FUEL CELL DESIGNER, YUNG L V73.81 HPV SCREENING 06/28/2013 JEFFERY DO, DANIEL K 278.00 OBESITY 06/28/2013 JEFFERY DO, DANIEL K V65.49 OTHER SPECIFIED COUNSELING 06/28/2013 JEFFERY DO, DANIEL K V73.81 HPV SCREENING 06/28/2013 MADL FUEL CELL DESIGNER, YUNG L 278.00 OBESITY 06/28/2013 MADL FUEL CELL DESIGNER, YUNG L V65.49 OTHER SPECIFIED COUNSELING 06/28/2013 MADL FUEL CELL DESIGNER, YUNG L V73.81 HPV SCREENING 06/28/2013 MADL FUEL CELL DESIGNER, YUNG L 278.00 OBESITY 06/28/2013 MADL FUEL CELL DESIGNER, YUNG L V65.49 OTHER SPECIFIED COUNSELING 06/28/2013 MADL FUEL CELL DESIGNER, YUNG L V73.81 HPV SCREENING 06/28/2013 JEFFERY DO, DANIEL K 278.00 OBESITY 06/28/2013 DANIEL JEFFERY DO K V65.49 OTHER SPECIFIED COUNSELING 06/28/2013 SONAM JEFFERY DOA K V73.81 HPV SCREENING 06/28/2013 SONAM JEFFERY DOA K 278.00 OBESITY 06/28/2013 JEFFERY DO DANIEL K V65.49 OTHER SPECIFIED COUNSELING 06/28/2013 JEFFERY DO DANIEL K V73.81 HPV SCREENING 06/28/2013 MADL FUEL CELL DESIGNER, YUNG L 278.00 OBESITY 06/28/2013 MADL FUEL CELL DESIGNER, YUNG L V65.49 OTHER SPECIFIED COUNSELING 06/28/2013 MADL FUEL CELL DESIGNER, YUNG L V73.81 HPV SCREENING 06/29/2013 SONAM JEFFERY DOA K 726.10 DISORDERS OF BURSAE AND TENDONS IN SHOULDER REGION UNSPECIFIED 06/29/2013 ERICKA PARISI MD 726.10 DISORDERS OF BURSAE AND TENDONS IN SHOULDER REGION UNSPECIFIED 06/29/2013 DANIEL JEFFERY DO K 726.10 DISORDERS OF BURSAE AND TENDONS IN SHOULDER REGION UNSPECIFIED 06/29/2013 DANIEL JEFFERY DO K 726.10 DISORDERS OF BURSAE AND TENDONS IN SHOULDER REGION UNSPECIFIED 06/29/2013 ERICKA PARISI MD 726.10 DISORDERS OF BURSAE AND TENDONS IN SHOULDER REGION UNSPECIFIED 06/29/2013 ERICKA PARISI MD 726.10 DISORDERS OF BURSAE AND TENDONS IN SHOULDER REGION UNSPECIFIED 06/29/2013 DANIEL JEFFERY DO K 726.10 DISORDERS OF BURSAE AND TENDONS IN SHOULDER REGION UNSPECIFIED 06/29/2013 DANIEL JEFFERY DO K 726.10 DISORDERS OF BURSAE AND TENDONS IN SHOULDER REGION UNSPECIFIED 06/29/2013 SONAM JEFFERY DOA K 726.10 DISORDERS OF BURSAE AND TENDONS IN SHOULDER REGION UNSPECIFIED 06/29/2013 MADL FUEL CELL DESIGNER, YUNG L 726.10 DISORDERS OF BURSAE AND TENDONS IN SHOULDER REGION UNSPECIFIED 06/29/2013 MADL FUEL CELL DESIGNER, YUNG L 726.10 DISORDERS OF BURSAE AND TENDONS IN SHOULDER REGION UNSPECIFIED 06/29/2013 MADL FUEL CELL DESIGNER, YUNG L 726.10 DISORDERS OF BURSAE AND TENDONS IN SHOULDER REGION UNSPECIFIED 06/29/2013 SONAM JEFFERY DOA K 726.10 DISORDERS OF BURSAE AND TENDONS IN SHOULDER REGION UNSPECIFIED 06/29/2013 MADL FUEL CELL DESIGNER, YUNG L 726.10 DISORDERS OF BURSAE AND TENDONS IN SHOULDER REGION UNSPECIFIED 06/29/2013 VIANNEYL FUEL CELL DESIGNER, YUNG L 726.10 DISORDERS OF BURSAE AND TENDONS IN SHOULDER REGION UNSPECIFIED 06/29/2013 DANIEL JEFFERY DO K 726.10 DISORDERS OF BURSAE AND TENDONS IN SHOULDER REGION UNSPECIFIED 06/29/2013 SONAM JEFFERY DOA K 726.10 DISORDERS OF BURSAE AND TENDONS IN SHOULDER REGION UNSPECIFIED 06/29/2013 MADL FUEL CELL DESIGNER, YUNG L 726.10 DISORDERS OF BURSAE AND TENDONS IN SHOULDER REGION UNSPECIFIED 10/20/2013 JOSE D WANG DANIEL K 525.9 tooth pain 10/20/2013 JOSE D WANG DANIEL K 787.02 nausea 10/20/2013 ERICKA PARISI MD 525.9 tooth pain 10/20/2013 ERICKA PARISI MD 787.02 nausea 10/20/2013 ERICKA PARISI MD 525.9 tooth pain 10/20/2013 ERICKA PARISI MD 787.02 nausea 10/20/2013 JEFFERY DO DANIEL K 525.9 tooth pain 10/20/2013 JEFFERY DO DANIEL K 787.02 nausea 10/20/2013 JEFFERY DO DANIEL K 525.9 tooth pain 10/20/2013 JEFFERY DO DANIEL K 787.02 nausea 10/20/2013 JEFFERY DO DANIEL K 525.9 tooth pain 10/20/2013 JOSE D WANG DANIEL K 787.02 nausea 10/20/2013 MADL FUEL CELL DESIGNER, YUNG L 525.9 tooth pain 10/20/2013 MADL FUEL CELL DESIGNER, YUNG L 787.02 nausea 10/20/2013 MADL FUEL CELL DESIGNER, YUNG L 525.9 tooth pain 10/20/2013 MADL FUEL CELL DESIGNER, YUNG L 787.02 nausea 10/20/2013 MADL FUEL CELL DESIGNER, YUNG L 525.9 tooth pain 10/20/2013 MADL FUEL CELL DESIGNER, YUNG L 787.02 nausea 10/20/2013 JEFFERY DO DANEIL K 525.9 tooth pain 10/20/2013 JEFFERY DO DANIEL K 787.02 nausea 10/20/2013 MADL FUEL CELL DESIGNER, YUNG L 525.9 TOOTH PAIN 10/20/2013 MADL FUEL CELL DESIGNER, YUNG L 787.02 NAUSEA 10/20/2013 MADL FUEL CELL DESIGNER, YUNG L 525.9 TOOTH PAIN 10/20/2013 MADL FUEL CELL DESIGNER, YUNG L 787.02 NAUSEA 10/20/2013 JEFFERY DO, DANIEL K 525.9 TOOTH PAIN 10/20/2013 JEFFERY DO, DANIEL K 787.02 NAUSEA 10/20/2013 JEFFERY DO, DANIEL K 525.9 TOOTH PAIN 10/20/2013 JEFFERY DO, DANIEL K 787.02 NAUSEA 10/20/2013 MADL FUEL CELL DESIGNER, YUNG L 525.9 TOOTH PAIN 10/20/2013 MADL FUEL CELL DESIGNER, YUNG L 787.02 NAUSEA 02/28/2014 MADL FUEL CELL DESIGNER, YUNG L 461.9 SINUSITIS ACUTE 02/28/2014 MADL FUEL CELL DESIGNER, YUNG L 461.9 SINUSITIS ACUTE 02/28/2014 JEFFERY DO DANIEL K 461.9 SINUSITIS ACUTE 02/28/2014 MADL FUEL CELL DESIGNER, YUNG L 461.9 SINUSITIS ACUTE 02/28/2014 MADL FUEL CELL DESIGNER, YUNG L 461.9 SINUSITIS ACUTE 02/28/2014 JEFFERY DO, DANIEL K 461.9 SINUSITIS ACUTE 02/28/2014 JEFFERY DO, DANIEL K 461.9 SINUSITIS ACUTE 02/28/2014 MADL FUEL CELL DESIGNER, YUNG L 461.9 SINUSITIS ACUTE 04/03/2014 DANNIE CLOUD MD Ot V57.1 PHYSICAL THERAPY [facility] 04/03/2014 DANNIE CLOUD MD Ot V58.78 AFTERCARE POST SURGERY MUSCULOSKELETAL S 04/16/2014 DANNIE CLOUD MD Ot V57.1 PHYSICAL THERAPY NEC 04/16/2014 DANNIE CLOUD MD Ot V58.78 AFTERCARE POST SURGERY MUSCULOSKELETAL S 04/30/2014 SONAM JEFFERY DOA K V15.06 PERSONAL HISTORY OF ALLERGY TO INSECTS AND ARACHNIDS 04/30/2014 VIANNEYL FUEL CELL DESIGNERJOEY CaballeroA L V15.06 PERSONAL HISTORY OF ALLERGY TO INSECTS AND ARACHNIDS 04/30/2014 MADL YUNG [place] V15.06 PERSONAL HISTORY OF ALLERGY TO INSECTS AND ARACHNIDS 04/30/2014 DANIEL JEFFERY DO V15.06 PERSONAL HISTORY OF ALLERGY TO INSECTS AND ARACHNIDS 04/30/2014 DANIEL JEFFERY DO V15.06 PERSONAL HISTORY OF ALLERGY TO INSECTS AND ARACHNIDS 04/30/2014 SHANTI VILLALOBOSYUNG Caballero V15.06 PERSONAL HISTORY OF ALLERGY TO INSECTS AND ARACHNIDS 10/26/2014 DANIEL JEFFERY DO 585.9 CHRONIC KIDNEY DISEASE UNSPECIFIED 10/26/2014 DANIEL JEFFERY DO K 709.9 UNSPECIFIED DISORDER OF SKIN AND SUBCUTANEOUS TISSUE 10/26/2014 VIANNEYYUNG Martínez APRN 585.9 CHRONIC KIDNEY DISEASE UNSPECIFIED 10/26/2014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
[2018-04-17] MEDS ORDERED: SULF1TAB35 PO (01:56)
--- NOTE | 2018-04-17 01:56 | ED Integumentary General ---
General Chief Complaint: Skin/Wound Problems Stated Complaint: SPIDER BITES Nursing Triage Note: BREAST/ABDOMEN WOUNDS Source: patient Exam Limitations: no limitations History of Present Illness Date Seen by Provider: Apr 17, 2018 Time Seen by Provider: 01:43 Initial Comments This 52-year-old woman presents to the emergency room with concerns about 2 areas of skin problems on her chest. The first is above the right breast. She states there is a "hard-core" inside a nodule in this area. She used a razor blade to open the area and remove the contents. She now has an ulceration draining some clear fluid. The second area is just above the epigastric region beneath the cleft of her breasts. This area is rough, erythematous, and pruritic. It has the general appearance of contact dermatitis. Both areas have been present for couple of days. Allergies and Home Medications Allergies Coded Allergies: alprazolam (Unverified Allergy, Unknown, 03/10/17) meloxicam (Unverified Allergy, Unknown, 03/10/17) Home Medications Pramipexole Di-Hcl 1.5 Mg Tablet, 1.5 MG PO HS, (Reported) Rabeprazole Sodium 20 Mg Tablet.dr, 20 MG PO DAILY, (Reported) Sulfamethoxazole/Trimethoprim 1 Each Tablet, 1 EACH PO BID Prescribed by: LALO TINEO on 04/17/18 0156 Patient Home Medication List Home Medication List Reviewed: Yes Constitutional: no symptoms reported EENTM: no symptoms reported Respiratory: no symptoms reported Cardiovascular: no symptoms reported Gastrointestinal: no symptoms reported Genitourinary: no symptoms reported : No Musculoskeletal: no symptoms reported Skin: see HPI Psychiatric/Neurological: No Symptoms Reported Endocrine: No Symptoms Reported Past Loxvwhi-Svvqzm-Hahtyx Hx Patient Social History Alcohol Use: Denies Use Recreational Drug Use: No Smoking Status: Never a Smoker 2nd Hand Smoke Exposure: No Recent Foreign Travel: No Contact w/Someone Who Travel: No Recent Infectious Disease Expo: No Recent Hopitalizations: No Immunizations Up To Date Tetanus Booster (TDap): Unknown Date of Influenza Vaccine: Jun 06, 2012 Seasonal Allergies Seasonal Allergies: No Past Medical History Surgeries: Yes (LEFT HAND, NECK FUSION) Orthopedic Respiratory: No Cardiac: No Neurological: No Reproductive Disorders: Yes Genitourinary: No Gastrointestinal: Yes (COLONOSCOPY) Gastroesophageal Reflux Musculoskeletal: Yes Degenerate Disk Disease Endocrine: No HEENT: No Cancer: No Psychosocial: Yes Bipolar Integumentary: No Recent Skin Changes Blood Disorders: No Family Medical History No Pertinent Family Hx Physical Exam Vital Signs Vital Signs - First Documented 04/17/18 01:35 Temp 97.6 Pulse 83 Resp 18 B/P (MAP) 130/92 (105) Pulse Ox 97 O2 Delivery Room Air Capillary Refill : Less Than 3 Seconds General Appearance: WD/WN, no apparent distress HEENT: normal ENT inspection Neck: normal inspection Cardiovascular: regular rate, rhythm Respiratory: lungs clear, normal breath sounds, no respiratory distress 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 Mild erythema around the parameter. No underlying fluctuance or mass. There is also a patch of rough, erythematous, raised, pruritic skin near the inferior aspect of the sternum.) Procedures/Interventions Suture Size: 4-0 Progress/Results/Core Measures Results/Orders Micro Results Microbiology 04/17/18 Gram Stain - Final, Resulted 04/17/18 Wound Culture - Preliminary, Resulted Staphylococcus aureus Sent To [facility] My Orders Orders - LALO WILSON MD Sulfamethoxazole/Trimet Ds Tab (Bactrim (04/17/18 02:00) Dipht,Pertuss(Acell),Tet Adult (Boostrix (04/17/18 02:00) Wound Culture (04/17/18 01:57) Vital Signs/I&O 04/17/18 04/17/18 01:35 02:02 Temp 97.6 97.6 Pulse 83 83 Resp 18 18 B/P (MAP) 130/92 (105) 130/92 (105) Pulse Ox 97 97 O2 Delivery Room Air Blood Pressure Mean: 105 Progress Progress Note : Progress Note Wound culture was collected from the drainage. Patient was started on Bactrim. She was advised to use hydrocortisone on the area of suspected contact dermatitis. Because patient opened the skin on the right upper chest with a razor blade, a tetanus booster was administered. Departure Impression Primary Impression: Contact dermatitis Qualified Codes: L25.9 - Unspecified contact dermatitis, unspecified cause Additional Impression: Skin ulceration Qualified Codes: L98.491 - Non-pressure chronic ulcer of skin of other sites limited to breakdown of skin Disposition: 01 HOME, SELF-CARE Condition: Improved Departure-Patient Inst. Decision time for Depature: 01:50 Referrals: DANIEL JEFFERY DO (PCP) Primary Care Physician YUNG MOSER (Family) Primary Care Physician Patient Instructions: Contact Dermatitis (DC) Add. Discharge Instructions: Complete the antibiotics as prescribed. Keep the wound covered until he quits draining. Follow-up with your primary care provider middle of next week to review culture results. You may apply hydrocortisone cream to the itchy area on your lower chest. Investigate what may have caused the dermatitis and avoid that exposure in the future. Return to care if symptoms are worsening. All discharge instructions reviewed with patient and/or family. Voiced understanding. Scripts Sulfamethoxazole/Trimethoprim (Bactrim Ds Tablet) 1 Each Tablet 1 EACH PO BID, #10 TAB Prov: LALO WILSON MD 04/17/18 Copy Copies To 1: DANIEL JEFFERY JOSHUA T MD Apr 17, 2018 01:56
[2018-04-17] MEDS ORDERED: TETANUS,DIPTH,PERTUSS P/F (BOOSTRIX) 0.5 ML VIAL IM ONE (02:00)
[2018-04-17] MEDS ORDERED: TRIM/SULFAMETH 160/800 (SEPTRA DS) TAB PO ONE (02:00)
[2018-04-17 02:02] VITALS: BP 130/92
== END 2018-04-17 02:02 | disposition home or self-care (01) ==
LOC: EDUNIT# 01:31 → ER 01:34
DX: L25.9 Unspecified contact dermatitis, unspecified cause (principal); L98.499 Non-pressure chronic ulcer of skin of other sites with unspecified severity; K21.9 Gastro-esophageal reflux disease without esophagitis; F31.9 Bipolar disorder, unspecified; Z88.8 Allergy status to other drugs, medicaments and biological substances; Z98.1 Arthrodesis status
CPT/HCPCS: 87070; 87077; 87186; 87205; 90715; 99284

== ENCOUNTER → 2018-05-26 | Outpatient (REF) ==
[~2018-05-26] MED LIST changes: +CEPH-507 PO; +HYDR-4226 PO; +SULF1TAB35 PO
--- NOTE | 2018-05-26 16:16 | Diagnostic Imaging Report ---
Clinical indication: Patient fell two weeks ago hurting first MCP joint area and having neck pain. Patient has had popping and cracking since fall. Patient has history of C4-C6 fusion in 2005. Exam: X-ray of the cervical spine, 3 views including odontoid view. Comparison: X-ray of the cervical spine dated 02/08/2008. Findings: There is no acute cervical spine fracture or dislocation. There is stable solid bony fusion/bridging at the C5-C7 levels. There is slight progression of hypertrophic anterior spurring at the C4-C5 level and C2-C3 levels. There is facet arthropathy which has slightly progressed. There is no prevertebral soft tissue swelling. Odontoid views are unremarkable. IMPRESSION: 1: There is no acute cervical spine fracture or dislocation. 2: There is progression of cervical spine degenerative disc disease predominantly at the C2-C3 and C4-C5 levels. 3: Stable solid bony bridging/fusion of the C5-C7 levels. Dictated by: Dictated on workstation # [id number]
--- NOTE | 2018-05-26 17:03 | Diagnostic Imaging Report ---
INDICATION: Right hand pain FINDINGS: Three views of the right hand and thumb show no fracture or dislocation. IMPRESSION: Negative right thumb. Dictated by: Dictated on workstation # [id number]
== END | disposition home or self-care (01) ==
LOC: RAD 15:06
PROVIDERS: ATTEND Nurse Practitioner Family
CPT/HCPCS: 72040; 73140

== ENCOUNTER → 2018-06-07 | Outpatient (REF) ==
--- NOTE | 2018-06-07 17:04 | Diagnostic Imaging Report ---
PROCEDURE: MRI right upper extremity without contrast. TECHNIQUE: Multiplanar, multisequence non contrast-enhanced MRI of the upper extremity was accomplished. INDICATION: Right thumb injury. FINDINGS: An oil marker was placed at the area of pain located between the first and second metacarpals within the webspace, dorsal side. The marrow signal intensity of the first and second metacarpals appears normal. No marrow edema or fracture is identified. The visualized phalanges appear to be intact. The signal intensity of the underlying musculature appears normal. No muscular edema is identified. There is no superficial or deep soft tissue fluid collection or mass identified. There is subchondral cyst involving the trapezium, carpal bone. The visualized carpal bones are otherwise unremarkable. IMPRESSION: Unremarkable MRI of the right hand. Dictated by: Dictated on workstation # [id number]
--- NOTE | 2018-06-07 18:39 | Diagnostic Imaging Report ---
PROCEDURE: MRI left upper extremity without contrast. TECHNIQUE: Multiplanar, multisequence non contrast-enhanced MRI of the left upper extremity was accomplished. INDICATION: Injury to left shoulder. FINDINGS: Glenohumeral and acromioclavicular alignment are normal. There are mild degenerative changes in the acromioclavicular joint. The subscapularis tendon of the rotator cuff appears intact. The biceps tendon is in a normal location within the bicipital groove. The supraspinatus and infraspinatus tendons are intact. There is some mild intermediate signal noted within the infraspinatus tendon of the rotator cuff suggestive of tendinosis. No tear or retraction is seen. No fluid is identified within the subacromial subdeltoid bursa. IMPRESSION: Findings consistent with tendinosis of the infraspinatus tendon and the rotator cuff. No rotator cuff tear or retraction is identified. Dictated by: Dictated on workstation # [id number]
== END | disposition home or self-care (01) ==
LOC: RAD 15:20
PROVIDERS: ATTEND Nurse Practitioner Family
CPT/HCPCS: 73218; 73221

== ENCOUNTER 2018-06-10 12:13 | Emergency (ER) | payer MEDICARE, MEDICAID ==
[~2018-06-10] VITALS: Ht 162.6 cm; Wt 56.2 kg
[~2018-06-10 12:13] MED LIST changes: -CEPH-507 PO; -HYDR-4226 PO
--- OUTSIDE RECORDS SUMMARY | 2018-06-10 12:24 | XMS REPORT ---
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2 Active 154284946 Problem Seasonal allergic rhinitis, unspecified allergic rhinitis trigger J30.2 Active 169837027 Problem Dysthymia F34.1 Active 19445797 ALLERGIES Substance Reaction Event Type Date Status Xanax agitation and anger Drug Allergy May, Active Mobic hives Drug Allergy May, Active Bees anaphylaxis Non Drug Allergy May, Active ENCOUNTERS Encounter Location Date Diagnosis [place] [id number] [place] [address]81- 5556 May, Lateral epicondylitis of left elbow M77.12 [facility] [address] [place] [id number] [place] [address] 04948- 1131 Apr, Gastroesophageal reflux disease without esophagitis K21.9 [place] [address] [place] [id number] [place] [address] 76023- 0191 Apr, Essential hypertension with goal blood pressure less than 130\/85 I10 ; Restless leg syndrome G25.81 ; Low back pain M54.5 ; Gastroesophageal reflux disease without esophagitis K21.9 ; Bee sting allergy Z91.030 and Left lateral epicondylitis M77.12 [facility] [address] [address] Sep, Nausea R11.0 and Diarrhea, unspecified type R19.7 [place] [address] 68[address]- 2123 Jul, Mixed hyperlipidemia E78.2 [place] [address] 49871- 9972 Jul, Essential hypertension with goal blood pressure less than 130\/85 I10 ; Gastroesophageal reflux disease without esophagitis K21.9 ; Mixed hyperlipidemia E78.2 ; Renal insufficiency N28.9 ; Restless leg syndrome G25.81 ; Seasonal allergic rhinitis, unspecified allergic rhinitis trigger J30.2 ; Chronic pain G89.29 and History of allergic reaction Z88.9 [facility] [address] [address] Jul, Viral gastroenteritis A08.4 and Homeless Z59.0 [place] [address] 97408- 7068 Feb, [address] [address]- 4759 Feb, Essential hypertension with goal blood pressure less than 130\/85 I10 ; Gastroesophageal reflux disease without esophagitis K21.9 ; Mixed hyperlipidemia E78.2 ; Renal insufficiency N28.9 ; Restless leg syndrome G25.81 ; Seasonal allergic rhinitis, unspecified allergic rhinitis trigger J30.2 ; Cough R05 ; Exposure, initial encounter T75.89XA and Chronic pain G89.[address] [address]- 8187 January, Chronic pain G89.29 [place] [address] 76600- 7497 Dec, Chronic pain G89.29 [place] [address] 47828- 7163 Dec, Chronic pain G89.29 [facility] [address] [address] 00[address] Dec, Chronic pain G89.29 [facility] [id number] [place] [address] 69310- 1183 Nov, Chronic pain G89.29 [facility] [id number] [place] [address] 03551- 5686 Nov, [facility] [id number] [place] [address] 85985- 0264 Oct, Chronic pain G89.29 [facility] [address] [place] [id number] [place] [address] 49058- 7704 Oct, Chronic pain G89.29 ; Renal insufficiency N28.9 ; Essential hypertension with goal blood pressure less than 130\/85 I10 ; Gastroesophageal reflux disease without esophagitis K21.9 ; Dysthymia F34.1 ; Mixed hyperlipidemia E78.2 ; Seasonal allergic rhinitis, unspecified allergic rhinitis trigger J30.2 and Hoarseness or changing voice R49.9 [place] [address] [place] [id number] [place] [address] 97566- 7763 Sep, [facility] [address] [place] [id number] [place] [address] 04246- 5637 Aug, [place] [address] [place] [id number] [place] [address] 93110- 6996 Jul, [facility] [address] [place] [id number] [place] [address] 66397- 9911 Jun, [facility] [address] [place] [id number] [place] [address] 21220- 7104 Jun, Chronic pain G89.29 ; Renal insufficiency N28.9 ; Essential hypertension with goal blood pressure less than 130\/85 I10 ; Gastroesophageal reflux disease without esophagitis K21.9 ; Dysthymia F34.1 ; Mixed hyperlipidemia E78.2 ; Seasonal allergic rhinitis, unspecified allergic rhinitis trigger J30.2 and Encounter for immunization Z23 [place] [address] [place] [id number] [place] [address] 90513- 0703 11 Jun, 2016 Chronic pain G89.29 ; Essential hypertension with goal blood pressure less than 130\/85 I10 ; Gastroesophageal reflux disease without esophagitis K21.9 ; Dysthymia F34.1 ; Mixed hyperlipidemia E78.2 ; Renal insufficiency N28.9 ; Seasonal allergic rhinitis, unspecified allergic rhinitis trigger J30.2 and Encounter for immunization Z23 [place] [address] [place] [id number] [place] [address] 09124- 0471 May, [place] [address] 57300- 9661 Apr, [place] [address] [place] [id number] [place] [address] 23972- 8139 Mar, [place] [address] [place] [id number] [place] [address] 18645- 3809 Mar, [place] [address] [place] [id number] [place] [address] 97817- 6406 Feb, Chronic pain G89.29 ; Screening breast examination Z12.39 ; Essential hypertension with goal blood pressure less than 130\/85 I10 ; Gastroesophageal reflux disease without esophagitis K21.9 ; Dysthymia F34.1 ; Mixed hyperlipidemia E78.2 ; Renal insufficiency N28.9 and History of allergic reaction Z88.9 [place] [address] [place] [id number] [place] [address] 39615- 1521 January, [place] [address] [place] [id number] [place] [address] 87136- 9551 Dec, [place] [address] 32847- 7317 Nov, Chronic pain G89.29 ; Pain in right shoulder M25.511 and Essential hypertension with goal blood pressure less than 130\/85 I10 [place] [address] [place] [id number] [place] [address] 85630- 3724 Oct, [facility] [address] [address]- 5993 Sep, [facility] [address] [place] [id number] [place] [address] 84316- 1327 Aug, [facility] [address] [place] [address] [id number] [place] [address] 94079- 6093 Aug, Upper respiratory infection J06.9 and Chronic pain G89.29 [facility] [address] [place] [address] [id number] [place] [address] 21947- 7980 Aug, [facility] [address] [place] [id number] [place] [address] 24959- 2902 Jul, Chronic pain G89.29 and Encounter for immunization Z23 [facility] [address] [place] [id number] [place] [address] 78976- 1344 Jul, [facility] [address] [place] [id number] [place] [address] 37309- 0338 Jun, [facility] [address] [place] [id number] [place] [address] 01208- 5395 May, [facility] [address] [place] [id number] [place] [address] 98252- 3128 May, Neck pain 723.1 ; Borderline hyperlipidemia 272.4 ; Chronic pain 338.29 ; Hypertension 401.9 ; Chronic renal insufficiency 585.9 ; Allergic rhinitis 477.9 and GERD (gastroesophageal reflux disease) 530.81 [facility] [id number] [place] [address] 12997- 0005 Apr, [facility] [address] [place] [id number] [place] [address] 85789- 7592 Mar, [facility] [address] [place] [id number] [place] [address] 31589- 5879 Feb, Hypertension 401.9 [facility] [address] [place] [id number] [place] [address] 89195- 7538 Feb, Neck pain 723.1 ; Chronic pain 338.29 ; Hypertension 401.9 ; Chronic renal insufficiency 585.9 ; Allergic rhinitis 477.9 and Yeast dermatitis 112.3 [facility] [id number] [address]- 0128 Feb, [facility] [id number] 0433 January, Neck pain 723.1 ; Chronic pain 338.29 ; Hypertension 401.9 ; Anxiety 300.00 and Insomnia 780.52 [facility] [id number] [address]- 4768 January, [facility] [address] [place] [id number] [place] [address] 71147- 6281 Dec, [facility] [address] [place] [id number] [place] [address] 44113- 6539 Dec, [facility] [address] [place] [id number] [place] [address] 59809- 6258 Nov, [facility] [id number], [place] [address]- 4373 Nov, [facility] [address] [place] [address] [id number] [place] [address] 08897- 6327 Nov, [facility] [address] [address]- 7273 Nov, [facility] [address] [address]- 0847 Nov, [facility] [address] 3723 Nov, [facility] [address] [id number] 7981 Nov, [facility] [address] [place] [address]- 8112 Nov, [facility] [address] [place] [address] [id number] [place] [address] 65684- 8466 Oct, [facility] [address] [id number] [place] [address]- 8371 Oct, [facility] [place] [facility] [address] [id number] [place] 7978 Oct, [facility] [place] [facility] [address] [id number] [place] [address]- 8489 Oct, [facility] [place] [facility] [address] [id number] [place] [address]- 5720 Oct, [facility] [place] [facility] [address] [id number] [place] [address]- 1974 Oct, [facility] [place] [facility] [address] [id number] [place] [address]- 5415 Sep, [facility] [address] [id number] [place] [address]- 4512 Sep, [facility] [address] [id number] [place] [address]- 2930 Sep, [facility] [address] [id number] [place] [address]- 8520 Sep, [facility] [place] [facility] [address] [facility] [id number] [place] [address]- 0235 Sep, [facility] [place] [facility] [address] [id number] [place] [address]- 2945 Sep, [facility] [place] [facility] [address] [id number] [place] [address]- 0765 Aug, [facility] [place] [facility] [address] [id number] [place] [address]- 7161 Aug, [facility] [place] [facility] [address] [id number] [place] [address]- 3410 Aug, [facility] [place] [facility] [address] [id number] [place] 5074 Aug, [facility] [place] [facility] [address] [id number] [place] [address]- 9648 Aug, [facility] [place] [facility] [address] [id number] [place] [address]- 6368 Aug, [facility] [place] [facility] [address] [id number] [place] [address]- 6292 Aug, [facility] [place] [facility] [address] [id number] [place] [address]- 8356 Aug, [facility] [place] [facility] [address] [id number] [place] [address]- 9876 Aug, [facility] [place] [facility] [address] [id number] [place] [address]- 5765 Jul, [facility] [place] [facility] [address] [id number] [place] [address]- 1547 Jul, [facility] [place] [facility] [address] [id number] [place] [address]- 3606 Jul, [facility] [place] [facility] [address] [id number] [place] [address]- 5131 Jul, [facility] [place] [facility] [address] [id number] [place] [address]- 5569 Jul, [facility] [place] [facility] [address] [id number] [place] [address]- 3807 Jul, [facility] [place] [facility] [address] [id number] [place] [address]- 7549 Jul, [facility] [place] [facility] [address] [id number] [place] [address]- 6389 Jul, [facility] [place] [facility] [address] [id number] [place] [address]- 6287 Jul, [facility] [place] [facility] [address] [id number] [place] [address]- 0117 16 Jun, 2014 [facility] [place] [facility] [address] [id number] [place] [address]- 5867 16 Jun, 2014 [facility] [place] [facility] [address] [id number] [place] [address]- 6319 14 Jun, 2014 [facility] [place] [facility] [address] [id number] [place] [address]- 3231 Jun, [facility] [place] [facility] [address] [id number] [place] [address]- 4149 Jun, [facility] [place] [facility] [address] [id number] [place] [address]- 1218 26 May, 2014 [facility] [place] [facility] [address] [id number] [place] [address]- 3626 May, [facility] [place] [facility] [address] [id number] [place] [address]- 1387 May, [facility] [place] [facility] [address] [id number] [place] [address]- 9353 Apr, [facility] [place] [facility] [address] [id number] [place] [address]- 7087 Apr, [facility] [place] [facility] [address] [id number] [place] [address]- 0273 Apr, [facility] [place] [facility] [address] [id number] [place] [address]- 5633 Apr, [facility] [place] [facility] [address] [id number], [place] [address]- 9749 Mar, [facility] [place] [facility] [address] [id number], [place] [address]- 6663 Mar, [facility] [place] [facility] [address] [id number] [place] [address]- 8120 Mar, [facility] [place] [facility] [address] [id number] [place] [address]- 5497 Mar, [facility] [place] [facility] [address] [id number] [place] [address]- 6732 Mar, [facility] [place] [facility] [address] [id number] [place] [address]- 7179 Feb, [facility] [place] [facility] [address] [id number] [place] [address]- 5202 Feb, [facility] [place] [facility] [address] [id number] [place] [address]- 3477 Feb, [facility] [place] [facility] [address] [id number] [place] [address]- 5710 Feb, [facility] [place] [facility] [address] [id number] [place] [address]- 5402 January, [facility] [place] [facility] [address] [id number] [place] [address]- 5419 January, [facility] [place] [facility] [address] [id number] [place] [address]- 2296 January, [facility] [place] [facility] [address] [id number] [place] [address]- 2173 January, [facility] [place] [facility] [address] [id number] [place] [address]- 6912 January, [facility] [place] [facility] [address] [id number] [place] [address]- 1383 Dec, [facility] [place] [facility] [address] [id number] [place] [address]- 5629 Dec, [facility] [place] [facility] [address] [id number] [place] [address]- 3636 Dec, [facility] [place] [facility] [address] [id number] [place] [address]- 5282 Dec, [facility] [place] [facility] [address] [id number] [place] [address]- 7655 Dec, [facility] [place] [facility] [address] [id number] [place] [address]- 2080 Dec, [facility] [place] [facility] [address] [id number] [place] [address]- 1124 Dec, [facility] [place] [facility] [address] [id number] [place] [address]- 3609 Dec, [facility] [place] [facility] [address] [id number] [place] [address]- 9830 Nov, [facility] [place] [facility] [address] [id number] [place] [address]- 0677 Nov, [facility] [place] [facility] [address] [id number] [place] [address]- 6709 Nov, [facility] [place] [facility] [address] [id number] [place] [address]- 0112 Nov, [facility] [place] [facility] [address] [id number] [place] [address]- 8268 Nov, [facility] [place] [facility] [address] [id number] [place] [address]- 8596 Nov, [facility] [place] [facility] [address] [id number] [place] [address]- 3747 Nov, [facility] [place] [facility] [address] [id number] [place] [address]- 4103 Nov, [facility] [place] [facility] [address] [id number] [place] [address]- 7206 Nov, [facility] [place] [facility] [address] [id number] [place] [address]- 1339 Nov, [facility] [place] [facility] [address] [id number] [place] [address]- 9919 Nov, [facility] [place] [facility] [address] [id number] [place] [address]- 7149 Nov, [facility] [place] [facility] [address] [id number] [place] [address]- 9681 Oct, [facility] [place] [facility] [address] [id number] [place] [address]- 3954 Oct, [facility] [place] [facility] [address] [id number] [place] [address]- 8784 14 Oct, 2013 [facility] [address] [id number] [place] [address]- 1892 14 Oct, 2013 [facility] [place] [facility] [address] [id number] [place] [address]- 7944 10 Oct, 2013 [facility] [place] [facility] [address] [id number] [place] [address]- 3489 10 Oct, 2013 [facility] [place] [facility] [address] [id number] [place] [address]- 1685 20 Sep, 2013 [facility] [address] [id number] [place] [address]- 6106 17 Sep, 2013 [facility] [place] [facility] [address] [id number] [place] [address]- 3708 17 Sep, 2013 [facility] [address] [id number] [place] [address]- 7681 14 Sep, 2013 [facility] [place] [facility] [address] [id number] [place] [address]- 5377 14 Sep, 2013 [facility] [address] [id number] [place] [address]- 5383 Sep, [facility] [address] [id number] [place] [address]- 6762 Sep, [facility] [address] [id number] [place] [address]- 5203 Aug, [facility] [place] [facility] [address] [id number] [place] [address]- 3159 Aug, [facility] [place] [facility] [address] [id number] [place] [address]- 2980 Aug, [facility] [place] [facility] [address] [id number] [place] [address]- 5670 16 Aug, 2013 [facility] [place] [facility] [address] [id number] [place] 5372 16 Aug, 2013 [facility] [place] [facility] [address] [id number] [place] [address]- 2553 Aug, [facility] [place] [facility] [address] [id number] [place] [address]- 4172 Jul, [facility] [place] [facility] [address] [id number] [place] [address]- 7508 Jul, [facility] [place] [facility] [address] [id number] [place] [address]- 3764 Jul, [facility] [place] [facility] [address] [id number] [place] [address]- 9537 Jul, [facility] [place] [facility] [address] [id number] [place] [address]- 4752 Jul, [facility] [place] [facility] [address] [id number] [place] [address]- 0009 Jul, [facility] [place] [facility] [address] [id number] [place] [address]- 3561 Jul, [facility] [place] [facility] [address] [id number] [place] [address]- 6714 Jul, [facility] [place] [facility] [address] [id number] [place] [address]- 4521 Jun, [facility] [place] [facility] [address] [id number] [place] [address]- 4927 Jun, [facility] [place] [facility] [address] [id number] [place] [address]- 7709 Jun, [facility] [place] [facility] [address] [id number] [place] [address]- 2699 Jun, [facility] [place] [facility] [address] [id number] [place] [address]- 1624 Jun, [facility] [place] [facility] [address] [id number] [place] [address]- 3888 Jun, [facility] [place] [facility] [address] [id number] [place] [address]- 3956 Jun, [facility] [place] [facility] [address] [id number] [place] [address]- 7988 Jun, [facility] [place] [facility] [address] [id number] [place] 3043 Jun, [facility] [place] [facility] [address] [id number] [place] [address]- 0562 Jun, [facility] [place] [facility] [address] [id number] [place] [address]- 5256 Jun, [facility] [place] [facility] [address] [id number] [place] [address] Jun, [facility] [place] [facility] [address] [id number] [place] [address] Jun, [facility] [place] [facility] [address] [id number] [place] [address] May, [facility] [place] [facility] [address] [id number] [place] [address] May, [facility] [place] [facility] [address] [id number] [place] [address] 16 May, 2013 [facility] [place] [facility] [address] [id number] [place] [address] Apr, [facility] [place] [facility] [address] [id number] [place] [address] Apr, [facility] [place] [facility] [address] [id number], [place] [address] Apr, [facility] [place] [facility] [address] [id number] [place] [address] Mar, [facility] [place] [facility] [address] [id number] [place] [address] Mar, [facility] [place] [facility] [address] [id number] [place] [address] Feb, [facility] [place] [facility] [address] [id number] [place] [address] Feb, [facility] [address] [id number] [place] [address] Feb, [facility] [address] [id number] [place] [address] January, [facility] [address] [id number] [place] [address] January, [facility] [address] [id number] [place] [address] January, [facility] [address] [id number] [place] [address] January, [facility] [address] [id number] [place] [address] Dec, [facility] [address] [id number] [place] [address] Dec, [facility] [address] [id number] [place] [address] Dec, [facility] [address] [id number] [place] [address] Dec, [facility] [address] [id number] [place] [address] Nov, [facility] [address] [id number] [place] [address] Nov, [facility] [address] [id number] [place] [address] Nov, [facility] [address] [id number] [place] [address] Nov, [facility] [address] [id number] [place] [address] 1992 Oct, [facility] [address] [id number] [place] [address] Oct, [facility] [address] [id number] [place] [address] Oct, [facility] [place] [facility] [address] [id number] [place] [address] 13 Oct, 2012 [facility] [place] [facility] [address] [id number] [place] [address] Oct, [facility] [place] [facility] [address] [id number] [place] [address] 18 Sep, 2012 [facility] [place] [facility] [address] [id number] [place] [address] Sep, [facility] [place] [facility] [address] [id number] [place] [address] 113[address] Sep, [facility] [place] [facility] [address] [id number] [place] [address] Sep, [facility] [place] [facility] [address] [id number] [place] [address] Aug, [facility] [place] [facility] [address] [id number] [place] [address] Aug, [facility] [place] [facility] [address] [id number] [place] [address] Aug, [facility] [place] [facility] [address] [id number], [place] [address] Aug, [facility] [place] [facility] [address] [id number], [place] [address] Jul, [facility] [place] [facility] [address] [id number] [place] [address] Jul, [facility] [place] [facility] [address] [id number], [place] [address] 08 Jun, 2012 [facility] [place] [facility] [address] [id number] [place] [address] May, [facility] [place] [facility] [address] [id number] [place] [address] May, [facility] [place] [facility] [address] [id number] [place] [address] May, [facility] [place] [facility] [address] [id number] [place] [address] May, [facility] [place] [facility] [address] [id number] [place] [address]- [address] Apr, [facility] [place] [facility] [address] [id number] [place] [address] Apr, [facility] [place] [facility] [address] [id number] [place] [address]- [address] Apr, [facility] [place] [facility] [address] [id number] [place] [address] Mar, [facility] [place] [facility] [address] [id number] [place] [address] Mar, [facility] [place] [facility] [address] [id number] [place] [address] Mar, [facility] [place] [facility] [address] [id number] [place] [address] Feb, [facility] [place] [facility] [address] [id number] [place] [address] Feb, [facility] [place] [facility] [address] [id number] [place] [address] 2005 Feb, [facility] [place] [facility] [address] [id number] [place] [address] Feb, [facility] [place] [facility] [address] [id number] [place] [address] Feb, [facility] [place] [facility] [address] [id number] [place] [address] Feb, [facility] [place] [facility] [address] [id number] [place] [address] Feb, [facility] [place] [facility] [address] [id number] [place] [address] Feb, [facility] [address] [id number] [place] [address] Feb, [facility] [address] [id number] [place] [address] January, [facility] [address] [id number] [place] [address] January, [facility] [address] [id number] [place] [address] January, [facility] [address] [id number] [place] [address]266 January, [facility] [address] [id number] [place] [address] January, [facility] [address] [id number] [place] [address] January, [facility] [address] [id number] [place] [address] January, [facility] [address] [id number] [place] [address] 8692 January, [facility] [address] [id number] [place] [address] January, [facility] [address] [id number] [place] [address] Dec, [facility] [place] [facility] [address] [id number] [place] [address] Dec, [facility] [place] [facility] [address] [id number] [place] [address] 1689 Dec, [facility] [address] [id number] [place] [address] Dec, [facility] [address] [id number] [place] [address] Dec, [facility] [address] [id number] [place] [address] 1354 Nov, [facility] [place] [facility] [address] [id number] [place] [address] 26 Nov, 2011 [facility] [place] [facility] [address] [id number] [place] [address] Nov, [facility] [place] [facility] [address] [id number] [place] [address] 19 Nov, 2011 [facility] [place] [facility] [address] [id number] [place] [address]- [address] 14 Nov, 2011 [facility] [place] [facility] [address] [id number] [place] [address] Nov, [facility] [place] [facility] [address] [id number] [place] [address] 7038 Oct, [facility] [place] [facility] [address] [id number] [place] [address] 1409 Oct, [facility] [place] [facility] [address] [id number] [place] [address] Sep, [facility] [place] [facility] [address] [id number] [place] [address] 12[address] Sep, [facility] [place] [facility] [address] [id number] [place] [address]388 Sep, [facility] [place] [facility] [address] [id number] [place] [address] 8[address] Sep, [facility] [place] [facility] [address] [id number] [place] [address] Aug, [facility] [place] [facility] [address] [id number] [place] [address] 8831 Aug, [facility] [place] [facility] [address] [id number] [place] [address] Aug, [facility] [place] [facility] [address] [id number] [place] [address]297 13 Aug, 2011 [facility] [address] [id number] [place] [address] 1670 13 Aug, 2011 [facility] [place] [facility] [address] [id number] [place] [address] 2546 09 Aug, 2011 [facility] [address] [id number] [place] [address]- 6643 05 Aug, 2011 [facility] [place] [facility] [address] [id number] [place] [address] 8206 02 Aug, 2011 [facility] [address] [id number] [place] [address] Jul, [facility] [place] [facility] [address] [id number] [place] [address] 9964 08 Jul, 2011 [facility] [place] [facility] [address] [id number] [place] [address] 8815 Jul, [facility] [address] [id number] [place] [address] 7262 Jul, [facility] [place] [facility] [address] [id number] [place] [address] 1645 Jul, [facility] [address] [id number] [place] [address] 8111 18 Jun, 2011 [facility] [place] [facility] [address] [id number] [place] [address] 1175 Jun, [facility] [place] [facility] [address] [id number] [place] [address] 3099 January, [facility] [place] [facility] [address] [id number] [place] [address]05 15 Aug, 2010 [facility] [place] [facility] [address] [id number] [place] [address] 9[address] Aug, [facility] [place] [facility] [address] [id number] [place] [address] 9[address] Aug, [facility] [id number] [place] [address] Jun, [facility] [id number] [place] [address] Jun, [facility] [id number] [address] Jun, [facility] [id number] [place] [address]57 Jun, [facility] [id number] [place] [address]- [address] Apr, [facility] [id number] [place] [address]- [address] January, [facility] [id number] [place] [address]- 5837 Aug, [facility] [id number] [place] [address]- 6356 Aug, [facility] [id number] [place] [address]- 4716 Aug, [facility] [id number] [place] [address]- 4[address] May, [facility] [id number] [place] [address] Mar, [facility] [id number] [address] [address] Oct, IMMUNIZATIONS No Known Immunizations SOCIAL HISTORY Never Assessed REASON FOR VISIT Elbow Injection--tcuppettRN PLAN OF CARE Activity Details Follow Up prn Reason: Future/Pending Procedure INJ TENDON SHEATH/LIGAMENT VITAL SIGNS Height 64 in 2018-05-12 Weight 172.7 lbs 2018-05-12 Temperature 98.5 degrees Fahrenheit 2018-05-12 Heart Rate 80 bpm 2018-05-12 Respiratory Rate 20 2018-05-12 BMI 29.64 kg/m2 2018-05-12 Blood pressure systolic 118 mmHg 2018-05-12 Blood pressure diastolic 70 mmHg 2018-05-12 MEDICATIONS Medication Instructions Dosage Frequency Start Date End Date Duration Status Aciphex 20 MG Orally Once a day 1 tablet 24h Active Voltaren 1 % Transdermal 4 times a day, as needed Apply 2 grams to affected joints above waist and 4 grams below waist Active Simvastatin 20 MG Orally Once a day at hs 1 tablet in the evening Active ZyrTEC 10 mg by oral route Once a day 1 tablet 24h 30 days Active Mirapex 1.5 MG TAKE ONE AND ONE-HALF TABLETS BY MOUTH ONCE DAILY BEFORE BEDTIME. 30 Active Lisinopril 20 MG oral daily 1 tablet 24h 30 Active EPINEPHrine 0.3 mg/0.3ml 0.3 mg by Intramuscular route 1 time per day PRN SEVERE ALLERGY TO BEES Apr, Active Tizanidine HCl 4 MG 1 tablet 8h 30 Jun, 2018 30 days Active RESULTS No Results PROCEDURES Procedure Date Ordered Result Body Site INJ TENDON SHEATH/LIGAMENT May 12, 2018 [facility] VISIT ESTABLISHED PATIENT May 12, 2018 INSTRUCTIONS MEDICATIONS ADMINISTERED No Known Medications MEDICAL [...]
--- OUTSIDE RECORDS SUMMARY | 2018-06-10 12:25 | XMS REPORT ---
Author Author ABHIJIT FERRARA [facility] Address [address] [place] [address] Care Team Providers Care Compensation/Benefits Specialist Name Role Phone ABHIJIT FERRARA Unavailable PROBLEMS Type Condition ICD9-CM Code UUP30-MW Code Onset Dates Condition Status SNOMED Code Problem Essential hypertension with goal blood pressure less than 130\/85 I10 Active 25395767 Problem Renal insufficiency N28.9 Active 175701009 Problem Pain in right shoulder M25.511 Active 80649276 Problem Chronic pain G89.29 Active 31799130 Problem Other chronic pain G89.29 Active 13745587 Problem Restless leg syndrome G25.81 Active 26101590 Problem Gastroesophageal reflux disease without esophagitis K21.9 Active 035446414 Problem Mixed hyperlipidemia E78.2 Active 700813243 Problem Seasonal allergic rhinitis, unspecified allergic rhinitis trigger J30.2 Active 386876320 Problem Dysthymia F34.1 Active 53100264 ALLERGIES Substance Reaction Event Type Date Status Xanax agitation and anger Drug Allergy Apr, Active Mobic hives Drug Allergy Apr, Active Bees anaphylaxis Non Drug Allergy Apr, Active ENCOUNTERS Encounter Location Date Diagnosis [place] [id number] [place] [address] 10018- 9897 May, Lateral epicondylitis of left elbow M77.12 [facility] [address] [place] [id number] [place] [address] 48621- 2217 Apr, Gastroesophageal reflux disease without esophagitis K21.9 [place] [address] [place] [id number] [place] [address] 24847- 9027 Apr, Essential hypertension with goal blood pressure less than 130\/85 I10 ; Restless leg syndrome G25.81 ; Low back pain M54.5 ; Gastroesophageal reflux disease without esophagitis K21.9 ; Bee sting allergy Z91.030 and Left lateral epicondylitis M77.12 [facility] [address] [address] Sep, Nausea R11.0 and Diarrhea, unspecified type R19.7 [place] [address] 92965- 7841 Jul, Mixed hyperlipidemia E78.2 [place] [address] 12140- 8652 Jul, Essential hypertension with goal blood pressure less than 130\/85 I10 ; Gastroesophageal reflux disease without esophagitis K21.9 ; Mixed hyperlipidemia E78.2 ; Renal insufficiency N28.9 ; Restless leg syndrome G25.81 ; Seasonal allergic rhinitis, unspecified allergic rhinitis trigger J30.2 ; Chronic pain G89.29 and History of allergic reaction Z88.9 [facility] [address] [address] Jul, Viral gastroenteritis A08.4 and Homeless Z59.0 [place] [address] 06446- 4352 Feb, [address] [address]- 2232 Feb, Essential hypertension with goal blood pressure less than 130\/85 I10 ; Gastroesophageal reflux disease without esophagitis K21.9 ; Mixed hyperlipidemia E78.2 ; Renal insufficiency N28.9 ; Restless leg syndrome G25.81 ; Seasonal allergic rhinitis, unspecified allergic rhinitis trigger J30.2 ; Cough R05 ; Exposure, initial encounter T75.89XA and Chronic pain G89.[address] [address]- 7899 January, Chronic pain G89.29 [place] [address] 00648- 0183 Dec, Chronic pain G89.29 [place] [address] 53366- 9820 Dec, Chronic pain G89.29 [facility] [address] [address] 0568 Dec, Chronic pain G89.29 [facility] [id number] [place] [address] 67835- 1241 Nov, Chronic pain G89.29 [facility] [id number] [place] [address] 98092- 8390 Nov, [facility] [id number] [place] [address] 48260- 9225 Oct, Chronic pain G89.29 [facility] [address] [place] [id number] [place] [address] 04273- 4927 Oct, Chronic pain G89.29 ; Renal insufficiency N28.9 ; Essential hypertension with goal blood pressure less than 130\/85 I10 ; Gastroesophageal reflux disease without esophagitis K21.9 ; Dysthymia F34.1 ; Mixed hyperlipidemia E78.2 ; Seasonal allergic rhinitis, unspecified allergic rhinitis trigger J30.2 and Hoarseness or changing voice R49.9 [place] [address] [place] [id number] [place] [address] 83887- 0597 Sep, [facility] [address] [place] [id number] [place] [address] 06359- 2214 Aug, [place] [address] [place] [id number] [place] [address] 98298- 2556 Jul, [facility] [address] [place] [id number] [place] [address] 06089- 8854 Jun, [facility] [address] [place] [id number] [place] [address] 45729- 3916 Jun, Chronic pain G89.29 ; Renal insufficiency N28.9 ; Essential hypertension with goal blood pressure less than 130\/85 I10 ; Gastroesophageal reflux disease without esophagitis K21.9 ; Dysthymia F34.1 ; Mixed hyperlipidemia E78.2 ; Seasonal allergic rhinitis, unspecified allergic rhinitis trigger J30.2 and Encounter for immunization Z23 [place] [address] [place] [id number] [place] [address] 61262- 3494 11 Jun, 2016 Chronic pain G89.29 ; Essential hypertension with goal blood pressure less than 130\/85 I10 ; Gastroesophageal reflux disease without esophagitis K21.9 ; Dysthymia F34.1 ; Mixed hyperlipidemia E78.2 ; Renal insufficiency N28.9 ; Seasonal allergic rhinitis, unspecified allergic rhinitis trigger J30.2 and Encounter for immunization Z23 [place] [address] [place] [id number] [place] [address] 11135- 3035 May, [place] [address] 89415- 7861 Apr, [place] [address] [place] [id number] [place] [address] 22414- 9634 Mar, [place] [address] [place] [id number] [place] [address] 94637- 6696 Mar, [place] [address] [place] [id number] [place] [address] 07629- 6313 Feb, Chronic pain G89.29 ; Screening breast examination Z12.39 ; Essential hypertension with goal blood pressure less than 130\/85 I10 ; Gastroesophageal reflux disease without esophagitis K21.9 ; Dysthymia F34.1 ; Mixed hyperlipidemia E78.2 ; Renal insufficiency N28.9 and History of allergic reaction Z88.9 [place] [address] [place] [id number] [place] [address] 22826- 3704 January, [place] [address] [place] [id number] [place] [address] 97282- 8335 Dec, [place] [address] 20452- 3300 Nov, Chronic pain G89.29 ; Pain in right shoulder M25.511 and Essential hypertension with goal blood pressure less than 130\/85 I10 [place] [address] [place] [id number] [place] [address] 05955- 5693 Oct, [facility] [address] [address]- 9599 Sep, [facility] [address] [place] [id number] [place] [address] 76057- 9201 Aug, [facility] [address] [place] [id number] [place] [address] 21833- 6544 Aug, Upper respiratory infection J06.9 and Chronic pain G89.29 [facility] [address] [place] [id number] [place] [address] 27095- 1782 Aug, [facility] [address] [place] [id number] [place] [address] 33078- 8093 Jul, Chronic pain G89.29 and Encounter for immunization Z23 [facility] [address] [place] [id number] [place] [address] 75882- 9274 Jul, [facility] [address] [place] [id number] [place] [address] 46820- 5861 Jun, [facility] [address] [place] [id number] [place] [address] 16473- 7229 May, [facility] [address] [place] [id number] [place] [address] 02930- 2752 May, Neck pain 723.1 ; Borderline hyperlipidemia 272.4 ; Chronic pain 338.29 ; Hypertension 401.9 ; Chronic renal insufficiency 585.9 ; Allergic rhinitis 477.9 and GERD (gastroesophageal reflux disease) 530.81 [facility] [id number] [place] [address] 71708- 6706 Apr, [facility] [address] [place] [id number] [place] [address] 31596- 6092 Mar, [facility] [address] [place] [id number] [place] [address] 82827- 0566 Feb, Hypertension 401.9 [facility] [address] [place] [id number] [place] [address] 10959- 3608 Feb, Neck pain 723.1 ; Chronic pain 338.29 ; Hypertension 401.9 ; Chronic renal insufficiency 585.9 ; Allergic rhinitis 477.9 and Yeast dermatitis 112.3 [facility] [address] [place] [id number] [address]- 6390 Feb, [facility] [address] [place] [id number] 1386 January, Neck pain 723.1 ; Chronic pain 338.29 ; Hypertension 401.9 ; Anxiety 300.00 and Insomnia 780.52 [facility] [address] [place] [id number] [address]- 8778 January, [facility] [address] [place] [id number] [place] [address] 92445- 0579 Dec, [facility] [address] [place] [id number] [place] [address] 29714- 8263 Dec, [facility] [address] [place] [id number] [place] [address] 64518- 2931 Nov, [facility] [address] [place] [address] [id number] [address]- 4968 Nov, [facility] [address] [place] [id number] [place] [address] 37464- 1000 Nov, [facility] [address] [address]- 9961 Nov, [facility] [address] [address]- 9706 Nov, [facility] [address] 6542 Nov, [facility] [address] [place] [id number] 7978 Nov, [facility] [address], [place] [address]- 0020 Nov, [facility] [address] [place] [id number] [place] [address] 52599- 8716 Oct, [facility] [address] [id number] [place] [address]- 3123 Oct, [facility] [place] [facility] [address] [id number] [place] 3125 Oct, [facility] [place] [facility] [address] [id number] [place] [address]- 6289 Oct, [facility] [place] [facility] [address] [id number] [place] [address]- 9245 Oct, [facility] [place] [facility] [address] [id number] [place] [address]- 1221 Oct, [facility] [place] [facility] [address] [id number] [place] [address]- 4613 Sep, [facility] [address] [id number] [place] [address]- 6044 Sep, [facility] [address] [id number] [place] [address]- 7044 Sep, [facility] [address] [id number] [place] [address]- 7965 Sep, [facility] [place] [facility] [address] [facility] [id number] [place] [address]- 1780 Sep, [facility] [place] [facility] [address] [id number] [place] [address]- 7277 Sep, [facility] [place] [facility] [address] [id number] [place] [address]- 4676 Aug, [facility] [place] [facility] [address] [id number] [place] [address]- 4703 Aug, [facility] [place] [facility] [address] [id number] [place] [address]- 1937 Aug, [facility] [place] [facility] [address] [id number] [place] 8324 Aug, [facility] [place] [facility] [address] [id number] [place] [address]- 6033 Aug, [facility] [place] [facility] [address] [id number] [place] [address]- 8971 Aug, [facility] [place] [facility] [address] [id number] [place] [address]- 6969 Aug, [facility] [place] [facility] [address] [id number] [place] [address]- 0276 Aug, [facility] [place] [facility] [address] [id number] [place] [address]- 3176 Aug, [facility] [place] [facility] [address] [id number] [place] [address]- 7948 Jul, [facility] [place] [facility] [address] [id number] [place] [address]- 6037 Jul, [facility] [place] [facility] [address] [id number] [place] [address]- 3316 Jul, [facility] [place] [facility] [address] [id number] [place] [address]- 0182 Jul, [facility] [place] [facility] [address] [id number] [place] [address]- 4577 Jul, [facility] [place] [facility] [address] [id number] [place] [address]- 6994 Jul, [facility] [place] [facility] [address] [id number] [place] [address]- 0645 Jul, [facility] [place] [facility] [address] [id number] [place] [address]- 6036 Jul, [facility] [place] [facility] [address] [id number] [place] [address]- 8921 Jul, [facility] [place] [facility] [address] [id number] [place] [address]- 7423 16 Jun, 2014 [facility] [place] [facility] [address] [id number] [place] [address]- 6242 16 Jun, 2014 [facility] [place] [facility] [address] [id number] [place] [address]- 9652 14 Jun, 2014 [facility] [place] [facility] [address] [id number] [place] [address]- 9432 Jun, [facility] [place] [facility] [address] [id number] [place] [address]- 8029 Jun, [facility] [place] [facility] [address] [id number] [place] [address]- 4694 26 May, 2014 [facility] [place] [facility] [address] [id number] [place] [address]- 9965 May, [facility] [place] [facility] [address] [id number] [place] [address]- 3758 May, [facility] [place] [facility] [address] [id number] [place] [address]- 2328 Apr, [facility] [place] [facility] [address] [id number] [place] [address]- 4590 Apr, [facility] [place] [facility] [address] [id number] [place] [address]- 8048 Apr, [facility] [place] [facility] [address] [id number] [place] [address]- 5159 Apr, [facility] [place] [facility] [address] [id number], [place] [address]- 4191 Mar, [facility] [place] [facility] [address] [id number], [place] [address]- 9444 Mar, [facility] [place] [facility] [address] [id number] [place] [address]- 2805 Mar, [facility] [place] [facility] [address] [id number] [place] [address]- 4626 Mar, [facility] [place] [facility] [address] [id number] [place] [address]- 0080 Mar, [facility] [place] [facility] [address] [id number] [place] [address]- 0788 Feb, [facility] [place] [facility] [address] [id number] [place] [address]- 7642 Feb, [facility] [place] [facility] [address] [id number] [place] [address]- 8523 Feb, [facility] [place] [facility] [address] [id number] [place] [address]- 0950 Feb, [facility] [place] [facility] [address] [id number] [place] [address]- 1826 January, [facility] [place] [facility] [address] [id number] [place] [address]- 6329 January, [facility] [place] [facility] [address] [id number] [place] [address]- 5938 January, [facility] [place] [facility] [address] [id number] [place] [address]- 5887 January, [facility] [place] [facility] [address] [id number] [place] [address]- 1167 January, [facility] [place] [facility] [address] [id number] [place] [address]- 4982 Dec, [facility] [place] [facility] [address] [id number] [place] [address]- 8609 Dec, [facility] [place] [facility] [address] [id number] [place] [address]- 0953 Dec, [facility] [place] [facility] [address] [id number] [place] [address]- 6253 Dec, [facility] [place] [facility] [address] [id number] [place] [address]- 7643 Dec, [facility] [place] [facility] [address] [id number] [place] [address]- 4332 Dec, [facility] [place] [facility] [address] [id number] [place] [address]- 4462 Dec, [facility] [place] [facility] [address] [id number] [place] [address]- 2142 Dec, [facility] [place] [facility] [address] [id number] [place] [address]- 0539 Nov, [facility] [place] [facility] [address] [id number] [place] [address]- 5427 Nov, [facility] [place] [facility] [address] [id number] [place] [address]- 1565 Nov, [facility] [place] [facility] [address] [id number] [place] [address]- 3520 Nov, [facility] [place] [facility] [address] [id number] [place] [address]- 5286 Nov, [facility] [place] [facility] [address] [id number] [place] [address]- 9909 Nov, [facility] [place] [facility] [address] [id number] [place] [address]- 8525 Nov, [facility] [place] [facility] [address] [id number] [place] [address]- 7239 Nov, [facility] [place] [facility] [address] [id number] [place] [address]- 8040 Nov, [facility] [place] [facility] [address] [id number] [place] [address]- 6978 Nov, [facility] [place] [facility] [address] [id number] [place] [address]- 1555 Nov, [facility] [place] [facility] [address] [id number] [place] [address]- 2448 Nov, [facility] [place] [facility] [address] [id number] [place] [address]- 7032 Oct, [facility] [place] [facility] [address] [id number] [place] [address]- 4482 Oct, [facility] [place] [facility] [address] [id number] [place] [address]- 7673 14 Oct, 2013 [facility] [address] [id number] [place] [address]- 8834 14 Oct, 2013 [facility] [place] [facility] [address] [id number] [place] [address]- 0244 10 Oct, 2013 [facility] [place] [facility] [address] [id number] [place] [address]- 1207 10 Oct, 2013 [facility] [place] [facility] [address] [id number] [place] [address]- 4451 20 Sep, 2013 [facility] [address] [id number] [place] [address]- 3490 17 Sep, 2013 [facility] [place] [facility] [address] [id number] [place] [address]- 5387 17 Sep, 2013 [facility] [address] [id number] [place] [address]- 3826 14 Sep, 2013 [facility] [place] [facility] [address] [id number] [place] [address]- 4912 14 Sep, 2013 [facility] [address] [id number] [place] [address]- 9416 Sep, [facility] [address] [id number] [place] [address]- 7834 Sep, [facility] [address] [id number] [place] [address]- 3995 Aug, [facility] [place] [facility] [address] [id number] [place] [address]- 4211 Aug, [facility] [place] [facility] [address] [id number] [place] [address]- 9613 Aug, [facility] [place] [facility] [address] [id number] [place] [address]- 8153 16 Aug, 2013 [facility] [place] [facility] [address] [id number] [place] 9999 16 Aug, 2013 [facility] [place] [facility] [address] [id number] [place] [address]- 8610 Aug, [facility] [place] [facility] [address] [id number] [place] [address]- 8322 Jul, [facility] [place] [facility] [address] [id number] [place] [address]- 2301 Jul, [facility] [place] [facility] [address] [id number] [place] [address]- 2150 Jul, [facility] [place] [facility] [address] [id number] [place] [address]- 4783 Jul, [facility] [place] [facility] [address] [id number] [place] [address]- 8628 Jul, [facility] [place] [facility] [address] [id number] [place] [address]- 3610 Jul, [facility] [place] [facility] [address] [id number] [place] [address]- 2409 Jul, [facility] [place] [facility] [address] [id number] [place] [address]- 3736 Jul, [facility] [place] [facility] [address] [id number] [place] [address]- 6031 Jun, [facility] [place] [facility] [address] [id number] [place] [address]- 6442 Jun, [facility] [place] [facility] [address] [id number] [place] [address]- 5693 Jun, [facility] [place] [facility] [address] [id number] [place] [address]- 7082 Jun, [facility] [place] [facility] [address] [id number] [place] [address]- 5214 Jun, [facility] [place] [facility] [address] [id number] [place] [address]- 3794 Jun, [facility] [place] [facility] [address] [id number] [place] [address]- 7456 Jun, [facility] [place] [facility] [address] [id number] [place] [address]- 6377 Jun, [facility] [place] [facility] [address] [id number] [place] 9766 Jun, [facility] [place] [facility] [address] [id number] [place] [address]- 0930 Jun, [facility] [place] [facility] [address] [id number] [place] [address]- 0529 Jun, [facility] [place] [facility] [address] [id number] [place] [address] Jun, [facility] [place] [facility] [address] [id number] [place] [address] Jun, [facility] [place] [facility] [address] [id number] [place] [address] May, [facility] [place] [facility] [address] [id number] [place] [address] May, [facility] [place] [facility] [address] [id number] [place] [address] 16 May, 2013 [facility] [place] [facility] [address] [id number] [place] [address] Apr, [facility] [place] [facility] [address] [id number] [place] [address] Apr, [facility] [place] [facility] [address] [id number], [place] [address] Apr, [facility] [place] [facility] [address] [id number] [place] [address] Mar, [facility] [place] [facility] [address] [id number] [place] [address] Mar, [facility] [place] [facility] [address] [id number] [place] [address] Feb, [facility] [place] [facility] [address] [id number] [place] [address] Feb, [facility] [address] [id number] [place] [address] Feb, [facility] [address] [id number] [place] [address] January, [facility] [address] [id number] [place] [address] January, [facility] [address] [id number] [place] [address] January, [facility] [address] [id number] [place] [address] January, [facility] [address] [id number] [place] [address] Dec, [facility] [address] [id number] [place] [address] Dec, [facility] [address] [id number] [place] [address] Dec, [facility] [address] [id number] [place] [address] Dec, [facility] [address] [id number] [place] [address] Nov, [facility] [address] [id number] [place] [address] Nov, [facility] [address] [id number] [place] [address] Nov, [facility] [address] [id number] [place] [address] Nov, [facility] [address] [id number] [place] [address] Oct, [facility] [address] [id number] [place] [address] Oct, [facility] [address] [id number] [place] [address] Oct, [facility] [place] [facility] [address] [id number] [place] [address] 13 Oct, 2012 [facility] [place] [facility] [address] [id number] [place] [address] Oct, [facility] [place] [facility] [address] [id number] [place] [address] 18 Sep, 2012 [facility] [place] [facility] [address] [id number] [place] [address] Sep, [facility] [place] [facility] [address] [id number] [place] [address] Sep, [facility] [place] [facility] [address] [id number] [place] [address] Sep, [facility] [place] [facility] [address] [id number] [place] [address] Aug, [facility] [place] [facility] [address] [id number] [place] [address] Aug, [facility] [place] [facility] [address] [id number] [place] [address] Aug, [facility] [place] [facility] [address] [id number], [place] [address] Aug, [facility] [place] [facility] [address] [id number], [place] [address] Jul, [facility] [place] [facility] [address] [id number] [place] [address] Jul, [facility] [place] [facility] [address] [id number], [place] [address] 08 Jun, 2012 [facility] [place] [facility] [address] [id number] [place] [address] May, [facility] [place] [facility] [address] [id number] [place] [address] May, [facility] [place] [facility] [address] [id number] [place] [address] May, [facility] [place] [facility] [address] [id number] [place] [address] May, [facility] [place] [facility] [address] [id number] [place] [address] Apr, [facility] [place] [facility] [address] [id number] [place] [address] Apr, [facility] [place] [facility] [address] [id number] [place] [address] Apr, [facility] [place] [facility] [address] [id number] [place] [address] Mar, [facility] [place] [facility] [address] [id number] [place] [address] Mar, [facility] [place] [facility] [address] [id number] [place] [address] Mar, [facility] [place] [facility] [address] [id number] [place] [address] Feb, [facility] [place] [facility] [address] [id number] [place] [address] Feb, [facility] [place] [facility] [address] [id number] [place] [address] Feb, [facility] [place] [facility] [address] [id number] [place] [address] Feb, [facility] [place] [facility] [address] [id number] [place] [address] Feb, [facility] [place] [facility] [address] [id number] [place] [address]47 Feb, [facility] [place] [facility] [address] [id number] [place] [address] Feb, [facility] [place] [facility] [address] [id number] [place] [address] 4[address] Feb, [facility] [address] [id number] [place] [address] Feb, [facility] [address] [id number] [place] [address] January, [facility] [address] [id number] [place] [address] January, [facility] [address] [id number] [place] [address] January, [facility] [address] [id number] [place] [address] January, [facility] [address] [id number] [place] [address] 1685 January, [facility] [address] [id number] [place] [address] 1245 January, [facility] [address] [id number] [place] [address]- 8065 January, [facility] [address] [id number] [place] [address] 4968 January, [facility] [address] [id number] [place] [address] 75[address] January, [facility] [address] [id number] [place] [address] Dec, [facility] [place] [facility] [address] [id number] [place] [address]60 Dec, [facility] [place] [facility] [address] [id number] [place] [address] 9414 Dec, [facility] [address] [id number] [place] [address] Dec, [facility] [address] [id number] [place] [address] Dec, [facility] [address] [id number] [place] [address]- 6638 Nov, [facility] [place] [facility] [address] [id number] [place] [address]- [address] 26 Nov, 2011 [facility] [place] [facility] [address] [id number] [place] [address]- 3026 Nov, [facility] [place] [facility] [address] [id number] [place] [address]- [address]261 19 Nov, 2011 [facility] [place] [facility] [address] [id number] [place] [address] 14 Nov, 2011 [facility] [place] [facility] [address] [id number] [place] [address]- 2016 Nov, [facility] [place] [facility] [address] [id number] [place] [address] 8445 Oct, [facility] [place] [facility] [address] [id number] [place] [address] Oct, [facility] [place] [facility] [address] [id number] [place] [address] 8988 Sep, [facility] [place] [facility] [address] [id number] [place] [address] 4216 Sep, [facility] [place] [facility] [address] [id number] [place] [address] 2737 Sep, [facility] [place] [facility] [address] [id number] [place] [address]- [address] Sep, [facility] [place] [facility] [address] [id number] [place] [address] 277[address] Aug, [facility] [place] [facility] [address] [id number] [place] [address] Aug, [facility] [place] [facility] [address] [id number] [place] [address]- 5666 Aug, [facility] [place] [facility] [address] [id number] [place] [address]- [address]250 13 Aug, 2011 [facility] [address] [id number] [place] [address] 13 Aug, 2011 [facility] [place] [facility] [address] [id number] [place] [address] 2546 09 Aug, 2011 [facility] [address] [id number] [place] [address]- 4280 05 Aug, 2011 [facility] [place] [facility] [address] [id number] [place] [address]- 5080 02 Aug, 2011 [facility] [address] [id number] [place] [address] 8960 Jul, [facility] [place] [facility] [address] [id number] [place] [address]- 7175 08 Jul, 2011 [facility] [place] [facility] [address] [id number] [place] [address]- 365[address] Jul, [facility] [address] [id number] [place] [address] 1126 Jul, [facility] [place] [facility] [address] [id number] [place] [address] 5861 Jul, [facility] [address] [id number] [place] [address]- 4880 18 Jun, 2011 [facility] [place] [facility] [address] [id number] [place] [address]- 6013 Jun, [facility] [place] [facility] [address] [id number] [place] [address]- 3054 January, [facility] [place] [facility] [address] [id number] [place] [address]- 1732 15 Aug, 2010 [facility] [place] [facility] [address] [id number] [place] [address]- 1206 Aug, [facility] [place] [facility] [address] [id number] [place] [address]- 6326 Aug, [facility] [address] [place] [address] Jun, [facility] [address] [place] [address] Jun, [facility] [address], [place] [address] Jun, [facility] [id number] [place] [address]- [address]177 Jun, [facility] [id number] [place] [address]- 6680 Apr, [facility] [id number] [place] [id number]- 1077 January, [facility] [id number] [place] [address]- 2046 Aug, [facility] [id number] [place] [address]- 4857 Aug, [facility] [id number] [place] [address]- 6139 Aug, [facility] [id number] [place] [address]- 1199 May, [facility] [address], [place] [address] Mar, [facility] [id number] [place] [address] Oct, IMMUNIZATIONS No Known Immunizations SOCIAL HISTORY Never Assessed REASON FOR VISIT New provider visit--[email or web address], -Needing medications refilled- Tizanidine, Aciphex, Epipen PLAN OF CARE Activity Details Follow Up prn left elbow inj/ 6mos Reason:htn VITAL SIGNS Height 64 in 2018-05-06 Weight 174.3 lbs 2018-05-06 Temperature 98.3 degrees Fahrenheit 2018-05-06 Heart Rate 76 bpm 2018-05-06 Respiratory Rate 20 2018-05-06 BMI 29.92 kg/m2 2018-05-06 Blood pressure systolic 136 mmHg 2018-05-06 Blood pressure diastolic 80 mmHg 2018-05-06 MEDICATIONS Medication Instructions Dosage Frequency Start Date End Date Duration Status EPINEPHrine 0.3 mg/0.3ml 0.3 mg by Intramuscular route 1 time per day PRN SEVERE ALLERGY TO BEES Apr, Active Aciphex 20 MG Orally Once a day 1 tablet 24h Active Mirapex 1.5 MG TAKE ONE AND ONE-HALF TABLETS BY MOUTH ONCE DAILY BEFORE BEDTIME. 30 Active Lisinopril 20 MG oral daily 1 tablet 24h 30 Active Tizanidine HCl 4 MG 1 tablet 8h 30 Jun, 2018 30 days Active ZyrTEC 10 mg by oral route Once a day 1 tablet 24h 30 days Active Simvastatin 20 MG Orally Once a day at hs 1 tablet in the evening Active Voltaren 1 % Transdermal 4 times a day, as needed Apply 2 grams to affected joints above waist and 4 grams below waist Active RESULTS No Results PROCEDURES Procedure Date Ordered Result Body Site LAB NOT BILLED BY [facility] May 06, 2018 [facility] VISIT ESTABLISHED PATIENT May 06, 2018 INSTRUCTIONS MEDICATIONS ADMINISTERED No Known Medications [...]
--- OUTSIDE RECORDS SUMMARY | 2018-06-10 12:37 | XMS REPORT | Continuity of Care Document ---
Author Author Formerly [facility] Address Unknown Phone Unavailable Allergies Active Description Code Type Severity Reaction Onset Reported/Identified Relationship to Patient Clinical Status Yes No Known Drug Allergies [id number] Drug Allergy Unknown N/A 08/24/2012 Yes Mobic 7.5 mg tablet Drug Allergy N/A N/A 04/04/2013 Yes Xanax Drug Allergy N/A N/A 10/20/2013 Yes alprazolam [id number] Drug Allergy Unknown N/A 03/10/2017 Yes meloxicam [id number] Drug Allergy Unknown N/A 03/10/2017 Medications There [...] AFFECTIVE DISORDER RECURRENT EPISODE MODERATE DEGREE 03/07/2008 JFEFERY DO, DANIEL K 300.00 AN ANXIETY UNSPEC 03/07/2008 JEFFERY DO, DANIEL K 296.32 MAJOR DEPRESSIVE AFFECTIVE DISORDER RECURRENT EPISODE MODERATE DEGREE 03/07/2008 JEFFERY DO, DANIEL K 300.00 AN ANXIETY UNSPEC 03/07/2008 MADL GRANULATOR, YUNG L 296.32 MAJOR DEPRESSIVE AFFECTIVE DISORDER RECURRENT EPISODE MODERATE DEGREE 03/07/2008 MADL GRANULATOR, YUNG L 300.00 AN ANXIETY UNSPEC 03/07/2008 MADL GRANULATOR, YUNG L 296.32 MAJOR DEPRESSIVE AFFECTIVE DISORDER RECURRENT EPISODE MODERATE DEGREE 03/07/2008 MADL GRANULATOR, YUNG L 300.00 AN ANXIETY UNSPEC 03/07/2008 MADL GRANULATOR, YUNG L 296.32 MAJOR DEPRESSIVE AFFECTIVE DISORDER RECURRENT EPISODE MODERATE DEGREE 03/07/2008 MADL GRANULATOR, YUNG L 300.00 AN ANXIETY UNSPEC 03/07/2008 JEFFERY DO, DANIEL K 296.32 MAJOR DEPRESSIVE AFFECTIVE DISORDER RECURRENT EPISODE MODERATE DEGREE 03/07/2008 JEFFERY DO, DANIEL K 300.00 AN ANXIETY UNSPEC 03/07/2008 MADL GRANULATOR, YUNG L 296.32 MAJOR DEPRESSIVE AFFECTIVE DISORDER RECURRENT EPISODE MODERATE DEGREE 03/07/2008 MADL GRANULATOR, YUNG L 300.00 AN ANXIETY UNSPEC 03/07/2008 MADL GRANULATOR, YUNG L 296.32 MAJOR DEPRESSIVE AFFECTIVE DISORDER RECURRENT EPISODE MODERATE DEGREE 03/07/2008 MADL GRANULATOR, YUNG L 300.00 AN ANXIETY UNSPEC 03/07/2008 JEFFERY DO, DANIEL K 296.32 MAJOR DEPRESSIVE AFFECTIVE DISORDER RECURRENT EPISODE MODERATE DEGREE 03/07/2008 JEFFERY DO, DANIEL K 300.00 AN ANXIETY UNSPEC 03/07/2008 JEFFERY DO, DANIEL K 296.32 MAJOR DEPRESSIVE AFFECTIVE DISORDER RECURRENT EPISODE MODERATE DEGREE 03/07/2008 JEFFERY DO, DANIEL K 300.00 AN ANXIETY UNSPEC 03/07/2008 MADL GRANULATOR, YUNG L 296.32 MAJOR DEPRESSIVE AFFECTIVE DISORDER RECURRENT EPISODE MODERATE DEGREE 03/07/2008 MADL GRANULATOR, YUNG L 300.00 AN ANXIETY UNSPEC 03/21/2008 [...] 789.00 Abdominal Pain Unspecified Site 03/21/2008 MADL GRANULATOR, YUNG L 296.89 MO BIPOLAR II 03/21/2008 MADL GRANULATOR, YUNG L 789.00 Abdominal Pain Unspecified Site 03/21/2008 MADL GRANULATOR, YUNG L 296.89 MO BIPOLAR II 03/21/2008 MADL GRANULATOR, YUNG L 789.00 Abdominal Pain Unspecified Site 03/21/2008 MADL GRANULATOR, YUNG L 296.89 MO BIPOLAR II 03/21/2008 MADL GRANULATOR, YUNG L 789.00 Abdominal Pain Unspecified Site 03/21/2008 JEFFERY DO, DANIEL K 296.89 MO BIPOLAR II 03/21/2008 JEFFERY DO, DANIEL K 789.00 Abdominal Pain Unspecified Site 03/21/2008 MADL GRANULATOR, YUNG L 296.89 MO BIPOLAR II 03/21/2008 MADL GRANULATOR, YUNG L 789.00 Abdominal Pain Unspecified Site 03/21/2008 MADL GRANULATOR, YUNG L 296.89 MO BIPOLAR II 03/21/2008 MADL GRANULATOR, YUNG L 789.00 Abdominal Pain Unspecified Site 03/21/2008 JEFFERY DO, DANIEL K 296.89 MO BIPOLAR II 03/21/2008 JEFFERY DO, DANIEL K 789.00 Abdominal Pain Unspecified Site 03/21/2008 EJFFERY DO, DANIEL K 296.89 MO BIPOLAR II 03/21/2008 JEFFERY DO, DANIEL K 789.00 Abdominal Pain Unspecified Site 03/21/2008 MADL GRANULATOR, YUNG L 296.89 MO BIPOLAR II 03/21/2008 MADL GRANULATOR, YUNG L 789.00 Abdominal Pain Unspecified Site [...] 307.50 EA EATING DISORDER UNSPECIFIED 04/04/2008 MADL GRANULATOR, YUNG L 307.47 SI DYSSOMNIA NOS 04/04/2008 MADL GRANULATOR, YUNG L 307.50 EA EATING DISORDER UNSPECIFIED 04/04/2008 MADL GRANULATOR, YUNG L 307.47 SI DYSSOMNIA NOS 04/04/2008 MADL GRANULATOR, YUNG L 307.50 EA EATING DISORDER UNSPECIFIED 04/04/2008 MADL GRANULATOR, YUNG L 307.47 SI DYSSOMNIA NOS 04/04/2008 MADL GRANULATOR, YUNG L 307.50 EA EATING DISORDER UNSPECIFIED 04/04/2008 JEFFERY DO, DANIEL K 307.47 SI DYSSOMNIA NOS 04/04/2008 JEFFERY DO, DANIEL K 307.50 EA EATING DISORDER UNSPECIFIED 04/04/2008 MADL GRANULATOR, YUNG L 307.47 SI DYSSOMNIA NOS 04/04/2008 MADL GRANULATOR, YUNG L 307.50 EA EATING DISORDER UNSPECIFIED 04/04/2008 MADL GRANULATOR, YUNG L 307.47 SI DYSSOMNIA NOS 04/04/2008 MADL GRANULATOR, YUNG L 307.50 EA EATING DISORDER UNSPECIFIED 04/04/2008 JEFFERY DO, DANIEL K 307.47 SI DYSSOMNIA NOS 04/04/2008 JEFFERY DO, DANIEL K 307.50 EA EATING DISORDER UNSPECIFIED 04/04/2008 JEFFERY DO, DANIEL K 307.47 SI DYSSOMNIA NOS 04/04/2008 JEFFERY DO, DANIEL K 307.50 EA EATING DISORDER UNSPECIFIED 04/04/2008 MADL GRANULATOR, YUNG L 307.47 SI DYSSOMNIA NOS 04/04/2008 MADL GRANULATOR, YUNG L 307.50 EA EATING DISORDER UNSPECIFIED [...] K 729.1 MYALGIA AND MYOSITIS UNSPECIFIED 04/07/2008 JEFEFRY DO DANIEL K 729.5 foot pain (soft tissue) 04/07/2008 JEFFERY DO DANIEL K 780.4 Dizziness And Vertigo 04/07/2008 MADL GRANULATOR, YUNG L 729.1 MYALGIA AND MYOSITIS UNSPECIFIED 04/07/2008 MADL GRANULATOR, YUNG L 729.5 foot pain (soft tissue) 04/07/2008 MADL GRANULATOR, YUNG L 780.4 Dizziness And Vertigo 04/07/2008 MADL GRANULATOR, YUNG L 729.1 MYALGIA AND MYOSITIS UNSPECIFIED 04/07/2008 MADL GRANULATOR, YUNG L 729.5 foot pain (soft tissue) 04/07/2008 MADL GRANULATOR, YUNG L 780.4 Dizziness And Vertigo 04/07/2008 MADL GRANULATOR, YUNG L 729.1 MYALGIA AND MYOSITIS UNSPECIFIED 04/07/2008 MADL GRANULATOR, YUNG L 729.5 foot pain (soft tissue) 04/07/2008 MADL GRANULATOR, YUNG L 780.4 Dizziness And Vertigo 04/07/2008 JEFFERY DO, DANIEL K 729.1 MYALGIA AND MYOSITIS UNSPECIFIED 04/07/2008 JEFFERY DO, DANIEL K 729.5 foot pain (soft tissue) 04/07/2008 JEFFERY DO, DANIEL K 780.4 Dizziness And Vertigo 04/07/2008 MADL GRANULATOR, YUNG L 729.1 MYALGIA AND MYOSITIS UNSPECIFIED 04/07/2008 MADL GRANULATOR, YUNG L 729.5 foot pain (soft tissue) 04/07/2008 MADL GRANULATOR, YUNG L 780.4 Dizziness And Vertigo 04/07/2008 MADL GRANULATOR, YUNG L 729.1 MYALGIA AND MYOSITIS UNSPECIFIED 04/07/2008 MADL GRANULATOR, YUNG L 729.5 foot pain (soft tissue) 04/07/2008 MADL GRANULATOR, YUNG L 780.4 Dizziness And Vertigo 04/07/2008 [...] K 780.4 Dizziness And Vertigo 04/07/2008 MADL GRANULATOR, YUNG L 729.1 MYALGIA AND MYOSITIS UNSPECIFIED 04/07/2008 SHANTI DE LA ROSA, YUNG L 729.5 foot pain (soft tissue) [...] DANIEL K 530.81 ESOPHAGEAL REFLUX 04/11/2008 MADMauricio GRANULATOR, YUNG L 530.81 ESOPHAGEAL REFLUX 04/11/2008 SHANTI GRANULATOR YUNG L 530.81 ESOPHAGEAL REFLUX 04/11/2008 SHANTI GRANULATORAMAN CaballeroYUNG L 530.81 ESOPHAGEAL REFLUX 04/11/2008 JEFFERY DO, DANIEL K 530.81 ESOPHAGEAL REFLUX 04/11/2008 SHANTI GRANULATOR, YUNG L 530.81 ESOPHAGEAL REFLUX 04/11/2008 SHANTI JOEY DE LA ROSAShannan Martínez 530.81 ESOPHAGEAL REFLUX 04/11/2008 DANIEL JEFFERY DO K 530.81 ESOPHAGEAL REFLUX 04/11/2008 DANIEL JEFFERY DO K 530.81 ESOPHAGEAL REFLUX 04/11/2008 SHNATI JOEY DE LA ROSAShannan Martínez 530.81 ESOPHAGEAL [...] MD 782.0 SENSORY DISTURBANCE SKIN 04/17/2008 LAVERN GRANULATOR, TAMEKA A 255.9 UNSPECIFIED DISORDER OF ADRENAL GLANDS 04/17/2008 LAVERN GRANULATOR, TAMEKA A 782.0 SENSORY DISTURBANCE SKIN 04/17/2008 [...] K 782.0 SENSORY DISTURBANCE SKIN 04/17/2008 MADL GRANULATOR, YUNG L 255.9 UNSPECIFIED DISORDER OF ADRENAL GLANDS 04/17/2008 MADL GRANULATOR, YUNG L 782.0 SENSORY DISTURBANCE SKIN 04/17/2008 MADL GRANULATOR, YUNG L 255.9 UNSPECIFIED DISORDER OF ADRENAL GLANDS 04/17/2008 MADL GRANULATOR, YUNG L 782.0 SENSORY DISTURBANCE SKIN 04/17/2008 MADL GRANULATOR, YUNG L 255.9 UNSPECIFIED DISORDER OF ADRENAL GLANDS 04/17/2008 MADL GRANULATOR, YUNG L 782.0 SENSORY DISTURBANCE SKIN 04/17/2008 JEFFERY DO, DANIEL K 255.9 UNSPECIFIED DISORDER OF ADRENAL GLANDS 04/17/2008 JEFFERY DO, DANIEL K 782.0 SENSORY DISTURBANCE SKIN 04/17/2008 MADL GRANULATOR, YUNG L 255.9 UNSPECIFIED DISORDER OF ADRENAL GLANDS 04/17/2008 MADL GRANULATOR, YUNG L 782.0 SENSORY DISTURBANCE SKIN 04/17/2008 MADL GRANULATOR, YUNG L 255.9 UNSPECIFIED DISORDER OF ADRENAL GLANDS 04/17/2008 MADL GRANULATOR, YUNG L 782.0 SENSORY DISTURBANCE SKIN 04/17/2008 JEFFERY DO, DANIEL K 255.9 UNSPECIFIED DISORDER OF ADRENAL GLANDS 04/17/2008 JEFFERY DO, DANIEL K 782.0 SENSORY DISTURBANCE SKIN 04/17/2008 JEFFERY DO, DANIEL K 255.9 UNSPECIFIED DISORDER OF ADRENAL GLANDS 04/17/2008 JEFFERY DO, DANIEL K 782.0 SENSORY DISTURBANCE SKIN 04/17/2008 MADL GRANULATOR, YUNG L 255.9 UNSPECIFIED DISORDER OF ADRENAL GLANDS 04/17/2008 MADL GRANULATOR, YUNG L 782.0 SENSORY DISTURBANCE SKIN 04/27/2008 [...] 401.1 HYPERTENSION, BENIGN ESSENTIAL 04/27/2008 JOSE D WANG DANIEL K 787.01 Nausea With Vomiting 04/27/2008 [...] K 787.01 Nausea With Vomiting 04/27/2008 MADL GRANULATOR, YUNG L 401.1 HYPERTENSION, BENIGN ESSENTIAL 04/27/2008 MADL GRANULATOR, YUNG L 787.01 Nausea With Vomiting 04/27/2008 MADL GRANULATOR, YUNG L 401.1 HYPERTENSION, BENIGN ESSENTIAL 04/27/2008 MADL GRANULATOR, YUNG L 787.01 Nausea With Vomiting 04/27/2008 MADL GRANULATOR, YUNG L 401.1 HYPERTENSION, BENIGN ESSENTIAL 04/27/2008 MADL GRANULATOR, YUNG L 787.01 Nausea With Vomiting 04/27/2008 JEFFERY DO, DANIEL K 401.1 HYPERTENSION, BENIGN ESSENTIAL 04/27/2008 JEFFERY DO, DANIEL K 787.01 Nausea With Vomiting 04/27/2008 MADL GRANULATOR, YUNG L 401.1 HYPERTENSION, BENIGN ESSENTIAL 04/27/2008 MADL GRANULATOR, YUNG L 787.01 Nausea With Vomiting 04/27/2008 MADL GRANULATOR, YUNG L 401.1 HYPERTENSION, BENIGN ESSENTIAL 04/27/2008 MADL GRANULATOR, YUNG L 787.01 Nausea With Vomiting 04/27/2008 JEFFERY DO, DANIEL K 401.1 HYPERTENSION, BENIGN ESSENTIAL 04/27/2008 JEFFERY DO, DANIEL K 787.01 Nausea With Vomiting 04/27/2008 JEFFERY DO, DANIEL K 401.1 HYPERTENSION, BENIGN ESSENTIAL 04/27/2008 JEFFERY DO, DANIEL K 787.01 Nausea With Vomiting 04/27/2008 MADL GRANULATOR, YUNG L 401.1 HYPERTENSION, BENIGN ESSENTIAL 04/27/2008 MADL GRANULATOR, YUNG L 787.01 Nausea With Vomiting 05/01/2008 [...] DANIEL K 702.0 ACTINIC KERATOSIS 05/01/2008 MADL GRANULATOR, YUNG L 702.0 ACTINIC KERATOSIS 05/01/2008 MADL GRANULATOR, YUNG L 702.0 ACTINIC KERATOSIS 05/01/2008 JEFFERY DO, DANIEL K 702.0 ACTINIC KERATOSIS 05/01/2008 JEFFERY DO, DANIEL K 702.0 ACTINIC KERATOSIS 05/01/2008 MADL GRANULATOR, YUNG L 702.0 ACTINIC KERATOSIS 05/10/2008 OLIVIA [...] DISORDER RECURRENT EPISODE UNSPECIFIED DEGREE 05/10/2008 MASOUD ATIKNS MD 301.83 BORDERLINE PERSONALITY DISORDER 05/10/2008 296.30 [...] K 301.83 BORDERLINE PERSONALITY DISORDER 05/10/2008 MADL GRANULATOR, YUNG L 296.30 MAJOR DEPRESSIVE AFFECTIVE DISORDER RECURRENT EPISODE UNSPECIFIED DEGREE 05/10/2008 MADL GRANULATOR, YUNG L 301.83 BORDERLINE PERSONALITY DISORDER 05/10/2008 MADL GRANULATOR, YUNG L 296.30 MAJOR DEPRESSIVE AFFECTIVE DISORDER RECURRENT EPISODE UNSPECIFIED DEGREE 05/10/2008 MADL GRANULATOR, YUNG L 301.83 BORDERLINE PERSONALITY DISORDER 05/10/2008 MADL GRANULATOR, YUNG L 296.30 MAJOR DEPRESSIVE AFFECTIVE DISORDER RECURRENT EPISODE UNSPECIFIED DEGREE 05/10/2008 MADL GRANULATOR, YUNG L 301.83 BORDERLINE PERSONALITY DISORDER 05/10/2008 JEFFERY DO, DANIEL K 296.30 MAJOR DEPRESSIVE AFFECTIVE DISORDER RECURRENT EPISODE UNSPECIFIED DEGREE 05/10/2008 JEFFERY DO, DANIEL K 301.83 BORDERLINE PERSONALITY DISORDER 05/10/2008 MADL GRANULATOR, YUNG L 296.30 MAJOR DEPRESSIVE AFFECTIVE DISORDER RECURRENT EPISODE UNSPECIFIED DEGREE 05/10/2008 MADL GRANULATOR, YUNG L 301.83 BORDERLINE PERSONALITY DISORDER 05/10/2008 MADL GRANULATOR, YUNG L 296.30 MAJOR DEPRESSIVE AFFECTIVE DISORDER RECURRENT EPISODE UNSPECIFIED DEGREE 05/10/2008 MADL GRANULATOR, YUNG L 301.83 BORDERLINE PERSONALITY DISORDER 05/10/2008 JEFFERY DO, DANIEL K 296.30 MAJOR DEPRESSIVE AFFECTIVE DISORDER RECURRENT EPISODE UNSPECIFIED DEGREE 05/10/2008 JEFFERY DO, DANIEL K 301.83 BORDERLINE PERSONALITY DISORDER 05/10/2008 JEFFERY DO, DANIEL K 296.30 MAJOR DEPRESSIVE AFFECTIVE DISORDER RECURRENT EPISODE UNSPECIFIED DEGREE 05/10/2008 JEFFERY DO, DANIEL K 301.83 BORDERLINE PERSONALITY DISORDER 05/10/2008 MADL GRANULATOR, YUNG L 296.30 MAJOR DEPRESSIVE AFFECTIVE DISORDER RECURRENT EPISODE UNSPECIFIED DEGREE 05/10/2008 MADL GRANULATOR, YUNG L 301.83 BORDERLINE PERSONALITY DISORDER 05/11/2008 [...] K 780.09 Level Of Consciousness 05/11/2008 MADL GRANULATOR, YUNG L 780.09 Level Of Consciousness 05/11/2008 MADL GRANULATOR, YUNG L 780.09 Level Of Consciousness 05/11/2008 MADL GRANULATOR, YUNG L 780.09 Level Of Consciousness 05/11/2008 JEFFERY DO, DANIEL K 780.09 Level Of Consciousness 05/11/2008 MADL GRANULATOR, YUNG L 780.09 Level Of Consciousness 05/11/2008 MADL GRANULATOR, YUNG L 780.09 Level Of Consciousness 05/11/2008 JEFFERY DO, DANIEL K 780.09 Level Of Consciousness 05/11/2008 JEFFERY DO, DANIEL K 780.09 Level Of Consciousness 05/11/2008 MADL GRANULATOR, YUNG L 780.09 Level Of Consciousness 05/14/2008 [...] K 781.3 poor coordination [Sx] 05/14/2008 VIANNEYL GRANULATORJOEY CaballeroA L 781.3 poor coordination [Sx] 05/14/2008 VIANNEYL GRANULATOR, YUNG L 781.3 poor coordination [Sx] 05/14/2008 JEFFERY DO DANIEL K 781.3 poor coordination [Sx] 05/14/2008 JEFFERY DO, DANIEL K 781.3 poor coordination [Sx] 05/14/2008 VIANNEYL GRANULATOR, YUNG L 781.3 poor coordination [Sx] 05/16/2008 [...] PSYCHOLOGICAL FACTORS AFFECTING PHYSICAL CONDITION 05/16/2008 MADL GRANULATOR, YUNG L 276.8 HYPOPOTASSEMIA 05/16/2008 MADL GRANULATOR, YUNG L 300.4 DYSTHYMIC DISORDER (DEPRESSIVE NEUROSIS) 05/16/2008 MADL GRANULATOR, YUNG L 316 PSYCHOLOGICAL FACTORS AFFECTING PHYSICAL CONDITION 05/16/2008 MADL GRANULATOR, YUNG L 276.8 HYPOPOTASSEMIA 05/16/2008 MADL GRANULATOR, YUNG L 300.4 DYSTHYMIC DISORDER (DEPRESSIVE NEUROSIS) 05/16/2008 MADL GRANULATOR, YUNG L 316 PSYCHOLOGICAL FACTORS AFFECTING PHYSICAL CONDITION 05/16/2008 MADL GRANULATOR, YUNG L 276.8 HYPOPOTASSEMIA 05/16/2008 MADL GRANULATOR, YUNG L 300.4 DYSTHYMIC DISORDER (DEPRESSIVE NEUROSIS) 05/16/2008 MADL GRANULATOR, YUNG L 316 PSYCHOLOGICAL FACTORS AFFECTING PHYSICAL CONDITION 05/16/2008 JEFFERY DO, DANIEL K 276.8 HYPOPOTASSEMIA 05/16/2008 JEFFERY DO, DANIEL K 300.4 DYSTHYMIC DISORDER (DEPRESSIVE NEUROSIS) 05/16/2008 JEFFERY DO, DANIEL K 316 PSYCHOLOGICAL FACTORS AFFECTING PHYSICAL CONDITION 05/16/2008 MADL GRANULATOR, YUNG L 276.8 HYPOPOTASSEMIA 05/16/2008 MADL GRANULATOR, YUNG L 300.4 DYSTHYMIC DISORDER (DEPRESSIVE NEUROSIS) 05/16/2008 MADL GRANULATOR, YUNG L 316 PSYCHOLOGICAL FACTORS AFFECTING PHYSICAL CONDITION 05/16/2008 MADL GRANULATOR, YUNG L 276.8 HYPOPOTASSEMIA 05/16/2008 MADL GRANULATOR, YUNG L 300.4 DYSTHYMIC DISORDER (DEPRESSIVE NEUROSIS) 05/16/2008 MADL GRANULATOR, YUNG L 316 PSYCHOLOGICAL FACTORS AFFECTING PHYSICAL [...] PSYCHOLOGICAL FACTORS AFFECTING PHYSICAL CONDITION 05/16/2008 MADL GRANULATOR, YUNG L 276.8 HYPOPOTASSEMIA 05/16/2008 MADL GRANULATOR, YUNG L 300.4 DYSTHYMIC DISORDER (DEPRESSIVE NEUROSIS) 05/16/2008 MAD GRANULATOR, YUNG L 316 PSYCHOLOGICAL FACTORS AFFECTING PHYSICAL [...] RECURRENT SEVERE W/O PSYCHOTIC FEATURES 05/17/2008 MADL GRANULATOR, YUNG L 296.33 MAJOR DEPRESSION RECURRENT SEVERE W/O PSYCHOTIC FEATURES 05/17/2008 MADL GRANULATOR, YUNG L 296.33 MAJOR DEPRESSION RECURRENT SEVERE W/O PSYCHOTIC FEATURES 05/17/2008 MADL GRANULATOR, YNUG L 296.33 MAJOR DEPRESSION RECURRENT SEVERE W/O PSYCHOTIC FEATURES 05/17/2008 SONAM JEFFERY DOA K 296.33 MAJOR DEPRESSION RECURRENT SEVERE W/O PSYCHOTIC FEATURES 05/17/2008 MADL GRANULATOR, YUNG L 296.33 MAJOR DEPRESSION RECURRENT SEVERE W/O PSYCHOTIC FEATURES 05/17/2008 MADL GRANULATOR, YUNG L 296.33 MAJOR DEPRESSION RECURRENT SEVERE W/O PSYCHOTIC FEATURES 05/17/2008 SONAM JEFFERY DOA K 296.33 MAJOR DEPRESSION RECURRENT SEVERE W/O PSYCHOTIC FEATURES 05/17/2008 SONAM JEFFERY DOA K 296.33 MAJOR DEPRESSION RECURRENT SEVERE W/O PSYCHOTIC FEATURES 05/17/2008 MADL GRANULATOR, YUNG L 296.33 MAJOR DEPRESSION RECURRENT SEVERE [...] medication for a long time 05/24/2008 MADL GRANULATOR, YUNG L 280.9 ANEMIA HYPOCHROMIC / MICROCYTIC 05/24/2008 MADL GRANULATOR, YUNG L V58.69 taking medication for a long time 05/24/2008 MADL GRANULATOR, YUNG L 280.9 ANEMIA HYPOCHROMIC / MICROCYTIC 05/24/2008 MADL GRANULATOR, YUNG L V58.69 taking medication for a long time 05/24/2008 MADL GRANULATOR, YUNG L 280.9 ANEMIA HYPOCHROMIC / MICROCYTIC 05/24/2008 MADL GRANULATOR, YUNG L V58.69 taking medication for a long time 05/24/2008 JEFFERY DO, DANIEL K 280.9 ANEMIA HYPOCHROMIC / MICROCYTIC 05/24/2008 JEFFERY DO, DANILE K V58.69 taking medication for a long time 05/24/2008 MADL GRANULATOR, YUNG L 280.9 ANEMIA HYPOCHROMIC / MICROCYTIC 05/24/2008 MADL GRANULATOR, YUNG L V58.69 taking medication for a long time 05/24/2008 SHANTI GRANULATORJOEY CaballeroA L 280.9 ANEMIA HYPOCHROMIC / MICROCYTIC 05/24/2008 VIANNEYL GRANULATOR, YUNG L V58.69 taking medication for a long time 05/24/2008 JEFFERY DO, DANIEL K 280.9 ANEMIA HYPOCHROMIC / MICROCYTIC 05/24/2008 JEFFERY DO, DANIEL K V58.69 taking medication for a long time 05/24/2008 JEFFERY DO, DANIEL K 280.9 ANEMIA HYPOCHROMIC / MICROCYTIC 05/24/2008 JEFFERY DO, DANIEL K V58.69 taking medication for a long time 05/24/2008 SHANTI GRANULATORJOEY CaballeroA L 280.9 ANEMIA HYPOCHROMIC / MICROCYTIC [...] PUCKETT APRN 724.2 lower back pain 06/06/2008 SNOAM JEFFERY DOA K 724.2 lower back pain [...] K 724.2 lower back pain 06/06/2008 MADL GRANULATOR, YUNG L 724.2 lower back pain 06/06/2008 MADL GRANULATOR, YUNG L 724.2 lower back pain 06/06/2008 MADL GRANULATOR, YUNG L 724.2 lower back pain 06/06/2008 JEFFERY DO, DANIEL K 724.2 lower back pain 06/06/2008 MADL GRANULATOR, YUNG L 724.2 lower back pain 06/06/2008 MADL GRANULATOR, YUNG L 724.2 lower back pain 06/06/2008 JEFFERY DO, DANIEL K 724.2 lower back pain 06/06/2008 JEFFERY DO, DANIEL K 724.2 lower back pain 06/06/2008 MADL GRANULATOR, YUNG L 724.2 lower back pain 08/23/2008 [...] DANIEL K 787.02 Nausea Alone 08/23/2008 MADL GRANULATOR, YUNG L 787.02 Nausea Alone 08/23/2008 MADL GRANULATOR, YUNG L 787.02 Nausea Alone 08/23/2008 MADL GRANULATOR, YUNG L 787.02 Nausea Alone 08/23/2008 JEFFERY DO, DANIEL K 787.02 Nausea Alone 08/23/2008 MADL GRANULATOR, YUNG L 787.02 Nausea Alone 08/23/2008 MADL GRANULATOR, YUNG L 787.02 Nausea Alone 08/23/2008 JEFFERY DO, DANIEL K 787.02 Nausea Alone 08/23/2008 JEFFERY DO, DANIEL K 787.02 Nausea Alone 08/23/2008 MADL GRANULATOR, YUNG L 787.02 Nausea Alone 08/24/2008 OLIVIA [...] PERS DIS NOS 08/24/2008 CATRACHO PHD, OLIVIA Knapp 296.90 EPISODIC MOOD DISORDERS 08/24/2008 CATRACHO FUNES, [...] 296.90 EPISODIC MOOD DISORDERS 08/24/2008 JEFFERY DO, DNAIEL K 301.9 PD PERS DIS NOS 08/24/2008 JEFFERY DO, DANIEL K 296.90 EPISODIC MOOD DISORDERS 08/24/2008 JEFFERY DO, DANIEL K 301.9 PD PERS DIS NOS 08/24/2008 MADL GRANULATOR, YUNG L 296.90 EPISODIC MOOD DISORDERS 08/24/2008 MADL GRANULATOR, YUNG L 301.9 PD PERS DIS NOS 08/24/2008 MADL GRANULATOR, YUNG L 296.90 EPISODIC MOOD DISORDERS 08/24/2008 MADL GRANULATOR, YUNG L 301.9 PD PERS DIS NOS 08/24/2008 MADL GRANULATOR, YUNG L 296.90 EPISODIC MOOD DISORDERS 08/24/2008 MADL GRANULATOR, YUNG L 301.9 PD PERS DIS NOS 08/24/2008 JEFFERY DO, DANIEL K 296.90 EPISODIC MOOD DISORDERS 08/24/2008 JEFFERY DO, DANIEL K 301.9 PD PERS DIS NOS 08/24/2008 MADL GRANULATOR, YUNG L 296.90 EPISODIC MOOD DISORDERS 08/24/2008 MADL GRANULATOR, YUNG L 301.9 PD PERS DIS NOS 08/24/2008 MADL GRANULATOR, YUNG L 296.90 EPISODIC MOOD DISORDERS 08/24/2008 MADL GRANULATOR, YUNG L 301.9 PD PERS DIS NOS 08/24/2008 JEFFERY DO, DANIEL K 296.90 EPISODIC MOOD DISORDERS 08/24/2008 JEFFERY DO, DANIEL K 301.9 PD PERS DIS NOS 08/24/2008 JEFFERY DO, DANIEL K 296.90 EPISODIC MOOD DISORDERS 08/24/2008 JEFFERY DO, DANIEL K 301.9 PD PERS DIS NOS 08/24/2008 MADL GRANULATOR, YUNG L 296.90 EPISODIC MOOD DISORDERS 08/24/2008 MADL GRANULATOR, YUNG L 301.9 PD PERS DIS NOS [...] MOSER APRN 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 09/18/2008 MADL GRANULATOR, YUNG L 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 09/18/2008 MADL GRANULATOR, YUNG L 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 09/18/2008 JEFFERY DO, DANIEL 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 09/18/2008 MADL GRANULATOR, YUNG L 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 09/18/2008 MADL GRANULATOR, YUNG L 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 09/18/2008 JEFFERY DO, DANIEL 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 09/18/2008 JEFFERY DO, DANIEL 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 09/18/2008 MADL GRANULATOR, YUNG L 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 10/22/2008 CATRACHO FUNES, OLIVIA Knapp 312.30 EXPLOSIVE DISORDER 10/22/2008 312.30 EXPLOSIVE DISORDER 10/22/2008 312.30 EXPLOSIVE DISORDER 10/22/2008 OLIVIA HAYDEN PHD 312.30 EXPLOSIVE DISORDER 10/22/2008 MASOUD ATKINS [...] DANIEL K 312.30 EXPLOSIVE DISORDER 10/22/2008 MADL GRANULATOR, YUNG L 312.30 EXPLOSIVE DISORDER 10/22/2008 MADL GRANULATOR, YUNG L 312.30 EXPLOSIVE DISORDER 10/22/2008 MADL GRANULATOR, YUNG L 312.30 EXPLOSIVE DISORDER 10/22/2008 JEFFERY DO, DANIEL K 312.30 EXPLOSIVE DISORDER 10/22/2008 MADL GRANULATOR, YUNG L 312.30 EXPLOSIVE DISORDER 10/22/2008 MADL GRANULATOR, YUNG L 312.30 EXPLOSIVE DISORDER 10/22/2008 JEFFERY DO, DANIEL K 312.30 EXPLOSIVE DISORDER 10/22/2008 JEFFERY DO, DANIEL K 312.30 EXPLOSIVE DISORDER 10/22/2008 MADL GRANULATOR, YUNG L 312.30 EXPLOSIVE DISORDER 10/24/2008 CATRACHO [...] MD V72.31 Pelvic Exam (internal) 10/24/2008 LAVERN GRANULATOR, TAMEKA A V72.31 Pelvic Exam (internal) 10/24/2008 [...] K V72.31 Pelvic Exam (internal) 10/24/2008 MADL GRANULATOR, YUNG L V72.31 Pelvic Exam (internal) 10/24/2008 MADL GRANULATOR, YUNG L V72.31 Pelvic Exam (internal) 10/24/2008 MADL GRANULATOR, YUNG L V72.31 Pelvic Exam (internal) 10/24/2008 JEFFERY DO, DANIEL K V72.31 Pelvic Exam (internal) 10/24/2008 MADL GRANULATOR, YUNG L V72.31 Pelvic Exam (internal) 10/24/2008 MADL GRANULATOR, YUNG L V72.31 Pelvic Exam (internal) 10/24/2008 JEFFERY DO, DANIEL K V72.31 Pelvic Exam (internal) 10/24/2008 EJFFERY DO, DANIEL K V72.31 Pelvic Exam (internal) 10/24/2008 MADL GRANULATOR, YUNG L V72.31 Pelvic Exam (internal) 02/05/2009 CATRACHO FUNES, OLIVIA Knapp 333.94 RESTLESS LEGS SYNDROME 02/05/2009 OLIVIA HAYDEN PHD 780.52 insomnia 02/05/2009 333.94 RESTLESS LEGS SYNDROME 02/05/2009 780.52 insomnia 02/05/2009 333.94 RESTLESS LEGS SYNDROME 02/05/2009 780.52 insomnia 02/05/2009 OLIVIA HAYDEN PHD 333.94 RESTLESS LEGS SYNDROME 02/05/2009 OLIVIA HAYDEN PHD D 780.52 insomnia 02/05/2009 MASOUD ATKINS MD 333.94 RESTLESS LEGS SYNDROME 02/05/2009 MASOUD ATKINS MD 780.52 insomnia 02/05/2009 333.94 RESTLESS LEGS [...] DO, DANIEL K 780.52 insomnia 02/05/2009 MADL GRANULATOR, YUNG L 333.94 RESTLESS LEGS SYNDROME 02/05/2009 MADL GRANULATOR, YUNG L 780.52 insomnia 02/05/2009 MADL GRANULATOR, YUNG L 333.94 RESTLESS LEGS SYNDROME 02/05/2009 MADL GRANULATOR, YUNG L 780.52 insomnia 02/05/2009 MADL GRANULATOR, YUNG L 333.94 RESTLESS LEGS SYNDROME 02/05/2009 MADL GRANULATOR, YUNG L 780.52 insomnia 02/05/2009 JEFFERY DO, DANIEL K 333.94 RESTLESS LEGS SYNDROME 02/05/2009 JEFFERY DO, DANIEL K 780.52 insomnia 02/05/2009 MADL GRANULATOR, YUNG L 333.94 RESTLESS LEGS SYNDROME 02/05/2009 MADL GRANULATOR, YUNG L 780.52 insomnia 02/05/2009 MADL GRANULATOR, YUNG L 333.94 RESTLESS LEGS SYNDROME 02/05/2009 MADL GRANULATOR, YUNG L 780.52 insomnia 02/05/2009 JEFFERY DO, DANIEL K 333.94 RESTLESS LEGS SYNDROME 02/05/2009 JEFFERY DO, DANIEL K 780.52 insomnia 02/05/2009 JEFFERY DO, DANIEL K 333.94 RESTLESS LEGS SYNDROME 02/05/2009 JEFFERY DO, DANIEL K 780.52 insomnia 02/05/2009 MADL GRANULATOR, YUNG L 333.94 RESTLESS LEGS SYNDROME 02/05/2009 MADL GRANULATOR, YUNG L 780.52 insomnia 05/02/2009 CATRACHO PHD, [...] DO, DANIEL K 724.5 BACKACHE 05/02/2009 MADL GRANULATOR, YUNG L 724.5 BACKACHE 05/02/2009 MADL GRANULATOR, YUNG L 724.5 BACKACHE 05/02/2009 MADL GRANULATOR, YUNG L 724.5 BACKACHE 05/02/2009 JEFFERY DO, DANIEL K 724.5 BACKACHE 05/02/2009 MADL GRANULATOR, YUNG L 724.5 BACKACHE 05/02/2009 MADL GRANULATOR, YUNG L 724.5 BACKACHE 05/02/2009 JEFFERY DO, DANIEL K 724.5 BACKACHE 05/02/2009 JEFFERY DO, DANIEL K 724.5 BACKACHE 05/02/2009 MADL GRANULATOR, YUNG L 724.5 BACKACHE 05/21/2009 CATRACHO PHD, [...] ERICKA PARISI MD 787.91 Diarrhea 05/21/2009 LAVERN GRANULATOR, TAMEKA A 787.91 Diarrhea 05/21/2009 JEFFERY DO, [...] DO, DANIEL K 787.91 Diarrhea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 NAUSEA WITH VOMITING 10/18/2012 VIANNEYL GRANULATOR, YUNG L 789.07 ABDOMINAL PAIN GENERALIZED 10/26/2012 [...] DO, DANIEL K 564.00 CONSTIPATION 10/26/2012 VIANNEYL GRANULATOR, YUNG L 564.00 CONSTIPATION 10/26/2012 MADL GRANULATOR, YUNG L 564.00 CONSTIPATION 10/26/2012 MADL GRANULATOR, YUNG L 564.00 CONSTIPATION 10/26/2012 JEFFERY DO, DANIEL K 564.00 CONSTIPATION 10/26/2012 MADL GRANULATOR, YUNG L 564.00 CONSTIPATION 10/26/2012 MADL GRANULATOR, YUNG L 564.00 CONSTIPATION 10/26/2012 JEFFERY DO, DANIEL K 564.00 CONSTIPATION 10/26/2012 JEFFERY DO, DANIEL K 564.00 CONSTIPATION 10/26/2012 MADL GRANULATOR, YUNG L 564.00 CONSTIPATION 12/02/2012 525.9 tooth [...] DO, DANIEL K 525.9 TOOTH PAIN 12/02/2012 EIRCKA PARISI MD 525.9 TOOTH PAIN 12/02/2012 ERICKA PARISI MD 525.9 TOOTH PAIN 12/02/2012 JEFFERY DO, DANIEL K 525.9 TOOTH PAIN 12/02/2012 JEFFERY DO, DANIEL K 525.9 TOOTH PAIN 12/02/2012 JEFFERY DO, DANIEL K 525.9 TOOTH PAIN 12/02/2012 MADL GRANULATOR, UYNG L 525.9 TOOTH PAIN 12/02/2012 MADL GRANULATOR, YUNG L 525.9 TOOTH PAIN 12/02/2012 MADL GRANULATOR, YUNG L 525.9 TOOTH PAIN 12/02/2012 JEFFERY DO, DANIEL K 525.9 TOOTH PAIN 12/02/2012 MADL GRANULATOR, YUNG L 525.9 TOOTH PAIN 12/02/2012 MADL GRANULATOR, YUNG L 525.9 TOOTH PAIN 12/02/2012 JOSE D WANG DANIEL K 525.9 TOOTH PAIN 12/02/2012 JEFFERY DO DANIEL K 525.9 TOOTH PAIN 12/02/2012 MADL GRANULATOR, YUNG L 525.9 TOOTH PAIN 12/23/2012 296.40 [...] 296.40 MO BIPOLAR MANIC UNSPECIFIED 12/23/2012 MADL GRANULATOR, YUNG L 296.40 MO BIPOLAR MANIC UNSPECIFIED 12/23/2012 MADL GRANULATOR, YUNG L 296.40 MO BIPOLAR MANIC UNSPECIFIED 12/23/2012 MADL GRANULATOR, YUNG L 296.40 MO BIPOLAR MANIC UNSPECIFIED 12/23/2012 JEFFERY DO DANIEL K 296.40 MO BIPOLAR MANIC UNSPECIFIED 12/23/2012 MADL GRANULATOR, YUNG L 296.40 MO BIPOLAR MANIC UNSPECIFIED 12/23/2012 MADL GRANULATOR, YUNG L 296.40 MO BIPOLAR MANIC UNSPECIFIED 12/23/2012 JEFFERY DO, DANIEL K 296.40 MO BIPOLAR MANIC UNSPECIFIED 12/23/2012 JEFFERY DO, DANIEL K 296.40 MO BIPOLAR MANIC UNSPECIFIED 12/23/2012 MADL GRANULATOR, YUNG L 296.40 MO BIPOLAR MANIC UNSPECIFIED 12/30/2012 338.29 CHRONIC PAIN 12/30/2012 338.29 CHRONIC PAIN 12/30/2012 338.29 CHRONIC PAIN 12/30/2012 338.29 CHRONIC PAIN 12/30/2012 ERICKA PARISI MD 338.29 CHRONIC PAIN 12/30/2012 LAVERNWAQAS DE LA ROSA TAMEKA A 338.29 CHRONIC [...] DANIEL K 338.29 CHRONIC PAIN 12/30/2012 MADL GRANULATOR, YUNG L 338.29 CHRONIC PAIN 12/30/2012 MADL GRANULATOR, YUNG L 338.29 CHRONIC PAIN 12/30/2012 MADL GRANULATOR, YUNG L 338.29 CHRONIC PAIN 12/30/2012 JEFFERY DO, DANIEL K 338.29 CHRONIC PAIN 12/30/2012 MADL GRANULATOR, YUNG L 338.29 CHRONIC PAIN 12/30/2012 MADL GRANULATOR, YUNG L 338.29 CHRONIC PAIN 12/30/2012 JEFFERY DO, DANIEL K 338.29 CHRONIC PAIN 12/30/2012 JEFFERY DO, DANIEL K 338.29 CHRONIC PAIN 12/30/2012 MADL GRANULATOR, YUNG L 338.29 CHRONIC PAIN 02/24/2013 458.9 [...] DO, DANIEL K 458.9 HYPOTENSION 02/24/2013 MADL GRANULATOR, YUNG L 458.9 HYPOTENSION 02/24/2013 MADL GRANULATOR, YUNG L 458.9 HYPOTENSION 02/24/2013 MADL GRANULATOR, YUNG L 458.9 HYPOTENSION 02/24/2013 JEFFERY DO, DANIEL K 458.9 HYPOTENSION 02/24/2013 MADL GRANULATOR, YUNG L 458.9 HYPOTENSION 02/24/2013 MADL GRANULATOR, YUNG L 458.9 HYPOTENSION 02/24/2013 JEFFERY DO, DANIEL K 458.9 HYPOTENSION 02/24/2013 JEFFERY DO, DANIEL K 458.9 HYPOTENSION 02/24/2013 MADL GRANULATOR, YUNG L 458.9 HYPOTENSION 03/23/2013 477.9 ALLERGIC [...] K 786.59 OTHER CHEST PAIN 03/23/2013 MADL GRANULATOR, YUNG L 477.9 ALLERGIC RHINITIS 03/23/2013 MADL GRANULATOR, YUNG L 786.59 OTHER CHEST PAIN 03/23/2013 MADL GRANULATOR, YUNG L 477.9 ALLERGIC RHINITIS 03/23/2013 MADL GRANULATOR, YUGN L 786.59 OTHER CHEST PAIN 03/23/2013 MADL GRANULATOR, YUNG L 477.9 ALLERGIC RHINITIS 03/23/2013 MADL GRANULATOR, YNUG L 786.59 OTHER CHEST PAIN 03/23/2013 JEFFERY DO, DANIEL K 477.9 ALLERGIC RHINITIS 03/23/2013 JEFFERY DO, DANIEL K 786.59 OTHER CHEST PAIN 03/23/2013 MADL GRANULATOR, YUNG L 477.9 ALLERGIC RHINITIS 03/23/2013 MADL GRANULATOR, YUNG L 786.59 OTHER CHEST PAIN 03/23/2013 MADL GRANULATOR, YUNG L 477.9 ALLERGIC RHINITIS 03/23/2013 MADL GRANULATOR, YUNG L 786.59 OTHER CHEST PAIN 03/23/2013 JEFFERY DO, DANIEL K 477.9 ALLERGIC RHINITIS 03/23/2013 JEFFERY DO, DANIEL K 786.59 OTHER CHEST PAIN 03/23/2013 JEFFERY DO, DANIEL K 477.9 ALLERGIC RHINITIS 03/23/2013 JEFFERY DO, DANIEL K 786.59 OTHER CHEST PAIN 03/23/2013 MADL GRANULATOR, YUNG L 477.9 ALLERGIC RHINITIS 03/23/2013 MADL GRANULATOR, YUNG L 786.59 OTHER CHEST PAIN 03/29/2013 [...] DANIEL K 593.9 RENAL INSUFFICIENCY 03/29/2013 MADL GRANULATOR, YUNG L 271.3 GLUCOSE INTOLERANCE 03/29/2013 MADL GRANULATOR, YUNG L 593.9 RENAL INSUFFICIENCY 03/29/2013 MADL GRANULATOR, YUNG L 271.3 GLUCOSE INTOLERANCE 03/29/2013 MADL GRANULATOR, YUNG L 593.9 RENAL INSUFFICIENCY 03/29/2013 MADL GRANULATOR, YUNG L 271.3 GLUCOSE INTOLERANCE 03/29/2013 MADL GRANULATOR, YUNG L 593.9 RENAL INSUFFICIENCY 03/29/2013 JEFFERY DO, DANIEL K 271.3 GLUCOSE INTOLERANCE 03/29/2013 JEFFERY DO, DANIEL K 593.9 RENAL INSUFFICIENCY 03/29/2013 MADL GRANULATOR, YUNG L 271.3 GLUCOSE INTOLERANCE 03/29/2013 MADL GRANULATOR, YUNG L 593.9 RENAL INSUFFICIENCY 03/29/2013 [facility] L 271.3 GLUCOSE INTOLERANCE 03/29/2013 MADL GRANULATOR, YUNG L 593.9 RENAL INSUFFICIENCY 03/29/2013 JEFFERY DO, DANIEL K 271.3 GLUCOSE INTOLERANCE 03/29/2013 JEFFERY DO, DANIEL K 593.9 RENAL INSUFFICIENCY 03/29/2013 JEFFERY DO, DANIEL K 271.3 GLUCOSE INTOLERANCE 03/29/2013 JEFFERY DO, DANIEL K 593.9 RENAL INSUFFICIENCY 03/29/2013 MADL GRANULATOR, YUNG L 271.3 GLUCOSE INTOLERANCE 03/29/2013 MAD GRANULATOR, YUNG L 593.9 RENAL INSUFFICIENCY 06/22/2013 TAMEKA PUCKETT APRN A 625.6 STRESS INCONTINENCE FEMALE 06/22/2013 TAMEKA PUCKETT APRN A V76.12 Mammogram Screening 06/22/2013 JEFFERY DO, DANIEL K 625.6 STRESS INCONTINENCE FEMALE 06/22/2013 JEFFERY DO, DANIEL K V76.12 Mammogram Screening 06/22/2013 ERIKCA PARISI MD 625.6 STRESS INCONTINENCE FEMALE 06/22/2013 ERICKA PARISI MD V76.12 Mammogram Screening 06/22/2013 JEFFERY DO, DANIEL K 625.6 STRESS INCONTINENCE FEMALE 06/22/2013 JEFFERY DO, DANIEL K V76.12 Mammogram Screening 06/22/2013 JEFFERY DO, DANIEL K 625.6 STRESS INCONTINENCE FEMALE 06/22/2013 JEFFERY DO, DANIEL K V76.12 Mammogram Screening 06/22/2013 AILIN FRANKLIN, ERICKA Fernandez 625.6 STRESS INCONTINENCE FEMALE 06/22/2013 AILIN FRANKLIN, ERICKA Fernandez V76.12 Mammogram Screening 06/22/2013 AILIN FRANKLIN, EIRCKA Fernandez 625.6 STRESS INCONTINENCE FEMALE 06/22/2013 AILIN [...] DANIEL K V76.12 Mammogram Screening 06/22/2013 MADL GRANULATOR, YUNG L 625.6 STRESS INCONTINENCE FEMALE 06/22/2013 MADL GRANULATOR, YUNG L V76.12 Mammogram Screening 06/22/2013 MADL GRANULATOR, YUNG L 625.6 STRESS INCONTINENCE FEMALE 06/22/2013 MADL GRANULATOR, YUNG L V76.12 Mammogram Screening 06/22/2013 MADL GRANULATOR, YUNG L 625.6 STRESS INCONTINENCE FEMALE 06/22/2013 MADL GRANULATOR, YUNG L V76.12 Mammogram Screening 06/22/2013 JEFFERY DO, DANIEL K 625.6 STRESS INCONTINENCE FEMALE 06/22/2013 JEFFERY DO, DANIEL K V76.12 Mammogram Screening 06/22/2013 MADL GRANULATOR, YUNG L 625.6 STRESS INCONTINENCE FEMALE 06/22/2013 MADL GRANULATOR, YUNG L V76.12 MAMMOGRAM SCREENING 06/22/2013 MADL GRANULATOR, YUNG L 625.6 STRESS INCONTINENCE FEMALE 06/22/2013 MADL GRANULATOR, YUNG L V76.12 MAMMOGRAM SCREENING 06/22/2013 JEFFERY DO, DANIEL K 625.6 STRESS INCONTINENCE FEMALE 06/22/2013 JEFFERY DO, DANIEL K V76.12 MAMMOGRAM SCREENING 06/22/2013 JEFFERY DO, DANIEL K 625.6 STRESS INCONTINENCE FEMALE 06/22/2013 JEFFERY DO, DANIEL K V76.12 MAMMOGRAM SCREENING 06/22/2013 MADL GRANULATOR, YUNG L 625.6 STRESS INCONTINENCE FEMALE 06/22/2013 MADL GRANULATOR, YUNG L V76.12 MAMMOGRAM SCREENING 06/28/2013 LAVERN GRANULATOR, TAMEKA A 278.00 OBESITY UNSPECIFIED 06/28/2013 LAVERN GRANULATOR, TAMEKA A V65.49 OTHER SPECIFIED COUNSELING 06/28/2013 LAVERN GRANULATOR, TAMEKA A V73.81 HPV SCREENING 06/28/2013 JEFFERY [...] K V73.81 HPV SCREENING 06/28/2013 JEFFERY DO, ADNIEL K 278.00 OBESITY 06/28/2013 JEFFERY DO, DANIEL [...] DANIEL K V73.81 HPV SCREENING 06/28/2013 MADL GRANULATOR, YUNG L 278.00 OBESITY 06/28/2013 MADL GRANULATOR, YUNG L V65.49 OTHER SPECIFIED COUNSELING 06/28/2013 MADL GRANULATOR, YUNG L V73.81 HPV SCREENING 06/28/2013 MADL GRANULATOR, YUNG L 278.00 OBESITY 06/28/2013 MADL GRANULATOR, YUNG L V65.49 OTHER SPECIFIED COUNSELING 06/28/2013 MADL GRANULATOR, YUNG L V73.81 HPV SCREENING 06/28/2013 MADL GRANULATOR, YUNG L 278.00 OBESITY 06/28/2013 MADL GRANULATOR, YUNG L V65.49 OTHER SPECIFIED COUNSELING 06/28/2013 MADL GRANULATOR, YUNG L V73.81 HPV SCREENING 06/28/2013 JEFFERY DO, DANIEL K 278.00 OBESITY 06/28/2013 JEFFERY DO, DANIEL K V65.49 OTHER SPECIFIED COUNSELING 06/28/2013 JEFFERY DO, DANIEL K V73.81 HPV SCREENING 06/28/2013 MADL GRANULATOR, YUNG L 278.00 OBESITY 06/28/2013 MADL GRANULATOR, YUNG L V65.49 OTHER SPECIFIED COUNSELING 06/28/2013 MADL GRANULATOR, YUNG L V73.81 HPV SCREENING 06/28/2013 MADL GRANULATOR, YUNG L 278.00 OBESITY 06/28/2013 MADL GRANULATOR, YUNG L V65.49 OTHER SPECIFIED COUNSELING 06/28/2013 MADL GRANULATOR, YUNG L V73.81 HPV SCREENING 06/28/2013 JEFFERY DO, DANIEL K 278.00 OBESITY 06/28/2013 DANIEL JEFFERY DO K V65.49 OTHER SPECIFIED COUNSELING 06/28/2013 SONAM JEFFERY DOA K V73.81 HPV SCREENING 06/28/2013 SONAM JEFFERY DOA K 278.00 OBESITY 06/28/2013 JEFFERY DO DANIEL K V65.49 OTHER SPECIFIED COUNSELING 06/28/2013 JEFFERY DO DAINEL K V73.81 HPV SCREENING 06/28/2013 MADL GRANULATOR, YUNG L 278.00 OBESITY 06/28/2013 MADL GRANULATOR, YUNG L V65.49 OTHER SPECIFIED COUNSELING 06/28/2013 MADL GRANULATOR, YUNG L V73.81 HPV SCREENING 06/29/2013 SONAM [...] TENDONS IN SHOULDER REGION UNSPECIFIED 06/29/2013 MADL GRANULATOR, YUNG L 726.10 DISORDERS OF BURSAE AND TENDONS IN SHOULDER REGION UNSPECIFIED 06/29/2013 MADL GRANULATOR, YUNG L 726.10 DISORDERS OF BURSAE AND TENDONS IN SHOULDER REGION UNSPECIFIED 06/29/2013 MADL GRANULATOR, YUNG L 726.10 DISORDERS OF BURSAE AND TENDONS IN SHOULDER REGION UNSPECIFIED 06/29/2013 SONAM JEFFERY DOA K 726.10 DISORDERS OF BURSAE AND TENDONS IN SHOULDER REGION UNSPECIFIED 06/29/2013 MADL GRANULATOR, YUNG L 726.10 DISORDERS OF BURSAE AND TENDONS IN SHOULDER REGION UNSPECIFIED 06/29/2013 VIANNEYL GRANULATOR, YUNG L 726.10 DISORDERS OF BURSAE AND TENDONS IN SHOULDER REGION UNSPECIFIED 06/29/2013 DANIEL JEFFERY DO K 726.10 DISORDERS OF BURSAE AND TENDONS IN SHOULDER REGION UNSPECIFIED 06/29/2013 SONAM JEFFERY DOA K 726.10 DISORDERS OF BURSAE AND TENDONS IN SHOULDER REGION UNSPECIFIED 06/29/2013 MADL GRANULATOR, YUNG L 726.10 DISORDERS OF BURSAE AND [...] WANG DANIEL K 787.02 nausea 10/20/2013 MADL GRANULATOR, YUNG L 525.9 tooth pain 10/20/2013 MADL GRANULATOR, YUNG L 787.02 nausea 10/20/2013 MADL GRANULATOR, YUNG L 525.9 tooth pain 10/20/2013 MADL GRANULATOR, YUNG L 787.02 nausea 10/20/2013 MADL GRANULATOR, YUNG L 525.9 tooth pain 10/20/2013 MADL GRANULATOR, YUNG L 787.02 nausea 10/20/2013 JEFFERY DO DANIEL K 525.9 tooth pain 10/20/2013 JEFFERY DO DANIEL K 787.02 nausea 10/20/2013 MADL GRANULATOR, YUNG L 525.9 TOOTH PAIN 10/20/2013 MADL GRANULATOR, YUNG L 787.02 NAUSEA 10/20/2013 MADL GRANULATOR, YUNG L 525.9 TOOTH PAIN 10/20/2013 MADL GRANULATOR, YUNG L 787.02 NAUSEA 10/20/2013 JEFFERY DO, DANIEL K 525.9 TOOTH PAIN 10/20/2013 JEFFERY DO, DANIEL K 787.02 NAUSEA 10/20/2013 JEFFERY DO, DANIEL K 525.9 TOOTH PAIN 10/20/2013 JEFFERY DO, DANIEL K 787.02 NAUSEA 10/20/2013 MADL GRANULATOR, YUNG L 525.9 TOOTH PAIN 10/20/2013 MADL GRANULATOR, YUNG L 787.02 NAUSEA 02/28/2014 MADL GRANULATOR, YUNG L 461.9 SINUSITIS ACUTE 02/28/2014 MADL GRANULATOR, YUNG L 461.9 SINUSITIS ACUTE 02/28/2014 JEFFERY DO DANIEL K 461.9 SINUSITIS ACUTE 02/28/2014 MADL GRANULATOR, YUNG L 461.9 SINUSITIS ACUTE 02/28/2014 MADL GRANULATOR, YUNG L 461.9 SINUSITIS ACUTE 02/28/2014 JEFFERY DO, DANIEL K 461.9 SINUSITIS ACUTE 02/28/2014 JEFFERY DO, DANIEL K 461.9 SINUSITIS ACUTE 02/28/2014 MADL GRANULATOR, YUNG L 461.9 SINUSITIS ACUTE 04/03/2014 DANNIE CLOUD MD Ot V57.1 PHYSICAL THERAPY [facility] 04/03/2014 DANNIE CLOUD MD Ot V58.78 AFTERCARE POST SURGERY MUSCULOSKELETAL S 04/16/2014 DANNIE CLOUD MD Ot V57.1 PHYSICAL THERAPY NEC 04/16/2014 DANNIE CLOUD MD Ot V58.78 AFTERCARE POST SURGERY MUSCULOSKELETAL S 04/30/2014 SONAM JEFFERY DOA K V15.06 PERSONAL HISTORY OF ALLERGY TO INSECTS AND ARACHNIDS 04/30/2014 VIANNEYL GRANULATORJOEY CaballeroA L V15.06 PERSONAL HISTORY OF ALLERGY [...] 719.41 JOINT PAIN-SHLDER 03/04/2016 MADL, YUNG L CORPORATE PLANNER Ot Z12.31 ENCNTR SCREEN MAMMOGRAM FOR MALIGNANT NE 03/20/2016 MADL, YUNG L CORPORATE PLANNER Ot Z12.31 ENCNTR SCREEN MAMMOGRAM FOR MALIGNANT NE 03/23/2016 MADL, YUNG L CORPORATE PLANNER Ot Z12.31 ENCNTR SCREEN MAMMOGRAM FOR MALIGNANT NE 03/23/2016 MADL, YUNG L CORPORATE PLANNER Ot Z12.31 ENCNTR SCREEN MAMMOGRAM FOR MALIGNANT NE 03/26/2016 MADL, YUNG L CORPORATE PLANNER Ot Z12.31 ENCNTR SCREEN MAMMOGRAM FOR MALIGNANT NE 04/16/2016 MADL, YUNG L CORPORATE PLANNER Ot Z12.31 ENCNTR SCREEN MAMMOGRAM FOR MALIGNANT NE 04/24/2016 MADL, YUNG L CORPORATE PLANNER Ot Z12.31 ENCNTR SCREEN MAMMOGRAM FOR MALIGNANT NE 03/08/2017 Ot 784.2 SWELLING IN HEAD NECK 03/08/2017 Ot V76.12 OTH SCREEN MAMMO-MALIGN NEOPLASM OF DARYL 03/08/2017 Ot 787.02 NAUSEA ALONE 03/08/2017 Ot 789.00 ABDOMINAL PAIN, UNSPECIFIED SITE 03/08/2017 ERICKA PARISI MD Ot V76.12 OTH SCREEN MAMMO-MALIGN NEOPLASM OF DARYL 03/08/2017 ERICKA PARISI MD Ot 719.41 JOINT PAIN-SHLDER 03/08/2017 MADL, YUNG L CORPORATE PLANNER Ot Z12.31 ENCNTR SCREEN MAMMOGRAM FOR MALIGNANT NE 03/08/2017 MADL, YUNG L CORPORATE PLANNER Ot Z12.31 ENCNTR SCREEN MAMMOGRAM FOR MALIGNANT NE 03/08/2017 STEVE FRANKLIN, LALO Bejarano Ot F31.9 BIPOLAR DISORDER, UNSPECIFIED 03/08/2017 STEVE FRANKLIN, LALO Bejarano Ot M51.36 OTHER INTERVERTEBRAL DISC DEGENERATION, 03/08/2017 STEVE FRANKLIN, LALO T Ot R45.851 SUICIDAL IDEATIONS 03/08/2017 LALO WILSON MD Ot R46.4 SLOWNESS AND POOR RESPONSIVENESS 03/08/2017 LALO WILSON MD Ot T42.8X2A POISN BY ANTIPARKNS DRUG/[facility] 03/08/2017 LALO WILSON MD Ot Z98.1 ARTHRODESIS STATUS 03/10/2017 LALO WILSON MD Ot F31.9 BIPOLAR DISORDER, UNSPECIFIED 03/10/2017 LALO WILSON MD Ot M51.36 OTHER INTERVERTEBRAL DISC DEGENERATION, 03/10/2017 LALO WILSON MD Ot R45.851 SUICIDAL IDEATIONS 03/10/2017 LALO WILSON MD Ot R46.4 SLOWNESS AND POOR RESPONSIVENESS 03/10/2017 LALO WILSON MD Ot T42.8X2A POISN BY ANTIPARKNS DRUG/[facility] 03/10/2017 LALO WILSON MD Ot Z98.1 ARTHRODESIS STATUS 03/10/2017 Ot 784.2 SWELLING IN HEAD NECK 03/10/2017 Ot V76.12 OTH SCREEN MAMMO-MALIGN NEOPLASM OF DARYL 03/10/2017 Ot 787.02 NAUSEA ALONE 03/10/2017 Ot 789.00 ABDOMINAL PAIN, UNSPECIFIED SITE 03/10/2017 ERICKA PARISI MD Ot V76.12 OTH SCREEN MAMMO-MALIGN NEOPLASM OF DARYL 03/10/2017 ERICKA PARISI MD Ot 719.41 JOINT PAIN-SHLDER 03/10/2017 YUNG MOSER CORPORATE PLANNER Ot Z12.31 ENCNTR SCREEN MAMMOGRAM FOR MALIGNANT NE 03/10/2017 YUNG MOSER CORPORATE PLANNER Ot Z12.31 ENCNTR SCREEN MAMMOGRAM FOR MALIGNANT NE 03/10/2017 ALEXEY SARAVIA MD Ot F31.9 BIPOLAR DISORDER, UNSPECIFIED 03/10/2017 ALEXEY SARAVIA MD Ot M47.9 SPONDYLOSIS, UNSPECIFIED 03/10/2017 ALEXEY SARAVIA MD Ot S61.412A LACERATION WITHOUT FOREIGN BODY OF LEFT 03/10/2017 RANI FRANKLIN, ALEXEY Knapp Ot W26.0XXA CONTACT WITH KNIFE, INITIAL ENCOUNTER 04/17/2018 Ot F31.9 BIPOLAR DISORDER, UNSPECIFIED 04/17/2018 Ot K21.9 GASTRO- ESOPHAGEAL REFLUX DISEASE WITHOUT 04/17/2018 Ot L25.9 UNSPECIFIED CONTACT DERMATITIS, UNSPECIF 04/17/2018 Ot L98.499 NON- PRESSURE CHRONIC ULCER OF SKIN OF SI 04/17/2018 Ot L98.9 DISORDER OF THE SKIN AND SUBCUTANEOUS TI 04/17/2018 Ot Z88.8 ALLERGY STATUS TO OTH DRUG/MEDS/BIOL SUB 04/17/2018 Ot Z98.1 ARTHRODESIS STATUS 04/27/2018 Ot F31.9 BIPOLAR DISORDER, UNSPECIFIED 04/27/2018 Ot K21.9 GASTRO- ESOPHAGEAL REFLUX DISEASE WITHOUT 04/27/2018 Ot L25.9 UNSPECIFIED CONTACT DERMATITIS, UNSPECIF 04/27/2018 Ot L98.499 NON- PRESSURE CHRONIC ULCER OF SKIN OF SI 04/27/2018 Ot L98.9 DISORDER OF THE SKIN AND SUBCUTANEOUS TI 04/27/2018 Ot Z88.8 ALLERGY STATUS TO OTH DRUG/MEDS/BIOL SUB 04/27/2018 Ot Z98.1 ARTHRODESIS STATUS Procedures Code Description [place] [address] INDIV PSYTX 20/30 MIN 07/08/2012 89186 INDIV PSYTX 45/50 MIN 08/16/2012 39424 ROUTINE VENIPUNCTURE 09/07/2012 50635 IV INFUSION 09/07/2012 J7030 NORMAL SALINE SOLUTION INFUS 09/07/2012 22083 UA LONG DIP 09/07/2012 61348 CBC 09/08/2012 79435 CMP 09/08/2012 [id number] GFR CALC (RESULT ONLY) 09/08/2012 80344 LIPASE 09/09/2012 22360 PSYTX PT&/FAMILY 45 MINUTES 09/23/2012 20245 XRAY ABDOMEN 2 VIEWS 09/26/2012 82765 PSYTX PT&/FAMILY 30 MINUTES 11/02/2012 89068 PSYTX PT&/FAMILY 45 MINUTES 11/28/2012 28034 PSYTX PT&/FAMILY 45 MINUTES 01/03/2013 66388 URINE DRUG SCREEN (IN-HOUSE ) 01/27/2013 68557 UA LONG DIP 06/22/2013 02922 URINE DRUG SCREEN (IN-HOUSE ) 06/22/2013 G0008 FLU ADMINISTRATION ( MEDICARE ONLY) 06/22/2013 95391 ROUTINE VENIPUNCTURE 06/23/2013 82154 XRAY SHOULDER RIGHT COMP 2 VIEWS 06/23/2013 12093 A1C (IN-HOUSE) 06/23/2013 [id number] GFR CALC (RESULT ONLY) 06/23/2013 73791 BMP 06/23/2013 94962 PAP SMEAR 06/28/2013 Q0091 PAP SMEAR OBTAIN SMEAR 06/28/2013 28798 MAMMOGRAM, SCREENING 06/29/2013 93818 JOINT INJECTION- INTERMEDIATE JOINT 06/29/2013 85755 URINE DRUG SCREEN (IN-HOUSE ) 08/04/2013 PHYSICAL KIMI QUISPE 08/07/2013 17335 MRI EXTREMITY JOINT, UPPER RIGHT W & W/O CONTRAST 08/09/2013 JOINT INJECTION- INTERMEDIATE JOINT 08/24/2013 86131 URINE DRUG SCREEN (IN-HOUSE ) 10/20/2013 50995 ROUTINE VENIPUNCTURE 11/09/2013 [id number] GFR CALC (RESULT ONLY) 11/09/2013 67043 [facility] 11/09/2013 08198 LIPID PANEL 11/09/2013 Dannie Marroquin 12/14/2013 20137 ROUTINE VENIPUNCTURE 07/16/2014 [id number] GFR CALC (RESULT ONLY) 07/17/2014 45249 [facility] 07/17/2014 23104 XRAY LUMBAR SPINE 2 OR 3 VIEWS 07/17/2014 [id number] GFR CALC (RESULT ONLY) 08/15/2014 64843 [facility] 08/15/2014 90724 ROUTINE VENIPUNCTURE 12/31/2014 47195 [facility] 12/31/2014 Results Test Result Range CBC With [...] NON HDL CHOLESTEROL 121 mg/dL (calc) <130 CMP - 05/06/18 08:44 GLUCOSE 73 mg/dL 65-139 UREA NITROGEN (BUN) 19 mg/dL 7-25 CREATININE 0.87 mg/dL 0.50-1.05 eGFR NON-AFR. MARSHALLESE 76 mL/min/1.73m2 > OR=60 eGFR 88 mL/min/1.73m2 > OR=60 BUN/CREATININE RATIO NOT APPLICABLE (calc) 6-22 SODIUM 138 mmol/L 135-146 POTASSIUM 5.1 mmol/L 3.5-5.3 CHLORIDE 108 mmol/L 98-110 CARBON DIOXIDE 26 mmol/L 20-32 CALCIUM 9.6 mg/dL 8.6-10.4 PROTEIN, TOTAL 7.1 g/dL 6.1-8.1 ALBUMIN 4.3 g/dL 3.6-5.1 GLOBULIN 2.8 g/dL (calc) 1.9-3.7 ALBUMIN/GLOBULIN RATIO 1.5 (calc) 1.0-2.5 BILIRUBIN, TOTAL 0.4 mg/dL 0.2-1.2 ALKALINE PHOSPHATASE 89 U/L 33-130 AST 21 U/L 10-35 ALT 15 U/L 6-29 Encounters ACCT No. Visit Date/Time Discharge Status Pt. Type Provider Facility Loc./Unit Complaint [id number] 12/31/2014 12:08:00 12/31/2014 23:59:59 CLS Outpatient MADL GRANULATOR YUNG L [id number] 11/23/2014 13:39:00 11/23/2014 23:59:59 CLS Outpatient DANIEL JEFFERY DO [id number] 08/15/2014 13:59:00 08/15/2014 23:59:59 CLS Outpatient DANIEL JEFFERY DO [id number] 07/16/2014 14:26:00 07/16/2014 23:59:59 CLS Outpatient MADL GRANULATOR YUNG L [id number] 06/15/2014 11:49:00 06/15/2014 23:59:59 CLS Outpatient MADL GRANULATORJOEYShannan Martínez [id number] 04/30/2014 10:31:00 04/30/2014 23:59:59 CLS Outpatient DANIEL JEFFERY DO [id number] 03/30/2014 08:49:00 03/30/2014 23:59:59 CLS Outpatient MADL GRANULATOR YUNG L [id number] 02/28/2014 08:52:00 02/28/2014 23:59:59 CLS Outpatient MADL GRANULATOR YUNG L [id number] 01/25/2014 10:48:00 01/25/2014 23:59:59 CLS Outpatient MADL GRANULATORYUNG Caballero [id number] 12/25/2013 15:51:00 12/25/2013 23:59:59 CLS Outpatient DANIEL JEFFERY DO [id number] 12/14/2013 13:50:00 12/14/2013 23:59:59 CLS Outpatient DANIEL JEFFERY DO [id number] 11/14/2013 13:43:00 11/14/2013 23:59:59 CLS Outpatient DANIEL JEFFERY DO [id number] 11/09/2013 10:24:00 11/09/2013 23:59:59 CLS Outpatient ERICKA PARISI MD [id number] 10/26/2013 12:58:00 10/26/2013 23:59:59 CLS Outpatient DANIEL JEFFERY DO [id number] 10/20/2013 11:04:00 10/20/2013 23:59:59 CLS Outpatient ERICKA PARISI MD [id number] 08/24/2013 16:01:00 08/24/2013 23:59:59 CLS Outpatient DANIEL JEFFERY DO [place] [id number] 08/04/2013 09:18:00 08/04/2013 23:59:59 CLS Outpatient ERICKA PARISI MD [id number] 06/29/2013 15:29:00 06/29/2013 23:59:59 CLS Outpatient DANIEL JEFFERY DO [place] [id number] 06/28/2013 09:08:00 06/28/2013 23:59:59 CLS Outpatient LAVERNTAMEKA ALAN APRN [id number] 04/25/2013 15:44:00 04/25/2013 23:59:59 CLS Outpatient ERICKA PARISI MD [id number] 11/28/2012 14:52:00 11/28/2012 23:59:59 CLS Outpatient [id number] 11/02/2012 12:57:00 11/02/2012 23:59:59 CLS Outpatient OLIVIA HAYDEN PHD [id number] 10/26/2012 14:41:00 10/26/2012 23:59:59 CLS Outpatient [id number] 10/18/2012 07:55:00 10/18/2012 23:59:59 CLS Outpatient MASOUD ATKINS MD [id number] 09/23/2012 12:52:00 09/23/2012 23:59:59 CLS Outpatient OLIVIA HAYDEN PHD [id number] 09/07/2012 15:02:00 09/07/2012 23:59:59 CLS Outpatient [id number] 08/16/2012 15:59:00 08/16/2012 23:59:59 CLS Outpatient [id number] 07/08/2012 14:58:00 07/08/2012 23:59:59 CLS Outpatient OLIVIA HAYDEN PHD [id number] 04/25/2013 15:44:00 Document Registration [id number] 02/24/2013 15:17:00 Document Registration [id number] 01/27/2013 13:53:00 Document Registration [id number] 12/30/2012 14:49:00 Document Registration [id number] 12/23/2012 14:00:00 Document Registration [id number] 12/02/2012 13:50:00 Document Registration [id number] 06/18/2016 08:07:00 Document Registration [id number] 09/25/2017 14:00:00 09/25/2017 23:59:59 CLS Outpatient MADL JOEY DE LA ROSAA L [facility] [id number] 05/06/2018 08:00:00 Document Registration [id number] 08/02/2017 10:40:00 Document Registration [id number] 05/26/2018 15:06:00 05/26/2018 23:59:59 CLS Outpatient MAURICIOJUAN JOSE PABONYL [employer] RAD XRAY CERVICAL SPINE [id number] 03/10/2017 08:44:00 03/10/2017 09:35:00 DIS Emergency ALEXEY SARAVIA MD [facility] ER LT HAND LACERATION [id number] 03/08/2017 16:17:00 03/08/2017 19:42:00 DIS Emergency LALO WILSON MD [facility] ER SUICIDE ATTEMPT [id number] 03/20/2016 10:16:00 03/20/2016 23:59:59 CLS Outpatient MADL, YUNG L [employer] [facility] RAD SCREENING [id number] 03/03/2016 11:28:00 03/03/2016 23:59:59 CLS Outpatient MADL, YUNG L [employer] [facility] RAD SCREENING [id number] 04/04/2014 15:18:00 04/16/2014 16:09:00 DIS Outpatient DANNIE CLOUD MD [facility] REHAB R SHOULDER DEBRIDEMENT BICEPS TENOTOMY CHONDROPLAS [id number] 03/15/2014 12:47:00 04/03/2014 00:01:00 DIS Outpatient DANNIE CLOUD MD [facility] REHAB R SHOULDER DEBRIDEMENT BICEPS TENOTOMY CHONDROPLAS [id number] 08/09/2013 13:11:00 08/09/2013 23:59:59 CLS Outpatient ERICKA PARISI MD [facility] RAD RIGHT SHOULDER PAIN [id number] 06/29/2013 10:03:00 06/29/2013 23:59:59 CLS Outpatient ERICKA PARISI MD [facility] RAD SCREENING [id number] 04/17/2018 01:34:00 Document Registration [id number] 10/05/2012 07:44:00 Document Registration [id number] 08/24/2012 14:16:00 Document Registration [id number] 06/10/2012 14:30:00 Document Registration [id number] 01/27/2012 15:39:00 Document Registration [id number] 05/14/2011 10:24:00 Document Registration [id number] 01/29/2011 15:06:00 Document Registration [id number] 12/26/2010 12:26:00 Document Registration [id number] 12/25/2010 10:52:00 Document Registration [id number] 12/09/2010 09:28:00 Document Registration [id number] 02/26/2017 08:07:00 Document Registration [id number] 10/14/2016 08:44:00 Document Registration
[2018-06-10] MEDS ORDERED: CEPH-507 PO (12:55)
[2018-06-10] MEDS ORDERED: HYDR-4226 PO (12:55)
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
[2018-06-10 13:07] VITALS: BP 128/77
== END 2018-06-10 13:08 | disposition home or self-care (01) ==
LOC: EDUNIT# 12:13 → ER 12:15
DX: S61.431A Puncture wound without foreign body of right hand, initial encounter (principal); K21.9 Gastro-esophageal reflux disease without esophagitis; F31.9 Bipolar disorder, unspecified; Z88.8 Allergy status to other drugs, medicaments and biological substances; Z98.1 Arthrodesis status; W27.8XXA Contact with other nonpowered hand tool, initial encounter
CPT/HCPCS: 99282

== ENCOUNTER 2018-08-15 11:39 | Outpatient (RCR) | payer OTHER ==
[~2018-08-15 11:39] MED LIST changes: +CEPH-507 PO; +HYDR-4226 PO
[2018-08-18] MEDS ORDERED: CEPH500T PO (12:16)
== END 2018-09-19 | disposition home or self-care (01) ==
PROVIDERS: ATTEND Nurse Practitioner Family
DX: M25.512 Pain in left shoulder (principal)

== ENCOUNTER 2018-08-18 08:49 | Emergency (ER) | payer MEDICARE, MEDICAID ==
[~2018-08-18] VITALS: Ht 162.6 cm; Wt 77.1 kg
[2018-08-18] MEDS ORDERED: NS IV 1000 ML 1,000 ML IV ONE (09:04)
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
[2018-08-18 09:55] LABS: BASOPHILS % (AUTO) 0 % (0-10); EOSINOPHILS % (AUTO) 0 % (0-10); HEMATOCRIT 39 % (35-52); HEMOGLOBIN 12.7 G/DL (11.5-16.0); LYMPHOCYTES # (AUTO) 1.2 X 10^3 (1.0-4.0); LYMPHOCYTES % (AUTO) 9 % (12-44); MEAN CORPUSCULAR HEMOGLOBIN 27 PG (25-34); MEAN CORPUSCULAR HGB CONC 32 G/DL (32-36); MEAN CORPUSCULAR VOLUME 84 FL (80-99); MEAN PLATELET VOLUME 9.2 FL (7.4-10.4); MONOCYTES # (AUTO) 0.9 X 10^3 (0.0-1.0); MONOCYTES % (AUTO) 7 % (0-12); NEUTROPHILS # (AUTO) 10.6 X 10^3 (1.8-7.8); NEUTROPHILS % (AUTO) 84 % (42-75); PLATELET COUNT 310 10^3/uL (130-400); RED BLOOD COUNT 4.67 10^6/uL (4.35-5.85); RED CELL DISTRIBUTION WIDTH 13.9 % (10.0-14.5); WHITE BLOOD COUNT 12.6 10^3/uL (4.3-11.0)
[2018-08-18 10:20] LABS: ALANINE AMINOTRANSFERASE 45 U/L (0-55); ALBUMIN 4.5 GM/DL (3.2-4.5); ALKALINE PHOSPHATASE 73 U/L (40-136); BILIRUBIN,TOTAL 0.9 MG/DL (0.1-1.0); BUN/CREATININE RATIO 16; CALCIUM 9.6 MG/DL (8.5-10.1); CARBON DIOXIDE 20 MMOL/L (21-32); CHLORIDE 109 MMOL/L (98-107); CREATININE SERUM 1.46 MG/DL (0.60-1.30); GFR ESTIMATED 37; GLUCOSE 98 MG/DL (70-105); POTASSIUM 4.4 MMOL/L (3.6-5.0); SALICYLATE < 5.0 MG/DL (5.0-20.0); SODIUM 145 MMOL/L (135-145); TOTAL PROTEIN 7.6 GM/DL (6.4-8.2)
[2018-08-18 10:21] LABS: ACETAMINOPHEN < 10 UG/ML (10-30)
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
--- NOTE | 2018-08-18 10:40 | Diagnostic Imaging Report ---
INDICATION: Left forearm pain. TECHNIQUE: AP and lateral views of the left forearm were obtained. FINDINGS: No fracture or acute bony abnormality is seen. IMPRESSION: Negative left forearm. Dictated by: Dictated on workstation # [id number]
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
[2018-08-18 11:18] LABS: BILIRUBIN,URINE NEGATIVE (NEGATIVE); CLARITY,URINE CLEAR; COLOR,URINE YELLOW; GLUCOSE, URINE (UA) NEGATIVE (NEGATIVE); KETONES,URINE 3+ (NEGATIVE); LEUKOCYTE ESTERASE ,URINE 1+ (NEGATIVE); NITRITE,URINE NEGATIVE (NEGATIVE); PH,URINE 5 (5-9); PROTEIN,URINE NEGATIVE (NEGATIVE); UROBILINOGEN,URINE NORMAL (NORMAL)
[2018-08-18 11:33] LABS: AMPHETAMINE SCREEN, URINE NEGATIVE (NEGATIVE); BARBITURATE SCREEN URINE NEGATIVE (NEGATIVE); BENZODIAZEPINES SCREEN URINE NEGATIVE (NEGATIVE); CANNABINOID SCREEN, URINE NEGATIVE (NEGATIVE); COCAINE SCREEN URINE NEGATIVE (NEGATIVE); METHADONE STAT NEGATIVE (NEGATIVE); METHAMPHETAMINE SCREEN URINE S NEGATIVE (NEGATIVE); OPIATE SCREEN URINE NEGATIVE (NEGATIVE); OXYCODONE STAT NEGATIVE (NEGATIVE); PROPOXYPHENE STAT NEGATIVE (NEGATIVE); TRICYCLIC ANTIDEPRESSANTS SCRE POSITIVE (NEGATIVE)
[2018-08-18 11:34] LABS: BACTERIA,URINE TRACE /HPF; HYALINE CASTS, URINE 25-50 /LPF
[2018-08-18] MEDS ORDERED: CEPH500T PO (12:16)
[2018-08-18 12:32] VITALS: BP 133/66
[2018-08-18] MEDS ORDERED: NS IV 1000 ML 1,000 ML ONE (14:31)
== END 2018-08-18 12:32 | disposition home or self-care (01) ==
LOC: EDUNIT# 08:49 → ER 08:50
DX: S20.212A Contusion of left front wall of thorax, initial encounter (principal); S50.12XA Contusion of left forearm, initial encounter; S70.12XA Contusion of left thigh, initial encounter; S70.11XA Contusion of right thigh, initial encounter; S70.02XA Contusion of left hip, initial encounter; R41.3 Other amnesia; K21.9 Gastro-esophageal reflux disease without esophagitis; F31.9 Bipolar disorder, unspecified; F17.200 Nicotine dependence, unspecified, uncomplicated; Z88.8 Allergy status to other drugs, medicaments and biological substances; Z98.1 Arthrodesis status; Y09 Assault by unspecified means
CPT/HCPCS: 36415; 71046; 73090; 80053; 80306; 80320; 80329; 81000; 85025; 93005; 96372

== ENCOUNTER 2019-04-30 15:10 | Emergency (ER) | payer MEDICAID, MEDICARE ==
[~2019-04-30] VITALS: Ht 162.6 cm; Wt 79.4 kg
--- NOTE | 2019-04-30 15:29 | ED Lower Extremity ---
General Chief Complaint: Laceration Stated Complaint: R FOOT LAC Nursing Triage Note: TO TRIAGE ET STATES SHE OPENED A CABINET AND A BUNCH OF THING FELL OUT LANDING ON RIGHT GREAT TOE. Nursing Sepsis Screen: No Definite Risk Source: patient Exam Limitations: no limitations History of Present Illness Date Seen by Provider: Apr 30, 2019 Time Seen by Provider: 15:27 Initial Comments To ER with c/o right great toe bleeding from the nail edges after opening the cabinet and several items fell out landing on the toe. Onset: just prior to arrival Severity: moderate Pain/Injury Location: right 1st toe Method of Injury: fell Modifying Factors: Worse With Movement Allergies and Home Medications Allergies Coded Allergies: alprazolam (Unverified Allergy, Unknown, 03/10/17) meloxicam (Unverified Allergy, Unknown, 03/10/17) Home Medications Pramipexole Di-Hcl 1.5 Mg Tablet, 1.5 MG PO HS, (Reported) Rabeprazole Sodium 20 Mg Tablet.dr, 20 MG PO DAILY, (Reported) Patient Home Medication List Home Medication List Reviewed: Yes Review of Systems Constitutional: see HPI EENTM: see HPI Respiratory: no symptoms reported Cardiovascular: no symptoms reported Genitourinary: no symptoms reported Musculoskeletal: no symptoms reported Skin: no symptoms reported Psychiatric/Neurological: No Symptoms Reported Past Xczkhaj-Bqhlii-Bsfkzs Hx Patient Social History Alcohol Use: Denies Use Recreational Drug Use: No Smoking Status: Never a Smoker 2nd Hand Smoke Exposure: No Recent Foreign Travel: No Contact w/Someone Who Travel: No Recent Infectious Disease Expo: No Recent Hopitalizations: No Immunizations Up To Date Tetanus Booster (TDap): Less than 5yrs Date of Influenza Vaccine: Jun 06, 2012 Seasonal Allergies Seasonal Allergies: No Past Medical History Surgeries: Yes (LEFT HAND, NECK FUSION) Orthopedic Respiratory: No Cardiac: No Neurological: No Reproductive Disorders: Yes Genitourinary: No Gastrointestinal: Yes (COLONOSCOPY) Gastroesophageal Reflux Musculoskeletal: Yes Degenerate Disk Disease Endocrine: No HEENT: No Cancer: No Psychosocial: Yes Bipolar Integumentary: No Recent Skin Changes Blood Disorders: No Family Medical History No Pertinent Family Hx Physical Exam Vital Signs Vital Signs - First Documented 04/30/19 15:15 Temp 98.0 Pulse 82 Resp 16 B/P (MAP) 142/100 (114) Pulse Ox 97 O2 Delivery Room Air Capillary Refill : Less Than 3 Seconds Height, Weight, BMI Height: 5'4.00" Weight: 175lbs. 0oz. 79.280295em; 35.87 BMI Method:Stated General Appearance: WD/WN, no apparent distress HEENT: PERRL/EOMI, normal ENT inspection Respiratory: no respiratory distress, no accessory muscle use Hips: bilateral hip non-tender, bilateral hip normal inspection, bilateral hip normal range of motion Legs: bilateral leg non-tender, bilateral leg normal inspection, bilateral leg normal range of motion Knees: bilateral knee non-tender, bilateral knee normal inspection, bilateral knee normal range of motion Ankles: bilateral ankle non-tender, bilateral ankle normal inspection, bilateral ankle normal range of motion Feet: right foot other (right great toenail is surrounded by blood. no obvious laceration. ) Neurologic/Psychiatric: alert, normal mood/affect, oriented x 3 Skin: normal color, warm/dry Procedures/Interventions Suture Size: 4-0 Progress/Results/Core Measures Results/Orders My Orders Orders - GENNY JONES APRN Foot, Right, 3 View (04/30/19 15:26) Vital Signs/I&O 04/30/19 15:15 Temp 98.0 Pulse 82 Resp 16 B/P (MAP) 142/100 (114) Pulse Ox 97 O2 Delivery Room Air Blood Pressure Mean: 114 Departure Communication (Admissions) it appears that the nail has been partially lifted off of the nail bed. pt is very intolerant of much cleaning/examination of the toe. WIll prescribe an antibiotic, follow up with podiatry. Impression Primary Impression: Toenail avulsion Disposition: 01 HOME, SELF-CARE Condition: Stable Departure-Patient Inst. Decision time for Depature: 15:29 Referrals: KELIN MARTÍNEZ (PCP) Primary Care Physician Patient Instructions: Toe Injury Add. Discharge Instructions: 1. Call one of the podiatrists listed tomorrow for an appointment for follow up 2. Return to ER for any cocerns 3. Antibiotic as directed All discharge instructions reviewed with patient and/or family. Voiced understanding. Scripts Cephalexin (Keflex) 500 Mg Capsule 500 MG PO TID, #21 CAP Prov: GENNY JONES APRN 04/30/19 GENNY JONES APRN Apr 30, 2019 15:29
--- NOTE | 2019-04-30 15:43 | Diagnostic Imaging Report ---
PATIENT HISTORY: Trauma to the right great toe TECHNIQUE: Three views of the right great toe. COMPARISON: None. FINDINGS: No acute fracture or dislocation is seen in the right foot. Alignment appears normal. Joint spaces are preserved. Small calcaneal enthesophytes are seen. IMPRESSION: No acute osseous abnormality seen in the right foot. Dictated by: Dictated on workstation # [id number]
[2019-04-30] MEDS ORDERED: CEPH-507 PO (15:55)
[2019-04-30 16:10] VITALS: BP 142/100
== END 2019-04-30 16:10 | disposition home or self-care (01) ==
LOC: EDUNIT# 15:10 → ER 15:12
DX: S91.201A Unspecified open wound of right great toe with damage to nail, initial encounter (principal); K21.9 Gastro-esophageal reflux disease without esophagitis; F31.9 Bipolar disorder, unspecified; Z88.8 Allergy status to other drugs, medicaments and biological substances; Z88.6 Allergy status to analgesic agent; Z98.1 Arthrodesis status; W20.8XXA Other cause of strike by thrown, projected or falling object, initial encounter
CPT/HCPCS: 73630

== ENCOUNTER 2022-02-17 09:02 | Emergency (ER) | payer MEDICARE ==
[~2022-02-17] VITALS: Ht 162.5 cm; Wt 418.8 kg
[~2022-02-17 09:02] MED LIST changes: -SULF1TAB35 PO; +SULF1TAB38 PO
[2022-02-17 09:04] VITALS: BP 172/71
[2022-02-17] MEDS ORDERED: LIDOCAINE 1% INJ 20 ML VIAL INJ ONE (09:45)
[2022-02-17] MEDS ORDERED: TETANUS,DIPTH,PERTUSS P/F (BOOSTRIX) 0.5 ML VIAL IM ONE (10:00)
[2022-02-17] MEDS ORDERED: ONDANSETRON 4 MG/2 ML (SDV) Z0FRAN IVP ONE (10:15)
[2022-02-17] MEDS ORDERED: SULF1TAB38 PO (10:35)
--- NOTE | 2022-02-17 10:36 | ED Lower Extremity ---
General Chief Complaint: Laceration Stated Complaint: LEFT LEG LAC Nursing Triage Note: pt ambulatory to room. pt states she was taking out trash and a piece of glass came through and cut her leg. Source: patient Exam Limitations: no limitations History of Present Illness Date Seen by Provider: Feb 17, 2022 Time Seen by Provider: 09:25 Initial Comments This 56-year-old woman presents to the emergency room with a laceration to the mid left anterior lateral lower leg from a sharp object in a trash bag. She was carrying the trash out when it brushed against her leg causing a laceration. She believes it was broken glass. She has mild bleeding. There appeared to be no foreign bodies in the laceration. She does not know when her last tetanus immunization was. Allergies and Home Medications Allergies Coded Allergies: alprazolam (Unverified Allergy, Unknown, 03/10/17) meloxicam (Unverified Allergy, Unknown, 03/10/17) Patient Home Medication List Home Medication List Reviewed: Yes Cephalexin (Keflex) 500 Mg Capsule, 500 MG PO TID Prescribed by: GENNY JONES on 04/30/19 1555 Pramipexole Di-Hcl (Mirapex) 1.5 Mg Tablet, 1.5 MG PO HS, (Reported) Entered as Reported by: KELIN GREENFIELD on 08/24/12 1441 Rabeprazole Sodium (Aciphex) 20 Mg Tablet.dr, 20 MG PO DAILY, (Reported) Entered as Reported by: RODDY EWING on 06/14/10 1637 Sulfamethoxazole/Trimethoprim (Bactrim Ds Tablet) 1 Each Tablet, 1 EACH PO BID Prescribed by: LALO TINEO on 02/17/22 1035 Review of Systems Constitutional: no symptoms reported Musculoskeletal: no symptoms reported Skin: see HPI Psychiatric/Neurological: No Symptoms Reported Past Ujlbijc-Xkingg-Nojsdt Hx Patient Social History Tobacco Use?: No Use of E-Cig and/or Vaping dev: No Substance use?: No Alcohol Use?: No Pt feels they are or have been: No Immunizations Up To Date Tetanus Booster (TDap): Less than 5yrs Influenza Vaccine Up-to-Date: Yes; Up-to-Date Seasonal Allergies Seasonal Allergies: No Past Medical History Surgeries: Yes (LEFT HAND, NECK FUSION) Orthopedic Respiratory: No Cardiac: No Neurological: No Reproductive Disorders: Yes Genitourinary: No Gastrointestinal: Yes (COLONOSCOPY) Gastroesophageal Reflux Musculoskeletal: Yes Degenerate Disk Disease Endocrine: No HEENT: No Cancer: No Psychosocial: Yes Bipolar Integumentary: No Recent Skin Changes Blood Disorders: No Family Medical History No Pertinent Family Hx Physical Exam Vital Signs Vital Signs - First Documented 02/17/22 09:04 Temp 36.5 Pulse 84 Resp 20 B/P (MAP) 172/71 (104) Pulse Ox 98 Capillary Refill : Height, Weight, BMI Height: 5'4.00" Weight: 175lbs. 0oz. 79.252750rz; 158.00 BMI Method:Stated General Appearance: WD/WN, no apparent distress HEENT: normal ENT inspection Legs: left leg other (4 cm laceration on the anterior lateral mid left lower leg into the adipose tissue and oozing blood) Knees: left knee normal inspection Ankles: left ankle normal inspection Neurologic/Tendon: normal sensation, normal motor functions, normal tendon functions Neurologic/Psychiatric: no motor/sensory deficits, alert, normal mood/affect, oriented x 3 Skin: normal color, warm/dry, other (See above) Procedures/Interventions Wound Location: Lower Extremities Other Wound Location Left mid anterior lateral lower leg Wound Length (cm): 4 Wound's Depth, Shape: linear, sub Q Wound Explored: clean Irrigated w/ Saline (ccs): 800 Betadine Prep?: Yes Anesthesia: 1% Lidocaine Volume Anesthetic (ccs): 4 Suture: Prolene Suture Size: 4-0 Number of Sutures: 7 Layer Closure?: 1 Number Deep Layer Sutures: 0 Sterile Dressing Applied?: Yes Progress Wound was sprayed with lidocaine. Skin was then cleaned with alcohol and local anesthetic was injected with lidocaine. Wound was then irrigated with saline and chlorhexidine and scrubbed. It was then rinsed with normal saline. Betadine prep was then applied and wound was approximated with interrupted sutures. Pressure was applied to help reduce using. Light pressure dressing with Coban was applied. Progress/Results/Core Measures Results/Orders My Orders Orders - LALO WILSON MD Lidocaine 1% Inj 20 Ml (Xylocaine 1% Inj (02/17/22 09:45) Dipht,Pertuss(Acell),Tet Adult (Boostrix (02/17/22 10:00) Ondansetron Injection (Zofran Injectio (02/17/22 10:15) Medications Given in ED Current Medications Medications Dose Ordered Sig/Thanh Route Start Time Stop Time Status Last Admin Dose Admin Diphtheria/ Tetanus/Acell Pertussis 0.5 ml ONCE ONCE IM 02/17/22 10:00 02/17/22 10:01 DC 02/17/22 10:10 0.5 ML Lidocaine HCl 20 ml ONCE ONCE INJ 02/17/22 09:45 02/17/22 09:46 DC 02/17/22 10:08 20 ML Vital Signs/I&O 02/17/22 09:04 Temp 36.5 Pulse 84 Resp 20 B/P (MAP) 172/71 (104) Pulse Ox 98 Blood Pressure Mean: 104 Progress Progress Note : Progress Note Boostrix tetanus immunization was administered. Wound was cleaned and irrigated with saline and chlorhexidine soap. It was approximated with interrupted sutur es. Light pressure dressing with some Coban was applied. Antibiotic prescription was provided because the source of injury was trash in a trash bag. Departure Impression Primary Impression: Laceration of leg, left Qualified Codes: S81.812A - Laceration without foreign body, left lower leg, initial encounter Disposition: HOME, SELF-CARE Condition: Improved Departure-Patient Inst. Decision time for Depature: 10:32 Referrals: [facility] [place] (PCP/Family) Primary Care Physician Patient Instructions: Laceration Repair With Stitches (DC) Add. Discharge Instructions: Keep the wound clean and dry except for normal showering. You may allow soapy water to run over the wound but do not scrub the stitches directly. Do not submerge until sutures are removed. You may leave open to air when resting in a clean environment. Cover while sleeping, working, or in dirty environments. You may wish to apply a gentle pressure dressing for the next 1 to 2 days to help prevent oozing of blood and serous fluid. Elevation to the level of the heart may also help reduce bleeding. You may use Tylenol (acetaminophen) for pain if needed. Monitor for signs of infection such as increasing swelling, increasing redness, puslike drainage, or fever. Return to care promptly if you are experiencing the symptoms. Complete your antibiotics as prescribed. Return to the ER in 7 to 10 days to have the sutures removed. You do not need an appointment for this. If you are going to be active, you should request Steri-Strips be applied after the sutures are removed. Call with questions or concerns or return if you have any other significant health concerns no need to urgently address. All discharge instructions reviewed with patient and/or family. Voiced understanding. Scripts Sulfamethoxazole/Trimethoprim (Bactrim Ds Tablet) 1 Each Tablet 1 EACH PO BID, #10 TAB Prov: LALO WILSON MD 02/17/22 Work/School Note: Work Release Form Date Seen in the Emergency Department: Feb 17, 2022 Return to Work: Feb 18, 2022 Other Restrictions Listed Below: May need to change dressings frequently at work for a few days. LALO WILSON MD Feb 17, 2022 10:36
== END 2022-02-17 10:45 | disposition home or self-care (01) ==
LOC: EDUNIT# 09:02 → ER 09:04
DX: S81.812A Laceration without foreign body, left lower leg, initial encounter (principal); Z23 Encounter for immunization; W25.XXXA Contact with sharp glass, initial encounter
CPT/HCPCS: 12032; 90715

== ENCOUNTER 2022-04-29 19:39 | Emergency (ER) | payer MEDICARE ==
[~2022-04-29] VITALS: Ht 162 cm; Wt 86.1 kg
--- NOTE | 2022-04-29 20:24 | ED EENT ---
History of Present Illness General Chief Complaint: Dental Problems/Pain Stated Complaint: ABCESS TOOTH Nursing Triage Note: patient reports has had broken teeth, now has dental pain rt side. swelling. ringing in right ear. Source: patient Exam Limitations: no limitations History of Present Illness Date Seen by Provider: Apr 29, 2022 Time Seen by Provider: 20:02 Allergies and Home Medications Allergies Coded Allergies: alprazolam (Unverified Allergy, Unknown, 03/10/17) meloxicam (Unverified Allergy, Unknown, 03/10/17) Patient Home Medication List Cephalexin (Keflex) 500 Mg Capsule, 500 MG PO TID Prescribed by: GENNY JONES on 04/30/19 1555 Pramipexole Di-Hcl (Mirapex) 1.5 Mg Tablet, 1.5 MG PO HS, (Reported) Entered as Reported by: KELIN GREENFIELD on 08/24/12 1441 Rabeprazole Sodium (Aciphex) 20 Mg Tablet.dr, 20 MG PO DAILY, (Reported) Entered as Reported by: RODDY EWING on 06/14/10 1637 Sulfamethoxazole/Trimethoprim (Bactrim Ds Tablet) 1 Each Tablet, 1 EACH PO BID Prescribed by: LALO TINEO on 02/17/22 1035 Past Iblbiwi-Nnouqn-Gmacix Hx Patient Social History Tobacco Use?: No Use of E-Cig and/or Vaping dev: Yes Substance use?: No Pt feels they are or have been: No Immunizations Up To Date Tetanus Booster (TDap): Less than 5yrs Influenza Vaccine Up-to-Date: Yes; Up-to-Date First/Initial COVID19 Vaccinat: 2020 Second COVID19 Vaccination Sal: 2020 Seasonal Allergies Seasonal Allergies: No Past Medical History Surgeries: Yes (LEFT HAND, NECK FUSION) Orthopedic Respiratory: No Cardiac: No Neurological: No Reproductive Disorders: Yes Genitourinary: No Gastrointestinal: Yes (COLONOSCOPY) Gastroesophageal Reflux Musculoskeletal: Yes Degenerate Disk Disease Endocrine: No HEENT: No Cancer: No Psychosocial: Yes Bipolar Integumentary: No Recent Skin Changes Blood Disorders: No Family Medical History No Pertinent Family Hx Physical Exam Vital Signs Vital Signs - First Documented 04/29/22 19:56 Temp 36.7 Pulse 71 Resp 20 B/P (MAP) 144/71 (95) Pulse Ox 97 O2 Delivery Room Air Height, Weight, BMI Height: 5'4.00" Weight: 175lbs. 0oz. 79.921364kh; 32.00 BMI Method:Stated Procedures/Interventions Suture Size: 4-0 Progress/Results/Core Measures Results/Orders My Orders Orders - DILLAN BEAR SENIOR INTEGRATION DEVELOPER Amoxicillin/Clavulanate Tablet (Augmenti (04/29/22 20:30) Hydrocodone/Apap 5/325 Tablet (Lortab 5 (04/29/22 20:30) Medications Given in ED Current Medications Medications Dose Ordered Sig/Thanh Route Start Time Stop Time Status Last Admin Dose Admin Acetaminophen/ Hydrocodone Bitart 1 ea ONCE ONCE PO 04/29/22 20:30 04/29/22 20:31 DC 04/29/22 20:28 1 EA Amoxicillin/ Clavulanate Potassium 875 mg ONCE ONCE PO 04/29/22 20:30 04/29/22 20:31 DC 04/29/22 20:28 875 MG Vital Signs/I&O 04/29/22 19:56 Temp 36.7 Pulse 71 Resp 20 B/P (MAP) 144/71 (95) Pulse Ox 97 O2 Delivery Room Air Blood Pressure Mean: 95 Departure Impression Primary Impression: Dental abscess Disposition: 01 HOME, SELF-CARE Condition: Improved Departure-Patient Inst. Decision time for Depature: 20:43 Referrals: [facility] [place] (PCP/Family) Primary Care Physician Patient Instructions: Dental Pain ED, Tooth Abscess ED Add. Discharge Instructions: Plan: 1. Follow up with dental provider of choice, try [facility] for additional resources. 2. May take Tylenol and Ibuprofen as needed for pain, use Alice-tab for severe pain. 3. Take antibiotics by mouth as directed and complete full course. 4. Return for any new, concerning, or worsening symptoms. All discharge instructions reviewed with patient and/or family. Voiced understanding. Scripts Hydrocodone/Acetaminophen (Hydrocodone-Acetamin 5-325 mg) 5 Mg-325 Mg Tablet 1 TAB PO Q6H PRN for PAIN-MODERATE (5-7), #14 TAB 0 Refills Prov: DILLAN BEAR SENIOR INTEGRATION DEVELOPER 04/29/22 Amoxicillin/Potassium Clav (Amox Tr-K Clv 875-125 mg Tab) 875 Mg-125 Mg Tablet 1 EACH PO BID for 7 Days, #14 TAB 0 Refills Prov: DILLAN BEAR APRN 04/29/22 DILLAN BEAR APRN Apr 29, 2022 20:24
[2022-04-29] MEDS ORDERED: HYDROcodone/APAP 5 MG/325 MG (LORTAB) TAB PO ONE (20:30)
[2022-04-29] MEDS ORDERED: AUGMENTIN 875 MG TAB (AMOXICILLIN/CLAVULANATE) PO ONE (20:30)
[2022-04-29] MEDS ORDERED: AMOX1TAB12 PO (20:46)
[2022-04-29] MEDS ORDERED: ACHD5005 PO (20:46)
[2022-04-29 20:56] VITALS: BP 144/71
== END 2022-04-29 20:57 | disposition home or self-care (01) ==
LOC: EDUNIT# 19:39 → ER 19:40
DX: K04.7 Periapical abscess without sinus (principal); F17.290 Nicotine dependence, other tobacco product, uncomplicated
CPT/HCPCS: 99283

== ENCOUNTER 2022-06-05 09:27 | Emergency (ER) | payer OTHER, MEDICARE ==
[~2022-06-05] VITALS: Ht 162 cm; Wt 86.0 kg
[~2022-06-05 09:27] MED LIST changes: +ACHD5005 PO; +AMOX1TAB12 PO
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
[2022-06-05 10:39] VITALS: BP 160/74
== END 2022-06-05 10:50 | disposition home or self-care (01) ==
LOC: EDUNIT# 09:27 → ER 09:28
DX: S80.11XA Contusion of right lower leg, initial encounter (principal); S00.511A Abrasion of lip, initial encounter; V03.00XA Pedestrian on foot injured in collision with car, pick-up truck or van in nontraffic accident, initial encounter; Y92.410 Unspecified street and highway as the place of occurrence of the external cause
CPT/HCPCS: 71045; 73590

== ENCOUNTER → 2023-03-11 | Outpatient (CLI) | payer MEDICARE | LOC: CARD 13:18 | PROVIDERS: ATTEND Nurse Practitioner Family | DX: I51.7 Cardiomegaly (principal) | CPT/HCPCS: 93306 ==